=== PATIENT | female | born 1955 | race Caucasian/White ===

== ENCOUNTER 2016-08-23 02:58 | Inpatient (IN) | payer BC ==
[2016-08-23] MEDS ORDERED: ALBUTEROL NEBULIZED 2.5 MG/3 ML INHALATION STA (03:20)
[2016-08-23] MEDS ORDERED: predniSONE 20 MG TAB PO STA (03:20)
[2016-08-23] MEDS ORDERED: IPRATROPIUM-ALBUTEROL 3 ML NEB INHALATION STA (03:20)
--- NOTE | 2016-08-23 03:32 | ED ---
SOB HPI - General Chief Complaint: Shortness of Breath Stated Complaint: NANI Time Seen by Provider: 08/23/16 03:01 Source: patient Mode of arrival: EMS Limitations: physical limitation - History of Present Illness Initial Comments: This patient is a 61-year-old woman who comes to be evaluated for shortness of breath. The patient states that between 2 and 3 weeks ago she started having a bit of an upper respiratory infection. She then started having some cough and wheezing. She has seen her physician and had 2 courses of antibiotics as well as a Medrol Dosepak. She was feeling better briefly but over the past couple of days has noted that she is worsening. The patient does continue use her albuterol and home oxygen. She complains of wheezing, nonproductive cough, shortness of breath. Patient is not having fever or chills, chest pain, change in urination, bloody or dark tarry stools, leg pain or swelling. MD Complaint: shortness of breath, cough Onset/Timin -: week(s) Improves With: nothing Worsens With: nothing Known History Of: COPD Context: recent URI Associated Symptoms: cough Treatments Prior to Arrival: oxygen, bronchodilator - Related Data Home Oxygen Therapy: Yes Home Medications Medication Instructions Recorded Confirmed Montelukast Sodium 10 mg PO HS 02/07/15 11/28/15 buPROPion SR [Wellbutrin SR] 150 mg PO BID 02/21/15 11/28/15 Albuterol Inhaler [Ventolin Hfa 1 puff INHALATION DAILY PRN 11/28/15 11/28/15 Inhaler] Alendronate Sodium [Fosamax] 70 mg PO WE 11/28/15 11/28/15 Budesonide-Formot 160-4.5 Mcg 2 puff INHALATION BID 11/28/15 11/28/15 [Symbicort 160-4.5 Mcg Inhaler] Calcium Carbonate [Calcium] 900 mg PO DAILY 11/28/15 11/28/15 Cholecalciferol [Vitamin D3] 2,000 unit PO DAILY 11/28/15 11/28/15 Levocetirizine Dihydrochloride 5 mg PO QAM 11/28/15 11/28/15 Tiotropium [place] [Spiriva] 1 puff INHALATION DAILY 11/28/15 11/28/15 Tyvaso 9 puff INHALATION QID 11/28/15 11/28/15 Previous Rx's Medication Instructions Recorded Levofloxacin [Levaquin] 500 mg PO DAILY #5 tab 02/24/15 Allergies Allergy/AdvReac Type Severity Reaction Status Date / Time latex Allergy Unknown Rash/Hives Verified 08/23/16 03:04 nickel [Nickel] Allergy Unknown Rash/Hives Verified 08/23/16 03:04 nitrofurantoin Allergy Unknown Rash/Hives Verified 08/23/16 03:04 macrocrystalline [From Macrodantin] Penicillins Allergy Unknown Rash/Hives Verified 08/23/16 03:04 Review of Systems ROS Statement: Those systems with pertinent positive or pertinent negative responses have been documented in the HPI. ROS Other: All systems not noted in ROS Statement are negative. Constitutional: Denies: fever, chills Respiratory: Reports: cough, dyspnea, wheezes. Denies: hemoptysis Cardiovascular: Denies: chest pain, palpitations, edema Gastrointestinal: Denies: abdominal pain, nausea, vomiting Genitourinary: Denies: dysuria, hematuria Musculoskeletal: Denies: back pain Skin: Denies: rash Neurological: Denies: headache, weakness, numbness Past Medical History Past Medical History: COPD Additional Past Medical History / Comment(s): Suspected primary versus secondary pulmonay hypertension, precancerous colonic tumor, resected hydronephrosis, resolved, adrenal lesion/adenoma being monitored History of Any Multi-Drug Resistant Organisms: None Reported Past Surgical History: Bowel Resection, Tonsillectomy, Tubal Ligation Additional Past Surgical History / Comment(s): sigmoidoscopy, hemorrhoidectomy, breast bx, bowel resection with ileostomy, ILLEOSTOMY REVERSAL 01/18/14 Past Anesthesia/Blood Transfusion Reactions: No Reported Reaction, Family History of Problems w/ Anesthesia Additional Past Anesthesia/Blood Transfusion Reaction / Comment(s): SISTER WAS AWARE OF SURROUNDINGS WITH ANESTHESIA Past Psychological History: No Psychological Hx Reported Smoking Status: Former smoker Past Alcohol Use History: None Reported Additional Past Alcohol Use History / Comment(s): STARTED SMOKING two months ago 1-2 a day Past Drug Use History: None Reported - Past Family History Mother Family Medical History: Deep Vein Thrombosis (DVT), Pulmonary Embolus Additional Family Medical History / Comment(s): "BRAIN CLOT" Sister(s) Family Medical History: Cancer, Deep Vein Thrombosis (DVT), Pulmonary Embolus Additional Family Medical History / Comment(s): "BRAIN CLOT",thyroid ca General Exam Limitations: physical limitation General appearance: alert, in distress (Patient appears in mild respiratory distress, with tachypnea and accessory muscle use.) Head exam: Present: atraumatic, normocephalic Eye exam: Present: normal appearance. Absent: scleral icterus, conjunctival injection ENT exam: Present: normal oropharynx Respiratory exam: Present: respiratory distress (Mild tachypnea), wheezes, accessory muscle use, decreased breath sounds, prolonged expiratory. Absent: rales, rhonchi, stridor Cardiovascular Exam: Present: regular rate, normal rhythm, normal heart sounds. Absent: systolic murmur, diastolic murmur, rubs, gallop GI/Abdominal exam: Present: soft. Absent: distended, tenderness, guarding, rebound, mass Extremities exam: Present: normal inspection, normal capillary refill. Absent: pedal edema, calf tenderness Back exam: Present: normal inspection. Absent: CVA tenderness (R), CVA tenderness (L) Neurological exam: Present: alert Skin exam: Present: warm, dry, intact, normal color. Absent: rash Course Vital Signs 08/23/16 08/23/16 08/23/16 02:59 03:35 04:03 Temperature 97.9 F Pulse Rate 104 H 114 H 110 H Respiratory 24 Rate Blood Pressure 152/91 O2 Sat by Pulse 98 Oximetry Medical Decision Making - Lab Data Result diagrams: 08/23/16 03:05 08/23/16 03:05 Lab Results 08/23/16 08/23/16 08/23/16 Range/Units 03:05 03:05 03:05 WBC 12.1 H (3.8-10.6) k/uL RBC 4.52 (3.80-5.40) m/uL Hgb 13.0 (11.4-16.0) gm/dL Hct 41.3 (34.0-46.0) % MCV 91.4 (80.0-100.0) fL MCH 28.8 (25.0-35.0) pg MCHC 31.5 (31.0-37.0) g/dL RDW 13.0 (11.5-15.5) % Plt Count 279 (150-450) k/uL Neutrophils % 74 % Lymphocytes % 13 % Monocytes % 6 % Eosinophils % 4 % Basophils % 1 % Neutrophils # 8.9 H (1.3-7.7) k/uL Lymphocytes # 1.5 (1.0-4.8) k/uL Monocytes # 0.7 (0-1.0) k/uL Eosinophils # 0.5 (0-0.7) k/uL Basophils # 0.1 (0-0.2) k/uL Hypochromasia Slight D-Dimer (<0.60) mg/L FEU Sodium 136 L (137-145) mmol/L Potassium 4.1 (3.5-5.1) mmol/L Chloride 102 (98-107) mmol/L Carbon Dioxide 28 (22-30) mmol/L Anion Gap 6 mmol/L BUN 13 (7-17) mg/dL Creatinine 0.90 (0.52-1.04) mg/dL Est GFR (MDRD) Af Amer >60 (>60 ml/min/1.73 sqM) Est GFR (MDRD) Non-Af >60 (>60 ml/min/1.73 sqM) Glucose 106 H (74-99) mg/dL Calcium 8.6 (8.4-10.2) mg/dL Total Bilirubin 0.4 (0.2-1.3) mg/dL AST 24 (14-36) U/L ALT 25 (9-52) U/L Alkaline Phosphatase 38 (38-126) U/L Troponin I 0.418 H* (0.000-0.034) ng/mL NT-Pro-B Natriuret Pep pg/mL Total Protein 6.4 (6.3-8.2) g/dL Albumin 3.8 (3.5-5.0) g/dL 08/23/16 08/23/16 Range/Units 03:05 03:05 WBC (3.8-10.6) k/uL RBC (3.80-5.40) m/uL Hgb (11.4-16.0) gm/dL Hct (34.0-46.0) % MCV (80.0-100.0) fL MCH (25.0-35.0) pg MCHC (31.0-37.0) g/dL RDW (11.5-15.5) % Plt Count (150-450) k/uL Neutrophils % % Lymphocytes % % Monocytes % % Eosinophils % % Basophils % % Neutrophils # (1.3-7.7) k/uL Lymphocytes # (1.0-4.8) k/uL Monocytes # (0-1.0) k/uL Eosinophils # (0-0.7) k/uL Basophils # (0-0.2) k/uL Hypochromasia D-Dimer 0.30 (<0.60) mg/L FEU Sodium (137-145) mmol/L Potassium (3.5-5.1) mmol/L Chloride (98-107) mmol/L Carbon Dioxide (22-30) mmol/L Anion Gap mmol/L BUN (7-17) mg/dL Creatinine (0.52-1.04) mg/dL Est GFR (MDRD) Af Amer (>60 ml/min/1.73 sqM) Est GFR (MDRD) Non-Af (>60 ml/min/1.73 sqM) Glucose (74-99) mg/dL Calcium (8.4-10.2) mg/dL Total Bilirubin (0.2-1.3) mg/dL AST (14-36) U/L ALT (9-52) U/L Alkaline Phosphatase (38-126) U/L Troponin I (0.000-0.034) ng/mL NT-Pro-B Natriuret Pep 141 pg/mL Total Protein (6.3-8.2) g/dL Albumin (3.5-5.0) g/dL Disposition Clinical Impression: Acute exacerbation of chronic obstructive airways disease, Elevated troponin I level Disposition: ADMITTED IP TO THIS HOSP Condition: Poor
[2016-08-23 03:50] LABS: Basophils # (A) 0.1 k/uL (0-0.2); Basophils % (A) 1 %; CH 28.2; CHCM 30.9; Eosinophils # (A) 0.5 k/uL (0-0.7); Eosinophils % (A) 4 %; HCT 41.3 % (34.0-46.0); HDW 2.19; Hypochromasia Slight; Luc # (Auto) 0.23; Luc % (Auto) 2; Lymphocytes # (A) 1.5 k/uL (1.0-4.8); Lymphocytes % (A) 13 %; MCH 28.8 pg (25.0-35.0); MCHC 31.5 g/dL (31.0-37.0); MCV 91.4 fL (80.0-100.0); Mean Platelet Volume 7.2; Monocytes # (A) 0.7 k/uL (0-1.0); Monocytes % (A) 6 %; Neutrophils # (A) 8.9 k/uL (1.3-7.7); Neutrophils % (A) 74 %; RBC 4.52 m/uL (3.80-5.40); WBC 12.1 k/uL (3.8-10.6); WBC (Perox) 12.67
[2016-08-23 03:57] LABS: ALT 25 U/L (9-52); AST 24 U/L (14-36); Alkaline Phosphatase 38 U/L (38-126); Anion Gap 6 mmol/L; Blood Urea Nitrogen 13 mg/dL (7-17); Calcium 8.6 mg/dL (8.4-10.2); Carbon Dioxide 28 mmol/L (22-30); Chloride 102 mmol/L (98-107); Glucose 106 mg/dL (74-99); Non-African American GFR(MDRD) >60 (>60 ml/min/1.73 sqM); Potassium 4.1 mmol/L (3.5-5.1); Sodium 136 mmol/L (137-145); Total Bilirubin 0.4 mg/dL (0.2-1.3); Total Protein 6.4 g/dL (6.3-8.2)
[2016-08-23] MEDS ORDERED: HEPARIN SODIUM,PORCINE 5,000 UNIT/ML 1 ML VIAL IV ONE (04:49)
[2016-08-23] MEDS ORDERED: HEPARIN SODIUM,PORCINE 5,000 UNIT/ML 1 ML VIAL IV PRN (04:49)
--- NOTE | 2016-08-23 04:51 | XR ---
EXAM: XR Chest, 1 View CLINICAL HISTORY: Reason: dyspnea TECHNIQUE: Frontal view of the chest. COMPARISON: No relevant prior studies available. FINDINGS: Lungs: Pulmonary hyperexpansion. Bibasilar opacities may be secondary to overlying soft tissues. Atelectasis or consolidation not entirely excluded. A 1 cm nodular density projecting over the right medial fifth rib is present. Pleural space: No pneumothorax. Heart: Unremarkable. No cardiomegaly. Mediastinum: Unremarkable. Bones/joints: Unremarkable. Vasculature: Atherosclerotic plaquing in the aortic arch. IMPRESSION: 1. Pulmonary hyperexpansion likely reflects chronic obstructive pulmonary disease. 2. Bibasilar opacities may be secondary to overlying soft tissues. Atelectasis or consolidation not excluded. Consider correlation with lateral chest radiograph for further assessment. 3. No pleural effusion or pneumothorax. 4. 1 cm nodular density projecting over the right medial fifth rib was not clearly present on prior. While findings could be external to the chest, a pulmonary nodule is not excluded. Nonemergent/outpatient followup chest CT recommended for further assessment. [employer] 08/23/16 04:57 Verify Receipt Verified receipt with Radha in the ER, report handed to Dr. Portillo on 08/23 04:57 (-04:00)
[2016-08-23] MEDS ORDERED: IPRATROPIUM-ALBUTEROL 3 ML NEB INHALATION PRN (04:55)
[2016-08-23 05:14] LABS: INR 1.1 (<1.1); Partial Thromboplastin Time 23.8 sec (22.0-30.0)
[2016-08-23] MEDS: HEPARIN SODIUM,PORCINE/D5W PMX 25,000 UNIT in DEXTROSE/WATER 1 500ML.BAG IV SCH (05:19)
[2016-08-23] MEDS: ALBUTEROL NEBULIZED 2.5 MG/3 ML INHALATION SCH ×4 (08:18→20:25)
[2016-08-23] MEDS: SYMBICORT 160-4.5 MCG INHALER INHALATION SCH ×2 (08:18→20:25)
[2016-08-23] MEDS: TIOTROPIUM 18 MCG/PUFF INHALER INHALATION SCH (08:37)
[2016-08-23] MEDS: buPROPion SR 150 MG TABLET.ER PO SCH ×2 (08:38→20:46)
[2016-08-23] MEDS: CALCIUM CARBONATE 500 MG CHEWABLE PO SCH (08:38)
[2016-08-23] MEDS: LORATADINE 10 MG TAB PO SCH (08:39)
[2016-08-23] MEDS: CHOLECALCIFEROL 1,000 UNIT TAB PO SCH (08:39)
--- NOTE | 2016-08-23 12:06 | P.CRDCN ---
History of Present Illness Consult date: 08/23/16 Requesting physician: George Connelly Reason for Consult (text): Chest tightness and shortness of breath Chief complaint: Chest tightness and shortness of breath History of present illness: This is a pleasant 61-year-old female with history of COPD, pulmonary hypertension, being followed at [facility], prior nicotine dependence, prior colon cancer with ileostomy, strong family history of premature coronary artery disease. She presents to the hospital with symptoms of severe shortness of breath, she states that her chest becomes extremely tight and she is unable to get air in. She also describes that this is much different than her usual exacerbation of COPD. She has recently as an outpatient been treated for an upper respiratory infection with not much significant improvement. KG on admission shows a sinus tachycardia with PVCs, significant artifact. Troponin 0.41, subsequent troponin 2.18. BNP 141. Sodium 136, potassium 4.1, BUN 13, creatinine 0.9. D-dimer 0.3. White Blood cell count 12.1. Blood pressure on arrival 152/90, heart rate 104, 98% on 8 L oxygen. His morning blood pressure 101/60, heart rate 104, 95% on 4 L of oxygen. Chest x-ray reveals pulmonary hyperexpansion likely secondary to COPD. Bibasilar obesity secondary to overlying soft tissues. Atelectasis or consolidation excluded. No pleural effusion or pneumothorax. 1 cm nodule density projecting over the right medial fifth rib not clearly present on prior. Patient lost her approximately one month ago, 2 weeks ago she lost a sister to cardiac arrest, he's been under significant amount of stress. Patient is on the lung transplant list at [facility]. Past Medical History Past Medical History: COPD, Respiratory Disorder Additional Past Medical History / Comment(s): Recent tx for URI, primary versus secondary pulmonary hypertension-currently on tyvaso treatments-has had some work-up done to be on lung transplant list thru [facility], home O2 at 3L/NC ATC, dysphagia-feels like food gets caught in low end esophagus-pt states she will eventually be worked up at [facility] for this-she drinks a gulp of water to force food down, hiatal hernia, esophagitis, precancerous colonic tumor with sx, hydronephrosis with adhesions resolved with surgery/stent, adrenal lesion/ adenoma being monitored, osteoporosis. History of Any Multi-Drug Resistant Organisms: None Reported Past Surgical History: Bladder Surgery, Bowel Resection, Tonsillectomy, Tubal Ligation Additional Past Surgical History / Comment(s): colonoscopies, sigmoidoscopy, EGD , hemorrhoidectomy, breast bx x 2 pt does not recall laterality, bowel resection with ileostomy, ILLEOSTOMY REVERSAL 01/18/14, cystoscopy with R ureteral stent. Past Anesthesia/Blood Transfusion Reactions: No Reported Reaction, Family History of Problems w/ Anesthesia Additional Past Anesthesia/Blood Transfusion Reaction / Comment(s): SISTER WAS AWARE OF SURROUNDINGS WITH ANESTHESIA Past Psychological History: Depression Additional Psychological History / Comment(s): Pt was started on Wellbutrin to aid in stopping smoking, she decided to stay on it after quitting smoking because she felt better. Pt states she feels like she may need more help with her depression-it has increased some recently. She has had 2 significant deaths in the past few months-her spouse and her sister and she feels this is likely the source of her increased depression. She denies any suicidal thoughts. She is from a large family of 18 children. She lives at home and assists in the care of her brother who has down's syndrome. Her granddaughter has recently moved in with them to assist as well. She has home oxygen and a nebulizer. Pt mentioned that since her spouses her financial status has declined. She stated that she may no longer be able to afford pursuing her lung transplant and once she reaches 64yrs and goes on Medicare, she will not be able to afford her Tyvaso treatments. No home care. Smoking Status: Former smoker Past Alcohol Use History: None Reported Additional Past Alcohol Use History / Comment(s): Pt started smoking in 1974 and quit in January 2015. Past Drug Use History: None Reported - Past Family History Father Family Medical History: COPD, Myocardial Infarction (IN) Additional Family Medical History / Comment(s): Father had severe COPD. He of a IN at the age of 69yrs. Mother Family Medical History: Deep Vein Thrombosis (DVT), Pulmonary Embolus Additional Family Medical History / Comment(s): "BRAIN CLOT" Sister(s) Family Medical History: Deep Vein Thrombosis (DVT), Pulmonary Embolus Additional Family Medical History / Comment(s): Pt is from a large family (18 children) and there is alot of DVT's and cerebral thrombosis in the family. Several family members have cardiolipin antibody. Medications and Allergies Home Medications Medication Instructions Recorded Confirmed Type Montelukast Sodium 10 mg PO HS 02/07/15 08/23/16 History buPROPion SR [Wellbutrin SR] 150 mg PO BID 02/21/15 08/23/16 History Albuterol Inhaler [Ventolin Hfa 1 puff INHALATION RT-Q4H PRN 11/28/15 08/23/16 History Inhaler] Alendronate Sodium [Fosamax] 70 mg PO WE 11/28/15 08/23/16 History Budesonide-Formot 160-4.5 Mcg 2 puff INHALATION RT-BID 11/28/15 08/23/16 History [Symbicort 160-4.5 Mcg Inhaler] Calcium Carbonate [Calcium] 900 mg PO DAILY 11/28/15 08/23/16 History Cholecalciferol [Vitamin D3] 1,000 unit PO DAILY 11/28/15 08/23/16 History Levocetirizine Dihydrochloride 5 mg PO QAM 11/28/15 08/23/16 History Tiotropium [place] [Spiriva] 1 cap INHALATION RT-DAILY 11/28/15 08/23/16 History Tyvaso 9 puff INHALATION RT-QID 11/28/15 08/23/16 History Allergies Allergy/AdvReac Type Severity Reaction Status Date / Time latex Allergy Unknown Rash/Hives Verified 08/23/16 07:31 nickel [Nickel] Allergy Unknown Rash/Hives Verified 08/23/16 07:31 nitrofurantoin Allergy Unknown Rash/Hives Verified 08/23/16 07:31 macrocrystalline [From Macrodantin] Penicillins Allergy Unknown Rash/Hives Verified 08/23/16 07:31 Physical Exam Vitals: Vital Signs Temp Pulse Resp BP Pulse Ox 08/23/16 11:16 104 H 08/23/16 11:03 100 08/23/16 10:29 97.0 F L 63 18 101/68 08/23/16 10:00 97.0 F L 93 20 121/68 95 08/23/16 09:00 97.0 F L 104 H 20 113/64 96 08/23/16 08:40 97.4 F L 104 H 18 112/67 95 08/23/16 08:30 108 H 08/23/16 08:20 103 H 08/23/16 07:00 97.1 F L 111 H 20 107/56 95 08/23/16 06:49 105 H 22 107/76 98 Intake and Output 08/22/16 08/23/16 08/23/16 22:59 06:59 14:59 Other: # Voids 1 Weight 0 g Patient Weight 08/24/16 06:59 Weight 0 g PHYSICAL EXAMINATION: HEENT: Head is atraumatic, normocephalic. Pupils equal, round. Neck is supple. There is no elevated jugular venous pressure. HEART EXAMINATION: Heart S1, S2 normal. No murmur or gallop heard. CHEST EXAMINATION: We have decreased air exchange throughout. ABDOMEN: Soft, nontender. Bowel sounds are heard. No organomegaly noted. EXTREMITIES: 2+ peripheral pulses with no evidence of peripheral edema and no calf tenderness noted. NEUROLOGIC patient is awake, alert and oriented -3. . Results 08/23/16 03:05 08/23/16 03:05 Cardiac Enzymes 08/23/16 Range/Units 09:05 Troponin I 2.180 H* (0.000-0.034) ng/mL Current Medications Generic Name Dose Route Start Last Admin Trade Name Freq PRN Reason Stop Dose Admin Albuterol Sulfate 2.5 mg 08/23/16 08:00 08/23/16 11:02 Ventolin Nebulized INHALATION 2.5 mg RT-QID TOMASZ Administration Albuterol/Ipratropium 3 ml 08/23/16 04:55 Duoneb 0.5 Mg-3 Mg/3 Ml Soln INHALATION RT-Q4H PRN Shortness Of Breath Or Wheezing Budesonide/Formoterol Fumarate 2 puff 08/23/16 08:00 08/23/16 08:18 Symbicort 160-4.5 Mcg Inhaler INHALATION 2 puff RT-BID TOMASZ Administration Bupropion HCl 150 mg 08/23/16 09:00 08/23/16 08:38 Wellbutrin Sr PO 150 mg BID TOMASZ Administration Calcium Carbonate/Glycine 1,000 mg 08/23/16 09:00 08/23/16 08:38 Tums PO 1,000 mg DAILY TOMASZ Administration Cholecalciferol 2,000 unit 08/23/16 09:00 08/23/16 08:39 Vitamin D3 PO 2,000 unit DAILY TOMASZ Administration Heparin Sodium (Porcine) 0 unit 08/23/16 04:49 Heparin IV PER PROTOCOL PRN Low PTT Protocol Heparin Sodium/Dextrose 25,000 500 mls @ 15.24 mls/hr 08/23/16 05:00 05:19 unit/ IV Solution IV 12 units/kg/hr .Q24H TOMASZ 15.24 mls/hr Protocol Administration 12 UNITS/KG/HR Loratadine 10 mg 08/23/16 09:00 08/23/16 08:39 Claritin PO 10 mg QAM TOMASZ Administration Montelukast Sodium 10 mg 08/23/16 21:00 Singulair PO HS TOMASZ Non-Formulary Medication 9 puff 08/23/16 09:00 Tyvaso INHALATION QID TOMASZ Prednisone 40 mg 08/23/16 09:00 PO DAILY TOMASZ Sodium Chloride 10 ml 08/23/16 09:00 08/23/16 11:18 Saline Flush IV Not Given BID TOMASZ Tiotropium [place] 1 puff 08/23/16 08:00 08/23/16 08:37 Spiriva INHALATION 1 puff RT-DAILY TOMASZ Administration Intake and Output 08/22/16 08/23/16 08/23/16 22:59 06:59 14:59 Other: # Voids 1 Weight 0 g Patient Weight 08/24/16 06:59 Weight 0 g EKG Interpretations (text) EKG shows a this tachycardia with occasional PVC, significant artifact. Assessment and Plan Plan: Assessment and plan #1 symptoms of progressively worsening chest tightness with associated difficulty in breathing. Troponins 0.41, 2.1. Small non-Q-wave myocardial infarction. EKG shows sinus tachycardia with occasional PVC, significant artifact. According to the patient she did have a cardiac catheterization in 2013 at [facility] as part of her workup in the pulmonary hypertension clinic. She was not told to have any significant blockage at that time. #2 COPD #3 severe pulmonary hypertension #4 prior nicotine dependence #5 family history of premature coronary artery disease #6 history of colon cancer with prior ileostomy Plan We will obtain an echocardiogram with Doppler study. Obtain EKG. We will also request a third troponin value be obtained. Change records from the pulmonary hypertension clinic at [facility]. We will give the patient an aspirin as well as Lipitor. Further recommendations to follow. DNP note has been reviewed, I agree with a documented findings and plan of care. Patient was seen and examined.
[2016-08-23 12:10] LABS: Basophils % (A) 0 %; CH 28.4; CHCM 30.6; Eosinophils % (A) 0 %; HCT 41.9 % (34.0-46.0); HGB 12.9 gm/dL (11.4-16.0); Hypochromasia Slight; Luc # (Auto) 0.04; Luc % (Auto) 1; Lymphocytes # (A) 0.4 k/uL (1.0-4.8); Lymphocytes % (A) 5 %; MCH 28.8 pg (25.0-35.0); MCHC 30.9 g/dL (31.0-37.0); MCV 93.1 fL (80.0-100.0); Monocytes # (A) 0.1 k/uL (0-1.0); Monocytes % (A) 1 %; Neutrophils # (A) 7.3 k/uL (1.3-7.7); Neutrophils % (A) 93 %; WBC 7.8 k/uL (3.8-10.6); WBC (Perox) 8.61
[2016-08-23] MEDS ORDERED: ALPRAZolam 0.5 MG TAB PO PRN (12:30)
[2016-08-23] MEDS ORDERED: NITROGLYCERIN SL TABS 0.4 MG TAB SUBLINGUAL PRN (12:30)
[2016-08-23] MEDS ORDERED: SODIUM CHLORIDE 0.9% 1,000 ML in EMPTY BAG 1 BAG IV ONE (12:30)
[2016-08-23] MEDS: predniSONE 20 MG TAB PO SCH (12:43)
[2016-08-23] MEDS ORDERED: ASPIRIN 325 MG TAB PO SCH (13:00)
[2016-08-23] MEDS: ATORVASTATIN 80 MG TAB PO SCH (13:04)
[2016-08-23] MEDS ORDERED: SODIUM CHLORIDE 0.9% 1,000 ML IV ONE (14:05)
[2016-08-23] MEDS ORDERED: MIDAZOLAM 2 MG/2 ML VIAL IV ONE (14:18)
[2016-08-23] MEDS ORDERED: fentaNYL (PF) 50 MCG/ML 2 ML AMP IV ONE (14:18)
[2016-08-23] MEDS ORDERED: LIDOCAINE 2% INJ 20 MG/ML SQ ONE (14:22)
--- NOTE | 2016-08-23 14:29 | ECHOF ---
Referral Reason:[facility] MEASUREMENTS -------- HEIGHT: 170.2 cm WEIGHT: 63.5 kg BP: IVSd: 1.3 cm (0.6 - 1.1) LVIDd: 4.9 cm (3.9 - 5.3) LVPWd: 0.9 cm (0.6 - 1.1) LVIDs: 4.0 cm LA Diam: 3.7 cm (2.7 - 3.8) Ao Diam: 3.3 cm (2.0 - 3.7) LA Diam: 3.3 cm (2.7 - 3.8) AV Cusp: 1.6 cm (1.5 - 2.6) EPSS: 1.7 cm MV E Waqas: 0.66 m/s MV DecT: 193 ms MV A Waqas: 1.01 m/s MV E/A Ratio: 0.65 RAP: 5.00 mmHg RVSP: 16.07 mmHg MV EF SLOPE: 111.27 mm/s (70 - 150) MV EXCURSION: 20.17 mm (> 18.000) FINDINGS -------- Sinus rhythm. This was a technically adequate study. Left ventricular wall thickness is normal. There is severe global hypokinesis of LV . Overall left ventricular systolic function is severely impaired with, an EF < 20%. Possible Takotsubo. The right ventricle is normal in size. The right atrial size is normal. There is mild aortic valve sclerosis. There is no evidence of aortic regurgitation. Mild mitral annular calcification present. Mild mitral regurgitation is present. Mild tricuspid regurgitation present. There is no evidence of pulmonary hypertension. The right ventricular systolic pressure, as measured by Doppler, is 16.07mmHg. There is no pulmonic regurgitation present. The aortic root size is normal. There is no pericardial effusion. CONCLUSIONS -------- 1. Left ventricular wall thickness is normal. 2. The right ventricular systolic pressure, as measured by Doppler, is 16.07mmHg. 3. There is no pericardial effusion. 4. There is severe global hypokinesis of LV . 5. Overall left ventricular systolic function is severely impaired with, an EF < 20%. 6. Possible Takotsubo. 7. There is mild aortic valve sclerosis. 8. Mild mitral annular calcification present. 9. Mild mitral regurgitation is present. 10. Mild tricuspid regurgitation present. 11. There is no evidence of pulmonary hypertension. [place] OPERATOR: Suzanne Campoverde RDCS
[2016-08-23] MEDS ORDERED: IOHEXOL 350 MG/ML 125ML BOTTLE INJ ONE (14:39)
[2016-08-23] MEDS ORDERED: RX INFO: IV CONTRAST WAS GIVEN 1 EACH MISC MISCELLANE PRN (14:40)
--- NOTE | 2016-08-23 14:56 | P.PCN ---
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 Postoperative Diagnosis: Normal coronary arteries. Findings consistent with apical ballooning syndrome Procedure(s) Performed: Left heart catheterization without left ventriculography Operative Findings: HISTORY: This is a 61-year-old femalewith history of severe pulmonary hypertension, COPD, colon cancer and chronic smoking was under a lot of stress because of family issues came to the hospital with severe chest tightness and shortness of breath. Her cardiac enzyme studies showed elevation of the troponins consistent with non-ST elevation microinfarction. Echocardiogram showed severe LV dysfunction in the anteroapical and inferoapical segments consistent with apical ballooning syndrome. Patient is advised to have a cardiac catheterization for definitive diagnosis. CONSENT:I have discussed the risks, benefits and alternative therapies for the above-mentioned procedure and for both sedation/analgesia as well as necessary blood product administration, if indicated, as they pertain to this patient. The patient has indicated understanding and acceptance of the risks and procedures discussed. PROCEDURE: Patient was brought to the lab in a fasting state. Patient was given some IV sedation. The right groin is infiltrated with lidocaine and right femoral artery was entered using Seldinger technique. A 6-Greenlandic catheter was left in place and selective coronary arteriography was performed. Patient tolerated the procedure well. Femoral angiogram was performed and Angio-Seal was applied for hemostasis. No immediate complications were noted and patient was transferred to [facility] in a stable condition HEMODYNAMICS:The aortic pressure is 110/70. SELECTIVE CORONARY ARTERIOGRAPHY: LEFT MAIN:normal and patent THE LEFT ANTERIOR DESCENDING CORONARY ARTERY:is a good caliber vessel giving rise to several diagonal septal branches. This is free of any significant focal occlusive disease. THE LEFT CIRCUMFLEX AND IS CORONARY ARTERY:this is a fairly caliber vessel giving rise to 2 OM branches in the PLV branch. Free of any significant focal occlusive disease THE RIGHT CORONARY ARTERY:this is a good caliber vessel and codominant and free of any occlusive disease LEFT VENTRICULOGRAPHY:not performed FINAL IMPRESSION:#1. Apical ballooning syndrome #2. Mild plaque without any critical coronary artery disease PLAN:maximum medical therapy and this factor modification. Beta blockers and MOY inhibitor PROGNOSIS:guarded
--- NOTE | 2016-08-23 14:59 | HP ---
DATE OF ADMISSION: Patient is a very pleasant 61-year-old female with history of COPD and advanced pulmonary hypertension secondary to COPD follows with the [facility] and came in with complaints of shortness of breath along with chest pressure-like sensation, lasted for a few hours and found to be in [id number] myocardial infarction with the first initial troponin being 0.418 and the second one being 2.180. Patient was complaining of minimal cough with yellowish sputum production. Patient denied any fever, chills. Patient denied any nausea, vomiting and patient is diagnosed with wel-IO-vxcuuuofo myocardial infarction. Patient is on IV heparin, is going for cardiac catheterization today. Patient denied any lightheadedness patient uses 3 L of oxygen at home, now on 4 L saturating at 92% and chest x-ray did not show any pneumonic process except for 1 cm nodular density projecting in the right medial fifth rib which was not clearly present during previous admissions because of which I am consulting Pulmonary and COPD changes on the chest x-ray. REVIEW OF SYSTEMS: CONSTITUTIONAL: No fever, no malaise, no fatigue. HEENT: No recent visual problems or hearing problems. Denied any sore throat. CARDIOVASCULAR: As described in HPI. PULMONARY: As described HPI. GASTROINTESTINAL: No diarrhea, no nausea, no vomiting, no abdominal pain. Normoactive bowel sounds. NEUROLOGICAL: No headaches, no weakness, no numbness. HEMATOLOGICAL: Denies any bleeding or petechiae. GENITOURINARY: Denies any burning micturition, frequency, or urgency. MUSCULOSKELETAL/RHEUMATOLOGICAL: Denies any joint pain, swelling, or any muscle pain. ENDOCRINE: Denies any polyuria or polydipsia. The rest of the 14 point review of systems is negative. PAST MEDICAL HISTORY: COPD, advanced pulmonary fibrosis, bowel resection surgery, tubal ligation surgery. Patient has colonoscopy, sigmoidoscopy, EGD, hemorrhoidectomy, breast biopsies in the past. SOCIAL HISTORY: Former smoker. Quit smoking in January 2015, denied any alcohol abuse or any drug abuse. FAMILY HISTORY: Father had COPD, myocardial infarction. Mother had DVT, pulmonary embolus in the past. Sister had DVT and pulmonary embolus. Home medications include: 1. Montelukast. 2. Bupropion. 3. Albuterol. 4. Alendronate. 5. Budesonide. 6. Formoterol. 7. Calcium carbonate. 8. Cholecalciferol. 9. Levocetirizine. 10. Tiotropium. 11. Tyvaso. ALLERGIES: Allergic to LATEX, NICKEL, NITROFURANTOIN, PENICILLINS. PHYSICAL EXAMINATION: VITAL SIGNS: Temperature 98.0, pulse of 104, respiratory rate of 20, blood pressure is 101/68, saturating at 92% on 4 L of O2 by nasal cannula. LUNG EXAMINATION: Minimal expiratory wheezing was appreciated. No crackles were appreciated. GENERAL: The patient is alert and oriented x3, not in any acute distress. Well developed, well nourished. HEENT: Pupils are round and equally reacting to light. EOMI. No scleral icterus. No conjunctival pallor. Normocephalic, atraumatic. No pharyngeal erythema. No thyromegaly. CARDIOVASCULAR: S1 and S2 present. No murmurs, rubs, or gallops. ABDOMEN: Soft, nontender, nondistended, normoactive bowel sounds. No palpable organomegaly. MUSCULOSKELETAL: No joint swelling or deformity. EXTREMITIES: No cyanosis, clubbing, or pedal edema. NEUROLOGICAL: Gross neurological examination did not reveal any focal deficits. SKIN: No rashes. LABORATORY DATA: CBC, CMP are abnormal for elevated WBC count of 12,100, which is coming down which is reactive leukocytosis. Chest x-ray as mentioned above. ASSESSMENT AND PLAN: 1. Ndx-TD-mkucszmzs myocardial infarction. Patient is undergoing cardiac catheterization today. 2. Acute on chronic hypercapnic respiratory failure, secondary to chronic obstructive pulmonary disease exacerbation. Patient is on systemic steroids, inhalational treatments. Will add doxycycline for possible bronchitis. 3. Severe pulmonary hypertension. Follow up as an outpatient. 4. Leukocytosis, reactive response without any significant signs or symptoms of pneumonia. 5. Pulmonary nodule, will get Pulmonary to see the patient. Patient follows with Dr. Pabon and Dr. Garvey is covering for Dr. Pabon this week who will be consulted. Patient follows with Dr. Cristobal Ramsey as an outpatient.
[2016-08-23] MEDS: LISINOPRIL 2.5 MG TAB PO SCH (19:29)
[2016-08-23] MEDS: DOXYCYCLINE 50 MG CAP PO SCH ×2 (19:30→20:46)
[2016-08-23] MEDS: SODIUM CHLORIDE 0.9% 1,000 ML IV SCH (19:31)
[2016-08-23] MEDS: MONTELUKAST 10 MG TAB PO SCH (20:47)
[2016-08-23] MEDS: METOPROLOL TARTRATE 12.5 MG TAB PO SCH (20:47)
[2016-08-23] MEDS: ALPRAZolam 0.25 MG TAB PO PRN (23:33)
[2016-08-24] MEDS: SODIUM CHLORIDE 0.9% 1,000 ML IV SCH ×2 (06:24→14:52)
[2016-08-24] MEDS: HEPARIN SODIUM,PORCINE/D5W PMX 25,000 UNIT in DEXTROSE/WATER 1 500ML.BAG IV SCH (06:25)
[2016-08-24 06:49] LABS: Basophils % (A) 0 %; CH 28.7; CHCM 31.2; Eosinophils # (A) 0.2 k/uL (0-0.7); Eosinophils % (A) 2 %; HCT 37.6 % (34.0-46.0); HDW 2.25; Luc % (Auto) 2; Lymphocytes # (A) 1.4 k/uL (1.0-4.8); Lymphocytes % (A) 16 %; MCH 29.5 pg (25.0-35.0); MCV 92.4 fL (80.0-100.0); Mean Platelet Volume 7.1; Monocytes # (A) 0.6 k/uL (0-1.0); Monocytes % (A) 7 %; Neutrophils # (A) 6.5 k/uL (1.3-7.7); Neutrophils % (A) 73 %; RBC 4.07 m/uL (3.80-5.40); RDW 13.1 % (11.5-15.5); WBC 8.9 k/uL (3.8-10.6); WBC (Perox) 9.15
[2016-08-24] MEDS: ALBUTEROL NEBULIZED 2.5 MG/3 ML INHALATION SCH ×4 (08:13→20:48)
[2016-08-24] MEDS: SYMBICORT 160-4.5 MCG INHALER INHALATION SCH ×2 (08:13→20:48)
[2016-08-24] MEDS: TIOTROPIUM 18 MCG/PUFF INHALER INHALATION SCH (08:14)
[2016-08-24] MEDS: TYVASO 0.6 MG/ML INHALATION SCH ×4 (09:11→23:35)
[2016-08-24] MEDS: CHOLECALCIFEROL 1,000 UNIT TAB PO SCH (09:11)
[2016-08-24] MEDS: CALCIUM CARBONATE 500 MG CHEWABLE PO SCH (09:11)
[2016-08-24] MEDS: LISINOPRIL 2.5 MG TAB PO SCH ×2 (09:12→12:32)
[2016-08-24] MEDS: predniSONE 20 MG TAB PO SCH (09:12)
[2016-08-24] MEDS: buPROPion SR 150 MG TABLET.ER PO SCH ×2 (09:12→21:01)
[2016-08-24] MEDS: LORATADINE 10 MG TAB PO SCH (09:12)
[2016-08-24] MEDS: DOXYCYCLINE 50 MG CAP PO SCH (09:12)
[2016-08-24] MEDS: METOPROLOL TARTRATE 12.5 MG TAB PO SCH ×3 (09:12→21:01)
[2016-08-24] MEDS: ATORVASTATIN 80 MG TAB PO SCH (09:13)
[2016-08-24] MEDS: ALPRAZolam 0.25 MG TAB PO PRN ×2 (10:05→18:45)
[2016-08-24] MEDS: ASPIRIN 81 MG CHEW PO SCH (10:47)
--- NOTE | 2016-08-24 11:47 | P.PN ---
Subjective Principal diagnosis: Chest tightness This is a pleasant 61-year-old female with history of COPD, pulmonary hypertension, being followed at [facility], prior nicotine dependence, prior colon cancer with ileostomy, strong family history of premature coronary artery disease. She presents to the hospital with symptoms of severe shortness of breath, she states that her chest becomes extremely tight and she is unable to get air in. She also describes that this is much different than her usual exacerbation of COPD. She has recently as an outpatient been treated for an upper respiratory infection with not much significant improvement. KG on admission shows a sinus tachycardia with PVCs, significant artifact. Troponin 0.41, subsequent troponin 2.18. Patient lost her approximately one month ago, 2 weeks ago she lost a sister to cardiac arrest, he's been under significant amount of stress. Patient is on the lung transplant list at [facility]. Patient was taken to the cardiac catheterization lab yesterday where she was found to have normal coronary arteries, findings consistent with apical ballooning syndrome. Echocardiogram with Doppler study was performed which revealed severe global hypokinesia and an overall ejection fraction of less than 20%. Patient was initiated on low-dose MOY inhibitor, beta kamille, baby aspirin, and statin. She was seen and examined this morning, she does state overall that her breathing is somewhat improved, she denies any further chest tightness. Blood pressure this morning 82/48 with a heart rate in the 80s. She is 95% on 3 L of oxygen. Patient did have a run of what initially appeared to be possible torsades this morning, this was reviewed by Dr. Castillo and felt to be artifact. She is currently on 12-1/2 mg of Lopressor, if the blood pressure improves, we will consider increasing the dose. Patient will require a LifeVest prior to her discharge from the hospital. We will continue to monitor for the next 48- 72 hours. Objective - Vital Signs Vital signs: Vital Signs Temp 98.0 F 08/24/16 04:00 Pulse 88 08/24/16 08:24 Resp 19 08/24/16 08:00 BP 82/48 08/24/16 08:00 Pulse Ox 95 08/24/16 08:00 Intake & Output 08/23/16 08/24/16 08/24/16 18:59 06:59 18:59 Intake Total 310 1375 480 Balance 310 1375 480 Weight 63.4 kg 63.5 kg Intake: IV 50 975 Sodium Chloride 0.9% 1, 975 000 ml @ 75 mls/hr IV . [id number] [facility] Rx#:[id number] Oral 260 400 480 Other: Voiding Method Toilet # Voids 1 3 - Exam PHYSICAL EXAMINATION: HEENT: Head is atraumatic, normocephalic. Pupils equal, round. Neck is supple. There is no elevated jugular venous pressure. HEART EXAMINATION: Heart S1, S2 normal. No murmur or gallop heard. CHEST EXAMINATION: Lungs reveal decreased air exchange throughout. With scattered coarse wheezes ABDOMEN: Soft, nontender. Bowel sounds are heard. No organomegaly noted. Right groin soft, no hematoma. EXTREMITIES: 2+ peripheral pulses with no evidence of peripheral edema and no calf tenderness noted. NEUROLOGIC patient is awake, alert and oriented -3. - Labs CBC & Chem 7: 08/24/16 06:09 08/23/16 03:05 Labs: Abnormal Lab Results - Last 24 Hours (Table) 08/23/16 08/23/16 Range/Units 11:43 11:45 MCHC 30.9 L (31.0-37.0) g/dL Lymphocytes # 0.4 L (1.0-4.8) k/uL APTT 35.5 H (22.0-30.0) sec Assessment and Plan (1) Non-Q wave infarction Status: Acute (2) Takotsubo cardiomyopathy Status: Acute (3) S/P cardiac catheterization Status: Acute (4) Pulmonary hypertension Status: Acute (5) Family history of early CAD Status: Acute (6) COPD (chronic obstructive pulmonary disease) Status: Acute (7) Nicotine dependence Status: Acute (8) Hx of colon cancer, stage I Status: Acute Plan: Etiology's perspective, we will continue with the Lopressor 12-1/2 mg daily, along with 2.5 mg of MOY inhibitor. If the patient's pressure tolerates consider increasing the dose of beta kamille. Patient will require a LifeVest prior to discharge. Continue to monitor for 48-72 hours. DNP note has been reviewed, I agree with a documented findings and plan of care. Patient was seen and examined.
--- NOTE | 2016-08-24 12:24 | P.CNPUL ---
History of Present Illness Consult date: 08/24/16 Reason for consult: dyspnea History of present illness: A very pleasant 61-year-old female patient with known history of COPD, pulmonary hypertension, who has been followed up at [facility] and been treated with inhaled Tyvaso for many years in regards to pulmonary hypertension and she has been followed up by Dr. Hannah Fulton in this regard. This patient has been having difficulty breathing for the past 2-3 weeks. She has been treated with course of antibiotics and steroids for her primary care physician treating an acute COPD exacerbation and acute bronchitis. She came into the hospital because of the same knowing that she was not improving and she was using the albuterol neb last treatment was very frequently. She has been maintained on a combination of Spiriva and Symbicort as maintenance for COPD. In the hospital, the patient reported chest pressure and she ruled in for a non-ST segment elevation myocardial infarction. Troponin peaked at 2.1. Based on that, the patient was started on IV heparin and she had a cardiac catheterization that showed adequate coronaries with mild plaque without any critical stenosis. At the same time the patient apical ballooning syndrome. The echocardiogram showed a left ventricular systolic function of less than 20% , mild aortic sclerosis, no evidence of any pulmonary hypertension and there was severe global hypokinesis of the left ventricle. The chest x-ray findings are consistent with COPD. There is some bibasilar opacities probably related to soft tissue and infiltrates. No pleural effusion. A vague 1 cm nodular lesion projecting along the right medial facet abdomen which still a new finding knowing that the patient's CAT scan of the chest that was done last year showed no acute abnormalities. I'm recommending following up a chest x- ray within next few days. Review of Systems A 12 point review of system was done and the positive findings are almost above in history of present illness All systems: negative Constitutional: Denies chills, Denies fever Eyes: denies blurred vision, denies pain Ears, nose, mouth and throat: Denies headache, Denies sore throat Cardiovascular: Denies chest pain, Denies shortness of breath Respiratory: Reports cough with sputum, Reports dyspnea, Denies cough Gastrointestinal: Denies abdominal pain, Denies diarrhea, Denies nausea, Denies vomiting Genitourinary: Denies dysuria, Denies hematuria Musculoskeletal: Denies myalgias Integumentary: Denies pruritus, Denies rash Neurological: Denies numbness, Denies weakness Psychiatric: Denies anxiety, Denies depression Endocrine: Denies fatigue, Denies weight change Past Medical History Past Medical History: COPD, Respiratory Disorder Additional Past Medical History / Comment(s): Recent tx for URI, primary versus secondary pulmonary hypertension-currently on tyvaso treatments-has had some work-up done to be on lung transplant list thru [facility], home O2 at 3L/NC ATC, dysphagia-feels like food gets caught in low end esophagus-pt states she will eventually be worked up at [facility] for this-she drinks a gulp of water to force food down, hiatal hernia, esophagitis, precancerous colonic tumor with sx, hydronephrosis with adhesions resolved with surgery/stent, adrenal lesion/ adenoma being monitored, osteoporosis. History of Any Multi-Drug Resistant Organisms: None Reported Past Surgical History: Bladder Surgery, Bowel Resection, Tonsillectomy, Tubal Ligation Additional Past Surgical History / Comment(s): colonoscopies, sigmoidoscopy, EGD , hemorrhoidectomy, breast bx x 2 pt does not recall laterality, bowel resection with ileostomy, ILLEOSTOMY REVERSAL 01/18/14, cystoscopy with R ureteral stent. Past Anesthesia/Blood Transfusion Reactions: No Reported Reaction, Family History of Problems w/ Anesthesia Additional Past Anesthesia/Blood Transfusion Reaction / Comment(s): SISTER WAS AWARE OF SURROUNDINGS WITH ANESTHESIA Past Psychological History: Depression Additional Psychological History / Comment(s): Pt was started on Wellbutrin to aid in stopping smoking, she decided to stay on it after quitting smoking because she felt better. Pt states she feels like she may need more help with her depression-it has increased some recently. She has had 2 significant deaths in the past few months-her spouse and her sister and she feels this is likely the source of her increased depression. She denies any suicidal thoughts. She is from a large family of 18 children. She lives at home and assists in the care of her brother who has down's syndrome. Her granddaughter has recently moved in with them to assist as well. She has home oxygen and a nebulizer. Pt mentioned that since her spouses her financial status has declined. She stated that she may no longer be able to afford pursuing her lung transplant and once she reaches 64yrs and goes on Medicare, she will not be able to afford her Tyvaso treatments. No home care. Smoking Status: Former smoker Past Alcohol Use History: None Reported Additional Past Alcohol Use History / Comment(s): Pt started smoking in 1974 and quit in January 2015. Past Drug Use History: None Reported - Past Family History Father Family Medical History: COPD, Myocardial Infarction (ND) Additional Family Medical History / Comment(s): Father had severe COPD. He of a ND at the age of 69yrs. Mother Family Medical History: Deep Vein Thrombosis (DVT), Pulmonary Embolus Additional Family Medical History / Comment(s): "BRAIN CLOT" Sister(s) Family Medical History: Deep Vein Thrombosis (DVT), Pulmonary Embolus Additional Family Medical History / Comment(s): Pt is from a large family (18 children) and there is alot of DVT's and cerebral thrombosis in the family. Several family members have cardiolipin antibody. Medications and Allergies Home Medications Medication Instructions Recorded Confirmed Type Montelukast Sodium 10 mg PO HS 02/07/15 08/23/16 History buPROPion SR [Wellbutrin SR] 150 mg PO BID 02/21/15 08/23/16 History Albuterol Inhaler [Ventolin Hfa 1 puff INHALATION RT-Q4H PRN 11/28/15 08/23/16 History Inhaler] Alendronate Sodium [Fosamax] 70 mg PO WE 11/28/15 08/23/16 History Budesonide-Formot 160-4.5 Mcg 2 puff INHALATION RT-BID 11/28/15 08/23/16 History [Symbicort 160-4.5 Mcg Inhaler] Calcium Carbonate [Calcium] 900 mg PO DAILY 11/28/15 08/23/16 History Cholecalciferol [Vitamin D3] 1,000 unit PO DAILY 11/28/15 08/23/16 History Levocetirizine Dihydrochloride 5 mg PO QAM 11/28/15 08/23/16 History Tiotropium [place] [Spiriva] 1 cap INHALATION RT-DAILY 11/28/15 08/23/16 History Tyvaso 9 puff INHALATION RT-QID 11/28/15 08/23/16 History Allergies Allergy/AdvReac Type Severity Reaction Status Date / Time latex Allergy Unknown Rash/Hives Verified 08/23/16 07:31 nickel [Nickel] Allergy Unknown Rash/Hives Verified 08/23/16 07:31 nitrofurantoin Allergy Unknown Rash/Hives Verified 08/23/16 07:31 macrocrystalline [From Macrodantin] Penicillins Allergy Unknown Rash/Hives Verified 08/23/16 07:31 Physical Exam Vitals: Vital Signs Temp Pulse Pulse Resp BP Pulse Ox 08/24/16 11:57 78 08/24/16 11:46 68 08/24/16 08:24 88 08/24/16 08:14 80 08/24/16 08:00 80 19 82/48 95 08/24/16 04:00 98.0 F 82 17 88/50 95 08/24/16 00:00 98.1 F 96 19 92/51 94 L 08/23/16 20:36 97 08/23/16 20:25 94 08/23/16 20:00 98.2 F 94 17 124/68 96 08/23/16 18:25 105 H 18 111/72 95 08/23/16 17:25 101 H 16 95/59 93 L 08/23/16 16:45 105 H 08/23/16 16:32 104 H 08/23/16 16:25 102 H 18 100/61 93 L 08/23/16 16:00 105 H 16 08/23/16 15:55 105 H 16 105/70 94 L 08/23/16 15:25 107 H 18 110/73 98 08/23/16 15:10 102 H 18 101/66 97 Intake and Output 08/23/16 08/24/16 08/24/16 22:59 06:59 14:59 Intake Total 635 1000 480 Balance 635 1000 480 Intake: IV 375 600 Sodium Chloride 0.9% 1, 375 600 000 ml @ 75 mls/hr IV . [id number] [facility] Rx#:[id number] Oral 260 400 480 Other: Voiding Method Toilet # Voids 3 Weight 63.4 kg 63.5 kg Head exam was generally normal. There was no scleral icterus or corneal arcus. Mucous membranes were moist.Neck was supple and without jugular venous distension, thyromegaly, or carotid bruits. Carotids were easily palpable bilaterally. There was no adenopathy. Lung sounds are diminished and there is prolongation of expiratory phase of breathing and diffuse expiratory wheezes throughout the lung alicia bilaterally.Cardiac exam revealed the PMI to be normally situated and sized. The rhythm was regular and no extrasystoles were noted during several minutes of auscultation. The first and second heart sounds were normal and physiologic splitting of the second heart sound was noted. There were no murmurs, rubs, clicks, or gallops.Abdominal exam revealed normal bowel sounds. The abdomen was soft, non-tender, and without masses, organomegaly , or appreciable enlargement of the abdominal aorta.Examination of the extremities revealed easily palpable radial, femoral and pedal pulses. There was no cyanosis, clubbing or edema. Results - Laboratory Findings CBC and BMP: 08/24/16 06:09 08/23/16 03:05 PT/INR, D-dimer PT 11.0 sec (9.0-12.0) 08/23/16 03:05 INR 1.1 (<1.1) 08/23/16 03:05 D-Dimer 0.30 mg/L FEU (<0.60) 08/23/16 03:05 Abnormal lab findings: Abnormal Labs 08/23/16 08/23/16 08/23/16 09:05 11:43 11:45 MCHC 30.9 L Lymphocytes # 0.4 L APTT 35.5 H Troponin I 2.180 H* - Diagnostic Findings Chest x-ray: image reviewed Assessment and Plan Plan: Assessment 1 acute COPD exacerbation/acute bronchitis. No evidence of pneumonia. Shortness of breath is predominantly emanating from acute COPD exacerbation about and CHF. 2 acute non-ST segment elevation myocardial infarction 3 CHF with global hypokinesis and ejection fraction of less than 25% 4 vague nodular density 1 cm as visualized on the chest x-ray, likely a summation of shadows out of the total lesion knowing that the CAT scan from last year showed no acute abnormalities 5 pulmonary hypertension, questionable primary pulmonary hypertension maintain on inhaled Tyvaso and most recent echocardiogram shows no evidence of any elevation in the PA pressures 6 precancerous colonic lesion status post colectomy 7 previous history of smoking quit in 2014 Plan Continue Symbicort and Spiriva as maintenance treatment for COPD. Continue DuoNeb treatments around the clock 4 times a day. Often this patient IV Solu Medrol instead of oral prednisone. For this patient Levaquin orally 500 mg by mouth daily. No need for computed tomography scan imaging at this point and repeat the chest x-ray within next 24-48 hours. Continue Tyvaso regarding the pulmonary hypertension. The patient has low PA pressures based on the most recent echocardiogram. Cardiology to monitor and comment on the CHF and apical ballooning and non-ST elevation myocardial infarction. Meanwhile, suggest covering the IV fluids to 40 mL an hour.
[2016-08-24] MEDS: methylPREDNISolone SOD SUCCI 125 MG/2 ML VIAL IV SCH ×2 (14:48→17:30)
[2016-08-24] MEDS: LEVOFLOXACIN 500 MG TAB PO SCH (14:48)
--- NOTE | 2016-08-24 19:17 | PN ---
Patient is a 61-year-old female, came in with mostly hypercapnic respiratory failure, acute in nature, secondary to COPD exacerbation along with contribution from pulmonary hypertension. Patient was also found to have elevated troponins secondary to Parkinson syndrome, although patient is not on Lasix and the patient's blood pressure is borderline secondary to poor ejection fraction. Patient is on low dose of lisinopril for takotsubo, which was stopped because of her extremely low blood pressures of systolic going down to as low as 80. REVIEW OF SYSTEMS: CARDIOVASCULAR: No chest pain, no orthopnea, no PND, no palpitations. PULMONARY: Denied any shortness of breath. No cough or hemoptysis. GASTROINTESTINAL: No diarrhea, nausea or vomiting. No abdominal pain. Normoactive bowel sounds. NEUROLOGIC: No headaches, no weakness, no numbness. Medications were reviewed. PHYSICAL EXAMINATION: VITAL SIGNS: Temperature 98.2, pulse of 98, respiratory rate of 19, blood pressure is 80/45. Saturating at 95% on 3L nasal cannula. PHYSICAL EXAMINATION: GENERAL: The patient is alert and oriented x3, not in any acute distress. Well developed, well nourished. HEENT: Pupils are round and equally reacting to light. EOMI. No scleral icterus. No conjunctival pallor. Normocephalic, atraumatic. No pharyngeal erythema. No thyromegaly. CARDIOVASCULAR: S1 and S2 present. No murmurs, rubs, or gallops. PULMONARY: Fairly good air entry into today lung alicia. Still decreased air entry and expiratory wheezing was appreciated. ABDOMEN: Soft, nontender, nondistended, normoactive bowel sounds. No palpable organomegaly. MUSCULOSKELETAL: No joint swelling or deformity. EXTREMITIES: No cyanosis, clubbing, or pedal edema. NEUROLOGICAL: Gross neurological examination did not reveal any focal deficits. SKIN: No rashes. LABORATORY DATA: CBC essentially within normal limits. I do not have any basic metabolic profile available today. We order the [facility] for tomorrow. ASSESSMENT AND PLAN: 1. Acute hypercapnic respiratory failure secondary to chronic obstructive pulmonary disease exacerbation with contribution from pulmonary hypertension. Patient does have takotsubo syndrome, with ejection fraction of around 25% which is expected to come back. 2. Acute on chronic hypercapnic respiratory failure secondary to chronic obstructive pulmonary disease exacerbation. 3. Elevated troponin secondary to takotsubo syndrome. 4. Severe pulmonary hypertension. 5. Pulmonary nodules. Pulmonary evaluated the patient. 6. Continue with inhalational treatments, systemic steroids. Monitor kidney function. Continue with present antibiotics. Possibility of discharge tomorrow.
[2016-08-24] MEDS: MONTELUKAST 10 MG TAB PO SCH (21:01)
[2016-08-25] MEDS: methylPREDNISolone SOD SUCCI 125 MG/2 ML VIAL IV SCH ×5 (00:22→23:39)
[2016-08-25 06:02] LABS: Glucose,Whole Blood 128 mg/dL (75-99)
[2016-08-25] MEDS: INSULIN LISPRO (humaLOG) 300 UNIT/3 ML VIAL SQ SCH ×4 (06:14→21:46)
[2016-08-25 07:01] LABS: Basophils % (A) 0 %; CH 28.2; CHCM 30.5; Eosinophils % (A) 0 %; HCT 36.2 % (34.0-46.0); HDW 2.13; Hypochromasia Slight; Luc # (Auto) 0.03; Luc % (Auto) 0; Lymphocytes # (A) 0.4 k/uL (1.0-4.8); Lymphocytes % (A) 4 %; MCH 28.3 pg (25.0-35.0); MCHC 30.4 g/dL (31.0-37.0); Mean Platelet Volume 7.2; Monocytes # (A) 0.2 k/uL (0-1.0); Monocytes % (A) 1 %; Neutrophils # (A) 9.9 k/uL (1.3-7.7); Neutrophils % (A) 94 %; RBC 3.89 m/uL (3.80-5.40); RDW 13.1 % (11.5-15.5); WBC 10.6 k/uL (3.8-10.6); WBC (Perox) 11.31
[2016-08-25 07:08] LABS: Anion Gap 5 mmol/L; Blood Urea Nitrogen 22 mg/dL (7-17); Calcium 8.9 mg/dL (8.4-10.2); Carbon Dioxide 29 mmol/L (22-30); Chloride 105 mmol/L (98-107); Glucose 134 mg/dL (74-99); Non-African American GFR(MDRD) 59 (>60 ml/min/1.73 sqM); Sodium 139 mmol/L (137-145)
--- NOTE | 2016-08-25 07:16 | XR ---
EXAMINATION TYPE: XR chest 2V DATE OF EXAM: 08/25/2016 6:54 AM COMPARISON: Chest x-ray from 2 days ago. HISTORY: Abnormal chest x-ray, history of COPD TECHNIQUE: Frontal and lateral views of the chest are obtained. FINDINGS: Chronic emphysematous changes present. There is persistent patchy bibasilar atelectasis and /or infiltrate with tiny pleural effusions as there is blunting of posterior lateral costophrenic ang les. The cardiac silhouette size remains within normal limits with atherosclerotic thoracic aorta. The osseous structures are intact. Previously visualized medial upper lung nodule is not clearly see n on today's study IMPRESSION: Chronic emphysematous change with patchy bibasilar atelectasis and/or infiltrate and susp ected tiny bilateral pleural effusions, no significant change from prior.
[2016-08-25] MEDS: ASPIRIN 81 MG CHEW PO SCH (08:31)
[2016-08-25] MEDS: TYVASO 0.6 MG/ML INHALATION SCH ×4 (08:31→23:39)
[2016-08-25] MEDS: CALCIUM CARBONATE 500 MG CHEWABLE PO SCH (08:31)
[2016-08-25] MEDS: buPROPion SR 150 MG TABLET.ER PO SCH ×2 (08:32→21:46)
[2016-08-25] MEDS: CHOLECALCIFEROL 1,000 UNIT TAB PO SCH (08:32)
[2016-08-25] MEDS: METOPROLOL TARTRATE 12.5 MG TAB PO SCH ×2 (08:32→21:46)
[2016-08-25] MEDS: LORATADINE 10 MG TAB PO SCH (08:32)
[2016-08-25] MEDS: ATORVASTATIN 80 MG TAB PO SCH (08:32)
[2016-08-25] MEDS: ALPRAZolam 0.25 MG TAB PO PRN ×3 (08:37→23:39)
[2016-08-25] MEDS: TIOTROPIUM 18 MCG/PUFF INHALER INHALATION SCH (09:17)
[2016-08-25] MEDS: ALBUTEROL NEBULIZED 2.5 MG/3 ML INHALATION SCH ×4 (09:17→20:39)
[2016-08-25] MEDS: SYMBICORT 160-4.5 MCG INHALER INHALATION SCH ×2 (09:17→20:40)
--- NOTE | 2016-08-25 09:18 | P.PN ---
Subjective Principal diagnosis: apical ballooning syndrome this is a pleasant 61-year-old female patient with a past medical history significant for COPD, chronic respiratory failure on home oxygen, as well as pulmonary hypertension, presented to the hospital with dyspnea. The patient was ruled in for acute non-ST elevation myocardial infarction. Subsequently she was taken to the cardiac slab off mill tender where she underwent a cardiac catheterization which showed normal coronaries with finding consistent with apical ballooning syndrome. The echocardiogram showed severe cardiomyopathy with an ejection fraction of 20% and confirmed the diagnosis of apical ballooning syndrome. From the cardiovascular standpoint overview, she denies having any chest pain and she stated that the shortness of breath is not worse compared to before. She has been experiencing low cough seems to be productive of some sputum. Currently the patient is on aspirin and statin and beta kamille and we will continue that. I am going to add a small dose of lisinopril as well as aldosterone antagonist. The blood pressure continues to be marginal and we will continue watching diet very closely. Objective - Vital Signs Vital signs: Vital Signs Temp 97.1 F L 08/25/16 08:00 Pulse 82 08/25/16 08:00 Resp 18 08/25/16 08:00 BP 104/62 08/25/16 08:00 Pulse Ox 93 L 08/25/16 08:00 Intake & Output 08/24/16 08/25/16 08/25/16 18:59 06:59 18:59 Intake Total 1240 1560 Output Total 300 Balance 940 1560 Weight 65.1 kg Intake: IV 280 480 Sodium Chloride 0.9% 1, 280 480 000 ml @ 40 mls/hr IV . Q24H TOMASZ Rx#:[id number] Oral 960 1080 Output: Urine 300 Other: Voiding Method Toilet # Voids 2 - Constitutional General appearance: Present: no acute distress - Respiratory Respiratory: bilateral: wheezing - Cardiovascular Rhythm: regular Heart sounds: normal: S1, S2 - Labs CBC & Chem 7: 08/25/16 06:05 08/25/16 06:05 Labs: Abnormal Lab Results - Last 24 Hours (Table) 08/25/16 08/25/16 08/25/16 Range/Units 06:01 06:05 06:05 Hgb 11.0 L (11.4-16.0) gm/dL MCHC 30.4 L (31.0-37.0) g/dL Neutrophils # 9.9 H (1.3-7.7) k/uL Lymphocytes # 0.4 L (1.0-4.8) k/uL BUN 22 H (7-17) mg/dL Glucose 134 H (74-99) mg/dL POC Glucose (mg/dL) 128 H (75-99) mg/dL Assessment and Plan Plan: assessment #1 apical ballooning syndrome #2 severe nonischemic cardiomyopathy secondary to the above #3 chronic respiratory failure secondary to COPD #4 pulmonary hypertension likely secondary to the above Plan #1 continue the current medical treatment with aspirin, statin, on beta kamille #2 add keri inhibitor and aldosterone antagonist current medical regimen #3 follow-up with the patient #4 watch for arrhythmia.
[2016-08-25] MEDS: LEVOFLOXACIN 500 MG TAB PO SCH (12:31)
--- NOTE | 2016-08-25 12:36 | P.PN ---
Subjective A very pleasant 61-year-old female patient with known history of COPD, pulmonary hypertension, who has been followed up at [facility] and been treated with inhaled Tyvaso for many years in regards to pulmonary hypertension and she has been followed up by Dr. Hannah Fulton in this regard. This patient has been having difficulty breathing for the past 2-3 weeks. She has been treated with course of antibiotics and steroids for her primary care physician treating an acute COPD exacerbation and acute bronchitis. She came into the hospital because of the same knowing that she was not improving and she was using the albuterol neb last treatment was very frequently. She has been maintained on a combination of Spiriva and Symbicort as maintenance for COPD. In the hospital, the patient reported chest pressure and she ruled in for a non-ST segment elevation myocardial infarction. Troponin peaked at 2.1. Based on that, the patient was started on IV heparin and she had a cardiac catheterization that showed adequate coronaries with mild plaque without any critical stenosis. At the same time the patient apical ballooning syndrome. The echocardiogram showed a left ventricular systolic function of less than 20% , mild aortic sclerosis, no evidence of any pulmonary hypertension and there was severe global hypokinesis of the left ventricle. The chest x-ray findings are consistent with COPD. There is some bibasilar opacities probably related to soft tissue and infiltrates. No pleural effusion. A vague 1 cm nodular lesion projecting along the right medial facet abdomen which still a new finding knowing that the patient's CAT scan of the chest that was done last year showed no acute abnormalities. I'm recommending following up a chest x- ray within next few days. On 08/25/2016, the patient is still congested and coughing and bronchospastic and wheezy. There has been limited improvement in her condition compared to yesterday. Note that the patient is being treated for an acute COPD exacerbation. She was also found to have apical ballooning with nonischemic cardiomyopathy which is felt to be reversible. The patient will be started on keri inhibitors and Aldactone in addition. Objective - Vital Signs Vital signs: Vital Signs Temp 97.1 F L 08/25/16 08:00 Pulse 80 08/25/16 09:27 Resp 18 08/25/16 08:00 BP 104/62 08/25/16 08:00 Pulse Ox 93 L 08/25/16 08:00 Intake & Output 08/24/16 08/25/16 08/25/16 18:59 06:59 18:59 Intake Total 1240 1560 120 Output Total 300 Balance 940 1560 120 Weight 65.1 kg Intake: IV 280 480 Sodium Chloride 0.9% 1, 280 480 000 ml @ 40 mls/hr IV . Q24H TOMASZ Rx#:[id number] Oral 960 1080 120 Output: Urine 300 Other: Voiding Method Toilet # Voids 2 - Exam Head exam was generally normal. There was no scleral icterus or corneal arcus. Mucous membranes were moist.Neck was supple and without jugular venous distension, thyromegaly, or carotid bruits. Carotids were easily palpable bilaterally. There was no adenopathy. Lung sounds are diminished and there is prolongation of expiratory phase of breathing and diffuse expiratory wheezes throughout the lung alicia bilaterally.Cardiac exam revealed the PMI to be normally situated and sized. The rhythm was regular and no extrasystoles were noted during several minutes of auscultation. The first and second heart sounds were normal and physiologic splitting of the second heart sound was noted. There were no murmurs, rubs, clicks, or gallops.Abdominal exam revealed normal bowel sounds. The abdomen was soft, non-tender, and without masses, organomegaly , or appreciable enlargement of the abdominal aorta.Examination of the extremities revealed easily palpable radial, femoral and pedal pulses. There was no cyanosis, clubbing or edema. - Labs CBC & Chem 7: 08/25/16 06:05 08/25/16 06:05 Labs: Abnormal Lab Results - Last 24 Hours (Table) 08/25/16 08/25/16 08/25/16 Range/Units 06:01 06:05 06:05 Hgb 11.0 L (11.4-16.0) gm/dL MCHC 30.4 L (31.0-37.0) g/dL Neutrophils # 9.9 H (1.3-7.7) k/uL Lymphocytes # 0.4 L (1.0-4.8) k/uL BUN 22 H (7-17) mg/dL Glucose 134 H (74-99) mg/dL POC Glucose (mg/dL) 128 H (75-99) mg/dL Assessment and Plan Plan: Assessment 1 acute COPD exacerbation/acute bronchitis. No evidence of pneumonia. Shortness of breath is predominantly emanating from acute COPD exacerbation about and CHF. 2 acute non-ST segment elevation myocardial infarction 3 CHF with global hypokinesis and ejection fraction of less than 25% 4 vague nodular density 1 cm as visualized on the chest x-ray, likely a summation of shadows out of the total lesion knowing that the CAT scan from last year showed no acute abnormalities 5 pulmonary hypertension, questionable primary pulmonary hypertension maintain on inhaled Tyvaso and most recent echocardiogram shows no evidence of any elevation in the PA pressures 6 precancerous colonic lesion status post colectomy 7 previous history of smoking quit in 2014 Plan Continue Symbicort and Spiriva as maintenance treatment for COPD. Continue DuoNeb treatments around the clock 4 times a day. Often this patient IV Solu Medrol instead of oral prednisone. For this patient Levaquin orally 500 mg by mouth daily. The follow-up chest x-ray that was done today shows no nodules in the right lung and the findings are essentially stable for now. We'll continue treatment of COPD exacerbation and CHF. Continue the Tyvaso regarding chronic pulmonary hypertension. Anticipate some further recovered over the next 24 hours. The patient was reassured. We'll continue to follow.
[2016-08-25 12:38] LABS: Glucose,Whole Blood 178 mg/dL (75-99)
--- NOTE | 2016-08-25 15:30 | PN ---
Patient is 61-year-old admitted with acute hypercapnic respiratory failure secondary to chronic obstructive pulmonary disease exacerbation with contribution from pulmonary hypertension. Patient has severe pulmonary hypertension. Patient has elevated troponins secondary to takotsubo syndrome, which is stress-induced myocardial damage or broken heart syndrome. Patient is fairly stable at this point of time. Patient was started on Aldactone and lisinopril at lower doses because of her low blood pressure. Chest x-ray showing minimal bilateral pleural effusions and severe pulmonary edema. REVIEW OF SYSTEMS: CARDIOVASCULAR: No chest pain, no orthopnea, no PND, no palpitations. PULMONARY: Denied any shortness of breath. No cough or hemoptysis. GASTROINTESTINAL: No diarrhea, nausea or vomiting. No abdominal pain. Normoactive bowel sounds. NEUROLOGIC: No headaches, no weakness, no numbness. Medications were reviewed. Medication changes as mentioned in the interval history. PHYSICAL EXAMINATION: VITAL SIGNS: Temperature 97.1, pulse of 80, respiratory rate of 18, blood pressure is 101/55. Saturating 92% on 3-L O2 nasal cannula. GENERAL: The patient is alert and oriented x3, not in any acute distress. Well developed, well nourished. HEENT: Pupils are round and equally reacting to light. EOMI. No scleral icterus. No conjunctival pallor. Normocephalic, atraumatic. No pharyngeal erythema. No thyromegaly. CARDIOVASCULAR: S1 and S2 present. No murmurs, rubs, or gallops. PULMONARY: No significant change compared to yesterday. ABDOMEN: Soft, nontender, nondistended, normoactive bowel sounds. No palpable organomegaly. MUSCULOSKELETAL: No joint swelling or deformity. EXTREMITIES: No cyanosis, clubbing, or pedal edema. NEUROLOGICAL: Gross neurological examination did not reveal any focal deficits. SKIN: No rashes. LABORATORY DATA: Patient's potassium is on the high-normal side. We will have to closely monitor that because of Aldactone and lisinopril she was started on. ASSESSMENT AND PLAN: 1. Acute hypercapnic respiratory failure secondary to chronic obstructive pulmonary disease exacerbation. 2. Pulmonary hypertension. 3. Takotsubo syndrome, although there is no obvious pulmonary edema because of which we are continuing on lisinopril and spironolactone, not on Lasix at this point of time. Does not appear to have any significant pulmonary edema either. 4. Pulmonary nodules for which Pulmonology evaluated the patient. Does not appear to have any pulmonary nodules on repeat chest x-ray.
[2016-08-25 16:33] LABS: Glucose,Whole Blood 129 mg/dL (75-99)
[2016-08-25] MEDS: SODIUM CHLORIDE 0.9% 1,000 ML IV SCH (16:33)
[2016-08-25 21:45] LABS: Glucose,Whole Blood 190 mg/dL (75-99)
[2016-08-25] MEDS: MONTELUKAST 10 MG TAB PO SCH (21:46)
[2016-08-26 06:11] LABS: Glucose,Whole Blood 128 mg/dL (75-99)
[2016-08-26] MEDS: INSULIN LISPRO (humaLOG) 300 UNIT/3 ML VIAL SQ SCH ×4 (06:14→20:45)
[2016-08-26] MEDS: methylPREDNISolone SOD SUCCI 125 MG/2 ML VIAL IV SCH ×4 (06:41→23:07)
[2016-08-26 07:16] LABS: Basophils % (A) 0 %; CH 28.6; CHCM 31.1; Eosinophils % (A) 0 %; HCT 36.9 % (34.0-46.0); HDW 2.24; HGB 11.6 gm/dL (11.4-16.0); Luc # (Auto) 0.06; Luc % (Auto) 0; Lymphocytes # (A) 0.5 k/uL (1.0-4.8); Lymphocytes % (A) 4 %; MCH 29.1 pg (25.0-35.0); MCHC 31.5 g/dL (31.0-37.0); MCV 92.4 fL (80.0-100.0); Mean Platelet Volume 7.2; Monocytes # (A) 0.4 k/uL (0-1.0); Monocytes % (A) 3 %; Neutrophils # (A) 12.3 k/uL (1.3-7.7); Neutrophils % (A) 93 %; RDW 13.2 % (11.5-15.5); WBC 13.3 k/uL (3.8-10.6); WBC (Perox) 13.26
[2016-08-26 07:37] LABS: Anion Gap 6 mmol/L; Blood Urea Nitrogen 22 mg/dL (7-17); Calcium 8.6 mg/dL (8.4-10.2); Carbon Dioxide 30 mmol/L (22-30); Chloride 103 mmol/L (98-107); Glucose 124 mg/dL (74-99); Non-African American GFR(MDRD) >60 (>60 ml/min/1.73 sqM); Potassium 4.5 mmol/L (3.5-5.1); Sodium 139 mmol/L (137-145)
[2016-08-26] MEDS: ALBUTEROL NEBULIZED 2.5 MG/3 ML INHALATION SCH ×4 (07:57→21:33)
[2016-08-26] MEDS: SYMBICORT 160-4.5 MCG INHALER INHALATION SCH ×2 (07:57→21:33)
[2016-08-26] MEDS: TIOTROPIUM 18 MCG/PUFF INHALER INHALATION SCH (07:57)
[2016-08-26] MEDS: LISINOPRIL 2.5 MG TAB PO SCH (08:26)
[2016-08-26] MEDS: LORATADINE 10 MG TAB PO SCH (08:27)
[2016-08-26] MEDS: ASPIRIN 81 MG CHEW PO SCH (08:27)
[2016-08-26] MEDS: SPIRONOLACTONE 25 MG TAB PO SCH (08:27)
[2016-08-26] MEDS: CALCIUM CARBONATE 500 MG CHEWABLE PO SCH (08:27)
[2016-08-26] MEDS: METOPROLOL TARTRATE 12.5 MG TAB PO SCH ×2 (08:27→20:47)
[2016-08-26] MEDS: CHOLECALCIFEROL 1,000 UNIT TAB PO SCH (08:27)
[2016-08-26] MEDS: buPROPion SR 150 MG TABLET.ER PO SCH ×2 (08:28→20:47)
[2016-08-26] MEDS: ATORVASTATIN 80 MG TAB PO SCH (08:28)
[2016-08-26] MEDS: TYVASO 0.6 MG/ML INHALATION SCH ×4 (08:40→23:10)
[2016-08-26] MEDS: ALPRAZolam 0.25 MG TAB PO PRN ×3 (08:58→23:07)
[2016-08-26] MEDS ORDERED: PROMETHAZ-COD 6.25-10 MG/5 ML 5 ML CUP PO PRN (10:22)
--- NOTE | 2016-08-26 10:25 | P.PN ---
Subjective Principal diagnosis: Chest tightness This is a pleasant 61-year-old female with history of COPD, pulmonary hypertension, being followed at [facility], prior nicotine dependence, prior colon cancer with ileostomy, strong family history of premature coronary artery disease. She presents to the hospital with symptoms of severe shortness of breath, she states that her chest becomes extremely tight and she is unable to get air in. She also describes that this is much different than her usual exacerbation of COPD. She has recently as an outpatient been treated for an upper respiratory infection with not much significant improvement. KG on admission shows a sinus tachycardia with PVCs, significant artifact. Troponin 0.41, subsequent troponin 2.18. Patient lost her approximately one month ago, 2 weeks ago she lost a sister to cardiac arrest, he's been under significant amount of stress. Patient is on the lung transplant list at [facility]. Patient was taken to the cardiac catheterization lab yesterday where she was found to have normal coronary arteries, findings consistent with apical ballooning syndrome. Echocardiogram with Doppler study was performed which revealed severe global hypokinesia and an overall ejection fraction of less than 20%. Patient is currently on low-dose MOY inhibitor, beta kamille, baby aspirin, Aldactone and statin. Overall patient feels much better this morning, she still has a persistent hacking cough, nonproductive. Objective - Vital Signs Vital signs: Vital Signs Temp 97.7 F 08/26/16 00:00 Pulse 86 08/26/16 08:12 Resp 18 08/26/16 08:00 BP 103/56 08/26/16 08:00 Pulse Ox 94 L 08/26/16 08:00 Intake & Output 08/25/16 08/26/16 08/26/16 18:59 06:59 18:59 Intake Total 1240 400 0 Balance 1240 400 0 Weight 54.2 kg Intake: IV 280 400 Sodium Chloride 0.9% 1, 280 400 000 ml @ 40 mls/hr IV . Q24H TOMASZ Rx#:[id number] Oral 960 0 Other: Voiding Method Toilet # Voids 1 - Exam PHYSICAL EXAMINATION: HEENT: Head is atraumatic, normocephalic. Pupils equal, round. Neck is supple. There is no elevated jugular venous pressure. HEART EXAMINATION: Heart S1, S2 normal. No murmur or gallop heard. CHEST EXAMINATION: Lungs reveal decreased air exchange throughout. No Audible wheezes today. ABDOMEN: Soft, nontender. Bowel sounds are heard. No organomegaly noted. Right groin soft, no hematoma. EXTREMITIES: 2+ peripheral pulses with no evidence of peripheral edema and no calf tenderness noted. NEUROLOGIC patient is awake, alert and oriented -3. - Labs CBC & Chem 7: 08/26/16 06:15 08/26/16 06:12 Labs: Abnormal Lab Results - Last 24 Hours (Table) 08/25/16 08/25/16 08/25/16 Range/Units 12:36 16:32 21:35 WBC (3.8-10.6) k/uL Neutrophils # (1.3-7.7) k/uL Lymphocytes # (1.0-4.8) k/uL BUN (7-17) mg/dL Glucose (74-99) mg/dL POC Glucose (mg/dL) 178 H 129 H 190 H (75-99) mg/dL 08/26/16 08/26/16 08/26/16 Range/Units 05:40 06:12 06:15 WBC 13.3 H (3.8-10.6) k/uL Neutrophils # 12.3 H (1.3-7.7) k/uL Lymphocytes # 0.5 L (1.0-4.8) k/uL BUN 22 H (7-17) mg/dL Glucose 124 H (74-99) mg/dL POC Glucose (mg/dL) 128 H (75-99) mg/dL Assessment and Plan (1) Non-Q wave infarction Status: Acute (2) Takotsubo cardiomyopathy Status: Acute (3) S/P cardiac catheterization Status: Acute (4) Pulmonary hypertension Status: Acute (5) Family history of early CAD Status: Acute (6) COPD (chronic obstructive pulmonary disease) Status: Acute (7) Nicotine dependence Status: Acute (8) Hx of colon cancer, stage I Status: Acute Plan: Etiology's perspective, we will continue with her medications. We will continue to monitor the patient for another 24 hours, monitoring the blood pressure closely for any hypotension, we'll continue to monitor for any arrhythmias. If the patient remained stable plan for discharge home in 24 hours. DNP note has been reviewed, I agree with a documented findings and plan of care. Patient was seen and examined.
[2016-08-26 11:46] LABS: Glucose,Whole Blood 111 mg/dL (75-99)
--- NOTE | 2016-08-26 12:57 | P.PN ---
Subjective Principal diagnosis: Acute exacerbation of COPD and acute non-ST segment elevation myocardial infarction. A very pleasant 61-year-old female patient with known history of COPD, pulmonary hypertension, who has been followed up at [facility] and been treated with inhaled Tyvaso for many years in regards to pulmonary hypertension and she has been followed up by Dr. Hannah Fulton in this regard. This patient has been having difficulty breathing for the past 2-3 weeks. She has been treated with course of antibiotics and steroids for her primary care physician treating an acute COPD exacerbation and acute bronchitis. She came into the hospital because of the same knowing that she was not improving and she was using the albuterol neb last treatment was very frequently. She has been maintained on a combination of Spiriva and Symbicort as maintenance for COPD. In the hospital, the patient reported chest pressure and she ruled in for a non-ST segment elevation myocardial infarction. Troponin peaked at 2.1. Based on that, the patient was started on IV heparin and she had a cardiac catheterization that showed adequate coronaries with mild plaque without any critical stenosis. At the same time the patient apical ballooning syndrome. The echocardiogram showed a left ventricular systolic function of less than 20% , mild aortic sclerosis, no evidence of any pulmonary hypertension and there was severe global hypokinesis of the left ventricle. The chest x-ray findings are consistent with COPD. There is some bibasilar opacities probably related to soft tissue and infiltrates. No pleural effusion. A vague 1 cm nodular lesion projecting along the right medial facet abdomen which still a new finding knowing that the patient's CAT scan of the chest that was done last year showed no acute abnormalities. I'm recommending following up a chest x- ray within next few days. On 08/25/2016, the patient is still congested and coughing and bronchospastic and wheezy. There has been limited improvement in her condition compared to yesterday. Note that the patient is being treated for an acute COPD exacerbation. She was also found to have apical ballooning with nonischemic cardiomyopathy which is felt to be reversible. The patient will be started on keri inhibitors and Aldactone in addition. On 08/26/2016, patient is beginning to show definite improvement, less cough and less wheezing less shortness of breath. Patient clearly has multiple medical problems including acute exacerbation of COPD, acute non-ST elevation myocardial infarction, history of secondary pulmonary hypertension being followed at the [facility]. Patient has nonischemic cardiomyopathy and felt to be possibly reversible. Remains on multiple cardiac meds and on bronchodilators. Definite improvement today compared to the last few days. CBC is relatively unremarkable. Basic metabolic profile is normal, renal profile is normal. All her meds were reviewed, and seems to be quite appropriate, no changes were made. Objective - Vital Signs Vital signs: Vital Signs Temp 97.7 F 08/26/16 00:00 Pulse 80 08/26/16 11:46 Resp 18 08/26/16 08:00 BP 103/56 08/26/16 08:00 Pulse Ox 94 L 08/26/16 08:00 Intake & Output 08/25/16 08/26/16 08/26/16 18:59 06:59 18:59 Intake Total 1240 400 0 Balance 1240 400 0 Weight 54.2 kg Intake: IV 280 400 Sodium Chloride 0.9% 1, 280 400 000 ml @ 40 mls/hr IV . Q24H TOMASZ Rx#:[id number] Oral 960 0 Other: Voiding Method Toilet # Voids 1 0 # Bowel Movements 0 - Exam Head exam was generally normal. There was no scleral icterus or corneal arcus. Mucous membranes were moist.Neck was supple and without jugular venous distension, thyromegaly, or carotid bruits. Carotids were easily palpable bilaterally. There was no adenopathy. Lung sounds are diminished and there is prolongation of expiratory phase of breathing and diffuse expiratory wheezes throughout the lung alicia bilaterally.Cardiac exam revealed the PMI to be normally situated and sized. The rhythm was regular and no extrasystoles were noted during several minutes of auscultation. The first and second heart sounds were normal and physiologic splitting of the second heart sound was noted. There were no murmurs, rubs, clicks, or gallops.Abdominal exam revealed normal bowel sounds. The abdomen was soft, non-tender, and without masses, organomegaly , or appreciable enlargement of the abdominal aorta.Examination of the extremities revealed easily palpable radial, femoral and pedal pulses. There was no cyanosis, clubbing or edema. - Labs CBC & Chem 7: 08/26/16 06:15 08/26/16 06:12 Labs: Abnormal Lab Results - Last 24 Hours (Table) 08/25/16 08/25/16 08/26/16 Range/Units 16:32 21:35 05:40 WBC (3.8-10.6) k/uL Neutrophils # (1.3-7.7) k/uL Lymphocytes # (1.0-4.8) k/uL BUN (7-17) mg/dL Glucose (74-99) mg/dL POC Glucose (mg/dL) 129 H 190 H 128 H (75-99) mg/dL 08/26/16 08/26/16 08/26/16 Range/Units 06:12 06:15 11:44 WBC 13.3 H (3.8-10.6) k/uL Neutrophils # 12.3 H (1.3-7.7) k/uL Lymphocytes # 0.5 L (1.0-4.8) k/uL BUN 22 H (7-17) mg/dL Glucose 124 H (74-99) mg/dL POC Glucose (mg/dL) 111 H (75-99) mg/dL Assessment and Plan Plan: 1 acute COPD exacerbation/acute bronchitis. No evidence of pneumonia. Shortness of breath is predominantly emanating from acute COPD exacerbation about and CHF. 2 acute non-ST segment elevation myocardial infarction 3 CHF with global hypokinesis and ejection fraction of less than 25% 4 vague nodular density 1 cm as visualized on the chest x-ray, likely a summation of shadows out of the total lesion knowing that the CAT scan from last year showed no acute abnormalities 5 pulmonary hypertension, questionable primary pulmonary hypertension maintain on inhaled Tyvaso and most recent echocardiogram shows no evidence of any elevation in the PA pressures 6 precancerous colonic lesion status post colectomy 7 previous history of smoking quit in 2014 Recommendation: Continue present course of bronchodilators, patient is presently on DuoNeb, Spiriva, Symbicort, she is also on oral prednisone, Levaquin, patient is also being followed by cardiology, she remains on tyvaso regarding chronic pulmonary hypertension. We will continue to follow. Time with Patient: Less than 30
[2016-08-26] MEDS: LEVOFLOXACIN 500 MG TAB PO SCH (13:27)
[2016-08-26] MEDS: SODIUM CHLORIDE 0.9% 1,000 ML IV SCH (16:31)
--- NOTE | 2016-08-26 16:38 | PN ---
Patient is a 61-year-old admitted with hypercapnic respiratory failure secondary to COPD exacerbation and severe pulmonary hypertension. Patient was also found to have takotsubo syndrome. Patient is clinically doing. Cardiology is recommending one more day of monitoring and a Life Vest tomorrow. REVIEW OF SYSTEMS: CARDIOVASCULAR: No chest pain, no orthopnea, no PND, no palpitations. PULMONARY: Denied any shortness of breath. No cough or hemoptysis. GASTROINTESTINAL: No diarrhea, nausea or vomiting. No abdominal pain. Normoactive bowel sounds. NEUROLOGIC: No headaches, no weakness, no numbness. Medications were reviewed. PHYSICAL EXAMINATION: VITAL SIGNS: Temperature 97.7, pulse of 88, respiratory rate of 18. Blood pressure is 95/58. Saturating at 94% on 3 L of oxygen by nasal cannula. GENERAL: The patient is alert and oriented x3, not in any acute distress. Well developed, well nourished. HEENT: Pupils are round and equally reacting to light. EOMI. No scleral icterus. No conjunctival pallor. Normocephalic, atraumatic. No pharyngeal erythema. No thyromegaly. CARDIOVASCULAR: S1 and S2 present. No murmurs, rubs, or gallops. PULMONARY: Decreased air entry into bilateral lung alicia. No wheezing was appreciated. No crackles were appreciated. ABDOMEN: Soft, nontender, nondistended, normoactive bowel sounds. No palpable organomegaly. MUSCULOSKELETAL: No joint swelling or deformity. EXTREMITIES: No cyanosis, clubbing, or pedal edema. NEUROLOGICAL: Gross neurological examination did not reveal any focal deficits. SKIN: No rashes. LABORATORY DATA: CBC and CMP are remarkable for elevated WBC count of 13,300 secondary to systemic steroids. ASSESSMENT AND PLAN: 1. Acute hypercapnic respiratory failure secondary to chronic obstructive pulmonary disease exacerbation. 2. Severe pulmonary hypertension. 3. Takotsubo syndrome, for which patient was started on lisinopril. Did not tolerate Lisinopril a couple days ago, because of which Cardiology wanted to monitor her, and patient will need a Life Vest. 4. Pulmonary nodules, for which Pulmonary will follow her as an outpatient. These pulmonary nodules apparently were not evident on the repeat x-ray.
[2016-08-26 16:52] LABS: Glucose,Whole Blood 175 mg/dL (75-99)
[2016-08-26] MEDS: ACETAMINOPHEN TAB 325 MG TAB PO PRN (17:47)
[2016-08-26 20:44] LABS: Glucose,Whole Blood 115 mg/dL (75-99)
[2016-08-26] MEDS: MONTELUKAST 10 MG TAB PO SCH (20:47)
[2016-08-27 05:45] LABS: Glucose,Whole Blood 129 mg/dL (75-99)
[2016-08-27] MEDS: INSULIN LISPRO (humaLOG) 300 UNIT/3 ML VIAL SQ SCH ×4 (06:10→21:01)
[2016-08-27] MEDS: methylPREDNISolone SOD SUCCI 125 MG/2 ML VIAL IV SCH ×4 (06:36→22:52)
[2016-08-27 07:07] LABS: Anion Gap 6 mmol/L; Blood Urea Nitrogen 20 mg/dL (7-17); Calcium 8.7 mg/dL (8.4-10.2); Carbon Dioxide 30 mmol/L (22-30); Chloride 103 mmol/L (98-107); Glucose 121 mg/dL (74-99); Non-African American GFR(MDRD) >60 (>60 ml/min/1.73 sqM); Potassium 4.7 mmol/L (3.5-5.1); Sodium 139 mmol/L (137-145)
[2016-08-27 07:36] LABS: Basophils # (A) 0.1 k/uL (0-0.2); Basophils % (A) 0 %; CHCM 29.4; Eosinophils % (A) 0 %; HCT 38.9 % (34.0-46.0); HDW 2.12; Hypochromasia Marked; Luc # (Auto) 0.06; Luc % (Auto) 0; Lymphocytes # (A) 0.5 k/uL (1.0-4.8); Lymphocytes % (A) 3 %; MCH 29.5 pg (25.0-35.0); MCHC 30.9 g/dL (31.0-37.0); MCV 95.6 fL (80.0-100.0); Mean Platelet Volume 8.5; Monocytes # (A) 0.4 k/uL (0-1.0); Monocytes % (A) 3 %; Neutrophils # (A) 14.8 k/uL (1.3-7.7); Neutrophils % (A) 94 %; RBC 4.07 m/uL (3.80-5.40); RDW 13.4 % (11.5-15.5); WBC 15.8 k/uL (3.8-10.6); WBC (Perox) 15.98
[2016-08-27] MEDS: METOPROLOL TARTRATE 12.5 MG TAB PO SCH ×2 (08:34→21:01)
[2016-08-27] MEDS: LISINOPRIL 2.5 MG TAB PO SCH (08:34)
[2016-08-27] MEDS: ALPRAZolam 0.25 MG TAB PO PRN ×2 (08:34→19:03)
[2016-08-27] MEDS: buPROPion SR 150 MG TABLET.ER PO SCH ×2 (08:34→21:01)
[2016-08-27] MEDS: TYVASO 0.6 MG/ML INHALATION SCH ×4 (08:35→22:52)
[2016-08-27] MEDS: CALCIUM CARBONATE 500 MG CHEWABLE PO SCH (08:35)
[2016-08-27] MEDS: SPIRONOLACTONE 25 MG TAB PO SCH (08:35)
[2016-08-27] MEDS: LORATADINE 10 MG TAB PO SCH (08:36)
[2016-08-27] MEDS: ASPIRIN 81 MG CHEW PO SCH (08:36)
[2016-08-27] MEDS: CHOLECALCIFEROL 1,000 UNIT TAB PO SCH (08:36)
[2016-08-27] MEDS: ATORVASTATIN 80 MG TAB PO SCH (08:36)
[2016-08-27] MEDS ORDERED: FUROSEMIDE 10 MG/ML 4 ML VIAL IV STA (09:32)
--- NOTE | 2016-08-27 10:51 | P.PN ---
Subjective patient resting in bed appears short of breath. Objective - Vital Signs Vital signs: Vital Signs Temp 97.6 F 08/26/16 20:00 Pulse 81 08/27/16 08:00 Resp 18 08/27/16 08:00 BP 100/57 08/27/16 08:00 Pulse Ox 94 L 08/27/16 08:00 Intake & Output 08/26/16 08/27/16 08/27/16 18:59 06:59 18:59 Intake Total 800 40 Balance 800 40 Weight 67.5 kg Intake: IV 320 40 Sodium Chloride 0.9% 1, 320 40 000 ml @ 40 mls/hr IV . Q24H [facility] Rx#:[id number] Oral 480 Other: Voiding Method Toilet # Voids 1 1 # Bowel Movements 0 - Constitutional General appearance: Present: average body habitus, mild distress - EENT Eyes: Present: PERRLA Ears: bilateral: normal - Neck Neck: Present: normal ROM - Respiratory Respiratory: bilateral: diminished - Cardiovascular Rhythm: regular - Neurologic Neurologic: Present: CNII-XII intact - Musculoskeletal Musculoskeletal: Present: generalized weakness - Psychiatric Psychiatric: Present: A&O x's 3, appropriate affect, intact judgment & insight - Labs CBC & Chem 7: 08/27/16 05:38 08/27/16 05:38 Labs: Abnormal Lab Results - Last 24 Hours (Table) 08/26/16 08/26/16 08/26/16 Range/Units 11:44 16:50 20:42 WBC (3.8-10.6) k/uL MCHC (31.0-37.0) g/dL Neutrophils # (1.3-7.7) k/uL Lymphocytes # (1.0-4.8) k/uL BUN (7-17) mg/dL Glucose (74-99) mg/dL POC Glucose (mg/dL) 111 H 175 H 115 H (75-99) mg/dL 08/27/16 08/27/16 08/27/16 Range/Units 05:38 05:38 05:44 WBC 15.8 H (3.8-10.6) k/uL MCHC 30.9 L (31.0-37.0) g/dL Neutrophils # 14.8 H (1.3-7.7) k/uL Lymphocytes # 0.5 L (1.0-4.8) k/uL BUN 20 H (7-17) mg/dL Glucose 121 H (74-99) mg/dL POC Glucose (mg/dL) 129 H (75-99) mg/dL - Imaging and Cardiology Chest x-ray: report reviewed Assessment and Plan Plan: assessment acute respiratory failure secondary to chronic COPD on lung transplant list at [facility] pulmonary hypertension Takotsubo syndrome [id number] pulmonary nodule acute non st segment AR post cardiac cath CHF EF less than 20% systolic dysfuction plan continued consult with Cardiology and pulmonology hopeful discharge soon continues on bronchodialators levaquin and steroids
[2016-08-27] MEDS: ALBUTEROL NEBULIZED 2.5 MG/3 ML INHALATION SCH ×4 (10:53→19:25)
[2016-08-27] MEDS: SYMBICORT 160-4.5 MCG INHALER INHALATION SCH ×2 (10:53→19:25)
[2016-08-27 12:00] LABS: Glucose,Whole Blood 106 mg/dL (75-99)
[2016-08-27] MEDS: LEVOFLOXACIN 500 MG TAB PO SCH (12:27)
--- NOTE | 2016-08-27 13:46 | XR ---
EXAMINATION TYPE: XR chest 2V DATE OF EXAM: 08/27/2016 1:31 PM COMPARISON: Chest x-ray August 25, 2016. HISTORY: CHF progress study. TECHNIQUE: Frontal and lateral views of the chest are obtained. FINDINGS: Overlying vest material or external defibrillator is seen making evaluation lower lung subo ptimal. There is chronic parenchymal change with bibasilar atelectasis and/or limited infiltrate rede monstrated. Suspect tiny bilateral pleural effusions felt stable. No suspicious new focal airspace op acity or pneumothorax is seen bilaterally. Cardiac silhouette size is within normal limits. Osseous s tructures are intact. IMPRESSION: Chronic emphysematous change with bibasilar scarring and/or atelectasis and tiny left b ilateral pleural effusions all redemonstrated.
--- NOTE | 2016-08-27 14:24 | P.PN ---
Subjective Principal diagnosis: Acute exacerbation of COPD and acute non-ST segment elevation myocardial infarction. A very pleasant 61-year-old female patient with known history of COPD, pulmonary hypertension, who has been followed up at [facility] and been treated with inhaled Tyvaso for many years in regards to pulmonary hypertension and she has been followed up by Dr. Hannah Fulton in this regard. This patient has been having difficulty breathing for the past 2-3 weeks. She has been treated with course of antibiotics and steroids for her primary care physician treating an acute COPD exacerbation and acute bronchitis. She came into the hospital because of the same knowing that she was not improving and she was using the albuterol neb last treatment was very frequently. She has been maintained on a combination of Spiriva and Symbicort as maintenance for COPD. In the hospital, the patient reported chest pressure and she ruled in for a non-ST segment elevation myocardial infarction. Troponin peaked at 2.1. Based on that, the patient was started on IV heparin and she had a cardiac catheterization that showed adequate coronaries with mild plaque without any critical stenosis. At the same time the patient apical ballooning syndrome. The echocardiogram showed a left ventricular systolic function of less than 20% , mild aortic sclerosis, no evidence of any pulmonary hypertension and there was severe global hypokinesis of the left ventricle. The chest x-ray findings are consistent with COPD. There is some bibasilar opacities probably related to soft tissue and infiltrates. No pleural effusion. A vague 1 cm nodular lesion projecting along the right medial facet abdomen which still a new finding knowing that the patient's CAT scan of the chest that was done last year showed no acute abnormalities. I'm recommending following up a chest x- ray within next few days. On 08/25/2016, the patient is still congested and coughing and bronchospastic and wheezy. There has been limited improvement in her condition compared to yesterday. Note that the patient is being treated for an acute COPD exacerbation. She was also found to have apical ballooning with nonischemic cardiomyopathy which is felt to be reversible. The patient will be started on keri inhibitors and Aldactone in addition. On 08/26/2016, patient is beginning to show definite improvement, less cough and less wheezing less shortness of breath. Patient clearly has multiple medical problems including acute exacerbation of COPD, acute non-ST elevation myocardial infarction, history of secondary pulmonary hypertension being followed at the [facility]. Patient has nonischemic cardiomyopathy and felt to be possibly reversible. Remains on multiple cardiac meds and on bronchodilators. Definite improvement today compared to the last few days. CBC is relatively unremarkable. Basic metabolic profile is normal, renal profile is normal. All her meds were reviewed, and seems to be quite appropriate, no changes were made. On 08/27/2016, patient continues to do well, she has intermittent episodes of coughing spells, she has shortness of breath with any exertion, and again she has many factors to contribute to her shortness of breath including her COPD, pulmonary hypertension, and LV dysfunction/cardiomyopathy. Patient seems to be on proper medications, and she is still on her usual meds and bronchodilators. Patient may eventually need AICD, but that will be decided upon by cardiology on the case. From the pulmonary perspective, patient could be considered for discharge, however she has to be cleared by cardiology for discharge planning. CBC was reviewed from today, relatively unremarkable WBC count is 15.8. Basic metabolic profile is normal renal profile is normal. Objective - Vital Signs Vital signs: Vital Signs Temp 97.6 F 08/26/16 20:00 Pulse 64 08/27/16 11:53 Resp 18 08/27/16 11:53 BP 100/56 08/27/16 11:53 Pulse Ox 100 08/27/16 11:53 Intake & Output 08/26/16 08/27/16 08/27/16 18:59 06:59 18:59 Intake Total 800 40 200 Balance 800 40 200 Weight 67.5 kg Intake: IV 320 40 Sodium Chloride 0.9% 1, 320 40 000 ml @ 40 mls/hr IV . Q24H [facility] Rx#:[id number] Oral 480 200 Other: Voiding Method Toilet # Voids 1 1 # Bowel Movements 0 - Exam Head exam was generally normal. There was no scleral icterus or corneal arcus. Mucous membranes were moist.Neck was supple and without jugular venous distension, thyromegaly, or carotid bruits. Carotids were easily palpable bilaterally. There was no adenopathy. Diminished breath sound bilaterally, no crackles or rhonchi and wheezes today..Cardiac exam revealed the PMI to be normally situated and sized. The rhythm was regular and no extrasystoles were noted during several minutes of auscultation. The first and second heart sounds were normal and physiologic splitting of the second heart sound was noted. There were no murmurs, rubs, clicks, or gallops.Abdominal exam revealed normal bowel sounds. The abdomen was soft, non-tender, and without masses, organomegaly , or appreciable enlargement of the abdominal aorta.Examination of the extremities revealed easily palpable radial, femoral and pedal pulses. There was no cyanosis, clubbing or edema. - Labs CBC & Chem 7: 08/27/16 05:38 08/27/16 05:38 Labs: Abnormal Lab Results - Last 24 Hours (Table) 08/26/16 08/26/16 08/27/16 Range/Units 16:50 20:42 05:38 WBC 15.8 H (3.8-10.6) k/uL MCHC 30.9 L (31.0-37.0) g/dL Neutrophils # 14.8 H (1.3-7.7) k/uL Lymphocytes # 0.5 L (1.0-4.8) k/uL BUN (7-17) mg/dL Glucose (74-99) mg/dL POC Glucose (mg/dL) 175 H 115 H (75-99) mg/dL 08/27/16 08/27/16 08/27/16 Range/Units 05:38 05:44 11:49 WBC (3.8-10.6) k/uL MCHC (31.0-37.0) g/dL Neutrophils # (1.3-7.7) k/uL Lymphocytes # (1.0-4.8) k/uL BUN 20 H (7-17) mg/dL Glucose 121 H (74-99) mg/dL POC Glucose (mg/dL) 129 H 106 H (75-99) mg/dL Assessment and Plan Plan: 1 acute COPD exacerbation/acute bronchitis. No evidence of pneumonia. Shortness of breath is predominantly emanating from acute COPD exacerbation about and CHF. 2 acute non-ST segment elevation myocardial infarction 3 CHF with global hypokinesis and ejection fraction of less than 25% 4 vague nodular density 1 cm as visualized on the chest x-ray, likely a summation of shadows out of the total lesion knowing that the CAT scan from last year showed no acute abnormalities 5 pulmonary hypertension, questionable primary pulmonary hypertension maintain on inhaled Tyvaso and most recent echocardiogram shows no evidence of any elevation in the PA pressures 6 precancerous colonic lesion status post colectomy 7 previous history of smoking quit in 2014 Recommendation: Continue present course of bronchodilators, patient is presently on DuoNeb, Spiriva, Symbicort, she is also on oral prednisone, Levaquin, patient is also being followed by cardiology, she remains on tyvaso regarding chronic pulmonary hypertension. Consider discharge planning when cleared by cardiology. Follow-up with me on outpatient basis. Time with Patient: Less than 30
--- NOTE | 2016-08-27 14:34 | P.PN ---
Subjective Principal diagnosis: Chest tightness This is a pleasant 61-year-old female with history of COPD, pulmonary hypertension, being followed at [facility], prior nicotine dependence, prior colon cancer with ileostomy, strong family history of premature coronary artery disease. She presents to the hospital with symptoms of severe shortness of breath, she states that her chest becomes extremely tight and she is unable to get air in. She also describes that this is much different than her usual exacerbation of COPD. She has recently as an outpatient been treated for an upper respiratory infection with not much significant improvement. KG on admission shows a sinus tachycardia with PVCs, significant artifact. Troponin 0.41, subsequent troponin 2.18. Patient lost her approximately one month ago, 2 weeks ago she lost a sister to cardiac arrest, he's been under significant amount of stress. Patient is on the lung transplant list at [facility]. Patient was taken to the cardiac catheterization lab yesterday where she was found to have normal coronary arteries, findings consistent with apical ballooning syndrome. Echocardiogram with Doppler study was performed which revealed severe global hypokinesia and an overall ejection fraction of less than 20%. Patient is currently on low-dose MOY inhibitor, beta kamille, baby aspirin, Aldactone and statin. Patient complained of feeling more exertionally short of breath today which could be secondary to her COPD, LV dysfunction, and pulmonary hypertension. Overall patient is doing well. LifeVest was placed on the patient today. Chest x-ray revealed chronic emphysema changes with bibasilar scarring. Objective - Vital Signs Vital signs: Vital Signs Temp 97.6 F 08/26/16 20:00 Pulse 64 08/27/16 11:53 Resp 18 08/27/16 11:53 BP 100/56 08/27/16 11:53 Pulse Ox 100 08/27/16 11:53 Intake & Output 08/26/16 08/27/16 08/27/16 18:59 06:59 18:59 Intake Total 800 40 200 Balance 800 40 200 Weight 67.5 kg Intake: IV 320 40 Sodium Chloride 0.9% 1, 320 40 000 ml @ 40 mls/hr IV . Q24H [facility] Rx#:[id number] Oral 480 200 Other: Voiding Method Toilet # Voids 1 1 # Bowel Movements 0 - Exam PHYSICAL EXAMINATION: HEENT: Head is atraumatic, normocephalic. Pupils equal, round. Neck is supple. There is no elevated jugular venous pressure. HEART EXAMINATION: Heart S1, S2 normal. No murmur or gallop heard. CHEST EXAMINATION: Lungs reveal decreased air exchange throughout. No Audible wheezes today. ABDOMEN: Soft, nontender. Bowel sounds are heard. No organomegaly noted. Right groin soft, no hematoma. EXTREMITIES: 2+ peripheral pulses with no evidence of peripheral edema and no calf tenderness noted. NEUROLOGIC patient is awake, alert and oriented -3. - Labs CBC & Chem 7: 08/27/16 05:38 08/27/16 05:38 Labs: Abnormal Lab Results - Last 24 Hours (Table) 08/26/16 08/26/16 08/27/16 Range/Units 16:50 20:42 05:38 WBC 15.8 H (3.8-10.6) k/uL MCHC 30.9 L (31.0-37.0) g/dL Neutrophils # 14.8 H (1.3-7.7) k/uL Lymphocytes # 0.5 L (1.0-4.8) k/uL BUN (7-17) mg/dL Glucose (74-99) mg/dL POC Glucose (mg/dL) 175 H 115 H (75-99) mg/dL 08/27/16 08/27/16 08/27/16 Range/Units 05:38 05:44 11:49 WBC (3.8-10.6) k/uL MCHC (31.0-37.0) g/dL Neutrophils # (1.3-7.7) k/uL Lymphocytes # (1.0-4.8) k/uL BUN 20 H (7-17) mg/dL Glucose 121 H (74-99) mg/dL POC Glucose (mg/dL) 129 H 106 H (75-99) mg/dL Assessment and Plan (1) Non-Q wave infarction Status: Acute (2) Takotsubo cardiomyopathy Status: Acute (3) S/P cardiac catheterization Status: Acute (4) Pulmonary hypertension Status: Acute (5) Family history of early CAD Status: Acute (6) COPD (chronic obstructive pulmonary disease) Status: Acute (7) Nicotine dependence Status: Acute (8) Hx of colon cancer, stage I Status: Acute Plan: Etiology's perspective, we will continue with her medications. We will continue to monitor the patient for another 24 hours, monitoring the blood pressure closely for any hypotension, we'll continue to monitor for any arrhythmias. If the patient remained stable plan for discharge home in 24 hours. LifeVest was placed today. DNP note has been reviewed, I agree with a documented findings and plan of care. Patient was seen and examined.
[2016-08-27] MEDS: FUROSEMIDE 40 MG TAB PO SCH (15:09)
[2016-08-27] MEDS: SODIUM CHLORIDE 0.9% 1,000 ML IV SCH (15:10)
[2016-08-27 17:02] LABS: Glucose,Whole Blood 125 mg/dL (75-99)
[2016-08-27] MEDS: ACETAMINOPHEN TAB 325 MG TAB PO PRN (19:02)
[2016-08-27] MEDS: TIOTROPIUM 18 MCG/PUFF INHALER INHALATION SCH (19:09)
[2016-08-27 20:39] LABS: Glucose,Whole Blood 150 mg/dL (75-99)
[2016-08-27] MEDS: MONTELUKAST 10 MG TAB PO SCH (21:01)
[2016-08-28 05:40] LABS: Glucose,Whole Blood 139 mg/dL (75-99)
[2016-08-28 06:00] LABS: Basophils % (A) 0 %; CH 28.3; CHCM 30.3; Eosinophils % (A) 0 %; HGB 12.3 gm/dL (11.4-16.0); Hypochromasia Slight; Luc # (Auto) 0.08; Luc % (Auto) 1; Lymphocytes # (A) 0.5 k/uL (1.0-4.8); Lymphocytes % (A) 3 %; MCH 28.3 pg (25.0-35.0); MCHC 30.1 g/dL (31.0-37.0); Mean Platelet Volume 7.2; Monocytes # (A) 0.5 k/uL (0-1.0); Monocytes % (A) 3 %; Neutrophils # (A) 13.9 k/uL (1.3-7.7); Neutrophils % (A) 93 %; RBC 4.36 m/uL (3.80-5.40); RDW 13.5 % (11.5-15.5); WBC (Perox) 15.73
[2016-08-28 06:14] LABS: Anion Gap 7 mmol/L; Blood Urea Nitrogen 28 mg/dL (7-17); Calcium 8.4 mg/dL (8.4-10.2); Carbon Dioxide 34 mmol/L (22-30); Chloride 97 mmol/L (98-107); Glucose 135 mg/dL (74-99); Non-African American GFR(MDRD) 58 (>60 ml/min/1.73 sqM); Potassium 4.2 mmol/L (3.5-5.1); Sodium 138 mmol/L (137-145)
[2016-08-28] MEDS: INSULIN LISPRO (humaLOG) 300 UNIT/3 ML VIAL SQ SCH ×3 (06:25→17:48)
[2016-08-28] MEDS: methylPREDNISolone SOD SUCCI 125 MG/2 ML VIAL IV SCH ×3 (06:25→17:48)
[2016-08-28] MEDS: SPIRONOLACTONE 25 MG TAB PO SCH (08:07)
[2016-08-28] MEDS: METOPROLOL TARTRATE 12.5 MG TAB PO SCH (08:07)
[2016-08-28] MEDS: CHOLECALCIFEROL 1,000 UNIT TAB PO SCH (08:08)
[2016-08-28] MEDS: FUROSEMIDE 40 MG TAB PO SCH ×2 (08:08→15:06)
[2016-08-28] MEDS: LORATADINE 10 MG TAB PO SCH (08:08)
[2016-08-28] MEDS: ATORVASTATIN 80 MG TAB PO SCH (08:08)
[2016-08-28] MEDS: ASPIRIN 81 MG CHEW PO SCH (08:08)
[2016-08-28] MEDS: CALCIUM CARBONATE 500 MG CHEWABLE PO SCH (08:08)
[2016-08-28] MEDS: LISINOPRIL 2.5 MG TAB PO SCH (08:08)
[2016-08-28] MEDS: buPROPion SR 150 MG TABLET.ER PO SCH (08:08)
[2016-08-28] MEDS: SYMBICORT 160-4.5 MCG INHALER INHALATION SCH (08:50)
[2016-08-28] MEDS: ALBUTEROL NEBULIZED 2.5 MG/3 ML INHALATION SCH ×3 (08:50→17:06)
[2016-08-28] MEDS: TIOTROPIUM 18 MCG/PUFF INHALER INHALATION SCH (08:51)
[2016-08-28 08:52] VITALS: RESP 20
[2016-08-28] MEDS: ALPRAZolam 0.25 MG TAB PO PRN ×2 (10:11→15:05)
[2016-08-28] MEDS: TYVASO 0.6 MG/ML INHALATION SCH ×2 (10:12→12:25)
--- NOTE | 2016-08-28 11:14 | P.PN ---
Subjective Patient states she's still has exertional dyspnea and not back to baseline. Patient has been cleared by pulmonology and cardiology for discharge. We'll discuss case with Dr. Ramsey about discharged home Objective - Vital Signs Vital signs: Vital Signs Temp 96.9 F L 08/28/16 08:00 Pulse 88 08/28/16 09:13 Resp 20 08/28/16 08:00 BP 132/59 08/28/16 08:00 Pulse Ox 97 08/28/16 08:00 Intake & Output 08/27/16 08/28/16 08/28/16 18:59 06:59 18:59 Intake Total 460 0 236 Balance 460 0 236 Weight 67.5 kg Intake: IV 0 Sodium Chloride 0.9% 1, 0 000 ml @ 40 mls/hr IV . Q24H [facility] Rx#:[id number] Oral 460 236 Other: Voiding Method Toilet # Voids 2 - Constitutional General appearance: Present: mild distress - EENT Eyes: Present: PERRLA Ears: bilateral: normal - Neck Neck: Present: normal ROM - Respiratory Respiratory: bilateral: wheezing - Gastrointestinal General gastrointestinal: Present: soft - Integumentary Integumentary: Present: normal - Neurologic Neurologic: Present: CNII-XII intact - Musculoskeletal Musculoskeletal: Present: generalized weakness - Psychiatric Psychiatric: Present: A&O x's 3, appropriate affect, intact judgment & insight - Labs CBC & Chem 7: 08/28/16 05:28 08/28/16 05:28 Labs: Abnormal Lab Results - Last 24 Hours (Table) 08/27/16 08/27/16 08/27/16 Range/Units 11:49 16:58 20:38 WBC (3.8-10.6) k/uL MCHC (31.0-37.0) g/dL Neutrophils # (1.3-7.7) k/uL Lymphocytes # (1.0-4.8) k/uL Chloride (98-107) mmol/L Carbon Dioxide (22-30) mmol/L BUN (7-17) mg/dL Glucose (74-99) mg/dL POC Glucose (mg/dL) 106 H 125 H 150 H (75-99) mg/dL 08/28/16 08/28/16 08/28/16 Range/Units 05:28 05:28 05:38 WBC 15.0 H (3.8-10.6) k/uL MCHC 30.1 L (31.0-37.0) g/dL Neutrophils # 13.9 H (1.3-7.7) k/uL Lymphocytes # 0.5 L (1.0-4.8) k/uL Chloride 97 L (98-107) mmol/L Carbon Dioxide 34 H (22-30) mmol/L BUN 28 H (7-17) mg/dL Glucose 135 H (74-99) mg/dL POC Glucose (mg/dL) 139 H (75-99) mg/dL Assessment and Plan Plan: Assessment Acute hypercapnic respiratory failure secondary to chronic COPD with exacerbation Pulmonary hypertension Takotsubo drum with cardiomyopathy Pulmonary nodules Acute non-ST segment [place] post cardiac cath Congestive heart failure ejection fraction less than 20% systolic dysfunction acute on chronic Plan Possible discharge home soon has been cleared by pulmonology and cardiology Patient does see a director money at [facility] has considered lung transplant Patient continues on bronchodilators Levaquin and steroid
[2016-08-28 11:37] VITALS: BMI 23.3
[2016-08-28 11:55] LABS: Glucose,Whole Blood 133 mg/dL (75-99)
[2016-08-28] MEDS: LEVOFLOXACIN 500 MG TAB PO SCH (12:18)
--- NOTE | 2016-08-28 12:34 | P.PN ---
Subjective Principal diagnosis: Acute exacerbation of COPD and acute non-ST segment elevation myocardial infarction. A very pleasant 61-year-old female patient with known history of COPD, pulmonary hypertension, who has been followed up at [facility] and been treated with inhaled Tyvaso for many years in regards to pulmonary hypertension and she has been followed up by Dr. Hannah Fulton in this regard. This patient has been having difficulty breathing for the past 2-3 weeks. She has been treated with course of antibiotics and steroids for her primary care physician treating an acute COPD exacerbation and acute bronchitis. She came into the hospital because of the same knowing that she was not improving and she was using the albuterol neb last treatment was very frequently. She has been maintained on a combination of Spiriva and Symbicort as maintenance for COPD. In the hospital, the patient reported chest pressure and she ruled in for a non-ST segment elevation myocardial infarction. Troponin peaked at 2.1. Based on that, the patient was started on IV heparin and she had a cardiac catheterization that showed adequate coronaries with mild plaque without any critical stenosis. At the same time the patient apical ballooning syndrome. The echocardiogram showed a left ventricular systolic function of less than 20% , mild aortic sclerosis, no evidence of any pulmonary hypertension and there was severe global hypokinesis of the left ventricle. The chest x-ray findings are consistent with COPD. There is some bibasilar opacities probably related to soft tissue and infiltrates. No pleural effusion. A vague 1 cm nodular lesion projecting along the right medial facet abdomen which still a new finding knowing that the patient's CAT scan of the chest that was done last year showed no acute abnormalities. I'm recommending following up a chest x- ray within next few days. On 08/25/2016, the patient is still congested and coughing and bronchospastic and wheezy. There has been limited improvement in her condition compared to yesterday. Note that the patient is being treated for an acute COPD exacerbation. She was also found to have apical ballooning with nonischemic cardiomyopathy which is felt to be reversible. The patient will be started on keri inhibitors and Aldactone in addition. On 08/26/2016, patient is beginning to show definite improvement, less cough and less wheezing less shortness of breath. Patient clearly has multiple medical problems including acute exacerbation of COPD, acute non-ST elevation myocardial infarction, history of secondary pulmonary hypertension being followed at the [facility]. Patient has nonischemic cardiomyopathy and felt to be possibly reversible. Remains on multiple cardiac meds and on bronchodilators. Definite improvement today compared to the last few days. CBC is relatively unremarkable. Basic metabolic profile is normal, renal profile is normal. All her meds were reviewed, and seems to be quite appropriate, no changes were made. On 08/27/2016, patient continues to do well, she has intermittent episodes of coughing spells, she has shortness of breath with any exertion, and again she has many factors to contribute to her shortness of breath including her COPD, pulmonary hypertension, and LV dysfunction/cardiomyopathy. Patient seems to be on proper medications, and she is still on her usual meds and bronchodilators. Patient may eventually need AICD, but that will be decided upon by cardiology on the case. From the pulmonary perspective, patient could be considered for discharge, however she has to be cleared by cardiology for discharge planning. CBC was reviewed from today, relatively unremarkable WBC count is 15.8. Basic metabolic profile is normal renal profile is normal. On 08/28/2016, patient is doing well from the pulmonary perspective, continues to have shortness of breath on exertion mostly related to her underlying COPD, pulmonary hypertension and underlying cardiomyopathy. LV dysfunction. patient is on home O2, and I believe the patient is cleared by cardiology for discharge today, she could be cleared from our perspective and have follow-up on outpatient basis. discussed the report on her last echocardiogram, and discussed her pulmonary status which is quite severe in nature related to severe underlying COPD. in addition to all of this the patient has supposedly severe pulmonary hypertension on treatment at the [facility] pulmonary hypertension clinic. Objective - Vital Signs Vital signs: Vital Signs Temp 96.9 F L 08/28/16 11:45 Pulse 62 08/28/16 11:45 Resp 20 08/28/16 11:45 BP 112/57 08/28/16 11:45 Pulse Ox 93 L 08/28/16 11:45 Intake & Output 08/27/16 08/28/16 08/28/16 18:59 06:59 18:59 Intake Total 460 0 236 Balance 460 0 236 Weight 67.5 kg 67.5 kg Intake: IV 0 Sodium Chloride 0.9% 1, 0 000 ml @ 40 mls/hr IV . Q24H [facility] Rx#:[id number] Oral 460 [id number] Other: Voiding Method Toilet # Voids 2 - Exam Head exam was generally normal. There was no scleral icterus or corneal arcus. Mucous membranes were moist.Neck was supple and without jugular venous distension, thyromegaly, or carotid bruits. Carotids were easily palpable bilaterally. There was no adenopathy. Diminished breath sound bilaterally, no crackles or rhonchi and wheezes today..Cardiac exam revealed the PMI to be normally situated and sized. The rhythm was regular and no extrasystoles were noted during several minutes of auscultation. The first and second heart sounds were normal and physiologic splitting of the second heart sound was noted. There were no murmurs, rubs, clicks, or gallops.Abdominal exam revealed normal bowel sounds. The abdomen was soft, non-tender, and without masses, organomegaly , or appreciable enlargement of the abdominal aorta.Examination of the extremities revealed easily palpable radial, femoral and pedal pulses. There was no cyanosis, clubbing or edema. - Labs CBC & Chem 7: 08/28/16 05:28 08/28/16 05:28 Labs: Abnormal Lab Results - Last 24 Hours (Table) 08/27/16 08/27/16 08/28/16 Range/Units 16:58 20:38 05:28 WBC 15.0 H (3.8-10.6) k/uL MCHC 30.1 L (31.0-37.0) g/dL Neutrophils # 13.9 H (1.3-7.7) k/uL Lymphocytes # 0.5 L (1.0-4.8) k/uL Chloride (98-107) mmol/L Carbon Dioxide (22-30) mmol/L BUN (7-17) mg/dL Glucose (74-99) mg/dL POC Glucose (mg/dL) 125 H 150 H (75-99) mg/dL 08/28/16 08/28/16 08/28/16 Range/Units 05:28 05:38 11:50 WBC (3.8-10.6) k/uL MCHC (31.0-37.0) g/dL Neutrophils # (1.3-7.7) k/uL Lymphocytes # (1.0-4.8) k/uL Chloride 97 L (98-107) mmol/L Carbon Dioxide 34 H (22-30) mmol/L BUN 28 H (7-17) mg/dL Glucose 135 H (74-99) mg/dL POC Glucose (mg/dL) 139 H 133 H (75-99) mg/dL Assessment and Plan Plan: 1 acute COPD exacerbation/acute bronchitis. No evidence of pneumonia. Shortness of breath is predominantly emanating from acute COPD exacerbation about and CHF. 2 acute non-ST segment elevation myocardial infarction 3 CHF with global hypokinesis and ejection fraction of less than 20% 4 vague nodular density 1 cm as visualized on the chest x-ray, likely a summation of shadows out of the total lesion knowing that the CAT scan from last year showed no acute abnormalities 5 pulmonary hypertension, questionable primary pulmonary hypertension maintain on inhaled Tyvaso and most recent echocardiogram shows no evidence of any elevation in the PA pressures 6 precancerous colonic lesion status post colectomy 7 previous history of smoking quit in 2014 Recommendation: Continue present course of bronchodilators, patient is presently on DuoNeb, Spiriva, Symbicort, she is also on oral prednisone, Levaquin, patient is also being followed by cardiology, she remains on tyvaso regarding chronic pulmonary hypertension. Consider discharge planning when cleared by cardiology. Follow-up with me on outpatient basis. Time with Patient: Less than 30
--- NOTE | 2016-08-28 14:43 | P.PN ---
Subjective Principal diagnosis: Chest tightness This is a pleasant 61-year-old female with history of COPD, pulmonary hypertension, being followed at [facility], prior nicotine dependence, prior colon cancer with ileostomy, strong family history of premature coronary artery disease. She presents to the hospital with symptoms of severe shortness of breath, she states that her chest becomes extremely tight and she is unable to get air in. She also describes that this is much different than her usual exacerbation of COPD. She has recently as an outpatient been treated for an upper respiratory infection with not much significant improvement. KG on admission shows a sinus tachycardia with PVCs, significant artifact. Troponin 0.41, subsequent troponin 2.18. Patient lost her approximately one month ago, 2 weeks ago she lost a sister to cardiac arrest, he's been under significant amount of stress. Patient is on the lung transplant list at [facility]. Patient was taken to the cardiac catheterization lab yesterday where she was found to have normal coronary arteries, findings consistent with apical ballooning syndrome. Echocardiogram with Doppler study was performed which revealed severe global hypokinesia and an overall ejection fraction of less than 20%. Patient is currently on low-dose MOY inhibitor, beta kamille, baby aspirin, Aldactone and statin. Patient up ambulating in the hallway today overall feeling slightly better. Objective - Vital Signs Vital signs: Vital Signs Temp 96.9 F L 08/28/16 11:45 Pulse 86 08/28/16 13:14 Resp 20 08/28/16 12:56 BP 112/57 08/28/16 11:45 Pulse Ox 93 L 08/28/16 11:45 Intake & Output 08/27/16 08/28/16 08/28/16 18:59 06:59 18:59 Intake Total 460 0 496 Balance 460 0 496 Weight 67.5 kg 67.5 kg Intake: IV 0 Sodium Chloride 0.9% 1, 0 000 ml @ 40 mls/hr IV . Q24H [facility] Rx#:[id number] Oral 460 [id number] Other: Voiding Method Toilet # Voids 2 2 - Exam PHYSICAL EXAMINATION: HEENT: Head is atraumatic, normocephalic. Pupils equal, round. Neck is supple. There is no elevated jugular venous pressure. HEART EXAMINATION: Heart S1, S2 normal. No murmur or gallop heard. CHEST EXAMINATION: Lungs reveal decreased air exchange throughout. No Audible wheezes today. ABDOMEN: Soft, nontender. Bowel sounds are heard. No organomegaly noted. Right groin soft, no hematoma. EXTREMITIES: 2+ peripheral pulses with no evidence of peripheral edema and no calf tenderness noted. NEUROLOGIC patient is awake, alert and oriented -3. - Labs CBC & Chem 7: 08/28/16 05:28 08/28/16 05:28 Labs: Abnormal Lab Results - Last 24 Hours (Table) 08/27/16 08/27/16 08/28/16 Range/Units 16:58 20:38 05:28 WBC 15.0 H (3.8-10.6) k/uL MCHC 30.1 L (31.0-37.0) g/dL Neutrophils # 13.9 H (1.3-7.7) k/uL Lymphocytes # 0.5 L (1.0-4.8) k/uL Chloride (98-107) mmol/L Carbon Dioxide (22-30) mmol/L BUN (7-17) mg/dL Glucose (74-99) mg/dL POC Glucose (mg/dL) 125 H 150 H (75-99) mg/dL 08/28/16 08/28/16 08/28/16 Range/Units 05:28 05:38 11:50 WBC (3.8-10.6) k/uL MCHC (31.0-37.0) g/dL Neutrophils # (1.3-7.7) k/uL Lymphocytes # (1.0-4.8) k/uL Chloride 97 L (98-107) mmol/L Carbon Dioxide 34 H (22-30) mmol/L BUN 28 H (7-17) mg/dL Glucose 135 H (74-99) mg/dL POC Glucose (mg/dL) 139 H 133 H (75-99) mg/dL Assessment and Plan (1) Non-Q wave infarction Status: Acute (2) Takotsubo cardiomyopathy Status: Acute (3) S/P cardiac catheterization Status: Acute (4) Pulmonary hypertension Status: Acute (5) Family history of early CAD Status: Acute (6) COPD (chronic obstructive pulmonary disease) Status: Acute (7) Nicotine dependence Status: Acute (8) Hx of colon cancer, stage I Status: Acute Plan: From Cardiologys perspective, we will continue with her medications. Patient may be able to be discharged home once cleared by the primary and pulmonary. We will make her a follow-up appointment to see Dr. Castillo in the office post discharge. DNP note has been reviewed, I agree with a documented findings and plan of care. Patient was seen and examined.
--- NOTE | 2016-08-28 15:12 | P.DS ---
Providers Date of admission: 08/23/16 04:59 Expected date of discharge: 08/28/16 Attending physician: Cristobal Ramsey Consults: 08/23/16 12:57 Consult Physician Routine Consulting Provider: Roxy Garvey Consult Reason/Comments: COPD Do you want consulting provider notified?: Yes Primary care physician: Cristobal Ramsey [facility] Course: 61-year-old female was made to the emergency room with their acute respiratory distress history of the chronic COPD. In the past is considered lung transplant through the [facility]. Patient is elevated troponins stress- induced myocardial damage. Patient was evaluated by cardiology and pulmonology be of cleared for discharge. Recommended the patient to follow up with you [facility]. Patient is on Home O2 Assessment acute hypercapnia respiratory failure secondary to chronic pulmonary obstructive disease acute exacerbation pulmonary hypertension Takotsubo syndrome cardiomyopathy pulmonary nodules acute non-ST segment [place] post cardiac cath congestive heart failure ejection fraction was 20% systolic dysfunction Plan follow up with pulmonology and cardiology and family physician Patient Condition at Discharge: Poor Plan - Discharge Summary New Discharge Prescriptions: Atorvastatin [Lipitor] 80 mg PO DAILY #60 tab Furosemide [Lasix] 40 mg PO BID@0900,1600 #60 tab Lisinopril [Zestril] 2.5 mg PO DAILY #60 tab Metoprolol Tartrate [Lopressor] 12.5 mg PO BID #60 tab Discharge Medication List Montelukast Sodium 10 mg PO HS 02/07/15 [History] buPROPion SR [Wellbutrin SR] 150 mg PO BID 02/21/15 [History] Levofloxacin [Levaquin] 500 mg PO DAILY #5 tab 02/24/15 [Rx] Albuterol Inhaler [Ventolin Hfa Inhaler] 1 puff INHALATION RT-Q4H PRN 11/28/15 [ History] Alendronate Sodium [Fosamax] 70 mg PO WE 11/28/15 [History] Budesonide-Formot 160-4.5 Mcg [Symbicort 160-4.5 Mcg Inhaler] 2 puff INHALATION RT-BID 11/28/15 [History] Calcium Carbonate [Calcium] 900 mg PO DAILY 11/28/15 [History] Cholecalciferol [Vitamin D3] 1,000 unit PO DAILY 11/28/15 [History] Levocetirizine Dihydrochloride 5 mg PO QAM 11/28/15 [History] Tiotropium [place] [Spiriva] 1 cap INHALATION RT-DAILY 11/28/15 [History] Tyvaso 9 puff INHALATION RT-QID 11/28/15 [History] Atorvastatin [Lipitor] 80 mg PO DAILY #60 tab 08/28/16 [Rx] Furosemide [Lasix] 40 mg PO BID@0900,1600 #60 tab 08/28/16 [Rx] Ipratropium-Albuterol Nebulize [Duoneb 0.5 mg-3 mg/3 ml Soln] 3 ml INHALATION RT -Q4H PRN #0 ampul.neb 08/28/16 [Rx] Lisinopril [Zestril] 2.5 mg PO DAILY #60 tab 08/28/16 [Rx] Metoprolol Tartrate [Lopressor] 12.5 mg PO BID #60 tab 08/28/16 [Rx] Follow up Appointment(s)/Referral(s): Cristobal Ramsey MD [Primary Care Provider] - 1-2 days Liz Bellamy MD [STAFF PHYSICIAN] - 1 Week Activity/Diet/Wound Care/Special Instructions: Life Vest - to be delivered to the hospital prior to discharge on 08/27/16
[2016-08-28 15:34] VITALS: BP 106/66; PULSE 100; TEMP 97.5
[2016-08-28 16:42] LABS: Glucose,Whole Blood 114 mg/dL (75-99)
[2016-08-28] MEDS: SODIUM CHLORIDE 0.9% 1,000 ML IV SCH (17:47)
== END 2016-08-28 18:02 | disposition home or self-care (01) | DRG 280 ==
LOC: EC 02:58 → 6SEL 04:59
PROVIDERS: ADMIT Family Medicine; ATTEND Family Medicine
PROC: B2111ZZ Fluoroscopy of Multiple Coronary Arteries using Low Osmolar Contrast (ICD-10-PCS; 2016-08-23)
PROC: 4A023N7 Measurement of Cardiac Sampling and Pressure, Left Heart, Percutaneous Approach (ICD-10-PCS; principal; 2016-08-23 14:10)
DX: I21.4 Non-ST elevation (NSTEMI) myocardial infarction (principal); J96.22 Acute and chronic respiratory failure with hypercapnia; I50.23 Acute on chronic systolic (congestive) heart failure; I42.9 Cardiomyopathy, unspecified; J44.0 Chronic obstructive pulmonary disease with (acute) lower respiratory infection; I51.81 Takotsubo syndrome; J44.1 Chronic obstructive pulmonary disease with (acute) exacerbation; Z76.82 Awaiting organ transplant status; I27.2 Other secondary pulmonary hypertension; I95.9 Hypotension, unspecified; R13.10 Dysphagia, unspecified; J84.10 Pulmonary fibrosis, unspecified; I49.3 Ventricular premature depolarization; I70.0 Atherosclerosis of aorta; J20.9 Acute bronchitis, unspecified; M81.0 Age-related osteoporosis without current pathological fracture; F32.9 Major depressive disorder, single episode, unspecified; K44.9 Diaphragmatic hernia without obstruction or gangrene; R91.1 Solitary pulmonary nodule; Z79.83 Long term (current) use of bisphosphonates; Z79.899 Other long term (current) drug therapy; Z88.0 Allergy status to penicillin; Z88.1 Allergy status to other antibiotic agents; Z91.040 Latex allergy status; Z85.038 Personal history of other malignant neoplasm of large intestine; Z99.81 Dependence on supplemental oxygen; Z87.891 Personal history of nicotine dependence; Z93.2 Ileostomy status; Z82.49 Family history of ischemic heart disease and other diseases of the circulatory system
CPT/HCPCS: 36415; 71010; 71020; 80048; 80053; 83880; 84484; 85025; 85379; 85610; 85730; 93005; 93306; 93454; 94640; 94760

== ENCOUNTER 2016-09-20 14:02 | Inpatient (IN) | payer BC ==
[2016-09-20] MEDS ORDERED: methylPREDNISolone SOD SUCCI 125 MG/2 ML VIAL IV STA (14:49)
[2016-09-20] MEDS ORDERED: IPRATROPIUM-ALBUTEROL 3 ML NEB INHALATION STA (14:49)
[2016-09-20] MEDS ORDERED: SODIUM CHLORIDE 0.9% 1,000 ML IV STA ×2 (14:49→14:51)
[2016-09-20] MEDS ORDERED: ACETAMINOPHEN TAB 500 MG TAB PO STA (14:57)
--- NOTE | 2016-09-20 14:57 | ED ---
General Adult HPI - General Chief complaint: Shortness of Breath Stated complaint: Diff breathing Time Seen by Provider: 09/20/16 14:44 Source: patient, RN notes reviewed Mode of arrival: wheelchair Limitations: no limitations - History of Present Illness Initial comments: Patient is a 61-year-old female who presents emergency room today with a chief complaint of increased cough congestion over the last 3 days. Does admits to history of COPD. States she's tried some breathing treatment at home with some relief the symptoms. States she's had increased sputum production it's been green in color. Doesn't that she uses 3 L of oxygen at home. States that on this 24 hours a day. She does admit that she's been running fevers. States she 's had some chills. States she's used ibuprofen has not taken any Tylenol. Patient denies any recent chest pain, back pain, abdominal pain, nausea or vomiting, numbness or tingling, dysuria or hematuria, constipation or diarrhea, headaches or visual changes, or any other complaints. - Related Data Home Medications Medication Instructions Recorded Confirmed Montelukast Sodium 10 mg PO HS 02/07/15 09/20/16 buPROPion SR [Wellbutrin SR] 150 mg PO BID 02/21/15 09/20/16 Albuterol Inhaler [Ventolin Hfa 1 puff INHALATION RT-Q4H PRN 11/28/15 09/20/16 Inhaler] Alendronate Sodium [Fosamax] 70 mg PO WE 11/28/15 09/20/16 Budesonide-Formot 160-4.5 Mcg 2 puff INHALATION RT-BID 11/28/15 09/20/16 [Symbicort 160-4.5 Mcg Inhaler] Calcium Carbonate [Calcium] 900 mg PO DAILY 11/28/15 09/20/16 Cholecalciferol [Vitamin D3] 1,000 unit PO DAILY 11/28/15 09/20/16 Levocetirizine Dihydrochloride 5 mg PO QAM 11/28/15 09/20/16 Tiotropium Gays [Spiriva] 1 cap INHALATION RT-DAILY 11/28/15 09/20/16 Tyvaso 9 puff INHALATION RT-QID 11/28/15 09/20/16 Previous Rx's Medication Instructions Recorded Levofloxacin [Levaquin] 500 mg PO DAILY #5 tab 02/24/15 Atorvastatin [Lipitor] 80 mg PO DAILY #60 tab 08/28/16 Furosemide [Lasix] 40 mg PO BID@0900,1600 #60 tab 08/28/16 Ipratropium-Albuterol Nebulize 3 ml INHALATION RT-Q4H PRN #0 08/28/16 [Duoneb 0.5 mg-3 mg/3 ml Soln] ampul.neb Lisinopril [Zestril] 2.5 mg PO DAILY #60 tab 08/28/16 Metoprolol Tartrate [Lopressor] 12.5 mg PO BID #60 tab 08/28/16 Allergies Allergy/AdvReac Type Severity Reaction Status Date / Time latex Allergy Unknown Rash/Hives Verified 09/20/16 16:04 nickel [Nickel] Allergy Unknown Rash/Hives Verified 09/20/16 16:04 nitrofurantoin Allergy Unknown Rash/Hives Verified 09/20/16 16:04 macrocrystalline [From Macrodantin] Penicillins Allergy Unknown Rash/Hives Verified 09/20/16 16:04 Review of Systems ROS Statement: Those systems with pertinent positive or pertinent negative responses have been documented in the HPI. ROS Other: All systems not noted in ROS Statement are negative. Past Medical History Past Medical History: COPD, Respiratory Disorder Additional Past Medical History / Comment(s): Recent tx for URI, primary versus secondary pulmonary hypertension-currently on tyvaso treatments-has had some work-up done to be on lung transplant list thru [facility], home O2 at 3L/NC ATC, dysphagia-feels like food gets caught in low end esophagus-pt states she will eventually be worked up at [facility] for this-she drinks a gulp of water to force food down, hiatal hernia, esophagitis, precancerous colonic tumor with sx, hydronephrosis with adhesions resolved with surgery/stent, adrenal lesion/ adenoma being monitored, osteoporosis. History of Any Multi-Drug Resistant Organisms: None Reported Past Surgical History: Bladder Surgery, Bowel Resection, Tonsillectomy, Tubal Ligation Additional Past Surgical History / Comment(s): colonoscopies, sigmoidoscopy, EGD , hemorrhoidectomy, breast bx x 2 pt does not recall laterality, bowel resection with ileostomy, ILLEOSTOMY REVERSAL 9/23/14, cystoscopy with R ureteral stent. Past Anesthesia/Blood Transfusion Reactions: No Reported Reaction, Family History of Problems w/ Anesthesia Additional Past Anesthesia/Blood Transfusion Reaction / Comment(s): SISTER WAS AWARE OF SURROUNDINGS WITH ANESTHESIA Past Psychological History: Depression Additional Psychological History / Comment(s): Pt was started on Wellbutrin to aid in stopping smoking, she decided to stay on it after quitting smoking because she felt better. Pt states she feels like she may need more help with her depression-it has increased some recently. She has had 2 significant deaths in the past few months-her spouse and her sister and she feels this is likely the source of her increased depression. She denies any suicidal thoughts. She is from a large family of 18 children. She lives at home and assists in the care of her brother who has down's syndrome. Her granddaughter has recently moved in with them to assist as well. She has home oxygen and a nebulizer. Pt mentioned that since her spouses her financial status has declined. She stated that she may no longer be able to afford pursuing her lung transplant and once she reaches 64yrs and goes on Medicare, she will not be able to afford her Tyvaso treatments. No home care. Smoking Status: Former smoker Past Alcohol Use History: None Reported Additional Past Alcohol Use History / Comment(s): Pt started smoking in 1974 and quit in January 2015. Past Drug Use History: None Reported - Past Family History Father Family Medical History: COPD, Myocardial Infarction ([place]) Additional Family Medical History / Comment(s): Father had severe COPD. He of a [place] at the age of 69yrs. Mother Family Medical History: Deep Vein Thrombosis (DVT), Pulmonary Embolus Additional Family Medical History / Comment(s): "BRAIN CLOT" Sister(s) Family Medical History: Deep Vein Thrombosis (DVT), Pulmonary Embolus Additional Family Medical History / Comment(s): Pt is from a large family (18 children) and there is alot of DVT's and cerebral thrombosis in the family. Several family members have cardiolipin antibody. General Exam - General Exam Comments Initial Comments: General: The patient is awake and alert, in no distress, and does not appear acutely ill. Eye: Pupils are equal, round and reactive to light, extra-ocular movements are intact. No nystagmus. There is normal conjunctiva bilaterally. No signs of icterus. Ears, nose, mouth and throat: There are moist mucous membranes and no oral lesions. Neck: The neck is supple, there is no tenderness or JVD. Cardiovascular: There is a regular rate and rhythm. No murmur, rub or gallop is appreciated. Respiratory: Decreased lung sounds bilaterally. respirations are non-labored, breath sounds are equal. No stridor, rales, or rhonchi. Gastrointestinal: Soft, non-distended, non-tender abdomen without masses or organomegaly noted. There is no rebound or guarding present. No CVA tenderness. Bowel sounds are unremarkable. Musculoskeletal: Normal ROM, no tenderness. Strength 5/5. Sensation intact. Pulses equal bilaterally 2+. Neurological: A&O x 3. CN II-XII intact, There are no obvious motor or sensory deficits. Coordination appears grossly intact. Speech is normal. Skin: Skin is warm and dry and no rashes or lesions are noted. Psychiatric: Cooperative, appropriate mood & affect, normal judgment. Limitations: no limitations Course Vital Signs 09/20/16 09/20/16 09/20/16 14:31 15:10 15:21 Temperature 100.2 F H Pulse Rate 90 92 96 Respiratory 20 Rate Blood Pressure 116/65 O2 Sat by Pulse 94 L Oximetry 09/20/16 09/20/16 15:34 16:00 Temperature 98.8 F Pulse Rate 90 Respiratory 25 H Rate Blood Pressure 102/53 O2 Sat by Pulse 96 Oximetry Medical Decision Making - Medical Decision Making Patient's x-ray reviewed shows no sign of pneumonia. There is a pulmonary nodule. Patient does have 15,000 white count. Will be started on antibiotics, continued on steroids and breathing treatments. - Lab Data Result diagrams: 09/20/16 14:45 09/20/16 14:45 Lab Results 09/20/16 09/20/16 09/20/16 Range/Units 14:45 14:45 14:45 WBC 15.0 H (3.8-10.6) k/uL RBC 3.99 (3.80-5.40) m/uL Hgb 11.8 (11.4-16.0) gm/dL Hct 35.3 (34.0-46.0) % MCV 88.3 D (80.0-100.0) fL MCH 29.6 (25.0-35.0) pg MCHC 33.5 (31.0-37.0) g/dL RDW 13.0 (11.5-15.5) % Plt Count 322 (150-450) k/uL Neutrophils % 86 % Lymphocytes % 6 % Monocytes % 5 % Eosinophils % 2 % Basophils % 0 % Neutrophils # 12.9 H (1.3-7.7) k/uL Lymphocytes # 1.0 (1.0-4.8) k/uL Monocytes # 0.7 (0-1.0) k/uL Eosinophils # 0.2 (0-0.7) k/uL Basophils # 0.0 (0-0.2) k/uL PT (9.0-12.0) sec INR (<1.1) APTT (22.0-30.0) sec Sodium 132 L (137-145) mmol/L Potassium 4.3 (3.5-5.1) mmol/L Chloride 89 L (98-107) mmol/L Carbon Dioxide 32 H (22-30) mmol/L Anion Gap 11 mmol/L BUN 15 (7-17) mg/dL Creatinine 0.94 (0.52-1.04) mg/dL Est GFR (MDRD) Af Amer >60 (>60 ml/min/1.73 sqM) Est GFR (MDRD) Non-Af >60 (>60 ml/min/1.73 sqM) Glucose 101 H (74-99) mg/dL Plasma Lactic Acid Rd (0.7-2.0) mmol/L Calcium 9.5 (8.4-10.2) mg/dL Magnesium 1.7 (1.6-2.3) mg/dL Total Bilirubin 1.0 (0.2-1.3) mg/dL AST 23 (14-36) U/L ALT 22 (9-52) U/L Alkaline Phosphatase 61 (38-126) U/L Total Creatine Kinase 77 (30-135) U/L CK-MB (CK-2) 2.0 (0.0-2.4) ng/mL CK-MB (CK-2) Rel Index 2.6 Troponin I 0.019 (0.000-0.034) ng/mL Total Protein 7.1 (6.3-8.2) g/dL Albumin 4.2 (3.5-5.0) g/dL 09/20/16 09/20/16 Range/Units 14:45 14:52 WBC (3.8-10.6) k/uL RBC (3.80-5.40) m/uL Hgb (11.4-16.0) gm/dL Hct (34.0-46.0) % MCV (80.0-100.0) fL MCH (25.0-35.0) pg MCHC (31.0-37.0) g/dL RDW (11.5-15.5) % Plt Count (150-450) k/uL Neutrophils % % Lymphocytes % % Monocytes % % Eosinophils % % Basophils % % Neutrophils # (1.3-7.7) k/uL Lymphocytes # (1.0-4.8) k/uL Monocytes # (0-1.0) k/uL Eosinophils # (0-0.7) k/uL Basophils # (0-0.2) k/uL PT 11.8 (9.0-12.0) sec INR 1.2 (<1.1) APTT 24.6 (22.0-30.0) sec Sodium (137-145) mmol/L Potassium (3.5-5.1) mmol/L Chloride (98-107) mmol/L Carbon Dioxide (22-30) mmol/L Anion Gap mmol/L BUN (7-17) mg/dL Creatinine (0.52-1.04) mg/dL Est GFR (MDRD) Af Amer (>60 ml/min/1.73 sqM) Est GFR (MDRD) Non-Af (>60 ml/min/1.73 sqM) Glucose (74-99) mg/dL Plasma Lactic Acid Rd 1.0 (0.7-2.0) mmol/L Calcium (8.4-10.2) mg/dL Magnesium (1.6-2.3) mg/dL Total Bilirubin (0.2-1.3) mg/dL AST (14-36) U/L ALT (9-52) U/L Alkaline Phosphatase (38-126) U/L Total Creatine Kinase (30-135) U/L CK-MB (CK-2) (0.0-2.4) ng/mL CK-MB (CK-2) Rel Index Troponin I (0.000-0.034) ng/mL Total Protein (6.3-8.2) g/dL Albumin (3.5-5.0) g/dL Disposition Clinical Impression: COPD exacerbation, Chronic bronchitis Disposition: HOME SELF-CARE Condition: Stable Referrals: Cristobal Ramsey MD [Primary Care Provider] - 1-2 days Time of Disposition: 16:16
[2016-09-20 15:13] LABS: INR 1.2 (<1.1); Partial Thromboplastin Time 24.6 sec (22.0-30.0); Prothrombin Time 11.8 sec (9.0-12.0)
[2016-09-20 15:14] LABS: Basophils % (A) 0 %; CH 28.8; CHCM 32.7; Eosinophils # (A) 0.2 k/uL (0-0.7); Eosinophils % (A) 2 %; HCT 35.3 % (34.0-46.0); HDW 2.46; HGB 11.8 gm/dL (11.4-16.0); Luc # (Auto) 0.15; Luc % (Auto) 1; Lymphocytes % (A) 6 %; MCH 29.6 pg (25.0-35.0); MCHC 33.5 g/dL (31.0-37.0); MCV 88.3 fL (80.0-100.0); Mean Platelet Volume 6.8; Monocytes # (A) 0.7 k/uL (0-1.0); Monocytes % (A) 5 %; Neutrophils # (A) 12.9 k/uL (1.3-7.7); Neutrophils % (A) 86 %; RBC 3.99 m/uL (3.80-5.40); WBC (Perox) 14.78
[2016-09-20 15:18] LABS: ALT 22 U/L (9-52); AST 23 U/L (14-36); Alkaline Phosphatase 61 U/L (38-126); Anion Gap 11 mmol/L; Blood Urea Nitrogen 15 mg/dL (7-17); Calcium 9.5 mg/dL (8.4-10.2); Carbon Dioxide 32 mmol/L (22-30); Chloride 89 mmol/L (98-107); Glucose 101 mg/dL (74-99); Magnesium 1.7 mg/dL (1.6-2.3); Non-African American GFR(MDRD) >60 (>60 ml/min/1.73 sqM); Potassium 4.3 mmol/L (3.5-5.1); Sodium 132 mmol/L (137-145); Total Protein 7.1 g/dL (6.3-8.2)
[2016-09-20 15:39] LABS: Troponin I 0.019 ng/mL (0.000-0.034)
--- NOTE | 2016-09-20 15:52 | XR ---
EXAMINATION TYPE: XR chest 2V DATE OF EXAM: 09/20/2016 3:41 PM COMPARISON: 08/27/2016 HISTORY: 61-year-old female with cough and shortness of breath TECHNIQUE: PA and lateral views FINDINGS: Heart is normal size. Atherosclerotic arch calcifications. Hyperinflation with interstitial prominenc e, increased retrosternal clear space, and flattened hemidiaphragms. No consolidation or pleural effu bill. Subtle nodular density appears slightly more prominent in the right upper lobe. IMPRESSION: 1. COPD with moderately advanced emphysema. No acute process seen. 2. Nodular density in the right upper lobe appears slightly more pronounced. Recommend nonemergent fo llow-up contrast enhanced CT chest to exclude an underlying pulmonary nodule.
[2016-09-20] MEDS ORDERED: AZITHROMYCIN 500 MG in SODIUM CHLORIDE 0.9% 250 ML IVPB STA (16:28)
[2016-09-20] MEDS ORDERED: SODIUM CHLORIDE 0.9% 1,000 ML IV ONE (16:29)
[2016-09-20] MEDS ORDERED: ASPIRIN 81 MG CHEW PO STA (16:31)
[2016-09-20] MEDS ORDERED: NITROGLYCERIN SL TABS 0.4 MG TAB SUBLINGUAL PRN (16:31)
[2016-09-20 16:54] LABS: Appearance,Urine Clear (Clear); Bilirubin,Urine Negative (Negative); Glucose,Urine (UA) Negative (Negative); Ketones,Urine Negative (Negative); Leukocyte Esterase,Urine Negative (Negative); Nitrite,Urine Negative (Negative); Protein,Urine Negative (Negative); Specific Gravity,Urine 1.002 (1.001-1.035); UA Billing (MACRO vs. MICRO) CHEM; Urobilinogen,Urine <2.0 mg/dL (<2.0)
[2016-09-20] MEDS ORDERED: ALPRAZolam 0.5 MG TAB PO STA (17:35)
--- NOTE | 2016-09-20 18:39 | ED ---
Medical Decision Making - Lab Data Result diagrams: 09/20/16 14:45 09/20/16 14:45 Lab Results 09/20/16 09/20/16 09/20/16 Range/Units 14:45 14:45 14:45 WBC 15.0 H (3.8-10.6) k/uL RBC 3.99 (3.80-5.40) m/uL Hgb 11.8 (11.4-16.0) gm/dL Hct 35.3 (34.0-46.0) % MCV 88.3 D (80.0-100.0) fL MCH 29.6 (25.0-35.0) pg MCHC 33.5 (31.0-37.0) g/dL RDW 13.0 (11.5-15.5) % Plt Count 322 (150-450) k/uL Neutrophils % 86 % Lymphocytes % 6 % Monocytes % 5 % Eosinophils % 2 % Basophils % 0 % Neutrophils # 12.9 H (1.3-7.7) k/uL Lymphocytes # 1.0 (1.0-4.8) k/uL Monocytes # 0.7 (0-1.0) k/uL Eosinophils # 0.2 (0-0.7) k/uL Basophils # 0.0 (0-0.2) k/uL PT (9.0-12.0) sec INR (<1.1) APTT (22.0-30.0) sec Sodium 132 L (137-145) mmol/L Potassium 4.3 (3.5-5.1) mmol/L Chloride 89 L (98-107) mmol/L Carbon Dioxide 32 H (22-30) mmol/L Anion Gap 11 mmol/L BUN 15 (7-17) mg/dL Creatinine 0.94 (0.52-1.04) mg/dL Est GFR (MDRD) Af Amer >60 (>60 ml/min/1.73 sqM) Est GFR (MDRD) Non-Af >60 (>60 ml/min/1.73 sqM) Glucose 101 H (74-99) mg/dL Plasma Lactic Acid Rd (0.7-2.0) mmol/L Calcium 9.5 (8.4-10.2) mg/dL Magnesium 1.7 (1.6-2.3) mg/dL Total Bilirubin 1.0 (0.2-1.3) mg/dL AST 23 (14-36) U/L ALT 22 (9-52) U/L Alkaline Phosphatase 61 (38-126) U/L Total Creatine Kinase 77 (30-135) U/L CK-MB (CK-2) 2.0 (0.0-2.4) ng/mL CK-MB (CK-2) Rel Index 2.6 Troponin I 0.019 (0.000-0.034) ng/mL Total Protein 7.1 (6.3-8.2) g/dL Albumin 4.2 (3.5-5.0) g/dL Urine Color Urine Appearance (Clear) Urine pH (5.0-8.0) Ur Specific [place] (1.001-1.035) Urine Protein (Negative) Urine Glucose (UA) (Negative) Urine Ketones (Negative) Urine Blood (Negative) Urine Nitrite (Negative) Urine Bilirubin (Negative) Urine Urobilinogen (<2.0) mg/dL Ur Leukocyte Esterase (Negative) 09/20/16 09/20/16 09/20/16 Range/Units 14:45 14:52 16:36 WBC (3.8-10.6) k/uL RBC (3.80-5.40) m/uL Hgb (11.4-16.0) gm/dL Hct (34.0-46.0) % MCV (80.0-100.0) fL MCH (25.0-35.0) pg MCHC (31.0-37.0) g/dL RDW (11.5-15.5) % Plt Count (150-450) k/uL Neutrophils % % Lymphocytes % % Monocytes % % Eosinophils % % Basophils % % Neutrophils # (1.3-7.7) k/uL Lymphocytes # (1.0-4.8) k/uL Monocytes # (0-1.0) k/uL Eosinophils # (0-0.7) k/uL Basophils # (0-0.2) k/uL PT 11.8 (9.0-12.0) sec INR 1.2 (<1.1) APTT 24.6 (22.0-30.0) sec Sodium (137-145) mmol/L Potassium (3.5-5.1) mmol/L Chloride (98-107) mmol/L Carbon Dioxide (22-30) mmol/L Anion Gap mmol/L BUN (7-17) mg/dL Creatinine (0.52-1.04) mg/dL Est GFR (MDRD) Af Amer (>60 ml/min/1.73 sqM) Est GFR (MDRD) Non-Af (>60 ml/min/1.73 sqM) Glucose (74-99) mg/dL Plasma Lactic Acid Rd 1.0 (0.7-2.0) mmol/L Calcium (8.4-10.2) mg/dL Magnesium (1.6-2.3) mg/dL Total Bilirubin (0.2-1.3) mg/dL AST (14-36) U/L ALT (9-52) U/L Alkaline Phosphatase (38-126) U/L Total Creatine Kinase (30-135) U/L CK-MB (CK-2) (0.0-2.4) ng/mL CK-MB (CK-2) Rel Index Troponin I (0.000-0.034) ng/mL Total Protein (6.3-8.2) g/dL Albumin (3.5-5.0) g/dL Urine Color Light Yellow Urine Appearance Clear (Clear) Urine pH 7.0 (5.0-8.0) Ur Specific [place] 1.002 (1.001-1.035) Urine Protein Negative (Negative) Urine Glucose (UA) Negative (Negative) Urine Ketones Negative (Negative) Urine Blood Negative (Negative) Urine Nitrite Negative (Negative) Urine Bilirubin Negative (Negative) Urine Urobilinogen <2.0 (<2.0) mg/dL Ur Leukocyte Esterase Negative (Negative) Disposition Clinical Impression: COPD exacerbation, Chronic bronchitis Disposition: ADMITTED IP TO THIS [facility] Condition: Stable Referrals: Cristobal Ramsey MD [Primary Care Provider] - 1-2 days
[2016-09-20] MEDS: methylPREDNISolone SOD SUCCI 125 MG/2 ML VIAL IV SCH (20:51)
[2016-09-20 21:49] LABS: Creatine Kinase MB 2.2 ng/mL (0.0-2.4); Troponin I 0.019 ng/mL (0.000-0.034)
[2016-09-20] MEDS: MONTELUKAST 10 MG TAB PO SCH (22:00)
[2016-09-20] MEDS: METOPROLOL TARTRATE 12.5 MG TAB PO SCH (22:00)
[2016-09-20] MEDS: buPROPion SR 150 MG TABLET.ER PO SCH (22:00)
[2016-09-21] MEDS: methylPREDNISolone SOD SUCCI 125 MG/2 ML VIAL IV SCH ×5 (00:26→23:12)
[2016-09-21 04:00] LABS: Cholesterol 139 mg/dL (<200); HDL Cholesterol 89 mg/dL (40-60); Triglycerides 36 mg/dL (<150)
[2016-09-21 04:11] LABS: Creatine Kinase 74 U/L (30-135)
[2016-09-21 04:24] LABS: Troponin I <0.012 ng/mL (0.000-0.034)
[2016-09-21 07:37] LABS: Glucose,Whole Blood 136 mg/dL (75-99)
[2016-09-21] MEDS: SYMBICORT 160-4.5 MCG INHALER INHALATION SCH ×2 (07:48→19:58)
[2016-09-21] MEDS: IPRATROPIUM-ALBUTEROL 3 ML NEB INHALATION PRN ×4 (07:48→19:58)
[2016-09-21] MEDS: AZITHROMYCIN 500 MG TAB PO SCH (08:08)
[2016-09-21] MEDS: ATORVASTATIN 80 MG TAB PO SCH (08:08)
[2016-09-21] MEDS: ASPIRIN 325 MG TAB PO SCH (08:08)
[2016-09-21] MEDS: INSULIN LISPRO (humaLOG) 300 UNIT/3 ML VIAL SQ SCH ×4 (08:08→20:52)
[2016-09-21] MEDS: METOPROLOL TARTRATE 12.5 MG TAB PO SCH ×2 (08:09→20:48)
[2016-09-21] MEDS: LORATADINE 10 MG TAB PO SCH (08:09)
[2016-09-21] MEDS: buPROPion SR 150 MG TABLET.ER PO SCH ×2 (08:09→20:48)
[2016-09-21] MEDS ORDERED: LISINOPRIL 2.5 MG TAB PO SCH (09:00)
[2016-09-21] MEDS ORDERED: FUROSEMIDE 40 MG TAB PO SCH (09:00)
[2016-09-21] MEDS: ALPRAZolam 0.5 MG TAB PO PRN ×2 (11:10→23:12)
--- NOTE | 2016-09-21 11:12 | P.CNPUL ---
History of Present Illness Consult date: 09/21/16 Requesting physician: Cristobal Ramsey Reason for consult: dyspnea Chief complaint: Shortness of breath, cough, congestion History of present illness: This is a very pleasant 61-year-old female patient who has a history of hiatal hernia, esophagitis, precancerous colonic tumor with bowel resection, hydro- nephrosis with adhesions resolved with stent placement, adrenal lesion/adenoma being monitored, osteoporosis. She follows with Dr. Cristobal Ramsey is her primary care physician. She also has a history of chronic obstructive pulmonary disease and primary versus secondary pulmonary hypertension and follows with Dr. Pabon in our office. She is currently on Tyvaso treatments. She is followed at the [facility] with Dr. Kilpatrick. She also follows with Dr. Jarquin as part of the transplant team. She was admitted here one month ago for an acute non-ST segment elevation myocardial infarction. She was found to have congestive heart failure as well. Her cardiac catheterization revealed normal coronary arteries. There were findings consistent with apical ballooning syndrome. She had global hypokinesia with an ejection fraction of less than 25%. She is currently wearing a LifeVest. She had been doing fairly well since that discharge until recently when she developed increasing shortness of breath, cough and congestion. She felt as though some ALLERGIES may have triggered the event and she was seen at Dr. Ramsey's office yesterday and her saturations were in the 70s on her home O2 and was referred her here for admission. She did have a T-max of 100.2. Her chest x-ray did show moderately advanced emphysema but no acute pulmonary process. There is a continued nodular density in the right upper lobe slightly more pronounced than last months x-ray. She is seen today in consultation on the regular medical floor. She is awake and alert in no acute distress. She is quite dyspneic on minimal conversation however. She has a loose productive cough of thick yellow sputum. No fever, chills or night sweats. No significant chest pain, palpitations lightheadedness or dizziness. She is currently maintaining O2 saturations in the mid 90s on 3 L/m per nasal cannula. She's been afebrile. Hemodynamically stable. No tachycardia, no tachypnea Review of Systems 14 point review of system was conducted. All negative other than as mentioned in HPI. Past Medical History Past Medical History: COPD, Respiratory Disorder Additional Past Medical History / Comment(s): Recent tx for URI, primary versus secondary pulmonary hypertension-currently on tyvaso treatments-has had some work-up done to be on lung transplant list thru [facility], home O2 at 3L/NC ATC, dysphagia-feels like food gets caught in low end esophagus-she drinks a gulp of water to force food down_pt stated eentually she will have some work up on htis at [facility]), hiatal hernia, esophagitis, precancerous colonic tumor with sx, hydronephrosis with adhesions resolved with surgery/stent, adrenal lesion/ adenoma being monitored, osteoporosis. wear life vest History of Any Multi-Drug Resistant Organisms: None Reported Past Surgical History: Bladder Surgery, Bowel Resection, Heart Catheterization, Tonsillectomy, Tubal Ligation Additional Past Surgical History / Comment(s): colonoscopies, sigmoidoscopy, EGD , hemorrhoidectomy, breast bx x 2 pt does not recall laterality, bowel resection with ileostomy, ILLEOSTOMY REVERSAL 01/18/14, cystoscopy with R ureteral stent. Past Anesthesia/Blood Transfusion Reactions: No Reported Reaction, Family History of Problems w/ Anesthesia Additional Past Anesthesia/Blood Transfusion Reaction / Comment(s): SISTER WAS AWARE OF SURROUNDINGS WITH ANESTHESIA Past Psychological History: Depression Additional Psychological History / Comment(s): Pt was started on Wellbutrin to aid in stopping smoking, she decided to stay on it after quitting smoking because she felt better. Pt states she feels like she may need more help with her depression-it has increased some recently. She has had 2 significant deaths in the past few months-her spouse and her sister and she feels this is likely the source of her increased depression. She denies any suicidal thoughts. She is from a large family of 18 children. She lives at home and assists in the care of her brother who has down's syndrome. Her granddaughter has recently moved in with them to assist as well . She has home oxygen and a nebulizer, pulse ox abd elena devices.pt sleeps in a recliner chair. Pt mentioned that since her spouses her financial status has declined. She stated that she may no longer be able to afford pursuing her lung transplant and once she reaches 64yrs and goes on Medicare, she will not be able to afford her Tyvaso treatments. No home care. Smoking Status: Former smoker Past Alcohol Use History: None Reported Additional Past Alcohol Use History / Comment(s): Pt started smoking in 1974 and quit in January 2015. Past Drug Use History: None Reported - Past Family History Father Family Medical History: COPD, Myocardial Infarction (SC) Additional Family Medical History / Comment(s): Father had severe COPD. He of a SC at the age of 69yrs. Mother Family Medical History: Deep Vein Thrombosis (DVT), Pulmonary Embolus Additional Family Medical History / Comment(s): "BRAIN CLOT" Sister(s) Family Medical History: Deep Vein Thrombosis (DVT), Pulmonary Embolus Additional Family Medical History / Comment(s): Pt is from a large family (18 children) and there is alot of DVT's and cerebral thrombosis in the family. Several family members have cardiolipin antibody. Medications and Allergies Home Medications Medication Instructions Recorded Confirmed Type Montelukast Sodium 10 mg PO HS 02/07/15 09/20/16 History buPROPion SR [Wellbutrin SR] 150 mg PO BID 02/21/15 09/20/16 History Albuterol Inhaler [Ventolin Hfa 1 puff INHALATION RT-Q4H PRN 11/28/15 09/20/16 History Inhaler] Alendronate Sodium [Fosamax] 70 mg PO WE 11/28/15 09/20/16 History Budesonide-Formot 160-4.5 Mcg 2 puff INHALATION RT-BID 11/28/15 09/20/16 History [Symbicort 160-4.5 Mcg Inhaler] Calcium Carbonate [Calcium] 900 mg PO DAILY 11/28/15 09/20/16 History Cholecalciferol [Vitamin D3] 1,000 unit PO DAILY 11/28/15 09/20/16 History Levocetirizine Dihydrochloride 5 mg PO QAM 11/28/15 09/20/16 History Tiotropium Priddy [Spiriva] 1 cap INHALATION RT-DAILY 11/28/15 09/20/16 History Tyvaso 9 puff INHALATION RT-QID 11/28/15 09/20/16 History Allergies Allergy/AdvReac Type Severity Reaction Status Date / Time latex Allergy Unknown Rash/Hives Verified 09/20/16 16:04 nickel [Nickel] Allergy Unknown Rash/Hives Verified 09/20/16 16:04 nitrofurantoin Allergy Unknown Rash/Hives Verified 09/20/16 16:04 macrocrystalline [From Macrodantin] Penicillins Allergy Unknown Rash/Hives Verified 09/20/16 16:04 Physical Exam Vitals: Vital Signs Temp Pulse Pulse Resp BP BP Pulse Ox 09/21/16 07:58 88 09/21/16 07:48 84 09/21/16 07:00 97.7 F 73 16 107/61 96 09/20/16 22:04 78 103/63 96 09/20/16 20:35 97.8 F 88 17 98/53 93 L 09/20/16 19:53 97.8 F 84 20 96/51 95 09/20/16 18:45 87 18 99/50 91 L 09/20/16 16:00 98.8 F 09/20/16 15:34 90 25 H 102/53 96 09/20/16 15:21 96 09/20/16 15:10 92 09/20/16 14:31 100.2 F H 90 20 116/65 94 L Intake and Output 09/20/16 09/21/16 09/21/16 22:59 06:59 14:59 Intake Total 100 1300 Balance 100 1300 Intake: Intake, IV Titration 600 Amount Sodium Chloride 0.9% 1, 600 000 ml @ 75 mls/hr IV . [id number] ONE Rx#:[id number] Oral 100 700 Other: Voiding Method Toilet Toilet # Voids 1 2 GENERAL EXAM: Alert, fairly comfortable in no apparent distress. HEAD: Normocephalic. EYES: Normal reaction of pupils, equal size. NOSE: Clear with pink turbinates. THROAT: No erythema or exudates. NECK: No masses, no JVD. CHEST: No chest wall deformity. LUNGS: Equal air entry with few scattered rhonchi, end expiratory wheeze, diminished. CVS: S1 and S2 normal with no audible murmurs, regular rhythm. ABDOMEN: No hepatosplenomegaly, normal bowel sounds, no guarding or rigidity. SPINE: No scoliosis or deformity SKIN: No rashes CENTRAL NERVOUS SYSTEM: No focal deficits, tone is normal in all 4 extremities. Extremities: There is trace peripheral edema. No clubbing, no cyanosis. Peripheral pulses are intact. Results - Laboratory Findings CBC and BMP: 09/20/16 14:45 09/20/16 14:45 PT/INR, D-dimer PT 11.8 sec (9.0-12.0) 09/20/16 14:52 INR 1.2 (<1.1) 09/20/16 14:52 Abnormal lab findings: Abnormal Labs 09/20/16 09/20/16 09/21/16 14:45 14:45 03:11 WBC 15.0 H Neutrophils # 12.9 H Sodium 132 L Chloride 89 L Carbon Dioxide 32 H Glucose 101 H POC Glucose (mg/dL) CK-MB (CK-2) 3.0 H* HDL Cholesterol 09/21/16 09/21/16 03:11 07:34 WBC Neutrophils # Sodium Chloride Carbon Dioxide Glucose POC Glucose (mg/dL) 136 H CK-MB (CK-2) HDL Cholesterol 89 H - Diagnostic Findings Chest x-ray: image reviewed Assessment and Plan Plan: Impression: #1 Acute exacerbation of severe oxygen dependent chronic obstructive pulmonary disease complicated by purulent tracheobronchitis. #2 Acute on chronic hypoxic respiratory failure secondary to above. #3 Severe pulmonary hypertension, currently on Tyvaso. Being followed at the pulmonary hypertension clinic in the [facility]. #4 End-stage pulmonary disease, initially evaluated for possible lung transplant. No recent workup. #5 Recent non-ST segment elevation myocardial infarction approximately one month ago. Normal coronary arteries. 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 LifeVest is in place. 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 #7 Hydronephrosis with adhesions with subsequent right ureteral stent placement. #8 Osteoporosis. #9 Hiatal hernia. #10 Depression with recent loss of her in March 2016. #11 40 year smoking history, quit in January 2015. #12 Hyperlipidemia. Plan: The patient was seen and evaluated by Dr. Pabon. Her chest x-ray and labs were reviewed. We'll go ahead and continue with her COPD exacerbation treatment. She is continued on bronchodilators, Symbicort, Singulair and Claritin and IV Solu-Medrol. She is on empiric antibiotics in the form of azithromycin. We will obtain a sputum sample. Her LifeVest is in place. We'll continue to follow and make further recommendations based on her clinical status. Time with Patient: Greater than 30
[2016-09-21] MEDS ORDERED: AZITHROMYCIN 500 MG in SODIUM CHLORIDE 0.9% 250 ML IVPB SCH (12:00)
[2016-09-21 12:13] LABS: Glucose,Whole Blood 102 mg/dL (75-99)
[2016-09-21 14:09] LABS: Hemoglobin A1C 6.1 % (4.2-6.1)
[2016-09-21] MEDS: DRY MOUTH SPRAY 44.3 SPRAY/44.3 ML SPRAY MUCOUS MEM PRN (15:37)
[2016-09-21] MEDS ORDERED: TEMAZEPAM 15 MG CAP PO PRN (16:52)
[2016-09-21 17:42] LABS: Glucose,Whole Blood 135 mg/dL (75-99)
[2016-09-21 20:46] LABS: Glucose,Whole Blood 142 mg/dL (75-99)
[2016-09-21] MEDS: MONTELUKAST 10 MG TAB PO SCH (20:48)
[2016-09-21] MEDS: [UNRECOGNIZED DRUG - OTHER] INHALATION SCH (20:49)
[2016-09-21] MEDS: HEPARIN SODIUM,PORCINE 5,000 UNIT/ML 1 ML VIAL SQ SCH (20:52)
--- NOTE | 2016-09-21 21:03 | HP ---
CHIEF COMPLAINT: Shortness of breath. HISTORY OF PRESENT ILLNESS: This 61-year-old woman with a past medical history of multiple medical problems, including COPD, history of secondary pulmonary hypertension on the lung transplant list at [facility]. The patient has chronic hypoxic respiratory failure and history of hydronephrosis, history of esophagitis, history of ileostomy reversal being followed by Dr. Cristobal Ramsey in the outpatient setting was recently admitted with acute non-ST segment elevation myocardial infarction as well as acute hypercapnic hypoxic respiratory failure. Patient was treated medically. Patient improved significantly. Patient went home. Currently the patient is complaining of shortness of breath increased cough and some congestion for the last 3 days. Patient is unable to breathe properly and the patient uses 3L nasal cannula at home. The patient also has been running some fevers. Because of multiple concerns and difficulties, patient came to [facility], admitted for further evaluation and treatment. There is no history of any headache, loss of consciousness, seizures. No history of chest pain or palpation at this time. PAST MEDICAL HISTORY: COPD, history of respiratory failure, and myocardial infarction, history of chronic hypoxic respiratory failure, history of hydronephrosis, on transplant list. Medications prior to admission include home medications are: 1. Singulair 10 mg q.h.s. 2. Wellbutrin SR 150 mg p.o. b.i.d. 3. Tyvaso 9 puffs q.i.d. 4. Spiriva 1 puff daily. 5. Lopressor 12.5 mg daily. 6. Zestril 2.5 mg daily. 7. Levaquin 500 mg p.o. daily. 8. Levocetirizine 5 mg p.o. q.a.m. 9. DuoNeb q.i.d. and p.r.n. 10. Lasix 40 mg p.o. b.i.d. 11. Vitamin D3, 1000 daily. 12. Calcium 900 mg p.o. daily. 13. Symbicort 160/4.5, 2 puffs b.i.d. 14. Lipitor 80 mg daily. 15. Fosamax 70 mg p.o. daily. 16. Ventolin HFA 1 puff q.4 p.r.n. ALLERGIES: LATEX, NICKEL, NITROFURANTOIN AND PENICILLIN. FAMILY HISTORY: History of DVT, history of pulmonary embolism, history of brain clot. SOCIAL HISTORY: No history of alcohol intake or previous history of smoking. REVIEW OF SYSTEMS: ENT: No diminishing hearing. No diminished vision. CARDIOVASCULAR: As mentioned earlier. RESPIRATORY: No cough or hemoptysis. GI: No nausea, vomiting, diarrhea. : No dysuria. NERVOUS: As mentioned earlier. No numbness or weakness. ALLERGY/IMMUNOLOGY: No asthma or hay fever. MUSCULOSKELETAL: As mentioned earlier. HEMATOLOGY/ONCOLOGY: No history of anemia. ENDOCRINE: No history of diabetes, hypothyroidism. CONSTITUTIONAL: As mentioned earlier. DERMATOLOGY: Negative. RHEUMATOLOGY: Negative. PSYCHIATRY: As mentioned earlier. PHYSICAL EXAMINATION: GENERAL: Alert and oriented x3. Pulse is 84, blood pressure is 107/61, respirations 16, temperature 100.2, pulse ox 96% on 3L. HEENT: Conjunctivae normal. Oral mucosa moist. NECK: No jugular venous distension. No carotid bruits. No lymph node enlargement. no thyroid enlargement. CARDIOVASCULAR: S1 and S2 muffled. systolic murmur. No S3. No S4. RESPIRATORY: Breath sounds diminished at the bases. Bilateral scattered rhonchi and expiratory wheezing also present. ABDOMEN: Soft, nontender. No mass palpable. LEGS: No edema. No swelling. NERVOUS SYSTEM: Higher functions as mentioned earlier. Moves all 4 limbs. No focal motor or sensory deficits. LYMPHATIC: No lymphadenopathy in the neck, axillae or groins. SKIN: No ulcer, rash or bleeding. LABS: WBC 15. Sodium 132. CK-MB is 3. Influenza is negative. ASSESSMENT: 1. Chronic obstructive pulmonary disease acute exacerbation with acute purulent tracheobronchitis. 2. Nodular density in the right upper lobe, which is more prominent. 3. History of recent acute hypoxic hypercarbic respiratory failure. 4. Severe congestive heart failure with chronic systolic dysfunction, ejection fraction less than 20%, possible takotsubo syndrome and also social stressors. 5. History of recent acute non-ST segment elevation myocardial infarction. 6. Hyponatremia. 7. Increased CO2. 8. Increased WBC. 9. History of chronic hypoxic respiratory failure on 3L nasal cannula. 10. On lung transplant list at [facility]. 11. History of hiatal hernia. 12. History of esophagitis. 13. History of hydronephrosis. 14. History of cardiac catheterization. 15. History of ileostomy reversal, bowel resection with ileostomy. 16. Depression not otherwise specified. 17. History of nicotine dependence. 18. FULL CODE. RECOMMENDATIONS AND DISCUSSION: In this 61-year-old woman who presented with multiple complex medical issues, will monitor the patient closely, continue the current medications, continue with symptomatic treatment, initiate broad-spectrum IV antibiotics as well as bronchodilators. Will consult Dr. Pabon; otherwise, continue the rest of the medications. The 2-D echo with Doppler which was done during the recent admission showed ejection fraction less than 20%. Will continue to monitor. The patient has multiple social stressors at this time. We will follow the patient closely, resume the home medications. Guarded prognosis because of multiple complex medical issues. Further recommendations to follow. A copy of this dictation will be forwarded to Dr. Cristobal Ramsey, who is the primary physician. JEISON
[2016-09-22] MEDS: methylPREDNISolone SOD SUCCI 125 MG/2 ML VIAL IV SCH ×4 (05:38→23:35)
[2016-09-22] MEDS: IPRATROPIUM-ALBUTEROL 3 ML NEB INHALATION PRN ×4 (07:17→21:10)
[2016-09-22] MEDS: SYMBICORT 160-4.5 MCG INHALER INHALATION SCH ×2 (07:17→21:10)
[2016-09-22 07:22] LABS: Basophils % (A) 0 %; CH 28.8; CHCM 32.1; Eosinophils % (A) 0 %; HCT 31.9 % (34.0-46.0); HDW 2.35; HGB 10.1 gm/dL (11.4-16.0); Luc # (Auto) 0.07; Luc % (Auto) 0; Lymphocytes # (A) 0.6 k/uL (1.0-4.8); Lymphocytes % (A) 3 %; MCH 28.7 pg (25.0-35.0); MCHC 31.8 g/dL (31.0-37.0); MCV 90.3 fL (80.0-100.0); Mean Platelet Volume 6.7; Monocytes # (A) 0.4 k/uL (0-1.0); Monocytes % (A) 2 %; Neutrophils # (A) 19.7 k/uL (1.3-7.7); Neutrophils % (A) 95 %; RBC 3.53 m/uL (3.80-5.40); RDW 13.3 % (11.5-15.5); WBC 20.8 k/uL (3.8-10.6); WBC (Perox) 21.97
[2016-09-22 07:30] LABS: Glucose,Whole Blood 130 mg/dL (75-99)
[2016-09-22 07:45] LABS: Anion Gap 5 mmol/L; Blood Urea Nitrogen 16 mg/dL (7-17); Calcium 8.3 mg/dL (8.4-10.2); Carbon Dioxide 28 mmol/L (22-30); Chloride 99 mmol/L (98-107); Glucose 131 mg/dL (74-99); Non-African American GFR(MDRD) >60 (>60 ml/min/1.73 sqM); Potassium 4.7 mmol/L (3.5-5.1); Sodium 132 mmol/L (137-145)
[2016-09-22] MEDS: INSULIN LISPRO (humaLOG) 300 UNIT/3 ML VIAL SQ SCH ×4 (08:05→20:18)
[2016-09-22] MEDS: METOPROLOL TARTRATE 12.5 MG TAB PO SCH ×2 (08:07→22:22)
[2016-09-22] MEDS: [UNRECOGNIZED DRUG - OTHER] INHALATION SCH ×4 (08:07→21:40)
[2016-09-22] MEDS: ATORVASTATIN 80 MG TAB PO SCH (08:08)
[2016-09-22] MEDS: ASPIRIN 325 MG TAB PO SCH (08:08)
[2016-09-22] MEDS: buPROPion SR 150 MG TABLET.ER PO SCH ×2 (08:08→20:17)
[2016-09-22] MEDS: HEPARIN SODIUM,PORCINE 5,000 UNIT/ML 1 ML VIAL SQ SCH ×2 (08:08→20:17)
[2016-09-22] MEDS: LORATADINE 10 MG TAB PO SCH (08:08)
[2016-09-22] MEDS: AZITHROMYCIN 500 MG TAB PO SCH (08:08)
[2016-09-22] MEDS: ALPRAZolam 0.5 MG TAB PO PRN ×2 (08:13→16:38)
[2016-09-22] MEDS ORDERED: PROMETHAZ-COD 6.25-10 MG/5 ML 5 ML CUP PO PRN (10:59)
[2016-09-22] MEDS: guaiFENesin 600 MG TABLET.ER PO SCH ×2 (11:52→20:17)
[2016-09-22] MEDS: CHOLECALCIFEROL 1,000 UNIT TAB PO SCH (11:52)
[2016-09-22] MEDS: CALCIUM CARBONATE 500 MG CHEWABLE PO SCH (11:52)
[2016-09-22 12:06] LABS: Glucose,Whole Blood 109 mg/dL (75-99)
[2016-09-22] MEDS ORDERED: LEVALBUTEROL NEB 1.25 MG/3 ML AMP INHALATION SCH (13:00)
--- NOTE | 2016-09-22 13:10 | P.PN ---
Subjective Principal diagnosis: Acute exacerbation of COPD This is a very pleasant 61-year-old female patient who has a history of hiatal hernia, esophagitis, precancerous colonic tumor with bowel resection, hydro- nephrosis with adhesions resolved with stent placement, adrenal lesion/adenoma being monitored, osteoporosis. She follows with Dr. Cristobal Ramsey is her primary care physician. She also has a history of chronic obstructive pulmonary disease and primary versus secondary pulmonary hypertension and follows with Dr. Pabon in our office. She is currently on Tyvaso treatments. She is followed at the [facility] with Dr. Kilpatrick. She also follows with Dr. Jarquin as part of the transplant team. She was admitted here one month ago for an acute non-ST segment elevation myocardial infarction. She was found to have congestive heart failure as well. Her cardiac catheterization revealed normal coronary arteries. There were findings consistent with apical ballooning syndrome. She had global hypokinesia with an ejection fraction of less than 25%. She is currently wearing a LifeVest. She had been doing fairly well since that discharge until recently when she developed increasing shortness of breath, cough and congestion. She felt as though some ALLERGIES may have triggered the event and she was seen at Dr. Ramsey's office yesterday and her saturations were in the 70s on her home O2 and was referred her here for admission. She did have a T-max of 100.2. Her chest x-ray did show moderately advanced emphysema but no acute pulmonary process. There is a continued nodular density in the right upper lobe slightly more pronounced than last months x-ray. She is seen today in consultation on the regular medical floor. She is awake and alert in no acute distress. She is quite dyspneic on minimal conversation however. She has a loose productive cough of thick yellow sputum. No fever, chills or night sweats. No significant chest pain, palpitations lightheadedness or dizziness. She is currently maintaining O2 saturations in the mid 90s on 3 L/m per nasal cannula. She's been afebrile. Hemodynamically stable. No tachycardia, no tachypnea Patient was reevaluated today on 09/22/2016, continues to have productive cough, sometimes she had difficulty clearing her secretions, her sputum seems to be quite sick, hence I recommended Mucinex today. Patient continues to have shortness of breath which is multifactorial but mostly related to her COPD and pulmonary hypertension. Not to mention the patient has severe LV dysfunction and cardiomyopathy. This was based on her last echocardiogram. Labs showed leukocytosis with WBC count of 20.8 hemoglobin is 10.1 electrolytes and renal profile are normal. Objective - Vital Signs Vital signs: Vital Signs Temp 97.8 F 09/21/16 21:30 Pulse 74 09/22/16 11:15 Resp 18 09/22/16 07:00 BP 117/56 09/22/16 07:00 Pulse Ox 96 09/22/16 07:00 Intake & Output 09/21/16 09/22/16 09/22/16 18:59 06:59 18:59 Intake Total 840 768 Balance 840 768 Weight 68.039 kg Intake: Oral 840 168 Blood Product 600 Other: Voiding Method Toilet Toilet Toilet # Voids 1 2 - Exam GENERAL EXAM: Alert, fairly comfortable in no apparent distress. HEAD: Normocephalic. EYES: Normal reaction of pupils, equal size. NOSE: Clear with pink turbinates. THROAT: No erythema or exudates. NECK: No masses, no JVD. CHEST: No chest wall deformity. LUNGS: Equal air entry with few scattered rhonchi, end expiratory wheeze, diminished. CVS: S1 and S2 normal with no audible murmurs, regular rhythm. ABDOMEN: No hepatosplenomegaly, normal bowel sounds, no guarding or rigidity. SPINE: No scoliosis or deformity SKIN: No rashes CENTRAL NERVOUS SYSTEM: No focal deficits, tone is normal in all 4 extremities. Extremities: There is trace peripheral edema. No clubbing, no cyanosis. Peripheral pulses are intact. - Labs CBC & Chem 7: 09/22/16 06:55 09/22/16 06:55 Labs: Abnormal Lab Results - Last 24 Hours (Table) 09/21/16 09/21/16 09/22/16 Range/Units 17:40 20:44 06:55 WBC 20.8 H (3.8-10.6) k/uL RBC 3.53 L (3.80-5.40) m/uL Hgb 10.1 L (11.4-16.0) gm/dL Hct 31.9 L (34.0-46.0) % Neutrophils # 19.7 H (1.3-7.7) k/uL Lymphocytes # 0.6 L (1.0-4.8) k/uL Sodium (137-145) mmol/L Glucose (74-99) mg/dL POC Glucose (mg/dL) 135 H 142 H (75-99) mg/dL Calcium (8.4-10.2) mg/dL 09/22/16 09/22/16 09/22/16 Range/Units 06:55 07:27 12:00 WBC (3.8-10.6) k/uL RBC (3.80-5.40) m/uL Hgb (11.4-16.0) gm/dL Hct (34.0-46.0) % Neutrophils # (1.3-7.7) k/uL Lymphocytes # (1.0-4.8) k/uL Sodium 132 L (137-145) mmol/L Glucose 131 H (74-99) mg/dL POC Glucose (mg/dL) 130 H 109 H (75-99) mg/dL Calcium 8.3 L (8.4-10.2) mg/dL Microbiology - Last 24 Hours (Table) 09/20/16 16:36 Urine Culture - Final Urine,Voided 09/20/16 14:52 Blood Culture - Preliminary Blood No Growth after 24 hours Assessment and Plan Plan: #1 Acute exacerbation of severe oxygen dependent chronic obstructive pulmonary disease complicated by purulent tracheobronchitis. #2 Acute on chronic hypoxic respiratory failure secondary to above. #3 Severe pulmonary hypertension, currently on Tyvaso. Being followed at the pulmonary hypertension clinic in the [facility]. #4 End-stage pulmonary disease, initially evaluated for possible lung transplant. No recent workup. #5 Recent non-ST segment elevation myocardial infarction approximately one month ago. Normal coronary arteries. 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 LifeVest is in place. 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 #7 Hydronephrosis with adhesions with subsequent right ureteral stent placement. #8 Osteoporosis. #9 Hiatal hernia. #10 Depression with recent loss of her in March 2016. #11 40 year smoking history, quit in January 2015. #12 Hyperlipidemia. Recommendation: Continue present treatment plan, not ready for discharge planning at this point, admitted Mucinex and Phenergan With Codeine. Continue antibiotics, continue bronchodilators, will follow. Time with Patient: Less than 30
[2016-09-22] MEDS: HYDROcodone/APAP 5-325MG 1 EACH TAB PO PRN (16:38)
[2016-09-22] MEDS ORDERED: BENZOCAIN/BENZALKONM ORAL GEL 12 GM TUBE MM PRN (17:18)
[2016-09-22 17:19] LABS: Glucose,Whole Blood 129 mg/dL (75-99)
[2016-09-22 20:10] LABS: Glucose,Whole Blood 153 mg/dL (75-99)
[2016-09-22] MEDS: MONTELUKAST 10 MG TAB PO SCH (20:18)
[2016-09-23] MEDS: methylPREDNISolone SOD SUCCI 125 MG/2 ML VIAL IV SCH ×4 (05:07→23:24)
[2016-09-23] MEDS: HYDROcodone/APAP 5-325MG 1 EACH TAB PO PRN ×3 (06:13→20:31)
[2016-09-23 06:38] LABS: Glucose,Whole Blood 126 mg/dL (75-99)
[2016-09-23 06:57] LABS: Basophils % (A) 0 %; CH 28.5; CHCM 31.4; Eosinophils % (A) 0 %; HCT 33.6 % (34.0-46.0); HGB 10.8 gm/dL (11.4-16.0); Hypochromasia Slight; Luc # (Auto) 0.11; Luc % (Auto) 1; Lymphocytes # (A) 0.9 k/uL (1.0-4.8); Lymphocytes % (A) 4 %; MCH 29.4 pg (25.0-35.0); MCHC 32.2 g/dL (31.0-37.0); MCV 91.3 fL (80.0-100.0); Mean Platelet Volume 6.9; Monocytes # (A) 0.6 k/uL (0-1.0); Monocytes % (A) 2 %; Neutrophils # (A) 22.3 k/uL (1.3-7.7); Neutrophils % (A) 93 %; RBC 3.68 m/uL (3.80-5.40); RDW 13.4 % (11.5-15.5); WBC 23.9 k/uL (3.8-10.6); WBC (Perox) 24.76
[2016-09-23 07:06] LABS: Anion Gap 5 mmol/L; Blood Urea Nitrogen 20 mg/dL (7-17); Calcium 8.5 mg/dL (8.4-10.2); Carbon Dioxide 31 mmol/L (22-30); Chloride 100 mmol/L (98-107); Glucose 126 mg/dL (74-99); Non-African American GFR(MDRD) >60 (>60 ml/min/1.73 sqM); Potassium 4.7 mmol/L (3.5-5.1); Sodium 136 mmol/L (137-145)
[2016-09-23] MEDS: IPRATROPIUM-ALBUTEROL 3 ML NEB INHALATION PRN ×3 (07:14→15:45)
[2016-09-23] MEDS: SYMBICORT 160-4.5 MCG INHALER INHALATION SCH ×2 (07:14→20:26)
--- NOTE | 2016-09-23 08:12 | XR ---
EXAMINATION TYPE: XR chest 1V portable DATE OF EXAM: 09/23/2016 COMPARISON: Chest x-ray 09/20/2016 HISTORY: Congestive heart failure TECHNIQUE: Single frontal view of the chest is obtained. FINDINGS: Similar findings. Prominent lung volume may be indicative of COPD. Minimal patchy density at the left costophrenic angle may represent atelectasis or scar. Heart is stable, not enlarged. Nodu lar density may be associated with the anterior first rib on the right. IMPRESSION: COPD
[2016-09-23] MEDS: ALPRAZolam 0.5 MG TAB PO PRN ×2 (09:02→21:31)
[2016-09-23] MEDS: HEPARIN SODIUM,PORCINE 5,000 UNIT/ML 1 ML VIAL SQ SCH ×2 (09:03→21:30)
[2016-09-23] MEDS: buPROPion SR 150 MG TABLET.ER PO SCH ×2 (09:03→21:31)
[2016-09-23] MEDS: guaiFENesin 600 MG TABLET.ER PO SCH ×2 (09:03→21:30)
[2016-09-23] MEDS: METOPROLOL TARTRATE 12.5 MG TAB PO SCH ×2 (09:03→21:31)
[2016-09-23] MEDS: INSULIN LISPRO (humaLOG) 300 UNIT/3 ML VIAL SQ SCH ×4 (09:04→21:33)
[2016-09-23] MEDS: ASPIRIN 325 MG TAB PO SCH (09:04)
[2016-09-23] MEDS: AZITHROMYCIN 500 MG TAB PO SCH (09:04)
[2016-09-23] MEDS: ATORVASTATIN 80 MG TAB PO SCH (09:04)
[2016-09-23] MEDS: LORATADINE 10 MG TAB PO SCH (09:04)
[2016-09-23] MEDS: [UNRECOGNIZED DRUG - OTHER] INHALATION SCH ×3 (09:05→18:03)
--- NOTE | 2016-09-23 09:43 | PN ---
DATE OF SERVICE: 09/22/2016 This 61-year-old woman who was admitted with COPD acute exacerbation with acute purulent tracheobronchitis is being closely monitored. Patient still has significant shortness of breath. Dr. Pabon is following the patient closely. The patient is on bronchodilators, steroids. No chest pain, no palpitations, no fever. Incessant cough is being complained of. On exam, alert and oriented x3, pulse 85, blood pressure 199/59, respirations 18, temperature is normal, pulse ox 96% on room air. HEENT: Conjunctivae normal. NECK: No jugular venous distention. CARDIOVASCULAR: S1 and S2, muffled. RESPIRATORY: Breath sounds diminished at the bases. Bilateral scattered rhonchi, expiratory wheezing and no crackles. ABDOMEN: Soft, nontender. LEGS: No edema, no swelling. NERVOUS SYSTEM: No focal deficits. LABS: WBC is 20.8, hemoglobin 10.1. ASSESSMENT: 1. Chronic obstructive pulmonary disease, acute exacerbation, with acute purulent tracheobronchitis. 2. Nodular density in the right upper lobe, which is more prominent. 3. History of recent acute hypoxic hypercarbic respiratory failure. 4. History of congestive heart failure with chronic systolic dysfunction, ejection fraction less than 20%, possibly takotsubo syndrome and also social stressors. 5. History of recent acute non- ST segment elevation myocardial infarction. 6. Hyponatremia. 7. Increased CO2. 8. Increased WBC. 9. History of chronic hypoxic respiratory failure on 3-L nasal cannula. 10.for lung transplant at [facility]. 11. History of hiatal hernia. 12. History esophagitis. 13. History of hydronephrosis. 14. History of cardiac catheterization. 15. History of ileostomy reversal bowel resection and ileostomy. 16. Depression, not otherwise specified. 17. History of nicotine dependence. 18. FULL CODE. RECOMMENDATIONS AND DISCUSSION: I would recommend continue the current medications, continue with monitoring and symptomatic treatment. Otherwise at this time, I also recommend a BNP and repeat chest x-ray also. Otherwise, continue the rest of the medications including steroids. Add cough medications. Further recommendations to follow. See orders for further details. MTDD
[2016-09-23 11:35] LABS: Glucose,Whole Blood 119 mg/dL (75-99)
[2016-09-23] MEDS: CHLORPHEN-HYDROcod 8-10mg/5ml 5 ML ORAL.SYRG PO SCH ×2 (12:09→21:31)
[2016-09-23] MEDS: CALCIUM CARBONATE 500 MG CHEWABLE PO SCH (12:10)
[2016-09-23] MEDS: CHOLECALCIFEROL 1,000 UNIT TAB PO SCH (12:11)
--- NOTE | 2016-09-23 13:25 | P.PN ---
Subjective Principal diagnosis: Acute exacerbation of COPD This is a very pleasant 61-year-old female patient who has a history of hiatal hernia, esophagitis, precancerous colonic tumor with bowel resection, hydro- nephrosis with adhesions resolved with stent placement, adrenal lesion/adenoma being monitored, osteoporosis. She follows with Dr. Cristobal Ramsey is her primary care physician. She also has a history of chronic obstructive pulmonary disease and primary versus secondary pulmonary hypertension and follows with Dr. Pabon in our office. She is currently on Tyvaso treatments. She is followed at the [facility] with Dr. Kilpatrick. She also follows with Dr. Jarquin as part of the transplant team. She was admitted here one month ago for an acute non-ST segment elevation myocardial infarction. She was found to have congestive heart failure as well. Her cardiac catheterization revealed normal coronary arteries. There were findings consistent with apical ballooning syndrome. She had global hypokinesia with an ejection fraction of less than 25%. She is currently wearing a LifeVest. She had been doing fairly well since that discharge until recently when she developed increasing shortness of breath, cough and congestion. She felt as though some ALLERGIES may have triggered the event and she was seen at Dr. Ramsey's office yesterday and her saturations were in the 70s on her home O2 and was referred her here for admission. She did have a T-max of 100.2. Her chest x-ray did show moderately advanced emphysema but no acute pulmonary process. There is a continued nodular density in the right upper lobe slightly more pronounced than last months x-ray. She is seen today in consultation on the regular medical floor. She is awake and alert in no acute distress. She is quite dyspneic on minimal conversation however. She has a loose productive cough of thick yellow sputum. No fever, chills or night sweats. No significant chest pain, palpitations lightheadedness or dizziness. She is currently maintaining O2 saturations in the mid 90s on 3 L/m per nasal cannula. She's been afebrile. Hemodynamically stable. No tachycardia, no tachypnea Patient was reevaluated today on 09/22/2016, continues to have productive cough, sometimes she had difficulty clearing her secretions, her sputum seems to be quite sick, hence I recommended Mucinex today. Patient continues to have shortness of breath which is multifactorial but mostly related to her COPD and pulmonary hypertension. Not to mention the patient has severe LV dysfunction and cardiomyopathy. This was based on her last echocardiogram. Labs showed leukocytosis with WBC count of 20.8 hemoglobin is 10.1 electrolytes and renal profile are normal. Reevaluated today on 09/23/2016, patient continues to have shortness of breath with any activity, however her cough symptoms seem to be better with adding Phenergan With Codeine and PhenerganPatient is now on 4 L nasal cannula, she is on home O2 at all 18/11. All her meds were reviewed, patient remains marginal as far as her pulmonary status, hence we will not plan on discharge planning today possibly in the next 24-48 hours. CBC showed leukocytosis with WBC count of 23.9. Electrolytes and renal profile are normal. Follow-up chest x-ray continues to show COPD but no evidence of pneumonia. Objective - Vital Signs Vital signs: Vital Signs Temp 97.7 F 09/23/16 07:00 Pulse 90 09/23/16 11:30 Resp 16 09/23/16 07:00 BP 114/60 09/23/16 07:00 Pulse Ox 99 09/23/16 07:26 Intake & Output 09/22/16 09/23/16 09/23/16 18:59 06:59 18:59 Intake Total 590 Balance 590 Weight 68.039 kg Intake: Oral 590 Other: Voiding Method Toilet Toilet # Voids 3 2 - Exam GENERAL EXAM: Alert, fairly comfortable in no apparent distress. HEAD: Normocephalic. EYES: Normal reaction of pupils, equal size. NOSE: Clear with pink turbinates. THROAT: No erythema or exudates. NECK: No masses, no JVD. CHEST: No chest wall deformity. LUNGS: Equal air entry with few scattered rhonchi, end expiratory wheeze, diminished. CVS: S1 and S2 normal with no audible murmurs, regular rhythm. ABDOMEN: No hepatosplenomegaly, normal bowel sounds, no guarding or rigidity. SPINE: No scoliosis or deformity SKIN: No rashes CENTRAL NERVOUS SYSTEM: No focal deficits, tone is normal in all 4 extremities. Extremities: There is trace peripheral edema. No clubbing, no cyanosis. Peripheral pulses are intact. - Labs CBC & Chem 7: 09/23/16 06:25 09/23/16 06:25 Labs: Abnormal Lab Results - Last 24 Hours (Table) 09/22/16 09/22/16 09/23/16 Range/Units 17:17 20:08 06:25 WBC 23.9 H (3.8-10.6) k/uL RBC 3.68 L (3.80-5.40) m/uL Hgb 10.8 L (11.4-16.0) gm/dL Hct 33.6 L (34.0-46.0) % Neutrophils # 22.3 H (1.3-7.7) k/uL Lymphocytes # 0.9 L (1.0-4.8) k/uL Sodium (137-145) mmol/L Carbon Dioxide (22-30) mmol/L BUN (7-17) mg/dL Glucose (74-99) mg/dL POC Glucose (mg/dL) 129 H 153 H (75-99) mg/dL 09/23/16 09/23/16 09/23/16 Range/Units 06:25 06:37 11:33 WBC (3.8-10.6) k/uL RBC (3.80-5.40) m/uL Hgb (11.4-16.0) gm/dL Hct (34.0-46.0) % Neutrophils # (1.3-7.7) k/uL Lymphocytes # (1.0-4.8) k/uL Sodium 136 L (137-145) mmol/L Carbon Dioxide 31 H (22-30) mmol/L BUN 20 H (7-17) mg/dL Glucose 126 H (74-99) mg/dL POC Glucose (mg/dL) 126 H 119 H (75-99) mg/dL Microbiology - Last 24 Hours (Table) 09/20/16 14:52 Blood Culture - Preliminary Blood No Growth after 48 hours Assessment and Plan Plan: #1 Acute exacerbation of severe oxygen dependent chronic obstructive pulmonary disease complicated by purulent tracheobronchitis. #2 Acute on chronic hypoxic respiratory failure secondary to above. #3 Severe pulmonary hypertension, currently on Tyvaso. Being followed at the pulmonary hypertension clinic in the [facility]. #4 End-stage pulmonary disease, initially evaluated for possible lung transplant. No recent workup. #5 Recent non-ST segment elevation myocardial infarction approximately one month ago. Normal coronary arteries. 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 LifeVest is in place. 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 #7 Hydronephrosis with adhesions with subsequent right ureteral stent placement. #8 Osteoporosis. #9 Hiatal hernia. #10 Depression with recent loss of her in March 2016. #11 40 year smoking history, quit in January 2015. #12 Hyperlipidemia. Recommendation: Continue present treatment plan, not ready for discharge planning at this point, felt better with mucinex and Phenergan With Codeine Continue antibiotics, continue bronchodilators, will follow. Time with Patient: Less than 30
[2016-09-23 17:10] LABS: Glucose,Whole Blood 141 mg/dL (75-99)
[2016-09-23] MEDS: FUROSEMIDE 10 MG/ML 4 ML VIAL IV SCH (17:53)
[2016-09-23] MEDS: DRY MOUTH SPRAY 44.3 SPRAY/44.3 ML SPRAY MUCOUS MEM PRN (18:04)
[2016-09-23 20:25] LABS: Glucose,Whole Blood 103 mg/dL (75-99)
[2016-09-23] MEDS: MONTELUKAST 10 MG TAB PO SCH (21:31)
[2016-09-24] MEDS: [UNRECOGNIZED DRUG - OTHER] INHALATION SCH ×5 (02:34→22:16)
[2016-09-24] MEDS: HYDROcodone/APAP 5-325MG 1 EACH TAB PO PRN ×4 (02:34→22:18)
[2016-09-24] MEDS: methylPREDNISolone SOD SUCCI 125 MG/2 ML VIAL IV SCH ×3 (05:53→19:40)
--- NOTE | 2016-09-24 07:13 | PN ---
DATE OF SERVICE: 09/23/2016 This 61-year-old woman who was admitted with COPD, acute exacerbation, acute purulent tracheobronchitis is still having significant shortness of breath and cough. Dr. Pabon is following the patient. The patient is on IV steroids and as well as bronchodilators also and antibiotics. No chest pain or palpitations. No fever. Sputum used to be mucopurulent, current it is mucoid according to her. On exam, alert and oriented x3. The pulse is 86, blood pressure 114/60, respirations 16, temperature 97.7, pulse ox 95% on 4 L. HEENT: Conjunctivae normal. NECK: No jugular venous distention. CARDIOVASCULAR: S1 and S2, muffled. RESPIRATORY: Breath sounds diminished at the bases. Scattered rhonchi and crackles. Expiratory wheezing also present. ABDOMEN: Soft, nontender. LEGS: No edema, no swelling. NERVOUS SYSTEM: No focal deficit. LABS: WBC 23.9, hemoglobin 10.8.Sodium 136. ASSESSMENT: 1. Chronic obstructive pulmonary disease, acute exacerbation, with acute purulent tracheobronchitis. 2. Nodular density in the right upper lobe, which is more prominent. 3. History of recent acute hypoxic hypercarbic respiratory failure. 4. History of congestive heart failure with chronic systolic dysfunction, ejection fraction less than 20% with possible takotsubo syndrome and social stressors. 5. History of recent acute non-ST segment elevation myocardial infarction. 6. Hyponatremia. 7. Increased CO2. 8. Increased WBC. 9. History of chronic hypoxic respiratory failure on 3 L nasal cannula. 10. Being evaluated for lung transplant at [facility]. 11. History of hiatal hernia. 12. History of esophagitis. 13. History of hydronephrosis. 14. History of cardiac catheterization. 15. History of bowel resection ileostomy and reversal. 16. Depression, not otherwise specified. 17. History of nicotine dependence. 18. FULL CODE. RECOMMENDATIONS AND DISCUSSION: Recommend to continue with the current medications. Continue with monitoring and symptomatic treatment. Otherwise at this time continue the bronchodilators, IV steroids. Closely follow with Dr. Pabon. Prognosis guarded because of multiple complex medical issues and further recommendations to follow. The most recent chest x-ray reviewed. I would recommend Lasix empirically. The BNP is 3980. The prognosis is guarded because of multiple complex medical issues. Further recommendations to follow.
[2016-09-24] MEDS: IPRATROPIUM-ALBUTEROL 3 ML NEB INHALATION PRN ×3 (07:21→19:17)
[2016-09-24] MEDS: SYMBICORT 160-4.5 MCG INHALER INHALATION SCH ×2 (07:21→19:17)
[2016-09-24 07:23] LABS: Glucose,Whole Blood 118 mg/dL (75-99)
[2016-09-24 07:27] LABS: Basophils # (A) 0.1 k/uL (0-0.2); Basophils % (A) 0 %; CH 28.3; CHCM 30.6; Eosinophils % (A) 0 %; HGB 10.3 gm/dL (11.4-16.0); Hypochromasia Slight; Luc # (Auto) 0.13; Luc % (Auto) 1; Lymphocytes # (A) 0.9 k/uL (1.0-4.8); Lymphocytes % (A) 5 %; MCH 28.3 pg (25.0-35.0); MCHC 30.4 g/dL (31.0-37.0); Mean Platelet Volume 7.2; Monocytes # (A) 0.6 k/uL (0-1.0); Monocytes % (A) 3 %; Neutrophils # (A) 18.4 k/uL (1.3-7.7); Neutrophils % (A) 91 %; RBC 3.65 m/uL (3.80-5.40); RDW 13.6 % (11.5-15.5); WBC 20.2 k/uL (3.8-10.6); WBC (Perox) 20.62
[2016-09-24] MEDS: INSULIN LISPRO (humaLOG) 300 UNIT/3 ML VIAL SQ SCH ×4 (07:29→22:09)
[2016-09-24] MEDS: ATORVASTATIN 80 MG TAB PO SCH (07:32)
[2016-09-24] MEDS: ASPIRIN 325 MG TAB PO SCH (07:32)
[2016-09-24] MEDS: AZITHROMYCIN 500 MG TAB PO SCH (07:32)
[2016-09-24] MEDS: HEPARIN SODIUM,PORCINE 5,000 UNIT/ML 1 ML VIAL SQ SCH ×2 (07:33→22:12)
[2016-09-24] MEDS: FUROSEMIDE 10 MG/ML 4 ML VIAL IV SCH (07:33)
[2016-09-24] MEDS: guaiFENesin 600 MG TABLET.ER PO SCH ×2 (07:33→22:13)
[2016-09-24] MEDS: buPROPion SR 150 MG TABLET.ER PO SCH ×2 (07:33→22:14)
[2016-09-24] MEDS: LORATADINE 10 MG TAB PO SCH (07:33)
[2016-09-24] MEDS: METOPROLOL TARTRATE 12.5 MG TAB PO SCH ×2 (07:33→22:14)
[2016-09-24 07:38] LABS: Anion Gap 7 mmol/L; Blood Urea Nitrogen 23 mg/dL (7-17); Calcium 8.4 mg/dL (8.4-10.2); Carbon Dioxide 32 mmol/L (22-30); Chloride 98 mmol/L (98-107); Glucose 103 mg/dL (74-99); Non-African American GFR(MDRD) 58 (>60 ml/min/1.73 sqM); Sodium 137 mmol/L (137-145)
[2016-09-24] MEDS: CHLORPHEN-HYDROcod 8-10mg/5ml 5 ML ORAL.SYRG PO SCH ×2 (07:40→22:12)
[2016-09-24] MEDS: ALPRAZolam 0.5 MG TAB PO PRN ×3 (07:43→22:19)
[2016-09-24 11:43] LABS: Glucose,Whole Blood 119 mg/dL (75-99)
--- NOTE | 2016-09-24 12:00 | P.PN ---
Subjective Principal diagnosis: Acute exacerbation of chronic obstructive pulmonary disease. This is a very pleasant 61-year-old female patient who has a history of hiatal hernia, esophagitis, precancerous colonic tumor with bowel resection, hydro- nephrosis with adhesions resolved with stent placement, adrenal lesion/adenoma being monitored, osteoporosis. She follows with Dr. Cristobal Ramsey is her primary care physician. She also has a history of chronic obstructive pulmonary disease and primary versus secondary pulmonary hypertension and follows with Dr. Pabon in our office. She is currently on Tyvaso treatments. She is followed at the [facility] with Dr. Kilpatrick. She also follows with Dr. Jarquin as part of the transplant team. She was admitted here one month ago for an acute non-ST segment elevation myocardial infarction. She was found to have congestive heart failure as well. Her cardiac catheterization revealed normal coronary arteries. There were findings consistent with apical ballooning syndrome. She had global hypokinesia with an ejection fraction of less than 25%. She is currently wearing a LifeVest. She had been doing fairly well since that discharge until recently when she developed increasing shortness of breath, cough and congestion. She felt as though some ALLERGIES may have triggered the event and she was seen at Dr. Ramsey's office yesterday and her saturations were in the 70s on her home O2 and was referred her here for admission. She did have a T-max of 100.2. Her chest x-ray did show moderately advanced emphysema but no acute pulmonary process. There is a continued nodular density in the right upper lobe slightly more pronounced than last months x-ray. She is seen today in consultation on the regular medical floor. She is awake and alert in no acute distress. She is quite dyspneic on minimal conversation however. She has a loose productive cough of thick yellow sputum. No fever, chills or night sweats. No significant chest pain, palpitations lightheadedness or dizziness. She is currently maintaining O2 saturations in the mid 90s on 3 L/m per nasal cannula. She's been afebrile. Hemodynamically stable. No tachycardia, no tachypnea. Patient was reevaluated today on 09/22/2016, continues to have productive cough, sometimes she had difficulty clearing her secretions, her sputum seems to be quite sick, hence I recommended Mucinex today. Patient continues to have shortness of breath which is multifactorial but mostly related to her COPD and pulmonary hypertension. Not to mention the patient has severe LV dysfunction and cardiomyopathy. This was based on her last echocardiogram. Labs showed leukocytosis with WBC count of 20.8 hemoglobin is 10.1 electrolytes and renal profile are normal. Reevaluated today on 09/23/2016, patient continues to have shortness of breath with any activity, however her cough symptoms seem to be better with adding Phenergan With Codeine and PhenerganPatient is now on 4 L nasal cannula, she is on home O2 at all 18/11. All her meds were reviewed, patient remains marginal as far as her pulmonary status, hence we will not plan on discharge planning today possibly in the next 24-48 hours. CBC showed leukocytosis with WBC count of 23.9. Electrolytes and renal profile are normal. Follow-up chest x-ray continues to show COPD but no evidence of pneumonia. The patient was seen again today 09/24/2016 in follow-up on the regular medical floor. She is awake and alert in no acute distress. She continues with a loose nonproductive cough. She is maintaining O2 saturations in the 90s on 3 L/ m per nasal cannula. She's been afebrile. Hemodynamically stable. Blood culture reveals no growth to date. White count stable at 20.2. Objective - Vital Signs Vital signs: Vital Signs Temp 97.2 F L 09/24/16 07:00 Pulse 92 09/24/16 11:31 Resp 18 09/24/16 07:00 BP 119/59 09/24/16 07:00 Pulse Ox 93 L 09/24/16 07:00 Intake & Output 09/23/16 09/24/16 09/24/16 18:59 06:59 18:59 Other: Voiding Method Toilet Toilet # Voids 3 1 - Exam GENERAL EXAM: Alert, fairly comfortable in no apparent distress. HEAD: Normocephalic. EYES: Normal reaction of pupils, equal size. NOSE: Clear with pink turbinates. THROAT: No erythema or exudates. NECK: No masses, no JVD. CHEST: No chest wall deformity. LUNGS: Equal air entry with few scattered rhonchi, end expiratory wheeze, diminished. CVS: S1 and S2 normal with no audible murmurs, regular rhythm. ABDOMEN: No hepatosplenomegaly, normal bowel sounds, no guarding or rigidity. SPINE: No scoliosis or deformity SKIN: No rashes CENTRAL NERVOUS SYSTEM: No focal deficits, tone is normal in all 4 extremities. Extremities: There is trace peripheral edema. No clubbing, no cyanosis. Peripheral pulses are intact. - Labs CBC & Chem 7: 09/24/16 06:45 09/24/16 06:45 Labs: Abnormal Lab Results - Last 24 Hours (Table) 09/23/16 09/23/16 09/24/16 Range/Units 17:08 20:23 06:45 WBC 20.2 H (3.8-10.6) k/uL RBC 3.65 L (3.80-5.40) m/uL Hgb 10.3 L (11.4-16.0) gm/dL MCHC 30.4 L (31.0-37.0) g/dL Neutrophils # 18.4 H (1.3-7.7) k/uL Lymphocytes # 0.9 L (1.0-4.8) k/uL Carbon Dioxide (22-30) mmol/L BUN (7-17) mg/dL Glucose (74-99) mg/dL POC Glucose (mg/dL) 141 H 103 H (75-99) mg/dL 09/24/16 09/24/16 09/24/16 Range/Units 06:45 07:22 11:40 WBC (3.8-10.6) k/uL RBC (3.80-5.40) m/uL Hgb (11.4-16.0) gm/dL MCHC (31.0-37.0) g/dL Neutrophils # (1.3-7.7) k/uL Lymphocytes # (1.0-4.8) k/uL Carbon Dioxide 32 H (22-30) mmol/L BUN 23 H (7-17) mg/dL Glucose 103 H (74-99) mg/dL POC Glucose (mg/dL) 118 H 119 H (75-99) mg/dL Microbiology - Last 24 Hours (Table) 09/20/16 14:52 Blood Culture - Preliminary Blood No Growth after 72 hours Assessment and Plan Plan: Impression: #1 Acute exacerbation of severe oxygen dependent chronic obstructive pulmonary disease complicated by purulent tracheobronchitis. #2 Acute on chronic hypoxic respiratory failure secondary to above. #3 Severe pulmonary hypertension, currently on Tyvaso. Being followed at the pulmonary hypertension clinic in the [facility]. #4 End-stage pulmonary disease, initially evaluated for possible lung transplant. No recent workup. #5 Recent non-ST segment elevation myocardial infarction approximately one month ago. Normal coronary arteries. 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 LifeVest is in place. 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 #7 Hydronephrosis with adhesions with subsequent right ureteral stent placement. #8 Osteoporosis. #9 Hiatal hernia. #10 Depression with recent loss of her in March 2016. #11 40 year smoking history, quit in January 2015. #12 Hyperlipidemia. Plan: The patient was seen and evaluated by Dr. Albarran. She continues to have be quite dyspneic on minimal exertion. Not quite ready for discharge. We'll continue with her current medications including empiric antibiotics in the form of ceftriaxone and azithromycin. She remains on IV Solu-Medrol, Mucinex, bronchodilators. On heparin for DVT prophylaxis.. His activity as tolerated. We'll continue to follow.
[2016-09-24] MEDS: CALCIUM CARBONATE 500 MG CHEWABLE PO SCH (12:49)
[2016-09-24] MEDS: CHOLECALCIFEROL 1,000 UNIT TAB PO SCH (12:49)
[2016-09-24] MEDS: DOCUSATE 100 MG CAP PO SCH ×2 (12:50→22:13)
--- NOTE | 2016-09-24 17:06 | PN ---
DATE OF SERVICE: 09/24/2016 This 61-year-old woman who was admitted with COPD, acute exacerbation, also had a nodular density in the right upper lobe. The patient also had acute hypoxic hypercarbic respiratory failure. The patient is being closely monitored. She still has shortness of breath. Significant cough has also been reported. Dr. Albarran and Dr. Pabon are following the patient closely. Patient is still on IV steroids. On exam, alert and oriented x3. Still short of breath at rest. Pulse is 88, blood pressure 119/59, respiration 18, temperature 97.2, pulse ox 93% on 3 L. HEENT: Conjunctivae normal. Oral mucosa moist. NECK: No jugular venous distention. No carotid bruit. No lymph node enlargement. CARDIOVASCULAR SYSTEM: S1, S2 muffled. RESPIRATORY SYSTEM: Breath sounds diminished at the bases. Bilateral scattered rhonchi and expiratory wheezing and crackles. ABDOMEN: Soft, non-tender. LEGS: No edema. No swelling. NERVOUS SYSTEM: No focal deficit. LABS: WBC 20.2, hemoglobin 10.3. Glucose is 103. ASSESSMENT: 1. Chronic obstructive pulmonary disease, acute exacerbation, with acute purulent tracheobronchitis. 2. Nodular density in the right upper lobe, which is more prominent. 3. History of recent acute hypoxic hypercarbic respiratory failure. 4. History of congestive heart failure with chronic systolic dysfunction; ejection fraction 20%; with possible takotsubo syndrome and social stressors. 5. History of recent acute xsc-DC-faxukof-elevation myocardial infarction. 6. Hyponatremia. 7. Increased carbon dioxide. 8. Increased white count. 9. History of chronic hypoxic respiratory failure, on 3 liters nasal cannula. 10. Being evaluated for lung transplant at the [facility]. 11. History of hiatal hernia. 12. History of esophagitis. 13. History of hydronephrosis. 14. History of cardiac catheterization. 15. History of bowel resection, ileostomy and reversal. 16. Depression not otherwise specified. 17. History of nicotine dependence. 18. FULL CODE. RECOMMENDATIONS AND DISCUSSION: I recommend to continue with the current medications, continue with the monitoring, symptomatic treatment. Continue with the bronchodilators, steroids, antibiotics. Guarded prognosis. Further recommendations to follow.
[2016-09-24 17:33] LABS: Glucose,Whole Blood 116 mg/dL (75-99)
[2016-09-24] MEDS: MONTELUKAST 10 MG TAB PO SCH (22:12)
[2016-09-24 22:20] LABS: Glucose,Whole Blood 214 mg/dL (75-99)
[2016-09-25] MEDS: methylPREDNISolone SOD SUCCI 125 MG/2 ML VIAL IV SCH ×2 (01:09→06:22)
[2016-09-25] MEDS: HYDROcodone/APAP 5-325MG 1 EACH TAB PO PRN ×3 (04:48→20:46)
[2016-09-25] MEDS: ALPRAZolam 0.5 MG TAB PO PRN ×3 (04:48→20:47)
[2016-09-25 07:14] LABS: Glucose,Whole Blood 126 mg/dL (75-99)
[2016-09-25] MEDS: INSULIN LISPRO (humaLOG) 300 UNIT/3 ML VIAL SQ SCH ×4 (07:19→22:13)
[2016-09-25 08:44] LABS: Anion Gap 4 mmol/L; Blood Urea Nitrogen 24 mg/dL (7-17); Calcium 8.2 mg/dL (8.4-10.2); Carbon Dioxide 34 mmol/L (22-30); Chloride 98 mmol/L (98-107); Glucose 118 mg/dL (74-99); Non-African American GFR(MDRD) >60 (>60 ml/min/1.73 sqM); Potassium 4.9 mmol/L (3.5-5.1); Sodium 136 mmol/L (137-145)
[2016-09-25] MEDS: SYMBICORT 160-4.5 MCG INHALER INHALATION SCH ×3 (08:54→20:16)
[2016-09-25] MEDS: [UNRECOGNIZED DRUG - OTHER] INHALATION SCH ×4 (09:47→22:11)
[2016-09-25] MEDS: ATORVASTATIN 80 MG TAB PO SCH (09:47)
[2016-09-25] MEDS: ASPIRIN 325 MG TAB PO SCH (09:47)
[2016-09-25] MEDS: AZITHROMYCIN 500 MG TAB PO SCH (09:48)
[2016-09-25] MEDS: DOCUSATE 100 MG CAP PO SCH ×2 (09:48→22:12)
[2016-09-25] MEDS: buPROPion SR 150 MG TABLET.ER PO SCH ×2 (09:48→22:12)
[2016-09-25] MEDS: guaiFENesin 600 MG TABLET.ER PO SCH ×2 (09:49→22:13)
[2016-09-25] MEDS: FUROSEMIDE 10 MG/ML 4 ML VIAL IV SCH (09:49)
[2016-09-25] MEDS: HEPARIN SODIUM,PORCINE 5,000 UNIT/ML 1 ML VIAL SQ SCH ×2 (09:49→22:12)
[2016-09-25] MEDS: LORATADINE 10 MG TAB PO SCH (09:50)
[2016-09-25] MEDS: METOPROLOL TARTRATE 12.5 MG TAB PO SCH ×2 (09:50→22:14)
[2016-09-25 09:51] LABS: CH 28.4; CHCM 30.4; HCT 33.6 % (34.0-46.0); HDW 2.23; HGB 10.3 gm/dL (11.4-16.0); Hypochromasia Slight; Immature Gran Flag Slight; MCHC 30.8 g/dL (31.0-37.0); Mean Platelet Volume 7.7; RBC 3.57 m/uL (3.80-5.40); RDW 13.6 % (11.5-15.5); WBC 15.5 k/uL (3.8-10.6); WBC (Perox) 16.73
[2016-09-25] MEDS: CHLORPHEN-HYDROcod 8-10mg/5ml 5 ML ORAL.SYRG PO SCH ×2 (09:59→22:18)
[2016-09-25 10:27] LABS: Add Differential Manual Differential
[2016-09-25 10:41] LABS: Metamyelocytes % 5.5 %; Myelocytes % 2.5 %; Nucleated Red Blood Cells 0 /100 WBC (0-0); Total Cells Counted 200
[2016-09-25 10:48] LABS: Manual Review Performed; RBC Morphology Normal
[2016-09-25 11:27] LABS: Glucose,Whole Blood 113 mg/dL (75-99)
--- NOTE | 2016-09-25 11:28 | PN ---
A 61-year-old female with history of multiple medical problems including severe COPD, which is oxygen -dependent, chronic hypoxemic respiratory failure, severe pulmonary hypertension, recent non-ST segment elevation myocardial infarction, cardiomyopathy with ejection fraction at 25%, recent history of transient apical ballooning syndrome or takotsubo cardiomyopathy, precancerous colonic tumor, hydronephrosis, osteoporosis, hiatal hernia, depression, chronic tobacco use, and hyperlipidemia. The patient apparently has had some recent significant changes in her life and she is not sure that she would proceed with a lung transplantation. She has apparently been evaluated for that at [facility]. She has both end-stage COPD as well as significant pulmonary hypertension currently being followed by Dr. Hannah Kilpatrick for her pulmonary hypertension. Anyway, the patient seemed to be doing a bit better today. She was moved from one room to the next because of a plumbing issue. The patient's breathing is stable. Current vital signs include temperature 97.1, heart rate 75, respiratory rate 18, blood pressure 129/71, mean 90, three-liter saturation 93%. Appears in no acute distress. HEENT examination is grossly unremarkable. Mucous membranes are moist. No oral lesions. NECK: Supple. Full range of motion. No adenopathy. Neck veins are flat. Cardiovascular examination reveals regular rhythm and rate. S1, S2 normal. A soft systolic murmur is noted. No S3, S4. Lungs reveal relatively clear, but diminished breath sounds. No wheezes or rhonchi. No crackles. Slight prolongation. ABDOMEN: Soft. Bowel sounds are heard. Extremities are intact. No cyanosis, clubbing, or edema. Skin is without rash or lesion. Neurological examination is nonfocal. Labs are reviewed. White count 15.5, hemoglobin 10.3, hematocrit 33.6, platelet count normal. Sodium 136, potassium 4.9, chloride 98, CO2 of 34, BUN and creatinine were 24 and 0.9. Anion gap is normal. Using the Winter's formula and working backwards, based on bicarbonate concentration of 34, her baseline PaCO2 would be roughly 59 +/- 2 mmHg. Microbiology is all negative. No recent chest x-ray to report. Medications are reviewed. ASSESSMENT: 1. Severe chronic obstructive pulmonary disease exacerbation in a patient with end-stage chronic obstructive pulmonary disease. This chronic obstructive pulmonary disease exacerbation is probably complicated or triggered by purulent tracheobronchitis. 2. Chronic hypoxemic respiratory failure. 3. Severe pulmonary hypertension, being followed by the pulmonary hypertension clinic at [facility]. 4. Patient currently being evaluated for lung transplantation. 5. Recent non-ST segment elevation myocardial infarction. 6. Transient apical ballooning syndrome or Takotsubo cardiomyopathy. 7. Cardiomyopathy with an ejection fraction of 25%. 8. Precancerous colonic lesion. 9. Hydronephrosis. 10. Osteoporosis. 11. Hiatal hernia. 12. Depression. 13. Previous history of heavy tobacco use. 14. Hyperlipidemia. PLAN: Will continue to follow. Hopeful discharge soon. No additional recommendations are made. We will continue to follow. Medications are reviewed. Everything is in order. Prognosis is very guarded given her multiple medical problems.
[2016-09-25] MEDS: IPRATROPIUM-ALBUTEROL 3 ML NEB INHALATION PRN ×2 (11:51→20:15)
[2016-09-25] MEDS: CHOLECALCIFEROL 1,000 UNIT TAB PO SCH (12:51)
[2016-09-25] MEDS: CALCIUM CARBONATE 500 MG CHEWABLE PO SCH (12:51)
--- NOTE | 2016-09-25 14:13 | PN ---
A 61-year-old admitted with COPD exacerbation. I do not believe patient has pneumonia, Rocephin will be discontinued. Patient will be continued on erythromycin, IV steroids, will be to oral steroids. Patient is not even close to her baseline because of which will keep her here today. REVIEW OF SYSTEMS: CARDIOVASCULAR: No chest pain, no orthopnea, no PND, no palpitations. GASTROINTESTINAL: No diarrhea, nausea or vomiting. No abdominal pain. Normoactive bowel sounds. NEUROLOGIC: No headaches, no weakness, no numbness. RESPIRATORY: Continues significant shortness of breath and wheezing and medications are reviewed. PHYSICAL EXAMINATION: Temperature 97.1, pulse of 90, respiratory rate of 18, blood pressure is 129/71, saturating at 91% on 3 L of O2 by nasal cannula. Patient does use 3 L at home. GENERAL: The patient is alert and oriented x3, not in any acute distress. Well developed, well nourished. HEENT: Pupils are round and equally reacting to light. EOMI. No scleral icterus. No conjunctival pallor. Normocephalic, atraumatic. No pharyngeal erythema. No thyromegaly. CARDIOVASCULAR: S1 and S2 present. No murmurs, rubs, or gallops. PULMONARY: Limited by the Life vest which she is using for decreased ejection fraction. Patient had Takotsubo syndrome during her previous hospitalization and patient does have expiratory wheezing, decreased air entry into bilateral lung alicia. ABDOMEN: Soft, nontender, nondistended, normoactive bowel sounds. No palpable organomegaly. MUSCULOSKELETAL: No joint swelling or deformity. EXTREMITIES: No cyanosis, clubbing, or pedal edema. NEUROLOGICAL: Gross neurological examination did not reveal any focal deficits. SKIN: No rashes. LABORATORY DATA: CBC and BMP are abnormal for elevated WBC count of 10,500, hemoglobin 10.3. ASSESSMENT AND PLAN: 1. Chronic obstructive pulmonary disease. Acute on chronic hypercapnic respiratory failure secondary to chronic obstructive pulmonary disease exacerbation and tracheobronchitis for which continue with systemic steroids, inhalational treatments as mentioned above, azithromycin. 2. Nodular density in the right upper lobe for which patient will follow up with Pulmonary as an outpatient. Pulmonary is following the patient here as well. 3. Congestive heart failure, chronic systolic dysfunction secondary to takotsubo syndrome, not in exacerbation at this point of time. Patient's ejection fraction during her last hospitalization is 20%. Patient has a Life vest in place. 4. Hyponatremia, not sure what kind of hyponatremia she had when she was admitted, although that resolved at this point of time. 5. Leukocytosis secondary to severe bronchitis. 6. Hiatal hernia, esophagitis, gastroesophageal reflux disease. 7. Depression. Patient quit smoking. For the rest of the abdomen chronic medical problems, I will go ahead and continue her home medications.
[2016-09-25] MEDS ORDERED: NON-FORMULARY DRUG (Alendronate Sodium [Fosamax] 70 MG) PO SCH (16:49)
[2016-09-25 17:37] LABS: Glucose,Whole Blood 109 mg/dL (75-99)
[2016-09-25] MEDS ORDERED: MAGNESIUM HYDROXIDE 2,400 MG/10 ML CUP PO PRN (19:55)
[2016-09-25 21:05] LABS: Glucose,Whole Blood 115 mg/dL (75-99)
[2016-09-25] MEDS: MONTELUKAST 10 MG TAB PO SCH (22:14)
[2016-09-26] MEDS: HYDROcodone/APAP 5-325MG 1 EACH TAB PO PRN ×2 (05:11→10:48)
[2016-09-26] MEDS: ALPRAZolam 0.5 MG TAB PO PRN ×3 (05:11→19:08)
[2016-09-26] MEDS: IPRATROPIUM-ALBUTEROL 3 ML NEB INHALATION PRN ×4 (07:07→19:42)
[2016-09-26] MEDS: SYMBICORT 160-4.5 MCG INHALER INHALATION SCH ×2 (07:07→19:42)
[2016-09-26 07:41] LABS: Glucose,Whole Blood 89 mg/dL (75-99)
[2016-09-26 08:18] LABS: CH 28.3; CHCM 31.3; HCT 34.4 % (34.0-46.0); HDW 2.37; HGB 10.8 gm/dL (11.4-16.0); Hypochromasia Slight; Immature Gran Flag Marked; MCH 28.4 pg (25.0-35.0); MCHC 31.3 g/dL (31.0-37.0); MCV 90.9 fL (80.0-100.0); Mean Platelet Volume 6.5; RBC 3.78 m/uL (3.80-5.40); RDW 13.3 % (11.5-15.5); WBC (Perox) 16.82
[2016-09-26] MEDS: INSULIN LISPRO (humaLOG) 300 UNIT/3 ML VIAL SQ SCH ×4 (08:19→22:11)
[2016-09-26] MEDS: DOCUSATE 100 MG CAP PO SCH ×2 (08:21→21:50)
[2016-09-26] MEDS: [UNRECOGNIZED DRUG - OTHER] INHALATION SCH ×4 (08:22→21:52)
[2016-09-26] MEDS: HEPARIN SODIUM,PORCINE 5,000 UNIT/ML 1 ML VIAL SQ SCH ×2 (08:23→21:51)
[2016-09-26] MEDS: LORATADINE 10 MG TAB PO SCH (08:23)
[2016-09-26] MEDS: METOPROLOL TARTRATE 12.5 MG TAB PO SCH ×2 (08:23→21:51)
[2016-09-26] MEDS: ASPIRIN 325 MG TAB PO SCH (08:23)
[2016-09-26] MEDS: FUROSEMIDE 10 MG/ML 4 ML VIAL IV SCH (08:23)
[2016-09-26] MEDS: ATORVASTATIN 80 MG TAB PO SCH (08:23)
[2016-09-26] MEDS: predniSONE 20 MG TAB PO SCH (08:24)
[2016-09-26] MEDS: AZITHROMYCIN 500 MG TAB PO SCH (08:24)
[2016-09-26] MEDS: guaiFENesin 600 MG TABLET.ER PO SCH ×2 (08:24→21:51)
[2016-09-26] MEDS: buPROPion SR 150 MG TABLET.ER PO SCH ×2 (08:24→21:50)
[2016-09-26] MEDS: CHOLECALCIFEROL 1,000 UNIT TAB PO SCH (08:25)
[2016-09-26] MEDS: CHLORPHEN-HYDROcod 8-10mg/5ml 5 ML ORAL.SYRG PO SCH ×2 (08:35→21:46)
[2016-09-26 08:41] LABS: Anion Gap 2 mmol/L; Blood Urea Nitrogen 25 mg/dL (7-17); Calcium 8.1 mg/dL (8.4-10.2); Carbon Dioxide 37 mmol/L (22-30); Chloride 98 mmol/L (98-107); Glucose 85 mg/dL (74-99); Non-African American GFR(MDRD) >60 (>60 ml/min/1.73 sqM); Potassium 4.6 mmol/L (3.5-5.1); Sodium 137 mmol/L (137-145)
--- NOTE | 2016-09-26 08:52 | ECHOF ---
Referral Reason:CHF; re-evaluate EF MEASUREMENTS -------- HEIGHT: 170.2 cm WEIGHT: 68.0 kg BP: 129/71 RVIDd: 2.5 cm (< 3.3) IVSd: 1.2 cm (0.6 - 1.1) LVIDd: 4.7 cm (3.9 - 5.3) LVPWd: 1.0 cm (0.6 - 1.1) IVSs: 1.5 cm LVIDs: 3.1 cm LVPWs: 1.4 cm LA Diam: 3.1 cm (2.7 - 3.8) LAESV Index (A-L): 33.36 ml/m Ao Diam: 3.1 cm (2.0 - 3.7) AV Cusp: 1.6 cm (1.5 - 2.6) LA Diam: 3.8 cm (2.7 - 3.8) MV EXCURSION: 11.106 mm (> 18.000) MV EF SLOPE: 75 mm/s (70 - 150) EPSS: 0.7 cm MV E Waqas: 1.01 m/s MV DecT: 201 ms MV A Awqas: 1.03 m/s MV E/A Ratio: 0.98 RAP: 5.00 mmHg RVSP: 31.86 mmHg FINDINGS -------- Sinus rhythm. This was a technically adequate study. There is borderline concentric left ventricular hypertrophy. Overall left ventricular systolic function is low-normal with, an EF between 50 - 55 %. The right ventricle is normal in size and function. LA is midly dilated 29-33ml/m2. The right atrium is normal in size. Aortic valve is trileaflet and is mildly thickened. There is no evidence of aortic regurgitation. There is no evidence of aortic stenosis. The mitral valve leaflets are mildly thickened. There is trace to mild mitral regurgitation. Trace tricuspid regurgitation present. There is no evidence of pulmonary hypertension. The right ventricular systolic pressure, as measured by Doppler, is 31.86mmHg. The pulmonic valve was not well visualized. The aortic root size is normal. Normal inferior vena cava with normal inspiratory collapse consistent with estimated right atrial pressure of 5 mmHg. The pericardium is normal. There is a trivial pericardial effusion present. CONCLUSIONS -------- 1. Sinus rhythm. 2. The right ventricular systolic pressure, as measured by Doppler, is 31.86mmHg. 3. The pulmonic valve was not well visualized. 4. The aortic root size is normal. 5. There is a trivial pericardial effusion present. 6. There is borderline concentric left ventricular hypertrophy. 7. Overall left ventricular systolic function is low-normal with, an EF between 50 - 55 %. 8. LA is midly dilated 29-33ml/m2. 9. Aortic valve is trileaflet and is mildly thickened. 10. The mitral valve leaflets are mildly thickened. 11. There is trace to mild mitral regurgitation. 12. Trace tricuspid regurgitation present. 13. There is no evidence of pulmonary hypertension. APPLICATIONS SYSTEMS ANALYST: Josue Hoyt RDCS
[2016-09-26 10:21] LABS: Add Differential Manual Differential
[2016-09-26 10:24] LABS: Metamyelocytes % 1.5 %; Myelocytes % 4.5 %; Nucleated Red Blood Cells 1 /100 WBC (0-0); Total Cells Counted 200
[2016-09-26 10:25] LABS: Manual Review Performed; Toxic Granulation Present
[2016-09-26 12:10] LABS: Glucose,Whole Blood 120 mg/dL (75-99)
--- NOTE | 2016-09-26 12:37 | P.PN ---
Subjective Principal diagnosis: Acute exacerbation of chronic obstructive pulmonary disease. This is a very pleasant 61-year-old female patient who has a history of hiatal hernia, esophagitis, precancerous colonic tumor with bowel resection, hydro- nephrosis with adhesions resolved with stent placement, adrenal lesion/adenoma being monitored, osteoporosis. She follows with Dr. Cristobal Ramsey is her primary care physician. She also has a history of chronic obstructive pulmonary disease and primary versus secondary pulmonary hypertension and follows with Dr. Pabon in our office. She is currently on Tyvaso treatments. She is followed at the [facility] with Dr. Kilpatrick. She also follows with Dr. Jarquin as part of the transplant team. She was admitted here one month ago for an acute non-ST segment elevation myocardial infarction. She was found to have congestive heart failure as well. Her cardiac catheterization revealed normal coronary arteries. There were findings consistent with apical ballooning syndrome. She had global hypokinesia with an ejection fraction of less than 25%. She is currently wearing a LifeVest. She had been doing fairly well since that discharge until recently when she developed increasing shortness of breath, cough and congestion. She felt as though some ALLERGIES may have triggered the event and she was seen at Dr. Ramsey's office yesterday and her saturations were in the 70s on her home O2 and was referred her here for admission. She did have a T-max of 100.2. Her chest x-ray did show moderately advanced emphysema but no acute pulmonary process. There is a continued nodular density in the right upper lobe slightly more pronounced than last months x-ray. She is seen today in consultation on the regular medical floor. She is awake and alert in no acute distress. She is quite dyspneic on minimal conversation however. She has a loose productive cough of thick yellow sputum. No fever, chills or night sweats. No significant chest pain, palpitations lightheadedness or dizziness. She is currently maintaining O2 saturations in the mid 90s on 3 L/m per nasal cannula. She's been afebrile. Hemodynamically stable. No tachycardia, no tachypnea. Patient was reevaluated today on 09/22/2016, continues to have productive cough, sometimes she had difficulty clearing her secretions, her sputum seems to be quite sick, hence I recommended Mucinex today. Patient continues to have shortness of breath which is multifactorial but mostly related to her COPD and pulmonary hypertension. Not to mention the patient has severe LV dysfunction and cardiomyopathy. This was based on her last echocardiogram. Labs showed leukocytosis with WBC count of 20.8 hemoglobin is 10.1 electrolytes and renal profile are normal. Reevaluated today on 09/23/2016, patient continues to have shortness of breath with any activity, however her cough symptoms seem to be better with adding Phenergan With Codeine and PhenerganPatient is now on 4 L nasal cannula, she is on home O2 at all 18/11. All her meds were reviewed, patient remains marginal as far as her pulmonary status, hence we will not plan on discharge planning today possibly in the next 24-48 hours. CBC showed leukocytosis with WBC count of 23.9. Electrolytes and renal profile are normal. Follow-up chest x-ray continues to show COPD but no evidence of pneumonia. The patient was seen again today 09/24/2016 in follow-up on the regular medical floor. She is awake and alert in no acute distress. She continues with a loose nonproductive cough. She is maintaining O2 saturations in the 90s on 3 L/ m per nasal cannula. She's been afebrile. Hemodynamically stable. Blood culture reveals no growth to date. White count stable at 20.2. The patient is seen again today 09/26/2016 in follow-up on the regular medical floor. She is awake and alert in no acute distress at rest. She did desaturate into the low 80s while ablating in the lowry with her oxygen on. She continues with a loose productive cough. She states she is breathing easier today as compared to yesterday but not still quite back to her baseline. Her sputum is positive for Patti otherwise no significant bacteria. White count has improved to 15.0. She remains on empiric azithromycin. Objective - Vital Signs Vital signs: Vital Signs Temp 97.1 F L 09/26/16 07:00 Pulse 96 09/26/16 11:02 Resp 20 09/26/16 08:00 BP 115/68 09/26/16 07:00 Pulse Ox 94 L 09/26/16 07:00 Intake & Output 09/25/16 09/26/16 09/26/16 18:59 06:59 18:59 Intake Total 100 240 Balance 100 240 Intake: Intake, IV Titration 100 Amount cefTRIAXone 1,000 mg In 100 Sodium Chloride 0.9% 50 ml @ 100 mls/hr IVPB Q24H [facility] Rx#:[id number] Oral 240 Other: Voiding Method Toilet Toilet Toilet # Voids 3 # Bowel Movements 2 - Exam GENERAL EXAM: Alert, fairly comfortable in no apparent distress. HEAD: Normocephalic. EYES: Normal reaction of pupils, equal size. NOSE: Clear with pink turbinates. THROAT: No erythema or exudates. NECK: No masses, no JVD. CHEST: No chest wall deformity. LUNGS: Equal air entry with few scattered rhonchi, end expiratory wheeze, diminished. CVS: S1 and S2 normal with no audible murmurs, regular rhythm. ABDOMEN: No hepatosplenomegaly, normal bowel sounds, no guarding or rigidity. SPINE: No scoliosis or deformity SKIN: No rashes CENTRAL NERVOUS SYSTEM: No focal deficits, tone is normal in all 4 extremities. Extremities: There is trace peripheral edema. No clubbing, no cyanosis. Peripheral pulses are intact. - Labs CBC & Chem 7: 09/26/16 07:47 09/26/16 07:47 Labs: Abnormal Lab Results - Last 24 Hours (Table) 09/25/16 09/25/16 09/26/16 Range/Units 17:35 21:03 07:47 WBC 15.0 H (3.8-10.6) k/uL RBC 3.78 L (3.80-5.40) m/uL Hgb 10.8 L (11.4-16.0) gm/dL Neutrophils # (Manual) 8.8 H (1.3-7.7) k/uL Monocytes # (Manual) 1.5 H (0-1.0) k/uL Nucleated RBCs 1 H (0-0) /100 WBC Carbon Dioxide (22-30) mmol/L BUN (7-17) mg/dL POC Glucose (mg/dL) 109 H 115 H (75-99) mg/dL Calcium (8.4-10.2) mg/dL 09/26/16 09/26/16 Range/Units 07:47 11:59 WBC (3.8-10.6) k/uL RBC (3.80-5.40) m/uL Hgb (11.4-16.0) gm/dL Neutrophils # (Manual) (1.3-7.7) k/uL Monocytes # (Manual) (0-1.0) k/uL Nucleated RBCs (0-0) /100 WBC Carbon Dioxide 37 H (22-30) mmol/L BUN 25 H (7-17) mg/dL POC Glucose (mg/dL) 120 H (75-99) mg/dL Calcium 8.1 L (8.4-10.2) mg/dL Microbiology - Last 24 Hours (Table) 09/24/16 07:35 Gram Stain - Final Sputum Sputum Culture - Final Patti albicans 09/20/16 14:52 Blood Culture - Preliminary Blood No Growth after 120 hours Assessment and Plan Plan: Impression: #1 Acute exacerbation of severe oxygen dependent chronic obstructive pulmonary disease complicated by purulent tracheobronchitis. #2 Acute on chronic hypoxic respiratory failure secondary to above. #3 Severe pulmonary hypertension, currently on Tyvaso. Being followed at the pulmonary hypertension clinic in the [facility]. #4 End-stage pulmonary disease, initially evaluated for possible lung transplant. No recent workup. #5 Recent non-ST segment elevation myocardial infarction approximately one month ago. Normal coronary arteries. 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 LifeVest is in place. 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 #7 Hydronephrosis with adhesions with subsequent right ureteral stent placement. #8 Osteoporosis. #9 Hiatal hernia. #10 Depression with recent loss of her in March 2016. #11 40 year smoking history, quit in January 2015. #12 Hyperlipidemia. Plan: The patient was seen and evaluated by Dr. Albarran. She continues to be quite dyspneic on minimal exertion. Continues with a loose productive cough. We'll continue with her current medications including empiric antibiotics in the form of azithromycin. She remains on prednisone taper, Mucinex, bronchodilators. On heparin for DVT prophylaxis.. Increase activity as tolerated. Continue to monitor her O2 saturations. We'll continue to follow.
[2016-09-26] MEDS: CALCIUM CARBONATE 500 MG CHEWABLE PO SCH (14:14)
--- NOTE | 2016-09-26 16:31 | P.PN ---
Subjective Date of service 09/26/2016. Progress note being dictated for Dr. Ramirez. Interval history: This a 61-year-old female admitted with acute COPD exacerbation and multiple other medical issues in a patient with history of Takosubo syndrome , severe cardiomyopathy ,wearing a light LifeVest. Patient's recently passed in March and her sister in May, has been under significant financial strain as well as emotional stress. Patient recently hospitalized for non-Q-wave HI, takotsubo cardiomyopathy with EF less than 20% in July 2016. Repeat echo significantly improved, EF between 50-55% with no evidence of pulmonary hypertension. Maintained on nebulized bronchodilators, steroids and azithromycin-empiric .Continues to require 3 L O2 nasal cannula, maintaining O2 sats of 94%. While ambulating with oxygen, desats to 85% with complaints of lightheadedness. ( Patient does not wear oxygen at home). Objective - Vital Signs Vital signs: Vital Signs Temp 97.1 F L 09/26/16 07:00 Pulse 94 09/26/16 15:57 Resp 20 09/26/16 15:33 BP 115/68 09/26/16 07:00 Pulse Ox 94 L 09/26/16 07:00 Intake & Output 09/25/16 09/26/16 09/26/16 18:59 06:59 18:59 Intake Total 100 240 750 Balance 100 240 750 Weight 68.039 kg Intake: Intake, IV Titration 100 Amount cefTRIAXone 1,000 mg In 100 Sodium Chloride 0.9% 50 ml @ 100 mls/hr IVPB Q24H [facility] Rx#:[id number] Oral 240 750 Other: Voiding Method Toilet Toilet Toilet # Voids 3 3 # Bowel Movements 2 - Exam PHYSICAL EXAM: VITAL SIGNS: As above GENERAL: [Sitting up in bed, no acute distress] HEENT: [Pupils equal conjunctiva normal. No conjunctival pallor] NECK: [Supple, no JVD] RESPIRATORY EFFORT:[ Increased] LUNGS: [Diminished bilateral bases with fine expiratory wheeze, occasional scattered rhonchi] CARDIOVASCULAR[ regular S1 and S2, no murmurs rubs or gallops, trace edema] GI: [Abdomen soft, nontender, nondistended, positive bowel sounds.] PSYCH: [Alert and oriented -3, mood and affect normal.] NEURO: No focal deficits - Labs CBC & Chem 7: 09/26/16 07:47 09/26/16 07:47 Labs: Abnormal Lab Results - Last 24 Hours (Table) 09/25/16 09/25/16 09/26/16 Range/Units 17:35 21:03 07:47 WBC 15.0 H (3.8-10.6) k/uL RBC 3.78 L (3.80-5.40) m/uL Hgb 10.8 L (11.4-16.0) gm/dL Neutrophils # (Manual) 8.8 H (1.3-7.7) k/uL Monocytes # (Manual) 1.5 H (0-1.0) k/uL Nucleated RBCs 1 H (0-0) /100 WBC Carbon Dioxide (22-30) mmol/L BUN (7-17) mg/dL POC Glucose (mg/dL) 109 H 115 H (75-99) mg/dL Calcium (8.4-10.2) mg/dL 09/26/16 09/26/16 Range/Units 07:47 11:59 WBC (3.8-10.6) k/uL RBC (3.80-5.40) m/uL Hgb (11.4-16.0) gm/dL Neutrophils # (Manual) (1.3-7.7) k/uL Monocytes # (Manual) (0-1.0) k/uL Nucleated RBCs (0-0) /100 WBC Carbon Dioxide 37 H (22-30) mmol/L BUN 25 H (7-17) mg/dL POC Glucose (mg/dL) 120 H (75-99) mg/dL Calcium 8.1 L (8.4-10.2) mg/dL Microbiology - Last 24 Hours (Table) 09/24/16 07:35 Gram Stain - Final Sputum Sputum Culture - Final Patti albicans 09/20/16 14:52 Blood Culture - Preliminary Blood No Growth after 120 hours Assessment and Plan Plan: 1. [ Acute exacerbation severe COPD exacerbation with purulent tracheobronchitis ]. 2. [Acute on chronic hypoxic respiratory failure]. 3. Right upper lobe Nodular density, outpatient follow-up with pulmonary]. 4. [Chronic congestive heart failure, initially systolic dysfunction( not acute) , secondary tokotsubo syndrome, EF less than 20% in july 2016; Repeat Echo now 50-55%. 5. Leukocytosis secondary to severe bronchitis 6. [ Hiatal hernia, esophagitis, gastroesophageal reflux disease]. 7. [ Depression]. 8. History of nicotine abuse. Plan: Continue on current medication regime , empiric azithromycin ,nebulized bronchodilators, steroids, monitoring and symptomatic treatment. Increase ambulation as tolerated. Follow closely with pulmonary. Social work consulted regarding financial strain/stressors. Further recommendations to follow. The impression and plan of care has been dictated as directed. : I performed a H&P examination of this patient and discussed the same with the dictator. I agree with the dictator's note. Any additional findings/opinions/ etc. will be noted.
[2016-09-26 17:32] LABS: Glucose,Whole Blood 163 mg/dL (75-99)
[2016-09-26 20:15] LABS: Glucose,Whole Blood 133 mg/dL (75-99)
[2016-09-26] MEDS: MONTELUKAST 10 MG TAB PO SCH (21:51)
[2016-09-27] MEDS: HYDROcodone/APAP 5-325MG 1 EACH TAB PO PRN ×2 (06:15→12:04)
[2016-09-27] MEDS: SYMBICORT 160-4.5 MCG INHALER INHALATION SCH ×2 (07:05→20:37)
[2016-09-27] MEDS: IPRATROPIUM-ALBUTEROL 3 ML NEB INHALATION PRN ×4 (07:06→20:37)
[2016-09-27] MEDS: CHOLECALCIFEROL 1,000 UNIT TAB PO SCH (07:19)
[2016-09-27] MEDS: CALCIUM CARBONATE 500 MG CHEWABLE PO SCH (07:19)
[2016-09-27] MEDS: predniSONE 20 MG TAB PO SCH (07:19)
[2016-09-27] MEDS: DOCUSATE 100 MG CAP PO SCH ×2 (07:20→21:32)
[2016-09-27] MEDS: guaiFENesin 600 MG TABLET.ER PO SCH ×2 (07:20→21:32)
[2016-09-27] MEDS: FUROSEMIDE 10 MG/ML 4 ML VIAL IV SCH ×2 (07:20→07:21)
[2016-09-27] MEDS: ATORVASTATIN 80 MG TAB PO SCH (07:20)
[2016-09-27] MEDS: LORATADINE 10 MG TAB PO SCH (07:20)
[2016-09-27] MEDS: buPROPion SR 150 MG TABLET.ER PO SCH ×2 (07:20→21:32)
[2016-09-27] MEDS: AZITHROMYCIN 500 MG TAB PO SCH (07:20)
[2016-09-27] MEDS: ASPIRIN 325 MG TAB PO SCH (07:20)
[2016-09-27] MEDS: METOPROLOL TARTRATE 12.5 MG TAB PO SCH ×2 (07:20→21:32)
[2016-09-27] MEDS: [UNRECOGNIZED DRUG - OTHER] INHALATION SCH ×4 (07:21→21:36)
[2016-09-27] MEDS: ALPRAZolam 0.5 MG TAB PO PRN ×3 (07:30→22:09)
[2016-09-27] MEDS: CHLORPHEN-HYDROcod 8-10mg/5ml 5 ML ORAL.SYRG PO SCH ×2 (07:30→21:32)
[2016-09-27 07:36] LABS: Glucose,Whole Blood 78 mg/dL (75-99)
[2016-09-27] MEDS: INSULIN LISPRO (humaLOG) 300 UNIT/3 ML VIAL SQ SCH ×4 (07:43→21:34)
[2016-09-27 07:45] VITALS: RESP 20
[2016-09-27] MEDS: HEPARIN SODIUM,PORCINE 5,000 UNIT/ML 1 ML VIAL SQ SCH ×2 (09:45→21:32)
[2016-09-27 12:25] LABS: Glucose,Whole Blood 121 mg/dL (75-99)
--- NOTE | 2016-09-27 12:50 | P.PN ---
Subjective Principal diagnosis: Acute exacerbation of chronic obstructive pulmonary disease. This is a very pleasant 61-year-old female patient who has a history of hiatal hernia, esophagitis, precancerous colonic tumor with bowel resection, hydro- nephrosis with adhesions resolved with stent placement, adrenal lesion/adenoma being monitored, osteoporosis. She follows with Dr. Cristobal Ramsey is her primary care physician. She also has a history of chronic obstructive pulmonary disease and primary versus secondary pulmonary hypertension and follows with Dr. Pabon in our office. She is currently on Tyvaso treatments. She is followed at the [facility] with Dr. Kilpatrick. She also follows with Dr. Jarquin as part of the transplant team. She was admitted here one month ago for an acute non-ST segment elevation myocardial infarction. She was found to have congestive heart failure as well. Her cardiac catheterization revealed normal coronary arteries. There were findings consistent with apical ballooning syndrome. She had global hypokinesia with an ejection fraction of less than 25%. She is currently wearing a LifeVest. She had been doing fairly well since that discharge until recently when she developed increasing shortness of breath, cough and congestion. She felt as though some ALLERGIES may have triggered the event and she was seen at Dr. Ramsey's office yesterday and her saturations were in the 70s on her home O2 and was referred her here for admission. She did have a T-max of 100.2. Her chest x-ray did show moderately advanced emphysema but no acute pulmonary process. There is a continued nodular density in the right upper lobe slightly more pronounced than last months x-ray. She is seen today in consultation on the regular medical floor. She is awake and alert in no acute distress. She is quite dyspneic on minimal conversation however. She has a loose productive cough of thick yellow sputum. No fever, chills or night sweats. No significant chest pain, palpitations lightheadedness or dizziness. She is currently maintaining O2 saturations in the mid 90s on 3 L/m per nasal cannula. She's been afebrile. Hemodynamically stable. No tachycardia, no tachypnea. Patient was reevaluated today on 09/22/2016, continues to have productive cough, sometimes she had difficulty clearing her secretions, her sputum seems to be quite sick, hence I recommended Mucinex today. Patient continues to have shortness of breath which is multifactorial but mostly related to her COPD and pulmonary hypertension. Not to mention the patient has severe LV dysfunction and cardiomyopathy. This was based on her last echocardiogram. Labs showed leukocytosis with WBC count of 20.8 hemoglobin is 10.1 electrolytes and renal profile are normal. Reevaluated today on 09/23/2016, patient continues to have shortness of breath with any activity, however her cough symptoms seem to be better with adding Phenergan With Codeine and PhenerganPatient is now on 4 L nasal cannula, she is on home O2 at all 18/11. All her meds were reviewed, patient remains marginal as far as her pulmonary status, hence we will not plan on discharge planning today possibly in the next 24-48 hours. CBC showed leukocytosis with WBC count of 23.9. Electrolytes and renal profile are normal. Follow-up chest x-ray continues to show COPD but no evidence of pneumonia. The patient was seen again today 09/24/2016 in follow-up on the regular medical floor. She is awake and alert in no acute distress. She continues with a loose nonproductive cough. She is maintaining O2 saturations in the 90s on 3 L/ m per nasal cannula. She's been afebrile. Hemodynamically stable. Blood culture reveals no growth to date. White count stable at 20.2. The patient is seen again today 09/26/2016 in follow-up on the regular medical floor. She is awake and alert in no acute distress at rest. She did desaturate into the low 80s while ablating in the lowry with her oxygen on. She continues with a loose productive cough. She states she is breathing easier today as compared to yesterday but not still quite back to her baseline. Her sputum is positive for Patti otherwise no significant bacteria. White count has improved to 15.0. She remains on empiric azithromycin. The patient is seen again today 09/27/2016 in follow-up on the regular medical floor. She remains awake and alert in no acute distress. She is doing slightly better today as compared to yesterday. She has been slow to progress. Her overall lung function is quite poor on top of her exacerbation. She continues to desaturate into the 80s with minimal activity. She continues with a loose productive cough. No chills or night sweats. White count 15.0. Afebrile. Maintaining good O2 saturations in the mid to upper 90s on 3 L/m per nasal cannula at rest. Objective - Vital Signs Vital signs: Vital Signs Temp 98.1 F 09/27/16 07:00 Pulse 88 09/27/16 11:37 Resp 20 09/27/16 08:00 BP 122/60 09/27/16 07:00 Pulse Ox 95 09/27/16 07:00 Intake & Output 09/26/16 09/27/16 09/27/16 18:59 06:59 18:59 Intake Total 750 350 Balance 750 350 Weight 68.039 kg 72.5 kg 72.5 kg Intake: Oral 750 350 Other: Voiding Method Toilet Toilet Toilet # Voids 3 1 2 - Exam GENERAL EXAM: Alert, fairly comfortable in no apparent distress. HEAD: Normocephalic. EYES: Normal reaction of pupils, equal size. NOSE: Clear with pink turbinates. THROAT: No erythema or exudates. NECK: No masses, no JVD. CHEST: No chest wall deformity. LUNGS: Equal air entry with few scattered rhonchi, end expiratory wheeze, diminished. CVS: S1 and S2 normal with no audible murmurs, regular rhythm. ABDOMEN: No hepatosplenomegaly, normal bowel sounds, no guarding or rigidity. SPINE: No scoliosis or deformity SKIN: No rashes CENTRAL NERVOUS SYSTEM: No focal deficits, tone is normal in all 4 extremities. Extremities: There is trace peripheral edema. No clubbing, no cyanosis. Peripheral pulses are intact. - Labs CBC & Chem 7: 09/26/16 07:47 09/26/16 07:47 Labs: Abnormal Lab Results - Last 24 Hours (Table) 09/26/16 09/26/16 09/27/16 Range/Units 17:30 20:00 12:22 POC Glucose (mg/dL) 163 H 133 H 121 H (75-99) mg/dL Microbiology - Last 24 Hours (Table) 09/20/16 14:52 Blood Culture - Final Blood No Growth after 144 hours 09/24/16 07:35 Gram Stain - Final Sputum Sputum Culture - Final Patti albicans Assessment and Plan Plan: Impression: #1 Acute exacerbation of severe oxygen dependent chronic obstructive pulmonary disease complicated by purulent tracheobronchitis. #2 Acute on chronic hypoxic respiratory failure secondary to above. #3 Severe pulmonary hypertension, currently on Tyvaso. Being followed at the pulmonary hypertension clinic in the [facility]. #4 End-stage pulmonary disease, initially evaluated for possible lung transplant. No recent workup. #5 Recent non-ST segment elevation myocardial infarction approximately one month ago. Normal coronary arteries. 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 LifeVest is in place. 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 #7 Hydronephrosis with adhesions with subsequent right ureteral stent placement. #8 Osteoporosis. #9 Hiatal hernia. #10 Depression with recent loss of her in March 2016. #11 40 year smoking history, quit in January 2015. #12 Hyperlipidemia. Plan: The patient was seen and evaluated by Dr. Albarran. She has been quite slow to progress. We'll continue with her current medications. We will continue to increase her activity as tolerated. We'll continue to follow. Hopefully home in the morning.
--- NOTE | 2016-09-27 13:35 | P.CN ---
Psychiatric Consult - . Consult date: 09/27/16 Consult:: 09/27/16 13:13 DATE OF SERVICE: 09/27/2016 IDENTIFYING DATA: This patient is a 61-year-old female admitted to the medical floor exacerbation of COPD. Has been on the floor for approximately a week and psychiatric consult entered today. . HISTORY OF PRESENT ILLNESS: The patient patient in bed answer to name, pleasant cooperative. Asks me to pull up a chair. Reports that over the past 3 years she has had many stressors. States that she didn't take any medication had no problems about 3 years ago and then began to have physical problems. States that her was taking care of her and then he in March. Then one month ago her sister . She states that her bilingual legal assistant was in yesterday wanting to get her set up with a counselor/peer support from the [employer]. She agreed but states she doesn't like to share a lot about her life, doesn't like to show that she might not know everything, do everything correctly. Says that she has ADHD, never treated for it but has managed her life by controlling and being organized. Says she is a control freak. With her 's in March she has also begun to experience financial stressors. She is worried that she may not be able to afford her medical treatment for her lung disease. Reports that she has not wanted to go on medicines but last month accepted Xanax and that that has been helpful to her. She denies feeling depressed, started taking Wellbutrin a few years back for smoking cessation, and just stayed on it because she felt better. She denies any thoughts of wanting to hurt herself, states that she wants to go to [facility] when she dies, and suicide would not allow that. She is a denominational person and this is a protective factor.. PAST PSYCHIATRIC HISTORY: Patient denies past psychiatric hospitalizations, denies suicide attempts in the past, denies suicidal ideation in the past as well. Currently taking Wellbutrin SR 150 twice a day, Xanax 1 mg by mouth 3 times a day when necessary for anxiety. PAST MEDICAL HISTORY: Patient with multople medical problems, chronic obstructive pulmonary disease, esophagitis, precancerous colonic tumor with bowel resection, hydro-nephrosis with adhesions resolved with stent placement, adrenal lesion/adenoma being monitored, osteoporosis. Primary versus secondary pulmonary hypertension, Currently on Tyvaso treatments. She is followed at the [facility] with Dr. Kilpatrick. She also follows with Dr. Jarquin as part of the transplant team. Hx non-ST segment elevation myocardial infarction. congestive heart failure, ejection fraction of less than 25%.. ALLERGIES: Per record latex nickel penicillins. 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 No drugs of abuse. FAMILY PSYCHIATRIC HISTORY: Reports she comes from a family of 18 children and when you do the math the family has more than 250 to send in his from her mother and father. She says there is depression and anxiety in the family, does not know about any other problems like bipolar or schizophrenia.. FAMILY CHEMICAL DEPENDENCY HISTORY: Reports that her father had problems with alcohol but he stopped 2 years before he , has some sisters and brothers who may have had some problems one brother from alcohol. Thinks there may be some nieces and nephews that might have some drug problems but she cannot elaborate.. LEGAL HISTORY: Denies. SOCIAL HISTORY: Patient reports that she is from this area, grew up just outside of [place]. She is one of 18, her eldest sibling is 78, and her youngest is 50. She describes her childhood as very good, no abuse reported. She is very close to her sisters that are in her age group says that the eldest children were gone by the time she was around. She was for 26 years in March. She has 2 children one daughter here in [place] and a son in [place], several grandchildren and great-grandchildren. MENTAL STATUS EXAM: Patient alert and oriented 3, good eye contact, fair groomed in hospital attire/street clothing. Speech normal volume, rate and production. Coherent, logical and goal directed thought process. No ADRIÁN, no FOI. No TB/TW/ TI Denied auditory and visual hallucinations. Denied paranoid ideation, delusions or IOR. Memory grossly intact Cognition average Recalled 3/0, 3/5; Mood neutral to euthymic, affect full range normal intensity, congruent with mood. Denies suicidal ideation, denies homicidal ideation. Insight partial; Judgment intact for treatment purposes . IMPRESSIONS: Pleasant soft spoken 61-year-old female, with many stressors beginning proximally 3 years ago with significant major medical illnesses. She then lost her in March and a month ago lost her sister. She was started on Wellbutrin SR her smoking cessation and continued on it because she felt better. Believes that she has ADHD and has managed her life well by being a "control freak". He has not wanted to be on medications but last month was prescribed Xanax and she reports she does feel better with that. Appears to have chronic anxiety that may be partially exacerbated by her breathing problems along with low level anxiety that may be an independent disorder. She does not report nor does she display depressive symptoms. No history to suggest bipolar disorder (vinayak or hypomania). No history of psychosis. No suicidal ideation or past history of attempts, psychiatric hospitalizations. Anxiety related to her breathing problems (COPD) will likely continue. Anxiety, unspecified. History of depression, unspecified resolved PLAN: . discussed with her the complication of using medications like Xanax with COPD, that frequently when someone feels breathless or having difficulty in getting air they will naturally become anxious but by taking the Xanax it only suppresses the respiration worsening the breathlessness sensation. It is also a risk to use a benzodiazepine with someone who has had a past history of problems with alcohol she is 26 years without any problems so it's very unlikely but still possible. Discussed with her a non-benzodiazepine medication, BuSpar that with time can help with anxiety it can be coupled with Wellbutrin/bupropion to be a better combination for depression. Would recommend starting BuSpar 5 mg 3 times a day for 2 weeks then increase to 10 mg 3 times a day. Once tolerating that dose, Xanax should be slowly titrated and discontinued. By the record it is also noted that she is taking Restoril/temazepam which is another benzodiazepine. Again that should be when necessary and not to use on a nightly basis. Patient does not require psychiatric outpatient care. She can continue be followed by her primary care provider . 09/27/16 13:25
[2016-09-27 14:02] VITALS: BMI 25.0
[2016-09-27 17:10] LABS: Glucose,Whole Blood 122 mg/dL (75-99)
[2016-09-27 20:41] LABS: Glucose,Whole Blood 148 mg/dL (75-99)
[2016-09-27] MEDS: MONTELUKAST 10 MG TAB PO SCH (21:32)
[2016-09-28] MEDS: HYDROcodone/APAP 5-325MG 1 EACH TAB PO PRN (04:45)
[2016-09-28 07:23] LABS: Glucose,Whole Blood 67 mg/dL (75-99)
[2016-09-28 07:41] LABS: Glucose,Whole Blood 69 mg/dL (75-99)
[2016-09-28] MEDS: INSULIN LISPRO (humaLOG) 300 UNIT/3 ML VIAL SQ SCH ×2 (07:43→12:15)
[2016-09-28] MEDS: IPRATROPIUM-ALBUTEROL 3 ML NEB INHALATION PRN (07:44)
[2016-09-28] MEDS: SYMBICORT 160-4.5 MCG INHALER INHALATION SCH (07:44)
[2016-09-28 07:51] VITALS: PULSE 84
[2016-09-28 08:00] LABS: Glucose,Whole Blood 69 mg/dL (75-99)
[2016-09-28 08:02] VITALS: BP 121/59; TEMP 97.8
[2016-09-28] MEDS: AZITHROMYCIN 500 MG TAB PO SCH (08:12)
[2016-09-28] MEDS: ASPIRIN 325 MG TAB PO SCH (08:12)
[2016-09-28] MEDS: [UNRECOGNIZED DRUG - OTHER] INHALATION SCH ×2 (08:12→12:12)
[2016-09-28] MEDS: ATORVASTATIN 80 MG TAB PO SCH (08:12)
[2016-09-28] MEDS: METOPROLOL TARTRATE 12.5 MG TAB PO SCH (08:13)
[2016-09-28] MEDS: LORATADINE 10 MG TAB PO SCH (08:13)
[2016-09-28] MEDS: DOCUSATE 100 MG CAP PO SCH (08:13)
[2016-09-28] MEDS: buPROPion SR 150 MG TABLET.ER PO SCH (08:13)
[2016-09-28] MEDS: guaiFENesin 600 MG TABLET.ER PO SCH (08:14)
[2016-09-28] MEDS: predniSONE 20 MG TAB PO SCH (08:14)
[2016-09-28] MEDS: HEPARIN SODIUM,PORCINE 5,000 UNIT/ML 1 ML VIAL SQ SCH (08:14)
[2016-09-28] MEDS: ALPRAZolam 0.5 MG TAB PO PRN (08:19)
[2016-09-28] MEDS: CHLORPHEN-HYDROcod 8-10mg/5ml 5 ML ORAL.SYRG PO SCH (08:19)
[2016-09-28 08:50] LABS: Glucose,Whole Blood 68 mg/dL (75-99)
[2016-09-28 11:32] LABS: Glucose,Whole Blood 84 mg/dL (75-99)
[2016-09-28] MEDS: CALCIUM CARBONATE 500 MG CHEWABLE PO SCH (12:11)
[2016-09-28] MEDS: CHOLECALCIFEROL 1,000 UNIT TAB PO SCH (12:11)
--- NOTE | 2016-09-28 14:05 | PN ---
A 61-year-old female with a history of multiple medical problems. She has got a number of issues including COPD exacerbation complicated by purulent tracheobronchitis. She also has a history of acute on chronic hypoxemic respiratory failure, severe pulmonary hypertension. Being followed by the Pulmonary Hypertension Clinic at the [facility], end-stage pulmonary disease being evaluated for potential lung transplantation, recent non-ST segment elevation myocardial infarction with evidence of transient apical ballooning syndrome and an ejection fraction of 25%, precancerous colonic tumor, status post bowel resection with ileostomy and subsequent reversal, hydronephrosis with adhesions and subsequent placement of right ureteral stent, osteoporosis, hiatal hernia, depression, 40-year smoking history and hyperlipidemia. The patient has been in the hospital a number of days. She is actually going on 8-1/2 to 9 days. She is improved. Possible discharge in the next day or so. We are hoping that she can get out pretty soon. She is feeling better. Still having significant shortness of breath on exertion. She still desaturates when she exerts herself. Some chest congestion, and cough. Producing some phlegm. Not a lot. Again, she has a number of issues as mentioned above. Currently, her vital signs include a temperature 97.8, heart rate 83, respiratory rate 20, blood pressure 121/59, mean 79, 3 L saturation is 98%. Appears in no acute distress. No obvious wheezing. No respiratory difficulty. HEENT examination is grossly unremarkable. Nasal O2 in place. Mucous membranes are moist. No oral lesions. Neck is supple. Full range of motion. No adenopathy or thyromegaly. Neck veins are flat. Cardiovascular examination reveals regular rhythm and rate. S1, S2 normal. No S3, S4. There is a soft systolic murmur. Lungs reveal a few scattered coarse rhonchi. Breath sounds diminished. Slight prolongation. She wheezes on forced maneuver. Abdomen is soft. Bowel sounds are heard. No masses or ( ). Extremities are intact. No cyanosis, clubbing, or edema. Skin without rash. Neurologic examination is brief but nonfocal. Lab data is reviewed. Nothing new to report. Microbiology is showing basically just some Patti albicans in the sputum. No chest x-ray to report. Medications are reviewed. She is on appropriate medications including oral prednisone, Zithromax, Symbicort, updrafts, Singulair. ASSESSMENT: 1. Chronic obstructive pulmonary disease exacerbation complicated by purulent tracheobronchitis in a patient with severe chronic obstructive pulmonary disease. 2. Acute on chronic hypoxemic respiratory failure. 3. Severe pulmonary hypertension, being followed by Pulmonary Hypertension doctors at [facility], currently on Tyvaso. 4. Current evaluation for lung transplantation underway. 5. Recent non-ST segment elevation myocardial infarction. 6. Transient apical ballooning syndrome with an ejection fraction of less than 25%. 7. Precancerous colonic tumor, status post bowel resection with ileostomy and subsequent reversal. 8. Hydronephrosis with adhesions with subsequent right ureteral stent placement. 9. Osteoporosis. 10. Hiatal hernia. 11. Depression over recent loss of her . 12. A 40-year tobacco history. 13. Hyperlipidemia. PLAN: The patient's overall prognosis is very guarded. She has a number of medical issues and problems. We are hopeful for a discharge soon. No additional recommendations are made. She is still quite tachypneic and dyspneic on exertion. At rest, she seems to be doing okay. I walked into the room initially and she was sleeping, she looked very comfortable. She really has profound dyspnea on exertion, though.
--- NOTE | 2016-09-29 09:22 | DS ---
DATE OF ADMISSION: 09/20/2016 DATE OF DISCHARGE: 09/28/2016 The patient is a 61-year-old admitted with COPD exacerbation. The patient has advanced over COPD. Saturating well on 3 L oxygen. Saturating well on 3 liters upon ambulation. The patient had Takotsubo and has a life Vest. Patient ejection fraction is now 50 to 55%. Never had any ventricular tachycardia or V fib episodes. I discussed with cardiology, although they were not officially consulted, Dr. Simon Melendez and finally made a plan that she will not nee life vest. Life vest will be discontinued and patient will be discharged today. Patient will be discharged on weaning dose of systemic steroids and azithromycin and I will cut down the Lasix to 40 mg daily. I do not believe patient will need Lisinopril anymore. REVIEW OF SYSTEMS: CARDIOVASCULAR: No chest pain, no orthopnea, no PND, no palpitations. PULMONARY: Denied any shortness of breath. No cough or hemoptysis. GASTROINTESTINAL: No diarrhea, nausea or vomiting. No abdominal pain. Normoactive bowel sounds. NEUROLOGIC: No headaches, no weakness, no numbness. Medications are reviewed. PHYSICAL EXAMINATION: GENERAL: The patient is alert and oriented x3, not in any acute distress. Well developed, well nourished. HEENT: Pupils are round and equally reacting to light. EOMI. No scleral icterus. No conjunctival pallor. Normocephalic, atraumatic. No pharyngeal erythema. No thyromegaly. CARDIOVASCULAR: S1 and S2 present. No murmurs, rubs, or gallops. PULMONARY: Significantly improved shortness of breath. ABDOMEN: Soft, nontender, nondistended, normoactive bowel sounds. No palpable organomegaly. MUSCULOSKELETAL: No joint swelling or deformity. EXTREMITIES: No cyanosis, clubbing, or pedal edema. NEUROLOGICAL: Gross neurological examination did not reveal any focal deficits. SKIN: No rashes. Please refer to my depart summary for the list of discharge medications. FINAL DIAGNOSES: 1. Acute on chronic hypercapnic respiratory failure secondary to chronic obstructive pulmonary disease exacerbation. 2. Right upper lobe nodular density follow with pulmonology as an outpatient. 3. Takotsubo syndrome with presently normal ejection fraction, life Vest will be discontinued. 4. Hiatal hernia. 5. Depression. 6. Nicotine abuse history. Counseling was provided. 7. Anxiety disorder. 8. Hypertension. The patient will be discharged today. Follow up with primary care physician, Dr. Cristobal Ramsey in 3 to 7 days. Activity as tolerated. Cardiac diet. I spent greater than 35 minutes in total discharge process.
--- NOTE | 2016-10-13 20:02 | P.PN ---
Subjective Date of service 09/27/2016. Progress note being dictated for Dr. Ramirez. Interval history: This a 61-year-old female admitted with acute COPD exacerbation and multiple other medical issues in a patient with history of Takosubo syndrome with severe cardiomyopathy ,wearing a light LifeVest. EF less than 20% in July 2016, Repeat echo significantly improved, EF between 50-55%. Psychiatry consult in place regarding depression-multifactorial. Continues on nebulized bronchodilators, steroids and azithromycin-empiric,slow progress. While ambulating with 4l NC O2,oxygen, desated to 84%.Denies Chest pain, palpitations.Afebrile. Objective - Vital Signs Vital signs: Vital Signs Temp 97.8 F 09/28/16 07:00 Pulse 84 09/28/16 07:59 Resp 20 09/28/16 07:44 BP 121/59 09/28/16 07:00 Pulse Ox 98 09/28/16 07:00 - Exam PHYSICAL EXAM: VITAL SIGNS: T 98.1,Pulse 64,RR 20, BP 122/60, O2 sat 95% on 3L NC O2. GENERAL: [Sitting up in bed, no acute distress] HEENT: [Pupils equal conjunctiva normal. No conjunctival pallor,oral mucosa moist.] NECK: [Supple, no JVD] RESPIRATORY EFFORT:[ Increased] LUNGS: [Diminished bilateral bases with occasional scattered rhonchi and fine exp. wheeze.] CARDIOVASCULAR[ regular S1 and S2, no murmurs rubs or gallops, trace edema] GI: [Abdomen soft, nontender, nondistended, positive bowel sounds.] PSYCH: [Alert and oriented -3, mood and affect normal.] NEURO: No focal deficits - Labs CBC & Chem 7: 09/26/16 07:47 09/26/16 07:47 Assessment and Plan Plan: 1. [ Acute exacerbation severe COPD exacerbation with purulent tracheobronchitis ]. 2. [Acute on chronic hypoxic,hypercapnic respiratory failure]. 3. Right upper lobe Nodular density, outpatient follow-up with pulmonary]. 4. [Chronic congestive heart failure, initially systolic dysfunction( not acute) , secondary tokotsubo syndrome, EF less than 20% in july 2016; Repeat Echo now 50-55%.Possibly DC life vest. 5. Leukocytosis secondary to severe bronchitis 6. [ Hiatal hernia, esophagitis, gastroesophageal reflux disease]. 7. [ Depression]. 8. History of nicotine abuse. 9. Anxiety Disorder. 10.Hypertension. Plan: Continue on current medication regime , empiric azithromycin ,nebulized bronchodilators, steroids, monitoring and symptomatic treatment. Increase ambulation as tolerated. Follow closely with pulmonary. Psychiatry consult in place,reccomendations pending. Smoking cessation rediscussed. DC Plannning in progress for tomorrow. Further recommendations to follow. The impression and plan of care has been dictated as directed. : I performed a H&P examination of this patient and discussed the same with the dictator. I agree with the dictator's note. Any additional findings/opinions/ etc. will be noted.
== END 2016-09-28 13:40 | disposition home or self-care (01) | DRG 190 ==
LOC: EC 14:02 → 5MS5E 19:21
PROVIDERS: ADMIT Family Medicine; ATTEND Family Medicine
DX: J44.0 Chronic obstructive pulmonary disease with (acute) lower respiratory infection (principal); J96.21 Acute and chronic respiratory failure with hypoxia; I42.9 Cardiomyopathy, unspecified; Z76.82 Awaiting organ transplant status; I50.22 Chronic systolic (congestive) heart failure; I11.0 Hypertensive heart disease with heart failure; R13.10 Dysphagia, unspecified; J96.22 Acute and chronic respiratory failure with hypercapnia; E87.1 Hypo-osmolality and hyponatremia; I51.81 Takotsubo syndrome; N13.30 Unspecified hydronephrosis; I27.2 Other secondary pulmonary hypertension; J20.9 Acute bronchitis, unspecified; J44.1 Chronic obstructive pulmonary disease with (acute) exacerbation; R91.1 Solitary pulmonary nodule; I25.2 Old myocardial infarction; M81.0 Age-related osteoporosis without current pathological fracture; E78.5 Hyperlipidemia, unspecified; F41.9 Anxiety disorder, unspecified; D35.00 Benign neoplasm of unspecified adrenal gland; K44.9 Diaphragmatic hernia without obstruction or gangrene; F32.9 Major depressive disorder, single episode, unspecified; K21.0 Gastro-esophageal reflux disease with esophagitis; Z87.891 Personal history of nicotine dependence; Z93.2 Ileostomy status; Z90.49 Acquired absence of other specified parts of digestive tract; Z99.81 Dependence on supplemental oxygen; Z79.51 Long term (current) use of inhaled steroids; Z79.83 Long term (current) use of bisphosphonates; Z79.899 Other long term (current) drug therapy; Z82.49 Family history of ischemic heart disease and other diseases of the circulatory system; Z82.5 Family history of asthma and other chronic lower respiratory diseases
CPT/HCPCS: 36415; 71010; 71020; 80048; 80053; 80061; 81003; 82550; 82553; 83036; 83605; 83735; 83880; 84484; 85025; 85610; 85730; 87040; 87070; 87086; 87205; 87502; 93005; 93306; 94640; 94760; 96361; 96365; 96366; 96367; 99285

== ENCOUNTER 2016-10-31 11:32 | Inpatient (IN) | payer BC, OTHER ==
[2016-10-31] MEDS ORDERED: IPRATROPIUM-ALBUTEROL 3 ML NEB INHALATION STA (11:44)
[2016-10-31] MEDS ORDERED: SODIUM CHLORIDE 0.9% 1,000 ML IV STA (11:44)
[2016-10-31] MEDS ORDERED: methylPREDNISolone SOD SUCCI 125 MG/2 ML VIAL IV STA (11:44)
--- NOTE | 2016-10-31 11:47 | ED ---
General Adult HPI - General Chief complaint: Shortness of Breath Stated complaint: Dyspnea Time Seen by Provider: 10/31/16 11:40 Source: patient, family, RN notes reviewed Mode of arrival: wheelchair Limitations: no limitations - History of Present Illness Initial comments: Patient is a pleasant 61-year-old female presenting to the emergency department with difficulty breathing. Onset of symptoms was worsened the last couple of days. Patient has had some increased difficulty breathing. The past several weeks that was attributed to bronchitis. Patient did have fever and took Motrin earlier. Patient does have cough with occasional yellow sputum. Dyspnea feels similar to previous COPD. No leg pain or leg swelling. No other upper respiratory symptoms. No abdominal pain or dysuria. - Related Data Home Medications Medication Instructions Recorded Confirmed Montelukast Sodium 10 mg PO HS 02/07/15 10/31/16 buPROPion SR [Wellbutrin SR] 150 mg PO BID 02/21/15 10/31/16 Albuterol Inhaler [Ventolin Hfa 1 puff INHALATION RT-Q4H PRN 11/28/15 10/31/16 Inhaler] Alendronate Sodium [Fosamax] 70 mg PO WE 11/28/15 10/31/16 Budesonide-Formot 160-4.5 Mcg 2 puff INHALATION RT-BID 11/28/15 10/31/16 [Symbicort 160-4.5 Mcg Inhaler] Calcium Carbonate [Calcium] 900 mg PO DAILY 11/28/15 10/31/16 Cholecalciferol [Vitamin D3] 1,000 unit PO DAILY 11/28/15 10/31/16 Levocetirizine Dihydrochloride 5 mg PO QAM 11/28/15 10/31/16 Tiotropium [place] [Spiriva] 1 cap INHALATION RT-DAILY 11/28/15 10/31/16 Tyvaso 9 puff INHALATION RT-QID 11/28/15 10/31/16 ALPRAZolam [Xanax] 1 mg PO TID 10/31/16 10/31/16 Previous Rx's Medication Instructions Recorded Atorvastatin [Lipitor] 80 mg PO DAILY #60 tab 08/28/16 Ipratropium-Albuterol Nebulize 3 ml INHALATION RT-Q4H PRN #0 08/28/16 [Duoneb 0.5 mg-3 mg/3 ml Soln] ampul.neb Metoprolol Tartrate [Lopressor] 12.5 mg PO BID #60 tab 08/28/16 Furosemide [Lasix] 40 mg PO DAILY #60 tab 09/28/16 Allergies Allergy/AdvReac Type Severity Reaction Status Date / Time latex Allergy Unknown Rash/Hives Verified 10/31/16 12:15 nickel [Nickel] Allergy Unknown Rash/Hives Verified 10/31/16 12:15 nitrofurantoin Allergy Unknown Rash/Hives Verified 10/31/16 12:15 macrocrystalline [From Macrodantin] Penicillins Allergy Unknown Rash/Hives Verified 10/31/16 12:15 Review of Systems ROS Statement: Those systems with pertinent positive or pertinent negative responses have been documented in the HPI. ROS Other: All systems not noted in ROS Statement are negative. Constitutional: Reports: fever Eyes: Denies: eye pain ENT: Denies: ear pain Respiratory: Reports: cough, dyspnea Cardiovascular: Denies: chest pain Endocrine: Reports: fatigue Gastrointestinal: Denies: abdominal pain Genitourinary: Denies: urgency Musculoskeletal: Denies: back pain Skin: Denies: rash Neurological: Denies: weakness Past Medical History Past Medical History: COPD, Respiratory Disorder Additional Past Medical History / Comment(s): Recent tx for URI, primary versus secondary pulmonary hypertension-currently on tyvaso treatments-has had some work-up done to be on lung transplant list thru [facility], home O2 at 3L/NC ATC, dysphagia-feels like food gets caught in low end esophagus-she drinks a gulp of water to force food down_pt stated eentually she will have some work up on htis at [facility]), hiatal hernia, esophagitis, precancerous colonic tumor with sx, hydronephrosis with adhesions resolved with surgery/stent, adrenal lesion/ adenoma being monitored, osteoporosis. wear life vest History of Any Multi-Drug Resistant Organisms: None Reported Past Surgical History: Bladder Surgery, Bowel Resection, Heart Catheterization, Tonsillectomy, Tubal Ligation Additional Past Surgical History / Comment(s): colonoscopies, sigmoidoscopy, EGD , hemorrhoidectomy, breast bx x 2 pt does not recall laterality, bowel resection with ileostomy, ILLEOSTOMY REVERSAL 01/18/14, cystoscopy with R ureteral stent. Past Anesthesia/Blood Transfusion Reactions: No Reported Reaction, Family History of Problems w/ Anesthesia Additional Past Anesthesia/Blood Transfusion Reaction / Comment(s): SISTER WAS AWARE OF SURROUNDINGS WITH ANESTHESIA Past Psychological History: Depression Smoking Status: Former smoker Past Alcohol Use History: None Reported Past Drug Use History: None Reported - Past Family History Father Family Medical History: COPD, Myocardial Infarction ([place]) Additional Family Medical History / Comment(s): Father had severe COPD. He of a [place] at the age of 69yrs. Mother Family Medical History: Deep Vein Thrombosis (DVT), Pulmonary Embolus Additional Family Medical History / Comment(s): "BRAIN CLOT" Sister(s) Family Medical History: Deep Vein Thrombosis (DVT), Pulmonary Embolus Additional Family Medical History / Comment(s): Pt is from a large family (18 children) and there is alot of DVT's and cerebral thrombosis in the family. Several family members have cardiolipin antibody. General Exam Limitations: no limitations General appearance: alert, in distress (Respiratory distress) Head exam: Present: normocephalic Eye exam: Present: normal appearance, PERRL ENT exam: Present: normal oropharynx Neck exam: Present: normal inspection Respiratory exam: Present: respiratory distress, wheezes, decreased breath sounds Cardiovascular Exam: Present: regular rate, normal rhythm GI/Abdominal exam: Present: soft. Absent: tenderness Extremities exam: Present: normal inspection. Absent: pedal edema, calf tenderness Neurological exam: Present: alert Psychiatric exam: Present: normal affect, normal mood Skin exam: Present: normal color Course Vital Signs 10/31/16 10/31/16 10/31/16 11:34 11:53 11:54 Temperature 98.3 F Pulse Rate 99 85 84 Respiratory 26 H 26 H Rate Blood Pressure 114/66 127/56 O2 Sat by Pulse 70 L 95 Oximetry 10/31/16 10/31/16 10/31/16 12:08 12:32 13:40 Temperature Pulse Rate 86 89 91 Respiratory 24 22 Rate Blood Pressure 109/60 114/64 O2 Sat by Pulse 95 90 L Oximetry EKG Findings - EKG Comments: EKG Findings:: Sinus rhythm at 89. OH 106. QRS 108. QT 340. QTc 423. Right axis. Normal QRS. Nonspecific T waves. Medical Decision Making - Medical Decision Making Patient reexamined. Patient is somewhat improved however still struggling with respirations. Respiratory called for BiPAP. Case discussed with Dr. Gomez, who will admit for Dr. Ramsey. Case was earlier discussed with Dr. Ramsey. - Lab Data Result diagrams: 10/31/16 11:50 10/31/16 11:50 Lab Results 10/31/16 10/31/16 10/31/16 Range/Units 11:50 11:50 11:50 WBC 7.6 (3.8-10.6) k/uL RBC 4.07 (3.80-5.40) m/uL Hgb 12.1 (11.4-16.0) gm/dL Hct 36.9 (34.0-46.0) % MCV 90.6 (80.0-100.0) fL MCH 29.8 (25.0-35.0) pg MCHC 32.9 (31.0-37.0) g/dL RDW 14.1 (11.5-15.5) % Plt Count 259 (150-450) k/uL Neutrophils % 80 % Lymphocytes % 7 % Monocytes % 8 % Eosinophils % 1 % Basophils % 1 % Neutrophils # 6.1 (1.3-7.7) k/uL Lymphocytes # 0.6 L (1.0-4.8) k/uL Monocytes # 0.6 (0-1.0) k/uL Eosinophils # 0.1 (0-0.7) k/uL Basophils # 0.0 (0-0.2) k/uL Hypochromasia Slight PT (9.0-12.0) sec INR (<1.1) APTT (22.0-30.0) sec Sodium 135 L (137-145) mmol/L Potassium 3.9 (3.5-5.1) mmol/L Chloride 89 L (98-107) mmol/L Carbon Dioxide 37 H (22-30) mmol/L Anion Gap 9 mmol/L BUN 10 (7-17) mg/dL Creatinine 0.82 (0.52-1.04) mg/dL Est GFR (MDRD) Af Amer >60 (>60 ml/min/1.73 sqM) Est GFR (MDRD) Non-Af >60 (>60 ml/min/1.73 sqM) Glucose 108 H (74-99) mg/dL Plasma Lactic Acid Rd (0.7-2.0) mmol/L Calcium 9.7 (8.4-10.2) mg/dL Total Bilirubin 0.6 (0.2-1.3) mg/dL AST 30 (14-36) U/L ALT 28 (9-52) U/L Alkaline Phosphatase 58 (38-126) U/L Total Creatine Kinase 82 (30-135) U/L CK-MB (CK-2) 1.9 (0.0-2.4) ng/mL CK-MB (CK-2) Rel Index 2.3 Troponin I <0.012 (0.000-0.034) ng/mL Total Protein 7.2 (6.3-8.2) g/dL Albumin 4.4 (3.5-5.0) g/dL Urine Color Urine Appearance (Clear) Urine pH (5.0-8.0) Ur Specific [place] (1.001-1.035) Urine Protein (Negative) Urine Glucose (UA) (Negative) Urine Ketones (Negative) Urine Blood (Negative) Urine Nitrite (Negative) Urine Bilirubin (Negative) Urine Urobilinogen (<2.0) mg/dL Ur Leukocyte Esterase (Negative) 10/31/16 10/31/16 10/31/16 Range/Units 11:50 11:50 12:19 WBC (3.8-10.6) k/uL RBC (3.80-5.40) m/uL Hgb (11.4-16.0) gm/dL Hct (34.0-46.0) % MCV (80.0-100.0) fL MCH (25.0-35.0) pg MCHC (31.0-37.0) g/dL RDW (11.5-15.5) % Plt Count (150-450) k/uL Neutrophils % % Lymphocytes % % Monocytes % % Eosinophils % % Basophils % % Neutrophils # (1.3-7.7) k/uL Lymphocytes # (1.0-4.8) k/uL Monocytes # (0-1.0) k/uL Eosinophils # (0-0.7) k/uL Basophils # (0-0.2) k/uL Hypochromasia PT 10.6 (9.0-12.0) sec INR 1.1 (<1.1) APTT 23.4 (22.0-30.0) sec Sodium (137-145) mmol/L Potassium (3.5-5.1) mmol/L Chloride (98-107) mmol/L Carbon Dioxide (22-30) mmol/L Anion Gap mmol/L BUN (7-17) mg/dL Creatinine (0.52-1.04) mg/dL Est GFR (MDRD) Af Amer (>60 ml/min/1.73 sqM) Est GFR (MDRD) Non-Af (>60 ml/min/1.73 sqM) Glucose (74-99) mg/dL Plasma Lactic Acid Rd 1.2 (0.7-2.0) mmol/L Calcium (8.4-10.2) mg/dL Total Bilirubin (0.2-1.3) mg/dL AST (14-36) U/L ALT (9-52) U/L Alkaline Phosphatase (38-126) U/L Total Creatine Kinase (30-135) U/L CK-MB (CK-2) (0.0-2.4) ng/mL CK-MB (CK-2) Rel Index Troponin I (0.000-0.034) ng/mL Total Protein (6.3-8.2) g/dL Albumin (3.5-5.0) g/dL Urine Color Yellow Urine Appearance Clear (Clear) Urine pH 6.0 (5.0-8.0) Ur Specific [place] 1.004 (1.001-1.035) Urine Protein Negative (Negative) Urine Glucose (UA) Negative (Negative) Urine Ketones Negative (Negative) Urine Blood Negative (Negative) Urine Nitrite Negative (Negative) Urine Bilirubin Negative (Negative) Urine Urobilinogen <2.0 (<2.0) mg/dL Ur Leukocyte Esterase Negative (Negative) - Radiology Data Radiology results: image reviewed (Chest x-ray shows no acute process) Critical Care Time Critical Care Time: Yes Total Critical Care Time: 33 Disposition Clinical Impression: Acute respiratory failure, Acute exacerbation of chronic obstructive airways disease Disposition: ADMITTED IP TO THIS [facility] Condition: Serious Referrals: Cristobal Ramsey MD [Primary Care Provider] - 1-2 days Decision Time: 14:18
[2016-10-31 12:16] LABS: Basophils % (A) 1 %; CH 28.5; CHCM 31.6; Eosinophils # (A) 0.1 k/uL (0-0.7); Eosinophils % (A) 1 %; HCT 36.9 % (34.0-46.0); HDW 2.75; HGB 12.1 gm/dL (11.4-16.0); Hypochromasia Slight; Luc # (Auto) 0.22; Luc % (Auto) 3; Lymphocytes # (A) 0.6 k/uL (1.0-4.8); Lymphocytes % (A) 7 %; MCH 29.8 pg (25.0-35.0); MCHC 32.9 g/dL (31.0-37.0); MCV 90.6 fL (80.0-100.0); Mean Platelet Volume 6.7; Monocytes # (A) 0.6 k/uL (0-1.0); Monocytes % (A) 8 %; Neutrophils # (A) 6.1 k/uL (1.3-7.7); Neutrophils % (A) 80 %; RBC 4.07 m/uL (3.80-5.40); RDW 14.1 % (11.5-15.5); WBC 7.6 k/uL (3.8-10.6); WBC (Perox) 7.68
[2016-10-31 12:20] LABS: ALT 28 U/L (9-52); AST 30 U/L (14-36); Alkaline Phosphatase 58 U/L (38-126); Anion Gap 9 mmol/L; Blood Urea Nitrogen 10 mg/dL (7-17); Calcium 9.7 mg/dL (8.4-10.2); Carbon Dioxide 37 mmol/L (22-30); Chloride 89 mmol/L (98-107); Glucose 108 mg/dL (74-99); Non-African American GFR(MDRD) >60 (>60 ml/min/1.73 sqM); Potassium 3.9 mmol/L (3.5-5.1); Sodium 135 mmol/L (137-145); Total Bilirubin 0.6 mg/dL (0.2-1.3); Total Protein 7.2 g/dL (6.3-8.2)
[2016-10-31 12:25] LABS: INR 1.1 (<1.1); Partial Thromboplastin Time 23.4 sec (22.0-30.0); Prothrombin Time 10.6 sec (9.0-12.0)
[2016-10-31 12:27] LABS: Appearance,Urine Clear (Clear); Bilirubin,Urine Negative (Negative); Glucose,Urine (UA) Negative (Negative); Ketones,Urine Negative (Negative); Leukocyte Esterase,Urine Negative (Negative); Nitrite,Urine Negative (Negative); Protein,Urine Negative (Negative); Specific Gravity,Urine 1.004 (1.001-1.035); UA Billing (MACRO vs. MICRO) CHEM; Urobilinogen,Urine <2.0 mg/dL (<2.0)
[2016-10-31 12:35] LABS: Creatine Kinase 82 U/L (30-135)
[2016-10-31 12:46] LABS: Creatine Kinase MB 1.9 ng/mL (0.0-2.4); Troponin I <0.012 ng/mL (0.000-0.034)
--- NOTE | 2016-10-31 12:57 | XR ---
EXAMINATION TYPE: XR chest 1V portable DATE OF EXAM: 10/31/2016 COMPARISON: 09/23/2016 INDICATION: Dyspnea COPD TECHNIQUE: Single frontal view of the chest is obtained. FINDINGS: The heart size is normal. The pulmonary vasculature is normal. There appears to be some chronic blunting of the left costophrenic angle. No suspicious infiltrates a re evident. IMPRESSION: 1. No acute pulmonary process.
[2016-10-31] MEDS ORDERED: IPRATROPIUM-ALBUTEROL 3 ML NEB INHALATION PRN (14:19)
[2016-10-31] MEDS: SODIUM CHLORIDE 0.9% 1,000 ML IV SCH (15:19)
[2016-10-31] MEDS: IPRATROPIUM-ALBUTEROL 3 ML NEB INHALATION SCH ×2 (15:46→20:33)
[2016-10-31] MEDS ORDERED: methylPREDNISolone SOD SUCCI 125 MG/2 ML VIAL IV SCH (18:00)
[2016-10-31 20:48] LABS: Glucose,Whole Blood 266 mg/dL (75-99)
[2016-10-31] MEDS: buPROPion SR 150 MG TABLET.ER PO SCH (21:00)
[2016-10-31] MEDS: ALPRAZolam 0.5 MG TAB PO SCH (21:00)
[2016-10-31] MEDS: methylPREDNISolone SOD SUCCI 40 MG/ML 1 ML VIAL IV SCH (21:01)
[2016-10-31] MEDS: METOPROLOL TARTRATE 12.5 MG TAB PO SCH (21:01)
[2016-10-31] MEDS: MONTELUKAST 10 MG TAB PO SCH (21:01)
[2016-10-31] MEDS: DOXYCYCLINE 50 MG CAP PO SCH (21:06)
[2016-10-31] MEDS: INSULIN LISPRO (humaLOG) 300 UNIT/3 ML VIAL SQ SCH (21:07)
--- NOTE | 2016-10-31 23:42 | P.CNPUL ---
History of Present Illness Consult date: 10/31/16 Requesting physician: Cristobal Ramsey Reason for consult: dyspnea Chief complaint: Shortness of breath, cough, congestion. History of present illness: This is a 61-year-old female with history of multiple medical problems including pulmonary hypertension, severe end-stage COPD: Stage IV, history of hiatal hernia, esophagitis, precancerous colonic tumor with bowel resection, history of cardiomyopathy and LV dysfunction, history of chronic hypoxic respiratory failure maintained on oxygen, history of pulmonary hypertension maintained on tyvaso, ration continues to follow-up with a pulmonary hypertension clinic at the [facility], she is also being followed by the transplant team at the [facility]. Recently the patient had an acute non-ST segment elevation myocardial infarction, she developed congestive heart failure, and an echocardiogram showed apical ballooning syndrome, global hypokinesia, and ejection fraction was less than 25%. Patient was admitted from 09/20 until 09/28/2016, and she has been doing relatively well until recently were and the patient seemed to develop more shortness of breath, intermittent episodes of cough wheezing, cough is productive with yellow phlegm. Low-grade fever was also noted, patient came back to the ER, chest x- ray showed no evidence of active disease. Admitted with the impression of acute exacerbation of COPD, purulent tracheobronchitis, acute on chronic hypoxic respiratory failure, and this consult was initiated. Review of Systems Constitutional: Weakness fatigue malaise. Low-grade fever. Pulmonary: As noted in history of present illness. Cardiac history of congestive heart failure and cardiomyopathy with LV dysfunction. GI: No melena no hematemesis no dysphagia, no abdominal pain no nausea no vomiting. Genitourinary: No dysuria and no frequency no urgency Hematologic: No clotting bleeding or bruising Psychiatric: No symptoms of active depression. Neurologic: No headache no blurred vision no dizziness. Endocrine no cold or heat intolerance, no polyuria, polyphagia, or polydipsia. Past Medical History Past Medical History: COPD, Respiratory Disorder Additional Past Medical History / Comment(s): primary versus secondary pulmonary hypertension-currently on tyvaso treatments-has had some work-up done to be on lung transplant list thru [facility], home O2 at 3L/[place] ATC, dysphagia- feels like food gets caught in low end esophagus-she drinks a gulp of water to force food down_pt stated eentually she will have some work up on htis at [facility] ), hiatal hernia, esophagitis, precancerous colonic tumor with sx, hydronephrosis with adhesions resolved with surgery/stent, adrenal lesion/ adenoma being monitored, osteoporosis. History of Any Multi-Drug Resistant Organisms: None Reported Past Surgical History: Bladder Surgery, Bowel Resection, Heart Catheterization, Tonsillectomy, Tubal Ligation Additional Past Surgical History / Comment(s): colonoscopies, sigmoidoscopy, EGD , hemorrhoidectomy, breast bx x 2 pt does not recall laterality, bowel resection with ileostomy, ILLEOSTOMY REVERSAL 01/18/14, cystoscopy with R ureteral stent. Past Anesthesia/Blood Transfusion Reactions: Family History of Problems w/ Anesthesia Additional Past Anesthesia/Blood Transfusion Reaction / Comment(s): SISTER WAS AWARE OF SURROUNDINGS WITH ANESTHESIA Smoking Status: Former smoker - Past Family History Father Family Medical History: COPD, Myocardial Infarction ([place]) Additional Family Medical History / Comment(s): Father had severe COPD. He of a [place] at the age of 69yrs. Mother Family Medical History: Deep Vein Thrombosis (DVT), Pulmonary Embolus Additional Family Medical History / Comment(s): "BRAIN CLOT" Sister(s) Family Medical History: Deep Vein Thrombosis (DVT), Pulmonary Embolus Additional Family Medical History / Comment(s): Pt is from a large family (18 children) and there is alot of DVT's and cerebral thrombosis in the family. Several family members have cardiolipin antibody. Medications and Allergies Home Medications Medication Instructions Recorded Confirmed Type Montelukast Sodium 10 mg PO HS 02/07/15 10/31/16 History buPROPion SR [Wellbutrin SR] 150 mg PO BID 02/21/15 10/31/16 History Albuterol Inhaler [Ventolin Hfa 1 puff INHALATION RT-Q4H PRN 11/28/15 10/31/16 History Inhaler] Alendronate Sodium [Fosamax] 70 mg PO WE 11/28/15 10/31/16 History Budesonide-Formot 160-4.5 Mcg 2 puff INHALATION RT-BID 11/28/15 10/31/16 History [Symbicort 160-4.5 Mcg Inhaler] Calcium Carbonate [Calcium] 900 mg PO DAILY 11/28/15 10/31/16 History Cholecalciferol [Vitamin D3] 1,000 unit PO DAILY 11/28/15 10/31/16 History Levocetirizine Dihydrochloride 5 mg PO QAM 11/28/15 10/31/16 History Tiotropium [place] [Spiriva] 1 cap INHALATION RT-DAILY 11/28/15 10/31/16 History Tyvaso 9 puff INHALATION RT-QID 11/28/15 10/31/16 History ALPRAZolam [Xanax] 1 mg PO TID 10/31/16 10/31/16 History Allergies Allergy/AdvReac Type Severity Reaction Status Date / Time latex Allergy Unknown Rash/Hives Verified 10/31/16 12:15 nickel [Nickel] Allergy Unknown Rash/Hives Verified 10/31/16 12:15 nitrofurantoin Allergy Unknown Rash/Hives Verified 10/31/16 12:15 macrocrystalline [From Macrodantin] Penicillins Allergy Unknown Rash/Hives Verified 10/31/16 12:15 Physical Exam Vitals: Vital Signs Temp Pulse Pulse Resp BP BP Pulse Ox 10/31/16 20:46 102 H 10/31/16 20:33 94 10/31/16 16:59 94 L 10/31/16 16:00 96 10/31/16 15:46 92 10/31/16 15:30 97.4 F L 85 20 128/80 95 10/31/16 14:46 99 F 82 20 101/63 95 10/31/16 13:40 91 22 114/64 90 L 10/31/16 12:32 89 24 109/60 95 10/31/16 12:08 86 10/31/16 11:54 84 26 H 127/56 95 10/31/16 11:53 85 10/31/16 11:34 98.3 F 99 26 H 114/66 70 L Intake and Output 10/31/16 10/31/16 11/01/16 14:59 22:59 06:59 Output Total 300 Balance -300 Output: Urine 300 Other: Weight 63.503 kg Patient Weight 11/01/16 06:59 Weight 63.503 kg Physical Exam: Revealed a 61-year-old female, frail looking, looks chronically ill, in mild respiratory distress, noted to be dyspneic even with one sentence. HEENT:[Neck is supple.] [No neck masses.] [No thyromegaly.] [No JVD.] Chest: [Diminished breath sound bilaterally, some wheezing on forced expiratory maneuver only Cardiac Exam: [Normal S1 and S2, no S3 gallop, no murmur.] Abdomen: [Soft, nontender, no megaly, no rebound, no guarding, normal bowel sounds.] Extremities: [No clubbing, no edema, no cyanosis.] Neurological Exam: [No focal neurologic deficit.] Results - Laboratory Findings CBC and BMP: 10/31/16 11:50 10/31/16 11:50 PT/INR, D-dimer PT 10.6 sec (9.0-12.0) 10/31/16 11:50 INR 1.1 (<1.1) 10/31/16 11:50 Abnormal lab findings: Abnormal Labs 10/31/16 10/31/16 10/31/16 11:50 11:50 20:47 Lymphocytes # 0.6 L Sodium 135 L Chloride 89 L Carbon Dioxide 37 H Glucose 108 H POC Glucose (mg/dL) 266 H - Diagnostic Findings Chest x-ray: image reviewed (Chronic blunting noted in the left costophrenic angle, no clear-cut evidence of infiltrates.) Assessment and Plan Plan: #1 Acute exacerbation of severe oxygen dependent chronic obstructive pulmonary disease complicated by purulent tracheobronchitis. #2 Acute on chronic hypoxic respiratory failure secondary to above. #3 Severe pulmonary hypertension, currently on Tyvaso. Being followed at the pulmonary hypertension clinic in the [facility]. #4 End-stage pulmonary disease, initially evaluated for possible lung transplant. No recent workup. #5 Recent non-ST segment elevation myocardial infarction approximately one month ago. Normal coronary arteries. 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 #7 Hydronephrosis with adhesions with subsequent right ureteral stent placement. #8 Osteoporosis. #9 Hiatal hernia. #10 Depression with recent loss of her in March 2016. #11 40 year smoking history, quit in January 2015. #12 Hyperlipidemia. Recommendation: Continue present treatment plan including bronchodilators, steroids, antibiotics, GI and DVT prophylaxis, continue her medication for pulmonary hypertension, will follow. Time with Patient: Greater than 30
[2016-11-01] MEDS: guaiFENesin-DM 100-10MG/5ML 10 ML CUP PO PRN ×3 (00:07→15:40)
[2016-11-01 05:48] LABS: Glucose,Whole Blood 141 mg/dL (75-99)
[2016-11-01] MEDS: SODIUM CHLORIDE 0.9% 1,000 ML IV SCH ×3 (06:28→21:00)
[2016-11-01] MEDS: methylPREDNISolone SOD SUCCI 40 MG/ML 1 ML VIAL IV SCH ×3 (07:08→17:22)
[2016-11-01] MEDS: INSULIN LISPRO (humaLOG) 300 UNIT/3 ML VIAL SQ SCH ×4 (07:09→21:00)
[2016-11-01] MEDS: PANTOPRAZOLE 40 MG TABLET PO SCH (07:09)
[2016-11-01] MEDS: buPROPion SR 150 MG TABLET.ER PO SCH ×2 (08:50→20:59)
[2016-11-01] MEDS: CHOLECALCIFEROL 1,000 UNIT TAB PO SCH (08:50)
[2016-11-01] MEDS: METOPROLOL TARTRATE 12.5 MG TAB PO SCH ×2 (08:50→20:59)
[2016-11-01] MEDS: ALPRAZolam 0.5 MG TAB PO SCH ×3 (08:50→20:59)
[2016-11-01] MEDS: ENOXAPARIN 40 MG/0.4 ML SYRINGE SQ SCH (08:50)
[2016-11-01] MEDS: LORATADINE 10 MG TAB PO SCH (08:50)
[2016-11-01] MEDS: DOXYCYCLINE 50 MG CAP PO SCH ×2 (08:50→20:59)
[2016-11-01] MEDS: ATORVASTATIN 80 MG TAB PO SCH (08:50)
[2016-11-01] MEDS: FUROSEMIDE 40 MG TAB PO SCH (08:50)
[2016-11-01] MEDS: IPRATROPIUM-ALBUTEROL 3 ML NEB INHALATION SCH ×4 (08:57→19:53)
[2016-11-01] MEDS: ACETAMINOPHEN TAB 325 MG TAB PO PRN (09:39)
[2016-11-01] MEDS: [UNRECOGNIZED DRUG - OTHER] INHALATION SCH ×4 (11:05→20:58)
[2016-11-01 11:37] LABS: Glucose,Whole Blood 152 mg/dL (75-99)
--- NOTE | 2016-11-01 12:00 | P.PN ---
Subjective Principal diagnosis: Acute exacerbation of chronic obstructive pulmonary disease. This is a 61-year-old female with history of multiple medical problems including pulmonary hypertension, severe end-stage COPD: Stage IV, history of hiatal hernia, esophagitis, precancerous colonic tumor with bowel resection, history of cardiomyopathy and LV dysfunction, history of chronic hypoxic respiratory failure maintained on oxygen, history of pulmonary hypertension maintained on tyvaso, ration continues to follow-up with a pulmonary hypertension clinic at the [facility], she is also being followed by the transplant team at the [facility]. Recently the patient had an acute non-ST segment elevation myocardial infarction, she developed congestive heart failure, and an echocardiogram showed apical ballooning syndrome, global hypokinesia, and ejection fraction was less than 25%. Patient was admitted from 09/20 until 09/28/2016, and she has been doing relatively well until recently were and the patient seemed to develop more shortness of breath, intermittent episodes of cough wheezing, cough is productive with yellow phlegm. Low-grade fever was also noted, patient came back to the ER, chest x- ray showed no evidence of active disease. Admitted with the impression of acute exacerbation of COPD, purulent tracheobronchitis, acute on chronic hypoxic respiratory failure, and this consult was initiated. The patient is seen again today 11/01/2016 in follow-up on the selective care unit. She is awake and alert in no acute distress. She is quite dyspneic on minimal exertion but is able to complete more sentences then she could yesterday. Her shortness of breath is about the same no real improvement thus far. She is maintaining O2 saturations in the upper 90s on 4 L/m per nasal cannula. Currently afebrile. Hemodynamically stable. She remains on bronchodilators 4 times a day and when necessary, IV Solu-Medrol and empiric antibiotics in the form of doxycycline. Objective - Vital Signs Vital signs: Vital Signs Temp 98.1 F 11/01/16 08:00 Pulse 100 11/01/16 09:12 Resp 16 11/01/16 09:12 BP 115/43 11/01/16 08:00 Pulse Ox 98 11/01/16 08:00 Intake & Output 10/31/16 11/01/16 11/01/16 18:59 06:59 18:59 Intake Total 0 Output Total 700 Balance -700 0 Weight 63.503 kg 65 kg Intake: Oral 0 Output: Urine 700 - Exam GENERAL EXAM: Frail, cachectic. Alert, fairly comfortable in no apparent distress. HEAD: Normocephalic. EYES: Normal reaction of pupils, equal size. NOSE: Clear with pink turbinates. THROAT: No erythema or exudates. NECK: No masses, no JVD. CHEST: No chest wall deformity. LUNGS: Equal air entry with bilateral wheeze. Diminished. CVS: S1 and S2 normal with no audible murmurs, regular rhythm. ABDOMEN: No hepatosplenomegaly, normal bowel sounds, no guarding or rigidity. SPINE: No scoliosis or deformity SKIN: No rashes CENTRAL NERVOUS SYSTEM: No focal deficits, tone is normal in all 4 extremities. Extremities: There is no peripheral edema. No clubbing, no cyanosis. Peripheral pulses are intact. - Labs CBC & Chem 7: 10/31/16 11:50 10/31/16 11:50 Labs: Abnormal Lab Results - Last 24 Hours (Table) 10/31/16 10/31/16 10/31/16 Range/Units 11:50 11:50 20:47 Lymphocytes # 0.6 L (1.0-4.8) k/uL Sodium 135 L (137-145) mmol/L Chloride 89 L (98-107) mmol/L Carbon Dioxide 37 H (22-30) mmol/L Glucose 108 H (74-99) mg/dL POC Glucose (mg/dL) 266 H (75-99) mg/dL 11/01/16 11/01/16 Range/Units 05:47 11:35 Lymphocytes # (1.0-4.8) k/uL Sodium (137-145) mmol/L Chloride (98-107) mmol/L Carbon Dioxide (22-30) mmol/L Glucose (74-99) mg/dL POC Glucose (mg/dL) 141 H 152 H (75-99) mg/dL Microbiology - Last 24 Hours (Table) 10/31/16 12:19 Urine Culture - Preliminary Urine,Voided Assessment and Plan Plan: Impression: #1 Acute exacerbation of severe oxygen dependent chronic obstructive pulmonary disease complicated by purulent tracheobronchitis. #2 Acute on chronic hypoxic respiratory failure secondary to above. #3 Severe pulmonary hypertension, currently on Tyvaso. Being followed at the pulmonary hypertension clinic in the [facility]. #4 End-stage pulmonary disease, initially evaluated for possible lung transplant. #5 Recent non-ST segment elevation myocardial infarction approximately one month ago. Normal coronary arteries. 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 #7 Hydronephrosis with adhesions with subsequent right ureteral stent placement. #8 Osteoporosis. #9 Hiatal hernia. #10 Depression with recent loss of her in March 2016. #11 40 year smoking history, quit in January 2015. #12 Hyperlipidemia. #13 Poor overall functional performance based on the above-mentioned multiple comorbidities. Plan: The patient was seen and evaluated by Dr. Pabon. She is still not quite back to her baseline. We'll continue with her current pulmonary medications. We'll add Pulmicort and Perforomist inhalations twice a day. She remains on Lovenox for DVT prophylaxis. Protonix for GI prophylaxis. We will increase her activity as tolerated. We'll continue to follow and make further recommendations based on her clinical status.
[2016-11-01] MEDS: CALCIUM CARBONATE 500 MG CHEWABLE PO SCH (12:31)
[2016-11-01 16:55] LABS: Glucose,Whole Blood 142 mg/dL (75-99)
[2016-11-01] MEDS: BUDESONIDE 1 MG/2 ML NEBU INHALATION SCH (19:51)
[2016-11-01] MEDS: FORMOTEROL FUMARATE 20 MCG/2 ML NEBU INHALATION SCH (19:53)
[2016-11-01 20:55] LABS: Glucose,Whole Blood 115 mg/dL (75-99)
[2016-11-01] MEDS: MONTELUKAST 10 MG TAB PO SCH (20:59)
[2016-11-02] MEDS: methylPREDNISolone SOD SUCCI 40 MG/ML 1 ML VIAL IV SCH ×5 (00:09→23:44)
[2016-11-02] MEDS: ACETAMINOPHEN TAB 325 MG TAB PO PRN ×3 (01:50→15:12)
[2016-11-02 06:21] LABS: Glucose,Whole Blood 160 mg/dL (75-99)
[2016-11-02] MEDS: SODIUM CHLORIDE 0.9% 1,000 ML IV SCH ×2 (06:47→15:11)
[2016-11-02] MEDS: PANTOPRAZOLE 40 MG TABLET PO SCH (06:47)
[2016-11-02] MEDS: INSULIN LISPRO (humaLOG) 300 UNIT/3 ML VIAL SQ SCH ×4 (06:47→21:49)
[2016-11-02] MEDS: BUDESONIDE 1 MG/2 ML NEBU INHALATION SCH ×2 (08:20→19:46)
[2016-11-02] MEDS: IPRATROPIUM-ALBUTEROL 3 ML NEB INHALATION SCH ×4 (08:20→19:46)
[2016-11-02] MEDS: FORMOTEROL FUMARATE 20 MCG/2 ML NEBU INHALATION SCH ×2 (08:20→19:46)
[2016-11-02] MEDS: ATORVASTATIN 80 MG TAB PO SCH (08:52)
[2016-11-02] MEDS: FUROSEMIDE 40 MG TAB PO SCH (08:53)
[2016-11-02] MEDS: buPROPion SR 150 MG TABLET.ER PO SCH ×2 (08:53→19:53)
[2016-11-02] MEDS: ENOXAPARIN 40 MG/0.4 ML SYRINGE SQ SCH (08:53)
[2016-11-02] MEDS: LORATADINE 10 MG TAB PO SCH (08:54)
[2016-11-02] MEDS: DOXYCYCLINE 50 MG CAP PO SCH ×2 (08:54→19:52)
[2016-11-02] MEDS: METOPROLOL TARTRATE 12.5 MG TAB PO SCH ×2 (08:54→19:52)
[2016-11-02] MEDS: CHOLECALCIFEROL 1,000 UNIT TAB PO SCH (08:55)
[2016-11-02] MEDS: [UNRECOGNIZED DRUG - OTHER] INHALATION SCH ×4 (08:57→19:54)
[2016-11-02] MEDS: ALPRAZolam 0.5 MG TAB PO SCH ×3 (08:57→19:51)
[2016-11-02 11:16] LABS: Basophils % (A) 0 %; CH 28.4; CHCM 29.9; Eosinophils % (A) 0 %; HDW 2.71; HGB 10.6 gm/dL (11.4-16.0); Hypochromasia Marked; Luc # (Auto) 0.13; Luc % (Auto) 1; Lymphocytes # (A) 0.5 k/uL (1.0-4.8); Lymphocytes % (A) 3 %; MCH 29.7 pg (25.0-35.0); MCHC 31.1 g/dL (31.0-37.0); MCV 95.3 fL (80.0-100.0); Mean Platelet Volume 7.4; Monocytes # (A) 0.5 k/uL (0-1.0); Monocytes % (A) 3 %; Neutrophils # (A) 16.7 k/uL (1.3-7.7); Neutrophils % (A) 94 %; RBC 3.56 m/uL (3.80-5.40); RDW 14.1 % (11.5-15.5); WBC 17.8 k/uL (3.8-10.6); WBC (Perox) 18.44
--- NOTE | 2016-11-02 11:21 | P.PN ---
Subjective Principal diagnosis: Acute exacerbation of severe end-stage COPD This is a 61-year-old female with history of multiple medical problems including pulmonary hypertension, severe end-stage COPD: Stage IV, history of hiatal hernia, esophagitis, precancerous colonic tumor with bowel resection, history of cardiomyopathy and LV dysfunction, history of chronic hypoxic respiratory failure maintained on oxygen, history of pulmonary hypertension maintained on tyvaso, ration continues to follow-up with a pulmonary hypertension clinic at the [facility], she is also being followed by the transplant team at the [facility]. Recently the patient had an acute non-ST segment elevation myocardial infarction, she developed congestive heart failure, and an echocardiogram showed apical ballooning syndrome, global hypokinesia, and ejection fraction was less than 25%. Patient was admitted from 09/20 until 09/28/2016, and she has been doing relatively well until recently were and the patient seemed to develop more shortness of breath, intermittent episodes of cough wheezing, cough is productive with yellow phlegm. Low-grade fever was also noted, patient came back to the ER, chest x- ray showed no evidence of active disease. Admitted with the impression of acute exacerbation of COPD, purulent tracheobronchitis, acute on chronic hypoxic respiratory failure, and this consult was initiated. The patient is seen again today 11/01/2016 in follow-up on the selective care unit. She is awake and alert in no acute distress. She is quite dyspneic on minimal exertion but is able to complete more sentences then she could yesterday. Her shortness of breath is about the same no real improvement thus far. She is maintaining O2 saturations in the upper 90s on 4 L/m per nasal cannula. Currently afebrile. Hemodynamically stable. She remains on bronchodilators 4 times a day and when necessary, IV Solu-Medrol and empiric antibiotics in the form of doxycycline. Reevaluated today on 11/02/2016, patient is about the same. Continues to have profound shortness of breath with any activity, intermittent episodes of cough, less wheezing. Patient remains maximized on bronchodilators and steroids. She is also on antibiotics in the form of doxycycline. Objective - Vital Signs Vital signs: Vital Signs Temp 98.0 F 11/02/16 08:00 Pulse 90 11/02/16 11:08 Resp 18 11/02/16 08:00 BP 135/67 11/02/16 08:00 Pulse Ox 99 11/02/16 08:00 Intake & Output 11/01/16 11/02/16 11/02/16 18:59 06:59 18:59 Intake Total 200 100 Output Total 890 200 Balance -690 -200 100 Weight 67 kg Intake: Oral 200 100 Output: Urine 890 200 Other: # Voids 1 - Exam GENERAL EXAM: Frail, cachectic. Alert, fairly comfortable in no apparent distress. HEAD: Normocephalic. EYES: Normal reaction of pupils, equal size. NOSE: Clear with pink turbinates. THROAT: No erythema or exudates. NECK: No masses, no JVD. CHEST: No chest wall deformity. LUNGS: Equal air entry with bilateral wheeze. Diminished. CVS: S1 and S2 normal with no audible murmurs, regular rhythm. ABDOMEN: No hepatosplenomegaly, normal bowel sounds, no guarding or rigidity. SPINE: No scoliosis or deformity SKIN: No rashes CENTRAL NERVOUS SYSTEM: No focal deficits, tone is normal in all 4 extremities. Extremities: There is no peripheral edema. No clubbing, no cyanosis. Peripheral pulses are intact. - Labs CBC & Chem 7: 10/31/16 11:50 10/31/16 11:50 Labs: Abnormal Lab Results - Last 24 Hours (Table) 11/01/16 11/01/16 11/01/16 Range/Units 11:35 16:48 20:54 POC Glucose (mg/dL) 152 H 142 H 115 H (75-99) mg/dL 11/02/16 Range/Units 06:19 POC Glucose (mg/dL) 160 H (75-99) mg/dL Microbiology - Last 24 Hours (Table) 10/31/16 11:50 Blood Culture - Preliminary Blood No Growth after 24 hours 10/31/16 12:19 Urine Culture - Final Urine,Voided Assessment and Plan Plan: #1 Acute exacerbation of severe oxygen dependent chronic obstructive pulmonary disease complicated by purulent tracheobronchitis. #2 Acute on chronic hypoxic respiratory failure secondary to above. #3 Severe pulmonary hypertension, currently on Tyvaso. Being followed at the pulmonary hypertension clinic in the [facility]. #4 End-stage pulmonary disease, initially evaluated for possible lung transplant. No recent workup. #5 Recent non-ST segment elevation myocardial infarction approximately one month ago. Normal coronary arteries. 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 #7 Hydronephrosis with adhesions with subsequent right ureteral stent placement. #8 Osteoporosis. #9 Hiatal hernia. #10 Depression with recent loss of her in March 2016. #11 40 year smoking history, quit in January 2015. #12 Hyperlipidemia. Recommendation: Continue present treatment plan including bronchodilators, steroids, antibiotics, GI and DVT prophylaxis, continue her medication for pulmonary hypertension, will follow. Long-term prognosis is definitely poor, the only solution for this patient's issue would be hopefully a lung transplant in the near future. Patient is not yet listed on the lung transplant list, but apparently she was already evaluated by the team at the [facility]. Time with Patient: Less than 30
[2016-11-02 11:47] LABS: Anion Gap 5 mmol/L; Blood Urea Nitrogen 13 mg/dL (7-17); Calcium 8.1 mg/dL (8.4-10.2); Carbon Dioxide 37 mmol/L (22-30); Chloride 99 mmol/L (98-107); Glucose 101 mg/dL (74-99); Non-African American GFR(MDRD) >60 (>60 ml/min/1.73 sqM); Potassium 4.5 mmol/L (3.5-5.1); Sodium 141 mmol/L (137-145)
[2016-11-02 11:56] LABS: Glucose,Whole Blood 149 mg/dL (75-99)
[2016-11-02] MEDS: CALCIUM CARBONATE 500 MG CHEWABLE PO SCH (12:10)
--- NOTE | 2016-11-02 13:59 | HP ---
DATE OF SERVICE: 10/31/2016 Chief complaints are shortness of breath. HISTORY OF PRESENT ILLNESS: This 61-year-old woman with a past medical history of multiple medical problems including history of COPD, history of pulmonary hypertension, history of chronic hypoxic respiratory failure being followed by Dr. Cristobal Ramsey in the outpatient setting was complaining of shortness of breath over the past several days. The patient has difficulty in breathing. The patient uses oxygen at home. The chest x-ray did not show any active pneumonia and the patient was admitted for further evaluation and treatment. There is no history of any fever, rigors. No history of headache, loss of consciousness or seizures at this time. PAST MEDICAL HISTORY: History of recent myocardial infarction, history of COPD , history of bladder surgery and multiple medical issues. Medications prior to admission include: 1. Wellbutrin 150 mg p.o. b.i.d. 2. Tyvaso 9 puffs q.i.d. 3. Spiriva 1 puff daily. 4. Singulair 10 mg q.h.s. 5. Lopressor 12.5 mg b.i.d. 6. DuoNeb q.i.d. and p.r.n. 7. Lasix 40 mg daily. 8. Vitamin D3, 1000 daily. 9. Calcium 900 mg daily. 10. Symbicort 160/4.5 two puffs b.i.d. 11. Lipitor 80 mg daily. 12. Fosamax 70 mg Wednesdays. 13. Ventolin 1 puff q.4 p.r.n. 14. Xanax 1 mg p.o. t.i.d. Allergies are LATEX, NICKEL, NITROFURANTOIN, PENICILLIN. FAMILY HISTORY: History of DVT. History of brain blood clot. SOCIAL HISTORY: The patient gives a previous history of smoking. No history of current smoking or alcohol intake. REVIEW OF SYSTEMS: ENT: No diminished hearing or diminished vision. CARDIOVASCULAR. As mentioned earlier. RESPIRATORY: As mentioned earlier. GI: No nausea. : No dysuria. NERVOUS SYSTEM: No numbness or weakness. ALLERGY/IMMUNOLOGY: No asthma or hayfever. MUSCULOSKELETAL: As mentioned earlier. HEMATOLOGY/ONCOLOGY: No history of anemia. ENDOCRINE: No history of diabetes mellitus or hypothyroidism. CONSTITUTIONAL: As mentioned earlier . DERMATOLOGY: Negative. RHEUMATOLOGY: Negative. PSYCHIATRY: As mentioned earlier. PHYSICAL EXAM: The patient is alert and oriented x3. Pulse is 99, blood pressure is 114/66, respirations 26, temperature 98.3, pulse ox 70% on 4 L on admission. HEENT: Conjunctivae normal. NECK: No jugular venous distention. CARDIOVASCULAR: S1 and S2, muffled. RESPIRATORY: Breath sounds diminished at the bases. Bilateral scattered rhonchi and crackles. Expiratory wheezing also present. ABDOMEN: Soft, nontender. No mass palpable. LEGS: No edema, no swelling. NERVOUS SYSTEM: Higher function as mentioned earlier. Moves all 4 limbs. No focal deficits. LYMPHATICS: No lymphadenopathy of the neck, axillae or groin. SKIN; No ulcers, rashes or bleeding. Labs are CBC within normal limits. Sodium 135, CO2 37. ASSESSMENT: 1. Chronic obstructive pulmonary disease, acute exacerbation with acute hypoxic hypercarbic respiratory failure with acute purulent tracheobronchitis. 2. Chronic hypoxic respiratory failure. 3. Chronic obstructive pulmonary disease stage IV. 4. Hyponatremia. 5. History of recent myocardial infarction. 6. History of pulmonary hypertension. 7. Chronic hypoxic respiratory failure. 8. History of right upper lobe nodular density. 9. History of Takotsubo syndrome with a normal ejection fraction currently. 10. History of depression. RECOMMENDATIONS AND DISCUSSION: Recommend to continue the current medications. Continue the symptomatic treatment. Continue with bronchodilators. Closely follow with Dr. Pabon. Empiric antibiotics. Steroids. Monitor blood sugars. Guarded prognosis because of multiple complex medical issues. Further recommendations to follow. ANNABELD
[2016-11-02] MEDS: NYSTATIN 100,000 UNIT/ML SUSP 500,000 UNIT/5 ML CUP PO SCH ×3 (15:15→19:52)
[2016-11-02 17:12] LABS: Glucose,Whole Blood 104 mg/dL (75-99)
[2016-11-02] MEDS: MONTELUKAST 10 MG TAB PO SCH (19:52)
[2016-11-02] MEDS: guaiFENesin-DM 100-10MG/5ML 10 ML CUP PO PRN (19:53)
[2016-11-02 20:29] LABS: Glucose,Whole Blood 106 mg/dL (75-99)
[2016-11-03] MEDS: ACETAMINOPHEN TAB 325 MG TAB PO PRN ×3 (00:24→20:45)
[2016-11-03] MEDS: SODIUM CHLORIDE 0.9% 1,000 ML IV SCH ×2 (03:15→11:25)
[2016-11-03] MEDS: ALPRAZolam 0.5 MG TAB PO SCH (04:06)
[2016-11-03 05:39] LABS: Glucose,Whole Blood 129 mg/dL (75-99)
[2016-11-03] MEDS: INSULIN LISPRO (humaLOG) 300 UNIT/3 ML VIAL SQ SCH ×4 (06:06→21:32)
[2016-11-03] MEDS: PANTOPRAZOLE 40 MG TABLET PO SCH (06:10)
[2016-11-03] MEDS: methylPREDNISolone SOD SUCCI 40 MG/ML 1 ML VIAL IV SCH ×4 (06:10→21:49)
[2016-11-03 06:48] LABS: Basophils % (A) 0 %; CH 27.8; CHCM 29.4; Eosinophils % (A) 0 %; HCT 33.3 % (34.0-46.0); HDW 2.79; HGB 10.4 gm/dL (11.4-16.0); Hypochromasia Marked; Luc # (Auto) 0.12; Luc % (Auto) 1; Lymphocytes # (A) 0.6 k/uL (1.0-4.8); Lymphocytes % (A) 3 %; MCH 29.6 pg (25.0-35.0); MCHC 31.2 g/dL (31.0-37.0); MCV 94.9 fL (80.0-100.0); Monocytes # (A) 0.5 k/uL (0-1.0); Monocytes % (A) 3 %; Neutrophils # (A) 15.2 k/uL (1.3-7.7); Neutrophils % (A) 93 %; RBC 3.51 m/uL (3.80-5.40); WBC 16.4 k/uL (3.8-10.6); WBC (Perox) 17.16
[2016-11-03 06:53] LABS: Anion Gap 3 mmol/L; Blood Urea Nitrogen 15 mg/dL (7-17); Calcium 7.5 mg/dL (8.4-10.2); Carbon Dioxide 38 mmol/L (22-30); Chloride 98 mmol/L (98-107); Glucose 127 mg/dL (74-99); Non-African American GFR(MDRD) >60 (>60 ml/min/1.73 sqM); Potassium 4.1 mmol/L (3.5-5.1); Sodium 139 mmol/L (137-145)
[2016-11-03] MEDS: IPRATROPIUM-ALBUTEROL 3 ML NEB INHALATION SCH ×4 (08:06→20:33)
[2016-11-03] MEDS: FORMOTEROL FUMARATE 20 MCG/2 ML NEBU INHALATION SCH ×2 (08:07→20:33)
[2016-11-03] MEDS: BUDESONIDE 1 MG/2 ML NEBU INHALATION SCH ×2 (08:07→20:33)
[2016-11-03] MEDS: [UNRECOGNIZED DRUG - OTHER] INHALATION SCH ×4 (08:10→20:43)
--- NOTE | 2016-11-03 08:10 | PN ---
DATE OF SERVICE: 11/01/16 This 61 year old woman was admitted with COPD acute exacerbation as well as acute purulent tracheobronchitis is being closely monitored. The patient also had elevated blood sugars. No chest pain. No palpitations. No fever. Dr. Pabon is following the patient closely. On exam, alert and oriented times three. Pulse 90. Blood pressure 123/82. Respiratory rate 24, temperature 97.3. Pulse ox 96% on room air. HEENT: Conjunctivae normal. NECK: No JVD. CARDIOVASCULAR: S1, S2 muffled. RESPIRATORY: Breath sounds diminished at the bases. Bilateral scattered rhonchi and crackles. ABDOMEN: Soft, nontender. LEGS: No edema. No swelling. NERVOUS SYSTEM: No focal deficits. Labs are CBC within normal limits. Sodium 135. ASSESSMENT: 1. Chronic obstructive pulmonary disease acute exacerbation with acute purulent tracheobronchitis. 2. Hyponatremia. 3. History of pulmonary hypertension. 4. Acute on chronic hypoxic hypercarbic respiratory failure. 5. Multiple medical issues. RECOMMENDATIONS AND DISCUSSION: Recommend to continue current medications, continue with monitoring. Symptomatic treatment. Closely follow. Further recommendations to follow. MTDD
[2016-11-03] MEDS: NYSTATIN 100,000 UNIT/ML SUSP 500,000 UNIT/5 ML CUP PO SCH ×4 (08:16→20:44)
[2016-11-03] MEDS: ATORVASTATIN 80 MG TAB PO SCH (08:16)
[2016-11-03] MEDS: DOXYCYCLINE 50 MG CAP PO SCH ×2 (08:16→20:43)
[2016-11-03] MEDS: ENOXAPARIN 40 MG/0.4 ML SYRINGE SQ SCH (08:16)
[2016-11-03] MEDS: FUROSEMIDE 40 MG TAB PO SCH (08:17)
[2016-11-03] MEDS: LORATADINE 10 MG TAB PO SCH (08:17)
[2016-11-03] MEDS: CHOLECALCIFEROL 1,000 UNIT TAB PO SCH (08:17)
[2016-11-03] MEDS: buPROPion SR 150 MG TABLET.ER PO SCH ×2 (08:17→20:43)
[2016-11-03] MEDS: METOPROLOL TARTRATE 12.5 MG TAB PO SCH ×2 (08:17→20:43)
[2016-11-03] MEDS: guaiFENesin-DM 100-10MG/5ML 10 ML CUP PO PRN (09:07)
--- NOTE | 2016-11-03 09:48 | P.PN ---
Subjective Principal diagnosis: Acute exacerbation of severe end-stage COPD This is a 61-year-old female with history of multiple medical problems including pulmonary hypertension, severe end-stage COPD: Stage IV, history of hiatal hernia, esophagitis, precancerous colonic tumor with bowel resection, history of cardiomyopathy and LV dysfunction, history of chronic hypoxic respiratory failure maintained on oxygen, history of pulmonary hypertension maintained on tyvaso, ration continues to follow-up with a pulmonary hypertension clinic at the [facility], she is also being followed by the transplant team at the [facility]. Recently the patient had an acute non-ST segment elevation myocardial infarction, she developed congestive heart failure, and an echocardiogram showed apical ballooning syndrome, global hypokinesia, and ejection fraction was less than 25%. Patient was admitted from 09/20 until 09/28/2016, and she has been doing relatively well until recently were and the patient seemed to develop more shortness of breath, intermittent episodes of cough wheezing, cough is productive with yellow phlegm. Low-grade fever was also noted, patient came back to the ER, chest x- ray showed no evidence of active disease. Admitted with the impression of acute exacerbation of COPD, purulent tracheobronchitis, acute on chronic hypoxic respiratory failure, and this consult was initiated. The patient is seen again today 11/01/2016 in follow-up on the selective care unit. She is awake and alert in no acute distress. She is quite dyspneic on minimal exertion but is able to complete more sentences then she could yesterday. Her shortness of breath is about the same no real improvement thus far. She is maintaining O2 saturations in the upper 90s on 4 L/m per nasal cannula. Currently afebrile. Hemodynamically stable. She remains on bronchodilators 4 times a day and when necessary, IV Solu-Medrol and empiric antibiotics in the form of doxycycline. Reevaluated today on 11/02/2016, patient is about the same. Continues to have profound shortness of breath with any activity, intermittent episodes of cough, less wheezing. Patient remains maximized on bronchodilators and steroids. She is also on antibiotics in the form of doxycycline. Reevaluated today on 11/03/2016, again no change whatsoever, patient continues to have shortness of breath at rest and with any activity. Occasional dry cough, hardly any wheezing, no chest pain, patient is getting more agitated because of her worsening shortness of breath. WBC count is 16.4 hemoglobin is 10.4. Electrodes are normal renal profile is normal. Objective - Vital Signs Vital signs: Vital Signs Temp 97.7 F 11/03/16 04:00 Pulse 104 H 11/03/16 08:26 Resp 19 11/03/16 04:00 BP 156/78 11/03/16 04:00 Pulse Ox 96 11/03/16 08:05 Intake & Output 11/02/16 11/03/16 11/03/16 18:59 06:59 18:59 Intake Total 150 640 Output Total 890 750 250 Balance -740 -110 -250 Intake: Intake, IV Titration 400 Amount Sodium Chloride 0.9% 1, 400 000 ml @ 100 mls/hr IV . Q10H TOMASZ Rx#:[id number] Oral 150 240 Output: Urine 890 750 250 Other: # Voids 3 2 1 - Exam GENERAL EXAM: Frail, cachectic. Alert, noted to be dyspneic with any activity even while verbalizing. HEAD: Normocephalic. EYES: Normal reaction of pupils, equal size. NOSE: Clear with pink turbinates. THROAT: No erythema or exudates. NECK: No masses, no JVD. CHEST: No chest wall deformity. LUNGS: Equal air entry with bilateral wheeze. Diminished. CVS: S1 and S2 normal with no audible murmurs, regular rhythm. ABDOMEN: No hepatosplenomegaly, normal bowel sounds, no guarding or rigidity. SPINE: No scoliosis or deformity SKIN: No rashes CENTRAL NERVOUS SYSTEM: No focal deficits, tone is normal in all 4 extremities. Extremities: There is no peripheral edema. No clubbing, no cyanosis. Peripheral pulses are intact. - Labs CBC & Chem 7: 11/03/16 06:04 11/03/16 06:04 Labs: Abnormal Lab Results - Last 24 Hours (Table) 11/02/16 11/02/16 11/02/16 Range/Units 11:00 11:00 11:55 WBC 17.8 H (3.8-10.6) k/uL RBC 3.56 L (3.80-5.40) m/uL Hgb 10.6 L (11.4-16.0) gm/dL Hct (34.0-46.0) % Neutrophils # 16.7 H (1.3-7.7) k/uL Lymphocytes # 0.5 L (1.0-4.8) k/uL Carbon Dioxide 37 H (22-30) mmol/L Glucose 101 H (74-99) mg/dL POC Glucose (mg/dL) 149 H (75-99) mg/dL Calcium 8.1 L (8.4-10.2) mg/dL 11/02/16 11/02/16 11/03/16 Range/Units 17:08 20:27 05:38 WBC (3.8-10.6) k/uL RBC (3.80-5.40) m/uL Hgb (11.4-16.0) gm/dL Hct (34.0-46.0) % Neutrophils # (1.3-7.7) k/uL Lymphocytes # (1.0-4.8) k/uL Carbon Dioxide (22-30) mmol/L Glucose (74-99) mg/dL POC Glucose (mg/dL) 104 H 106 H 129 H (75-99) mg/dL Calcium (8.4-10.2) mg/dL 11/03/16 11/03/16 Range/Units 06:04 06:04 WBC 16.4 H (3.8-10.6) k/uL RBC 3.51 L (3.80-5.40) m/uL Hgb 10.4 L (11.4-16.0) gm/dL Hct 33.3 L (34.0-46.0) % Neutrophils # 15.2 H (1.3-7.7) k/uL Lymphocytes # 0.6 L (1.0-4.8) k/uL Carbon Dioxide 38 H (22-30) mmol/L Glucose 127 H (74-99) mg/dL POC Glucose (mg/dL) (75-99) mg/dL Calcium 7.5 L (8.4-10.2) mg/dL Microbiology - Last 24 Hours (Table) 10/31/16 11:50 Blood Culture - Preliminary Blood No Growth after 48 hours Assessment and Plan Plan: #1 Acute exacerbation of severe oxygen dependent chronic obstructive pulmonary disease complicated by purulent tracheobronchitis. #2 Acute on chronic hypoxic respiratory failure secondary to above. #3 Severe pulmonary hypertension, currently on Tyvaso. Being followed at the pulmonary hypertension clinic in the [facility]. #4 End-stage pulmonary disease, initially evaluated for possible lung transplant. No recent workup. #5 Recent non-ST segment elevation myocardial infarction approximately one month ago. Normal coronary arteries. 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 #7 Hydronephrosis with adhesions with subsequent right ureteral stent placement. #8 Osteoporosis. #9 Hiatal hernia. #10 Depression with recent loss of her in March 2016. #11 40 year smoking history, quit in January 2015. #12 Hyperlipidemia. Recommendation: Continue present treatment plan including bronchodilators, steroids, antibiotics, GI and DVT prophylaxis, continue her medication for pulmonary hypertension, will follow. Long-term prognosis is definitely poor, the only solution for this patient's issue would be hopefully a lung transplant in the near future. Patient is not yet listed on the lung transplant list, but apparently she was already evaluated by the team at the [facility]. Discussed briefly the CODE STATUS with the daughter, apparently this was discussed among family members with her, and no final decision has been made yet. Time with Patient: Less than 30
[2016-11-03] MEDS: CALCIUM CARBONATE 500 MG CHEWABLE PO SCH (11:23)
[2016-11-03 11:40] LABS: Glucose,Whole Blood 328 mg/dL (75-99)
[2016-11-03] MEDS ORDERED: ALPRAZolam 0.5 MG TAB PO STA (13:38)
[2016-11-03] MEDS ORDERED: INSULIN REGULAR 100 UNIT/ML VIAL IV ONE (13:40)
[2016-11-03 16:42] LABS: Glucose,Whole Blood 75 mg/dL (75-99)
--- NOTE | 2016-11-03 17:22 | XR ---
EXAMINATION TYPE: XR chest 1V portable DATE OF EXAM: 11/03/2016 COMPARISON: 10/31/2016 HISTORY: Short of breath TECHNIQUE: Single frontal view of the chest is obtained. FINDINGS: There is no heart failure nor confluent pneumonic infiltrate. There is pulmonary hyperinfl ation. Thoracic aorta is atheromatous. There are chest leads. IMPRESSION: There is probably COPD. No acute lung disease. There is clearing of a small infiltrate a t the left lung base compared to old exam. No heart failure.
[2016-11-03 17:35] LABS: ABG PCO2 84 mmHg (35-45); ABG PH 7.29 (7.35-7.45)
[2016-11-03 17:36] LABS: ABG Base Excess 12.5 mmol/L; ABG HCO3 39 mmol/L (21-25); ABG PO2 82 mmHg (83-108); ABG TCO2 42 mmol/L (19-24)
[2016-11-03] MEDS ORDERED: ALPRAZolam 0.5 MG TAB PO SCH (18:00)
[2016-11-03] MEDS: MONTELUKAST 10 MG TAB PO SCH (20:44)
[2016-11-03 21:04] LABS: Glucose,Whole Blood 123 mg/dL (75-99)
[2016-11-04] MEDS ORDERED: methylPREDNISolone SOD SUCCI 40 MG/ML 1 ML VIAL ONE
[2016-11-04 02:59] LABS: Glucose,Whole Blood 145 mg/dL (75-99)
[2016-11-04] MEDS: SODIUM CHLORIDE 0.9% 1,000 ML IV SCH ×5 (05:11→21:37)
[2016-11-04 05:23] LABS: Basophils % (A) 0 %; CH 27.9; CHCM 28.8; Eosinophils # (A) 0.1 k/uL (0-0.7); Eosinophils % (A) 0 %; HCT 36.2 % (34.0-46.0); HDW 2.83; HGB 10.9 gm/dL (11.4-16.0); Hypochromasia Marked; Luc # (Auto) 0.19; Luc % (Auto) 1; Lymphocytes # (A) 0.4 k/uL (1.0-4.8); Lymphocytes % (A) 2 %; MCH 29.2 pg (25.0-35.0); MCHC 30.1 g/dL (31.0-37.0); MCV 97.2 fL (80.0-100.0); Mean Platelet Volume 7.4; Monocytes # (A) 0.9 k/uL (0-1.0); Monocytes % (A) 4 %; Neutrophils # (A) 18.4 k/uL (1.3-7.7); Neutrophils % (A) 92 %; RBC 3.72 m/uL (3.80-5.40); RDW 13.8 % (11.5-15.5); WBC (Perox) 21.45
[2016-11-04 05:33] LABS: Anion Gap 8 mmol/L; Blood Urea Nitrogen 21 mg/dL (7-17); Calcium 7.9 mg/dL (8.4-10.2); Carbon Dioxide 39 mmol/L (22-30); Chloride 95 mmol/L (98-107); Glucose 190 mg/dL (74-99); Non-African American GFR(MDRD) >60 (>60 ml/min/1.73 sqM); Potassium 4.2 mmol/L (3.5-5.1); Sodium 142 mmol/L (137-145)
[2016-11-04 06:10] LABS: Appearance,Urine Clear (Clear); Bilirubin,Urine Negative (Negative); Glucose,Urine (UA) Negative (Negative); Ketones,Urine Trace (Negative); Leukocyte Esterase,Urine Negative (Negative); Mucus,Urine Rare /hpf; Nitrite,Urine Negative (Negative); Particle Count 1552; Protein,Urine Trace (Negative); Specific Gravity,Urine 1.009 (1.001-1.035); UA Billing (MACRO vs. MICRO) CHEM; Urobilinogen,Urine <2.0 mg/dL (<2.0); WBC,Urine 2 /hpf (0-5)
[2016-11-04 06:26] LABS: ABG Base Excess 8.2 mmol/L; ABG HCO3 38 mmol/L (21-25); ABG PCO2 >125 mmHg (35-45); ABG PH 7.05 (7.35-7.45); ABG PO2 72 mmHg (83-108); ABG TCO2 43 mmol/L (19-24)
[2016-11-04] MEDS ORDERED: PROPOFOL 50 ML IV ONE (06:38)
[2016-11-04] MEDS: methylPREDNISolone SOD SUCCI 40 MG/ML 1 ML VIAL IV SCH ×4 (07:29→23:15)
[2016-11-04] MEDS: FORMOTEROL FUMARATE 20 MCG/2 ML NEBU INHALATION SCH ×2 (07:42→19:16)
[2016-11-04] MEDS: BUDESONIDE 1 MG/2 ML NEBU INHALATION SCH ×2 (07:42→19:16)
[2016-11-04] MEDS: IPRATROPIUM-ALBUTEROL 3 ML NEB INHALATION SCH ×4 (07:42→19:16)
--- NOTE | 2016-11-04 08:21 | XR ---
EXAMINATION TYPE: XR chest 1V portable DATE OF EXAM: 11/04/2016 Comparison: 11/03/2016 Clinical History: 61-year-old female post intubation and OG tube insertion Findings: ET tube tip is at the level of the medial recurrence. It could be advanced by approximately 3 to 5 cm . NG tube courses below the diaphragm. Heart is normal size. Atherosclerotic arch calcifications. Mild interstitial prominence and hyperinfl ation. Densities at the lung bases appear chronic, likely pleural parenchymal scarring. No consolidat ion or pleural effusion otherwise seen. Impression: 1. ET tube tip at the level of the medial clavicular heads. This could be advanced by 3 to 5 cm. Reas sess at follow-up. 2. COPD and chronic changes. No definite acute process.
[2016-11-04] MEDS: PROPOFOL 500 MG in EMPTY BAG 1 BAG IV SCH ×7 (08:42→23:14)
--- NOTE | 2016-11-04 08:47 | PN ---
DATE OF SERVICE: 11/02/2016 This 61-year-old woman who was admitted with COPD acute exacerbation has been closely monitored. No chest pain or palpitation. No fever. On exam, alert and oriented x3 . The pulse is 88, blood pressure is 135/67, respirations 18, temperature is 98 degrees, pulse ox 99% on 4 L. HEENT: Conjunctivae normal. NECK: No jugular venous distention. CARDIOVASCULAR SYSTEM: S1 and S2 muffled. RESPIRATORY: Breath sounds diminished at the bases. A few scattered rhonchi and crackles. Expiratory wheezing also present. Abdomen is soft, nontender. LEGS: No edema, no swelling. NERVOUS SYSTEM: No focal deficits. LABS: WBC 17.8, hemoglobin is 10.8. ASSESSMENT: 1. Chronic obstructive pulmonary disease acute exacerbation with acute purulent tracheobronchitis. 2. History of pulmonary hypertension. 3. History of acute on chronic hypoxic respiratory failure. 4. End-stage pulmonary disease. RECOMMENDATIONS AND DISCUSSION: Recommend to continue current medications. Continue bronchodilators. Continue with steroids. Continue with empiric antibiotics. Closely follow with Dr. Pabon. Prognosis guarded. Further recommendations to follow. [facility]
[2016-11-04] MEDS: INSULIN LISPRO (humaLOG) 300 UNIT/3 ML VIAL SQ SCH ×4 (08:48→20:30)
[2016-11-04 08:50] LABS: Glucose,Whole Blood 182 mg/dL (75-99)
[2016-11-04 08:50] LABS: Glucose,Whole Blood >600 mg/dL (75-99)
[2016-11-04] MEDS: PANTOPRAZOLE 40 MG TABLET PO SCH (08:51)
[2016-11-04] MEDS: ATORVASTATIN 80 MG TAB PO SCH (08:52)
[2016-11-04] MEDS: BISACODYL 5 MG TABLET.DR PO SCH (08:53)
[2016-11-04] MEDS: CHOLECALCIFEROL 1,000 UNIT TAB PO SCH (08:53)
[2016-11-04] MEDS: buPROPion SR 150 MG TABLET.ER PO SCH (08:53)
[2016-11-04] MEDS: CHLORHEXIDINE GLUCONATE 15 ML CUP MUCOUS MEM SCH ×2 (08:53→20:26)
[2016-11-04] MEDS: METOPROLOL TARTRATE 12.5 MG TAB PO SCH (08:54)
[2016-11-04] MEDS: NYSTATIN 100,000 UNIT/ML SUSP 500,000 UNIT/5 ML CUP PO SCH ×4 (08:54→21:34)
[2016-11-04] MEDS: ENOXAPARIN 40 MG/0.4 ML SYRINGE SQ SCH (08:54)
[2016-11-04] MEDS: PANTOPRAZOLE 40 MG/10 ML VIAL IVP SCH (09:17)
[2016-11-04 11:02] LABS: ABG PH 7.23 (7.35-7.45)
[2016-11-04 11:03] LABS: ABG Base Excess 8.4 mmol/L; ABG HCO3 36 mmol/L (21-25); ABG Oxygen Saturation 97.9 % (94-97); ABG PCO2 90 mmHg (35-45); ABG PO2 128 mmHg (83-108); ABG TCO2 39 mmol/L (19-24)
--- NOTE | 2016-11-04 11:15 | P.PN ---
Subjective Principal diagnosis: Acute exacerbation of chronic obstructive pulmonary disease. This is a 61-year-old female with history of multiple medical problems including pulmonary hypertension, severe end-stage COPD: Stage IV, history of hiatal hernia, esophagitis, precancerous colonic tumor with bowel resection, history of cardiomyopathy and LV dysfunction, history of chronic hypoxic respiratory failure maintained on oxygen, history of pulmonary hypertension maintained on tyvaso, ration continues to follow-up with a pulmonary hypertension clinic at the [facility], she is also being followed by the transplant team at the [facility]. Recently the patient had an acute non-ST segment elevation myocardial infarction, she developed congestive heart failure, and an echocardiogram showed apical ballooning syndrome, global hypokinesia, and ejection fraction was less than 25%. Patient was admitted from 09/20 until 09/28/2016, and she has been doing relatively well until recently were and the patient seemed to develop more shortness of breath, intermittent episodes of cough wheezing, cough is productive with yellow phlegm. Low-grade fever was also noted, patient came back to the ER, chest x- ray showed no evidence of active disease. Admitted with the impression of acute exacerbation of COPD, purulent tracheobronchitis, acute on chronic hypoxic respiratory failure, and this consult was initiated. The patient is seen again today 11/01/2016 in follow-up on the selective care unit. She is awake and alert in no acute distress. She is quite dyspneic on minimal exertion but is able to complete more sentences then she could yesterday. Her shortness of breath is about the same no real improvement thus far. She is maintaining O2 saturations in the upper 90s on 4 L/m per nasal cannula. Currently afebrile. Hemodynamically stable. She remains on bronchodilators 4 times a day and when necessary, IV Solu-Medrol and empiric antibiotics in the form of doxycycline. Reevaluated today on 11/02/2016, patient is about the same. Continues to have profound shortness of breath with any activity, intermittent episodes of cough, less wheezing. Patient remains maximized on bronchodilators and steroids. She is also on antibiotics in the form of doxycycline. Reevaluated today on 11/03/2016, again no change whatsoever, patient continues to have shortness of breath at rest and with any activity. Occasional dry cough, hardly any wheezing, no chest pain, patient is getting more agitated because of her worsening shortness of breath. WBC count is 16.4 hemoglobin is 10.4. Electrodes are normal renal profile is normal. The patient is seen again today 11/04/2016 in the intensive care unit. She did go on to develop acute respiratory failure requiring intubation and mechanical ventilatory support early this morning approximately 6:30 AM. Her current vent settings are assist control of 16, tidal volume 400, FiO2 35% and a PEEP of 5. Blood gases reveal a pO2 of 128, pCO2 of 90 pH 7.23. She did become hypotensive following intubation from the positive pressure decreasing venous return. We have ordered one to 3 L of IV fluid resuscitation to maintain mean arterial pressures greater than 60. Objective - Vital Signs Vital signs: Vital Signs Temp 98.2 F 11/04/16 08:00 Pulse 85 11/04/16 11:00 Resp 16 11/04/16 11:00 BP 84/57 11/04/16 11:00 Pulse Ox 96 11/04/16 11:00 Intake & Output 11/03/16 11/04/16 11/04/16 18:59 06:59 18:59 Intake Total 814 981 6202.28 Output Total 1250 1571 82 Balance -1010 -971 2118.28 Weight 69.1 kg Intake: IV 600 2200 Sodium Chloride 0.9% 1, 600 700 000 ml @ 100 mls/hr IV . Q10H [facility] Rx#:[id number] Sodium Chloride 0.9% 1, 1500 000 ml @ 999 mls/hr IV . Q1H1M [facility] Rx#:[id number] Intake, IV Titration 0.28 Amount Propofol 500 mg In Empty 0.28 Bag 1 bag @ Titrate IV . Q0M [facility] Rx#:[id number] Oral 240 Output: Urine 1250 1571 82 Other: Voiding Method Indwelling Catheter # Voids 1 1 - Exam GENERAL EXAM: Frail, cachectic. Intubated, on mechanical ventilator. HEAD: Normocephalic. EYES: Sluggish reaction of pupils, equal size. NOSE: Clear with pink turbinates. THROAT: Tube and gastric tube secured in place. NECK: No masses, no JVD. CHEST: No chest wall deformity. LUNGS: Equal air entry with bilateral wheeze. Scattered rhonchi. Diminished. CVS: S1 and S2 normal with no audible murmurs, regular rhythm. ABDOMEN: No hepatosplenomegaly, normal bowel sounds, no guarding or rigidity. SPINE: No scoliosis or deformity SKIN: No rashes Extremities: There is no peripheral edema. No clubbing, no cyanosis. Peripheral pulses are intact. - Labs CBC & Chem 7: 11/04/16 04:20 11/04/16 04:28 Labs: Abnormal Lab Results - Last 24 Hours (Table) 11/03/16 11/03/16 11/03/16 Range/Units 11:19 17:22 21:02 WBC (3.8-10.6) k/uL RBC (3.80-5.40) m/uL Hgb (11.4-16.0) gm/dL MCHC (31.0-37.0) g/dL Neutrophils # (1.3-7.7) k/uL Lymphocytes # (1.0-4.8) k/uL ABG pH 7.29 L (7.35-7.45) ABG pCO2 84 H* (35-45) mmHg ABG pO2 82 L (83-108) mmHg ABG HCO3 39 H (21-25) mmol/L ABG Total CO2 42 H (19-24) mmol/L ABG O2 Saturation (94-97) % Chloride (98-107) mmol/L Carbon Dioxide (22-30) mmol/L BUN (7-17) mg/dL Glucose (74-99) mg/dL POC Glucose (mg/dL) 328 H 123 H (75-99) mg/dL Calcium (8.4-10.2) mg/dL Urine Protein (Negative) Urine Ketones (Negative) Hyaline Casts (0-2) /lpf Urine Mucus (None) /hpf 11/03/16 11/04/16 11/04/16 Range/Units 22:59 01:30 04:20 WBC 20.0 H (3.8-10.6) k/uL RBC 3.72 L (3.80-5.40) m/uL Hgb 10.9 L (11.4-16.0) gm/dL MCHC 30.1 L (31.0-37.0) g/dL Neutrophils # 18.4 H (1.3-7.7) k/uL Lymphocytes # 0.4 L (1.0-4.8) k/uL ABG pH (7.35-7.45) ABG pCO2 (35-45) mmHg ABG pO2 (83-108) mmHg ABG HCO3 (21-25) mmol/L ABG Total CO2 (19-24) mmol/L ABG O2 Saturation (94-97) % Chloride (98-107) mmol/L Carbon Dioxide (22-30) mmol/L BUN (7-17) mg/dL Glucose (74-99) mg/dL POC Glucose (mg/dL) 145 H (75-99) mg/dL Calcium (8.4-10.2) mg/dL Urine Protein Trace H (Negative) Urine Ketones Trace H (Negative) Hyaline Casts 7 H (0-2) /lpf Urine Mucus Rare H (None) /hpf 11/04/16 11/04/16 11/04/16 Range/Units 04:28 06:25 07:30 WBC (3.8-10.6) k/uL RBC (3.80-5.40) m/uL Hgb (11.4-16.0) gm/dL MCHC (31.0-37.0) g/dL Neutrophils # (1.3-7.7) k/uL Lymphocytes # (1.0-4.8) k/uL ABG pH 7.05 L* 7.23 L (7.35-7.45) ABG pCO2 >125 H* 90 H* (35-45) mmHg ABG pO2 72 L 128 H (83-108) mmHg ABG HCO3 38 H 36 H (21-25) mmol/L ABG Total CO2 43 H 39 H (19-24) mmol/L ABG O2 Saturation 82.0 L 97.9 H (94-97) % Chloride 95 L (98-107) mmol/L Carbon Dioxide 39 H (22-30) mmol/L BUN 21 H (7-17) mg/dL Glucose 190 H (74-99) mg/dL POC Glucose (mg/dL) (75-99) mg/dL Calcium 7.9 L (8.4-10.2) mg/dL Urine Protein (Negative) Urine Ketones (Negative) Hyaline Casts (0-2) /lpf Urine Mucus (None) /hpf 11/04/16 11/04/16 Range/Units 08:46 08:47 WBC (3.8-10.6) k/uL RBC (3.80-5.40) m/uL Hgb (11.4-16.0) gm/dL MCHC (31.0-37.0) g/dL Neutrophils # (1.3-7.7) k/uL Lymphocytes # (1.0-4.8) k/uL ABG pH (7.35-7.45) ABG pCO2 (35-45) mmHg ABG pO2 (83-108) mmHg ABG HCO3 (21-25) mmol/L ABG Total CO2 (19-24) mmol/L ABG O2 Saturation (94-97) % Chloride (98-107) mmol/L Carbon Dioxide (22-30) mmol/L BUN (7-17) mg/dL Glucose (74-99) mg/dL POC Glucose (mg/dL) >600 H 182 H (75-99) mg/dL Calcium (8.4-10.2) mg/dL Urine Protein (Negative) Urine Ketones (Negative) Hyaline Casts (0-2) /lpf Urine Mucus (None) /hpf Microbiology - Last 24 Hours (Table) 10/31/16 11:50 Blood Culture - Preliminary Blood No Growth after 72 hours Assessment and Plan Plan: Impression: #1 Acute exacerbation of severe oxygen dependent chronic obstructive pulmonary disease complicated by purulent tracheobronchitis. #2 Acute on chronic hypoxic respiratory failure secondary to above requiring intubation and mechanical ventilatory support on 11/04/2016.. #3 Severe pulmonary hypertension, currently on Tyvaso. Being followed at the pulmonary hypertension clinic in the [facility]. #4 End-stage pulmonary disease, initially evaluated for possible lung transplant. #5 Recent non-ST segment elevation myocardial infarction approximately one month ago. Normal coronary arteries. 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 #7 Hydronephrosis with adhesions with subsequent right ureteral stent placement. #8 Osteoporosis. #9 Hiatal hernia. #10 Depression with recent loss of her in March 2016. #11 40 year smoking history, quit in January 2015. #12 Hyperlipidemia. #13 Poor overall functional performance based on the above-mentioned multiple comorbidities. Plan: The patient was seen and evaluated by Dr. Albarran. Her chest x-ray and ABGs and labs were reviewed. We will have respiratory insert the endotracheal tube another 1.5 cm based on the x-ray findings. We will give the patient fluid boluses to increase her blood pressure. We will have discussion with the family members regarding the patient's overall poor prognosis secondary to her severe lung disease. She would most likely require long-term ventilatory support and subsequent recasting and PEG tube placement. In the interim, we'll continue with full supportive care. We'll repeat her chest x-ray and ABGs in the a.m. We'll continue with her current pulmonary medications. We'll continue to follow. Critical care time 38 minutes. Time with Patient: Greater than 30
[2016-11-04 11:51] LABS: Glucose,Whole Blood 97 mg/dL (75-99)
[2016-11-04] MEDS ORDERED: SODIUM CHLORIDE 0.9% 1,000 ML IV ONE (11:51)
[2016-11-04] MEDS: CALCIUM CARBONATE 500 MG CHEWABLE PO SCH (13:47)
[2016-11-04] MEDS ORDERED: NOREPINEPHRIN 4 MG-0.9% NS PMX 4 MG/250 ML ML IV SCH (14:30)
[2016-11-04] MEDS: [UNRECOGNIZED DRUG - OTHER] INHALATION SCH ×2 (15:24→19:17)
[2016-11-04 17:37] LABS: Glucose,Whole Blood 117 mg/dL (75-99)
--- NOTE | 2016-11-04 19:22 | PN ---
DATE OF SERVICE: 11/03/2016 This 61-year-old female who was admitted with COPD, acute exacerbation, is still having shortness of breath. A repeat chest x-ray was done today which showed some clearing of the left lung infiltrate. No chest pain or palpitation. No fever. On exam, alert and oriented x3. Pulse is 94, blood pressure 150/86, respiration 22, temperature 97 degrees, pulse ox 94% on 4 l. HEENT: Conjunctivae normal. Oral mucosa moist. NECK: No jugular venous distention. No carotid bruit. No lymph node enlargement. CARDIOVASCULAR: S1, S2 muffled. RESPIRATORY: Breath sounds diminished at the bases. Bilateral scattered rhonchi and crackles. ABDOMEN: Soft, non-tender. LEGS: No edema. No swelling. NERVOUS SYSTEM: No focal deficit. LABS: WBC 16.4, hemoglobin 10.4. ABGs show pH 7.29. ASSESSMENT: 1. Chronic obstructive pulmonary disease, acute exacerbation, with acute purulent tracheobronchitis. 2. Hyponatremia. 3. History of pulmonary hypertension. 4. Acute on chronic hypoxic hypercarbic respiratory failure. 5. Multiple medical issues. RECOMMENDATIONS AND DISCUSSION: I recommend to continue current medications, continue symptomatic treatment, continue with the bronchodilators, continue with the steroids. Follow closely with Dr. Pabon. Guarded prognosis. Further recommendations to follow. [facility]
[2016-11-04 20:32] LABS: Glucose,Whole Blood 126 mg/dL (75-99)
[2016-11-05] MEDS: PROPOFOL 500 MG in EMPTY BAG 1 BAG IV SCH ×11 (00:51→22:22)
[2016-11-05] MEDS: SODIUM CHLORIDE 0.9% 1,000 ML IV SCH ×2 (04:56→18:30)
[2016-11-05] MEDS: methylPREDNISolone SOD SUCCI 40 MG/ML 1 ML VIAL IV SCH ×3 (05:03→18:11)
[2016-11-05 05:14] LABS: ABG Base Excess 5.6 mmol/L; ABG HCO3 32 mmol/L (21-25); ABG PCO2 67 mmHg (35-45); ABG PO2 69 mmHg (83-108); ABG TCO2 34 mmol/L (19-24)
[2016-11-05 05:49] LABS: Basophils % (A) 0 %; CH 28.2; CHCM 29.8; Eosinophils # (A) 0.1 k/uL (0-0.7); Eosinophils % (A) 0 %; HCT 30.9 % (34.0-46.0); HDW 2.72; HGB 9.7 gm/dL (11.4-16.0); Hypochromasia Marked; Luc # (Auto) 0.11; Luc % (Auto) 1; Lymphocytes # (A) 0.4 k/uL (1.0-4.8); Lymphocytes % (A) 3 %; MCH 29.9 pg (25.0-35.0); MCHC 31.5 g/dL (31.0-37.0); MCV 94.9 fL (80.0-100.0); Mean Platelet Volume 7.2; Monocytes # (A) 0.6 k/uL (0-1.0); Monocytes % (A) 5 %; Neutrophils # (A) 12.1 k/uL (1.3-7.7); Neutrophils % (A) 92 %; RBC 3.25 m/uL (3.80-5.40); RDW 14.1 % (11.5-15.5); WBC 13.2 k/uL (3.8-10.6); WBC (Perox) 13.73
[2016-11-05 05:58] LABS: Anion Gap 6 mmol/L; Blood Urea Nitrogen 21 mg/dL (7-17); Calcium 7.7 mg/dL (8.4-10.2); Carbon Dioxide 31 mmol/L (22-30); Chloride 106 mmol/L (98-107); Glucose 122 mg/dL (74-99); Non-African American GFR(MDRD) >60 (>60 ml/min/1.73 sqM); Potassium 3.5 mmol/L (3.5-5.1); Sodium 143 mmol/L (137-145)
--- NOTE | 2016-11-05 06:59 | XR ---
EXAMINATION TYPE: XR chest 1V portable DATE OF EXAM: 11/05/2016 CLINICAL HISTORY: Difficulty breathing progress study. TECHNIQUE: Single AP portable upright view of the chest is obtained. COMPARISON: Chest x-ray from one day earlier FINDINGS: An endotracheal tube and orogastric tube are stable in appearance. There is background chronic emphysematous change without suspicious new focal airspace opacity, pleur al effusion, or pneumothorax seen bilaterally. Cardiac silhouette size is within normal limits. Visua lized osseous structures are intact. IMPRESSION: Overall stable findings, chronic emphysematous change without acute pulmonary process.
[2016-11-05] MEDS: FORMOTEROL FUMARATE 20 MCG/2 ML NEBU INHALATION SCH ×2 (07:08→19:32)
[2016-11-05] MEDS: IPRATROPIUM-ALBUTEROL 3 ML NEB INHALATION SCH ×4 (07:08→19:32)
[2016-11-05] MEDS: BUDESONIDE 1 MG/2 ML NEBU INHALATION SCH ×2 (07:08→19:32)
[2016-11-05] MEDS: [UNRECOGNIZED DRUG - OTHER] INHALATION SCH ×4 (07:09→20:08)
[2016-11-05 07:18] LABS: Glucose,Whole Blood 128 mg/dL (75-99)
[2016-11-05 07:56] LABS: Glucose,Whole Blood 131 mg/dL (75-99)
[2016-11-05] MEDS: INSULIN LISPRO (humaLOG) 300 UNIT/3 ML VIAL SQ SCH ×3 (07:57→18:11)
[2016-11-05] MEDS: POTASSIUM CHLORIDE ORAL LIQUID 40 MEQ/30 ML CUP NG-TUBE SCH ×2 (07:58→09:56)
[2016-11-05] MEDS: ATORVASTATIN 80 MG TAB PO SCH (08:00)
[2016-11-05] MEDS: CHOLECALCIFEROL 1,000 UNIT TAB PO SCH (08:00)
[2016-11-05] MEDS: BISACODYL 5 MG TABLET.DR PO SCH (08:00)
[2016-11-05] MEDS: CHLORHEXIDINE GLUCONATE 15 ML CUP MUCOUS MEM SCH ×2 (08:00→20:28)
[2016-11-05] MEDS: PANTOPRAZOLE 40 MG/10 ML VIAL IVP SCH (08:01)
[2016-11-05] MEDS: NYSTATIN 100,000 UNIT/ML SUSP 500,000 UNIT/5 ML CUP PO SCH ×4 (08:01→22:22)
[2016-11-05] MEDS: ENOXAPARIN 40 MG/0.4 ML SYRINGE SQ SCH (08:01)
--- NOTE | 2016-11-05 10:49 | PN ---
DATE OF SERVICE: 11/04/2016 This 61-year-old woman was admitted with COPD acute exacerbation, also acute hypoxic respiratory failure. This morning the patient had significant difficulty in breathing and patient acute respiratory acidosis and patient was transferred to ICU, mechanically intubated. Patient was sedated. Dr. Albarran is following the patient closely. The patient is on IV steroids, antibiotics, and bronchodilators. PAST MEDICAL HISTORY: Reviewed. Review of systems could not be taken. The patient is on mechanical ventilation. Current medications reviewed and include: Tylenol, DuoNeb, Lipitor, Dulcolax, Pulmicort, TUMS, Peridex, vitamin D3, Lovenox, Perforomist, Solu-Medrol, Levophed, Protonix, Propofol, saline. PHYSICAL EXAM: Patient is mechanically ventilated and sedated. Pulse 94, blood pressure 105/64, respirations 20, temperature is normal. Pulse ox 94% on mechanical ventilation. Vent settings are noted. The patient is on 350 tidal volume, 34% FIO2, 5 of PEEP. HEENT: Conjunctivae normal. Oral mucosa moist. NECK: No jugular venous distention. No carotid bruit, no lymph node enlargement. CARDIOVASCULAR: S1, S2 RESPIRATORY: Breath sounds diminished at the bases. Bilateral rhonchi and expiratory wheezing and crackles. ABDOMEN: Soft, nontender. LEGS: No edema. NERVOUS SYSTEM: Diffusely weak. LABS: WBC 20, hemoglobin 10.9. ASSESSMENT: 1. Chronic obstructive pulmonary disease acute exacerbation with acute purulent tracheobronchitis with acute hypoxic hypercarbic respiratory failure. 2. History of pulmonary hypertension. 3. History of chronic hypoxic respiratory failure. 5. Acute respiratory acidosis. RECOMMENDATIONS AND DISCUSSION: I recommend to continue with with bronchodilators, continue with mechanical ventilation, continue with IV steroids. Closely follow pulmonary, Dr. Albarran. Guarded prognosis because of multiple complex medical issues. Further recommendations to follow. [facility]
[2016-11-05 11:56] LABS: Glucose,Whole Blood 139 mg/dL (75-99)
[2016-11-05] MEDS: CALCIUM CARBONATE 500 MG CHEWABLE PO SCH (11:58)
--- NOTE | 2016-11-05 12:05 | P.PN ---
Subjective Principal diagnosis: Acute exacerbation of chronic obstructive pulmonary disease. This is a 61-year-old female with history of multiple medical problems including pulmonary hypertension, severe end-stage COPD: Stage IV, history of hiatal hernia, esophagitis, precancerous colonic tumor with bowel resection, history of cardiomyopathy and LV dysfunction, history of chronic hypoxic respiratory failure maintained on oxygen, history of pulmonary hypertension maintained on tyvaso, ration continues to follow-up with a pulmonary hypertension clinic at the [facility], she is also being followed by the transplant team at the [facility]. Recently the patient had an acute non-ST segment elevation myocardial infarction, she developed congestive heart failure, and an echocardiogram showed apical ballooning syndrome, global hypokinesia, and ejection fraction was less than 25%. Patient was admitted from 09/20 until 09/28/2016, and she has been doing relatively well until recently were and the patient seemed to develop more shortness of breath, intermittent episodes of cough wheezing, cough is productive with yellow phlegm. Low-grade fever was also noted, patient came back to the ER, chest x- ray showed no evidence of active disease. Admitted with the impression of acute exacerbation of COPD, purulent tracheobronchitis, acute on chronic hypoxic respiratory failure, and this consult was initiated. The patient is seen again today 11/01/2016 in follow-up on the selective care unit. She is awake and alert in no acute distress. She is quite dyspneic on minimal exertion but is able to complete more sentences then she could yesterday. Her shortness of breath is about the same no real improvement thus far. She is maintaining O2 saturations in the upper 90s on 4 L/m per nasal cannula. Currently afebrile. Hemodynamically stable. She remains on bronchodilators 4 times a day and when necessary, IV Solu-Medrol and empiric antibiotics in the form of doxycycline. Reevaluated today on 11/02/2016, patient is about the same. Continues to have profound shortness of breath with any activity, intermittent episodes of cough, less wheezing. Patient remains maximized on bronchodilators and steroids. She is also on antibiotics in the form of doxycycline. Reevaluated today on 11/03/2016, again no change whatsoever, patient continues to have shortness of breath at rest and with any activity. Occasional dry cough, hardly any wheezing, no chest pain, patient is getting more agitated because of her worsening shortness of breath. WBC count is 16.4 hemoglobin is 10.4. Electrodes are normal renal profile is normal. The patient is seen again today 11/04/2016 in the intensive care unit. She did go on to develop acute respiratory failure requiring intubation and mechanical ventilatory support early this morning approximately 6:30 AM. Her current vent settings are assist control of 16, tidal volume 400, FiO2 35% and a PEEP of 5. Blood gases reveal a pO2 of 128, pCO2 of 90 pH 7.23. She did become hypotensive following intubation from the positive pressure decreasing venous return. We have ordered one to 3 L of IV fluid resuscitation to maintain mean arterial pressures greater than 60. The patient is seen again today 11/05/2016 in the intensive care unit. Discussions with the family did result in the plan for possible tracheostomy tube and PEG tube placements as the patient is not able to be extubated. We will give her another daily interruption of sedation today and some weaning trials. She is currently under Brovana and 75 mcg/kg/m. She is a 0.9 normal saline at 100 MLS per hour. Her current vent settings are assist-control 20, tidal volume 350, FiO2 35% and a PEEP of 5. Morning blood gases revealed a pO2 of 69, pCO2 67, pH 7.30. She does have copious amounts of pale yellow sputum during suctioning. Sputum sample is pending. Today's chest x-ray continues to revealed chronic somatic changes but no acute pulmonary process. White count 13.2. Hemoglobin 9.7. Objective - Vital Signs Vital signs: Vital Signs Temp 99.4 F 11/05/16 08:00 Pulse 115 H 11/05/16 11:44 Resp 40 H 11/05/16 11:00 BP 127/62 11/05/16 11:00 Pulse Ox 93 L 11/05/16 11:00 Intake & Output 11/04/16 11/05/16 11/05/16 18:59 06:59 18:59 Intake Total 3941.425 1732.900 500 Output Total 360 612 325 Balance 3581.425 1120.900 175 Weight 70.2 kg Intake: IV 3850 1200 500 Sodium Chloride 0.9% 1, 1300 1200 500 000 ml @ 100 mls/hr IV . Q10H [facility] Rx#:[id number] Sodium Chloride 0.9% 1, 2550 000 ml @ 999 mls/hr IV . Q1H1M [facility] Rx#:[id number] Intake, IV Titration 91.425 532.900 Amount Norepinephrin 4 mg-0.9% 3.375 150.250 Ns Pmx 4 mg In 250 ml @ Titrate IV .Q0M [facility] Rx#: [id number] Propofol 500 mg In Empty 88.050 382.650 Bag 1 bag @ Titrate IV . Q0M [facility] Rx#:[id number] Output: Urine 360 612 325 Other: Voiding Method Indwelling Catheter Indwelling Catheter Indwelling Catheter - Exam GENERAL EXAM: Frail, cachectic. Intubated, on mechanical ventilator. HEAD: Normocephalic. EYES: Sluggish reaction of pupils, equal size. NOSE: Clear with pink turbinates. THROAT: Tube and gastric tube secured in place. NECK: No masses, no JVD. CHEST: No chest wall deformity. LUNGS: Equal air entry with bilateral wheeze. Scattered rhonchi. Diminished. CVS: S1 and S2 normal with no audible murmurs, regular rhythm. ABDOMEN: No hepatosplenomegaly, normal bowel sounds, no guarding or rigidity. SPINE: No scoliosis or deformity SKIN: No rashes Extremities: There is no peripheral edema. No clubbing, no cyanosis. Peripheral pulses are intact. - Labs CBC & Chem 7: 11/05/16 05:26 11/05/16 05:26 Labs: Abnormal Lab Results - Last 24 Hours (Table) 11/04/16 11/04/16 11/05/16 Range/Units 17:35 20:30 05:10 WBC (3.8-10.6) k/uL RBC (3.80-5.40) m/uL Hgb (11.4-16.0) gm/dL Hct (34.0-46.0) % Neutrophils # (1.3-7.7) k/uL Lymphocytes # (1.0-4.8) k/uL ABG pH 7.30 L (7.35-7.45) ABG pCO2 67 H (35-45) mmHg ABG pO2 69 L (83-108) mmHg ABG HCO3 32 H (21-25) mmol/L ABG Total CO2 34 H (19-24) mmol/L ABG O2 Saturation 91.0 L (94-97) % Carbon Dioxide (22-30) mmol/L BUN (7-17) mg/dL Glucose (74-99) mg/dL POC Glucose (mg/dL) 117 H 126 H (75-99) mg/dL Calcium (8.4-10.2) mg/dL 11/05/16 11/05/16 11/05/16 Range/Units 05:26 05:26 07:16 WBC 13.2 H (3.8-10.6) k/uL RBC 3.25 L (3.80-5.40) m/uL Hgb 9.7 L (11.4-16.0) gm/dL Hct 30.9 L (34.0-46.0) % Neutrophils # 12.1 H (1.3-7.7) k/uL Lymphocytes # 0.4 L (1.0-4.8) k/uL ABG pH (7.35-7.45) ABG pCO2 (35-45) mmHg ABG pO2 (83-108) mmHg ABG HCO3 (21-25) mmol/L ABG Total CO2 (19-24) mmol/L ABG O2 Saturation (94-97) % Carbon Dioxide 31 H (22-30) mmol/L BUN 21 H (7-17) mg/dL Glucose 122 H (74-99) mg/dL POC Glucose (mg/dL) 128 H (75-99) mg/dL Calcium 7.7 L (8.4-10.2) mg/dL 11/05/16 11/05/16 Range/Units 07:54 11:55 WBC (3.8-10.6) k/uL RBC (3.80-5.40) m/uL Hgb (11.4-16.0) gm/dL Hct (34.0-46.0) % Neutrophils # (1.3-7.7) k/uL Lymphocytes # (1.0-4.8) k/uL ABG pH (7.35-7.45) ABG pCO2 (35-45) mmHg ABG pO2 (83-108) mmHg ABG HCO3 (21-25) mmol/L ABG Total CO2 (19-24) mmol/L ABG O2 Saturation (94-97) % Carbon Dioxide (22-30) mmol/L BUN (7-17) mg/dL Glucose (74-99) mg/dL POC Glucose (mg/dL) 131 H 139 H (75-99) mg/dL Calcium (8.4-10.2) mg/dL Microbiology - Last 24 Hours (Table) 11/04/16 08:21 Gram Stain - Preliminary Sputum Sputum Culture - Preliminary 10/31/16 11:50 Blood Culture - Preliminary Blood No Growth after 96 hours Assessment and Plan Plan: Impression: #1 Acute exacerbation of severe oxygen dependent chronic obstructive pulmonary disease complicated by purulent tracheobronchitis. #2 Acute on chronic hypoxic respiratory failure secondary to above requiring intubation and mechanical ventilatory support on 11/04/2016. #3 Severe pulmonary hypertension, currently on Tyvaso. Being followed at the pulmonary hypertension clinic in the [facility]. #4 End-stage pulmonary disease, initially evaluated for possible lung transplant. #5 Recent non-ST segment elevation myocardial infarction approximately one month ago. Normal coronary arteries. 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 #7 Hydronephrosis with adhesions with subsequent right ureteral stent placement. #8 Osteoporosis. #9 Hiatal hernia. #10 Depression with recent loss of her in March 2016. #11 40 year smoking history, quit in January 2015. #12 Hyperlipidemia. #13 Poor overall functional performance based on the above-mentioned multiple comorbidities. Plan: The patient was seen and evaluated by Dr. Albarran. Her chest x-ray and ABGs and labs were reviewed. She would most likely require long-term ventilatory support and subsequent recasting and PEG tube placement. In the interim, we'll continue with full supportive care. We'll repeat her chest x-ray and ABGs in the a.m. We'll continue with her current pulmonary medications. We'll continue to follow. Critical care time 35 minutes. Time with Patient: Greater than 30
[2016-11-05 14:10] VITALS: BMI 24.2
--- NOTE | 2016-11-05 17:23 | P.PN ---
Subjective Patient remains on ventilator. Family at bedside. Discuss that patient wanted to follow up with heart-lung transplant. Patient remains sedated Objective - Vital Signs Vital signs: Vital Signs Temp 99.1 F 11/05/16 12:00 Pulse 94 11/05/16 17:00 Resp 20 11/05/16 17:00 BP 102/59 11/05/16 17:00 Pulse Ox 94 L 11/05/16 17:00 Intake & Output 11/04/16 11/05/16 11/05/16 18:59 06:59 18:59 Intake Total 3941.425 7457.513 6756.765 Output Total 360 612 540 Balance 3581.425 1120.900 815.765 Weight 70.2 kg 70.2 kg Intake: IV 3850 1200 1000 Sodium Chloride 0.9% 1, 1300 1200 1000 000 ml @ 100 mls/hr IV . Q10H [facility] Rx#:[id number] Sodium Chloride 0.9% 1, 2550 000 ml @ 999 mls/hr IV . Q1H1M [facility] Rx#:[id number] Intake, IV Titration 91.425 532.900 115.765 Amount Norepinephrin 4 mg-0.9% 3.375 150.250 Ns Pmx 4 mg In 250 ml @ Titrate IV .Q0M [facility] Rx#: [id number] Propofol 500 mg In Empty 88.050 382.650 115.765 Bag 1 bag @ Titrate IV . Q0M [facility] Rx#:[id number] Oral 240 Output: Urine 360 612 540 Other: Voiding Method Indwelling Catheter Indwelling Catheter Indwelling Catheter # Voids 45 - Constitutional General appearance: Present: thin - EENT EENT Comment(s): Patient intubated with the feeding tube in place Eyes: Present: PERRLA Ears: bilateral: normal - Neck Neck: Present: normal ROM - Respiratory Respiratory: bilateral: diminished - Cardiovascular Rhythm: regular - Gastrointestinal General gastrointestinal: Present: soft - Genitourinary Genitourinary Comment(s): Redmond catheter in place - Musculoskeletal Musculoskeletal: Present: generalized weakness - Psychiatric Psychiatric Comment(s): Patient sedated on ventilator - Labs CBC & Chem 7: 11/05/16 05:26 11/05/16 05:26 Labs: Abnormal Lab Results - Last 24 Hours (Table) 11/04/16 11/04/16 11/05/16 Range/Units 17:35 20:30 05:10 WBC (3.8-10.6) k/uL RBC (3.80-5.40) m/uL Hgb (11.4-16.0) gm/dL Hct (34.0-46.0) % Neutrophils # (1.3-7.7) k/uL Lymphocytes # (1.0-4.8) k/uL ABG pH 7.30 L (7.35-7.45) ABG pCO2 67 H (35-45) mmHg ABG pO2 69 L (83-108) mmHg ABG HCO3 32 H (21-25) mmol/L ABG Total CO2 34 H (19-24) mmol/L ABG O2 Saturation 91.0 L (94-97) % Carbon Dioxide (22-30) mmol/L BUN (7-17) mg/dL Glucose (74-99) mg/dL POC Glucose (mg/dL) 117 H 126 H (75-99) mg/dL Calcium (8.4-10.2) mg/dL 11/05/16 11/05/16 11/05/16 Range/Units 05:26 05:26 07:16 WBC 13.2 H (3.8-10.6) k/uL RBC 3.25 L (3.80-5.40) m/uL Hgb 9.7 L (11.4-16.0) gm/dL Hct 30.9 L (34.0-46.0) % Neutrophils # 12.1 H (1.3-7.7) k/uL Lymphocytes # 0.4 L (1.0-4.8) k/uL ABG pH (7.35-7.45) ABG pCO2 (35-45) mmHg ABG pO2 (83-108) mmHg ABG HCO3 (21-25) mmol/L ABG Total CO2 (19-24) mmol/L ABG O2 Saturation (94-97) % Carbon Dioxide 31 H (22-30) mmol/L BUN 21 H (7-17) mg/dL Glucose 122 H (74-99) mg/dL POC Glucose (mg/dL) 128 H (75-99) mg/dL Calcium 7.7 L (8.4-10.2) mg/dL 11/05/16 11/05/16 Range/Units 07:54 11:55 WBC (3.8-10.6) k/uL RBC (3.80-5.40) m/uL Hgb (11.4-16.0) gm/dL Hct (34.0-46.0) % Neutrophils # (1.3-7.7) k/uL Lymphocytes # (1.0-4.8) k/uL ABG pH (7.35-7.45) ABG pCO2 (35-45) mmHg ABG pO2 (83-108) mmHg ABG HCO3 (21-25) mmol/L ABG Total CO2 (19-24) mmol/L ABG O2 Saturation (94-97) % Carbon Dioxide (22-30) mmol/L BUN (7-17) mg/dL Glucose (74-99) mg/dL POC Glucose (mg/dL) 131 H 139 H (75-99) mg/dL Calcium (8.4-10.2) mg/dL Microbiology - Last 24 Hours (Table) 10/31/16 11:50 Blood Culture - Preliminary Blood No Growth after 120 hours 11/04/16 08:21 Gram Stain - Preliminary Sputum Sputum Culture - Preliminary Gram Neg Bacilli - Imaging and Cardiology Chest x-ray: report reviewed Assessment and Plan Plan: Assessment end-stage respiratory failure has been evaluated for a long transplant chronic obstructive pulmonary disease acute exacerbation with purulent tracheal bronchitis acute and chronic hypoxic hypercarbic respiratory failure requiring intubation and mechanical ventilatory support severe pulmonary hypertension congestive heart failure ejection fraction 25% systolic failure chronic depression grief reaction Plan discussing possible trach with pick to placement need to discuss transferred to [facility] if family wants to have heart -lung transplant
[2016-11-05 18:10] LABS: Glucose,Whole Blood 153 mg/dL (75-99)
[2016-11-06] MEDS: PROPOFOL 500 MG in EMPTY BAG 1 BAG IV SCH ×9 (00:08→18:21)
[2016-11-06] MEDS: SODIUM CHLORIDE 0.9% 1,000 ML IV SCH (00:08)
[2016-11-06] MEDS: methylPREDNISolone SOD SUCCI 40 MG/ML 1 ML VIAL IV SCH ×4 (00:08→18:24)
[2016-11-06 00:15] LABS: Glucose,Whole Blood 162 mg/dL (75-99)
[2016-11-06] MEDS: INSULIN LISPRO (humaLOG) 300 UNIT/3 ML VIAL SQ SCH ×4 (00:16→18:24)
[2016-11-06 05:06] LABS: Glucose,Whole Blood 154 mg/dL (75-99)
[2016-11-06 05:15] LABS: ABG PH 7.27 (7.35-7.45)
[2016-11-06 05:16] LABS: ABG Base Excess 4.5 mmol/L; ABG HCO3 31 mmol/L (21-25); ABG PCO2 69 mmHg (35-45); ABG PO2 78 mmHg (83-108); ABG TCO2 33 mmol/L (19-24)
[2016-11-06 05:34] LABS: Basophils % (A) 0 %; CH 28.1; CHCM 29.9; Eosinophils # (A) 0.1 k/uL (0-0.7); Eosinophils % (A) 1 %; HCT 30.5 % (34.0-46.0); HDW 2.71; HGB 9.5 gm/dL (11.4-16.0); Hypochromasia Marked; Luc # (Auto) 0.13; Luc % (Auto) 1; Lymphocytes # (A) 0.4 k/uL (1.0-4.8); Lymphocytes % (A) 3 %; MCH 29.4 pg (25.0-35.0); MCHC 31.2 g/dL (31.0-37.0); MCV 94.3 fL (80.0-100.0); Monocytes # (A) 0.4 k/uL (0-1.0); Monocytes % (A) 3 %; Neutrophils % (A) 92 %; RBC 3.24 m/uL (3.80-5.40); RDW 14.2 % (11.5-15.5); WBC (Perox) 13.01
[2016-11-06 05:56] LABS: Anion Gap 5 mmol/L; Blood Urea Nitrogen 24 mg/dL (7-17); Calcium 7.8 mg/dL (8.4-10.2); Carbon Dioxide 31 mmol/L (22-30); Chloride 111 mmol/L (98-107); Glucose 154 mg/dL (74-99); Magnesium 2.5 mg/dL (1.6-2.3); Non-African American GFR(MDRD) >60 (>60 ml/min/1.73 sqM); Phosphorous 1.9 mg/dL (2.5-4.5); Potassium 4.3 mmol/L (3.5-5.1); Sodium 147 mmol/L (137-145)
--- NOTE | 2016-11-06 07:11 | XR ---
EXAMINATION TYPE: XR chest 1V portable DATE OF EXAM: 11/06/2016 Comparison: 11/05/2016 Clinical History: 61-year-old female Tube placement Findings: ET tube is satisfactory with tip just below the level of the medial clavicular heads. NG tube courses below the diaphragm. Heart is normal size. Atherosclerotic arch calcifications. On vasculature withi n normal limits. There is slight blunting of the right costophrenic angle. The left costophrenic angl e is obscured by overlying leads. No consolidation seen. Hyperinflation. Impression: COPD with possible trace right effusion.
[2016-11-06] MEDS: IPRATROPIUM-ALBUTEROL 3 ML NEB INHALATION SCH ×4 (07:37→19:19)
[2016-11-06] MEDS: BUDESONIDE 1 MG/2 ML NEBU INHALATION SCH ×2 (07:37→19:19)
[2016-11-06] MEDS: FORMOTEROL FUMARATE 20 MCG/2 ML NEBU INHALATION SCH ×3 (07:37→19:27)
[2016-11-06 07:39] LABS: Glucose,Whole Blood 162 mg/dL (75-99)
[2016-11-06] MEDS: ATORVASTATIN 80 MG TAB PO SCH (07:51)
[2016-11-06] MEDS: CHLORHEXIDINE GLUCONATE 15 ML CUP MUCOUS MEM SCH (07:51)
[2016-11-06] MEDS: NYSTATIN 100,000 UNIT/ML SUSP 500,000 UNIT/5 ML CUP PO SCH ×3 (07:52→18:24)
[2016-11-06] MEDS: CHOLECALCIFEROL 1,000 UNIT TAB PO SCH (07:52)
[2016-11-06] MEDS: ENOXAPARIN 40 MG/0.4 ML SYRINGE SQ SCH (07:52)
[2016-11-06] MEDS: PANTOPRAZOLE 40 MG/10 ML VIAL IVP SCH (07:53)
[2016-11-06] MEDS ORDERED: BISACODYL 10 MG SUPP RECTAL SCH (09:00)
[2016-11-06] MEDS: [UNRECOGNIZED DRUG - OTHER] INHALATION SCH ×3 (09:05→19:20)
[2016-11-06] MEDS ORDERED: SODIUM CHLORIDE 0.45% 1,000 ML IV SCH (11:15)
--- NOTE | 2016-11-06 11:43 | P.PN ---
Subjective Principal diagnosis: Acute exacerbation of chronic obstructive pulmonary disease. This is a 61-year-old female with history of multiple medical problems including pulmonary hypertension, severe end-stage COPD: Stage IV, history of hiatal hernia, esophagitis, precancerous colonic tumor with bowel resection, history of cardiomyopathy and LV dysfunction, history of chronic hypoxic respiratory failure maintained on oxygen, history of pulmonary hypertension maintained on tyvaso, ration continues to follow-up with a pulmonary hypertension clinic at the [facility], she is also being followed by the transplant team at the [facility]. Recently the patient had an acute non-ST segment elevation myocardial infarction, she developed congestive heart failure, and an echocardiogram showed apical ballooning syndrome, global hypokinesia, and ejection fraction was less than 25%. Patient was admitted from 09/20 until 09/28/2016, and she has been doing relatively well until recently were and the patient seemed to develop more shortness of breath, intermittent episodes of cough wheezing, cough is productive with yellow phlegm. Low-grade fever was also noted, patient came back to the ER, chest x- ray showed no evidence of active disease. Admitted with the impression of acute exacerbation of COPD, purulent tracheobronchitis, acute on chronic hypoxic respiratory failure, and this consult was initiated. The patient is seen again today 11/01/2016 in follow-up on the selective care unit. She is awake and alert in no acute distress. She is quite dyspneic on minimal exertion but is able to complete more sentences then she could yesterday. Her shortness of breath is about the same no real improvement thus far. She is maintaining O2 saturations in the upper 90s on 4 L/m per nasal cannula. Currently afebrile. Hemodynamically stable. She remains on bronchodilators 4 times a day and when necessary, IV Solu-Medrol and empiric antibiotics in the form of doxycycline. Reevaluated today on 11/02/2016, patient is about the same. Continues to have profound shortness of breath with any activity, intermittent episodes of cough, less wheezing. Patient remains maximized on bronchodilators and steroids. She is also on antibiotics in the form of doxycycline. Reevaluated today on 11/03/2016, again no change whatsoever, patient continues to have shortness of breath at rest and with any activity. Occasional dry cough, hardly any wheezing, no chest pain, patient is getting more agitated because of her worsening shortness of breath. WBC count is 16.4 hemoglobin is 10.4. Electrodes are normal renal profile is normal. The patient is seen again today 11/04/2016 in the intensive care unit. She did go on to develop acute respiratory failure requiring intubation and mechanical ventilatory support early this morning approximately 6:30 AM. Her current vent settings are assist control of 16, tidal volume 400, FiO2 35% and a PEEP of 5. Blood gases reveal a pO2 of 128, pCO2 of 90 pH 7.23. She did become hypotensive following intubation from the positive pressure decreasing venous return. We have ordered one to 3 L of IV fluid resuscitation to maintain mean arterial pressures greater than 60. The patient is seen again today 11/05/2016 in the intensive care unit. Discussions with the family did result in the plan for possible tracheostomy tube and PEG tube placements as the patient is not able to be extubated. We will give her another daily interruption of sedation today and some weaning trials. She is currently under Brovana and 75 mcg/kg/m. She is a 0.9 normal saline at 100 MLS per hour. Her current vent settings are assist-control 20, tidal volume 350, FiO2 35% and a PEEP of 5. Morning blood gases revealed a pO2 of 69, pCO2 67, pH 7.30. She does have copious amounts of pale yellow sputum during suctioning. Sputum sample is pending. Today's chest x-ray continues to revealed chronic somatic changes but no acute pulmonary process. White count 13.2. Hemoglobin 9.7. The patient was seen again today 11/06/2016 in follow-up in the intensive care unit. She remains intubated and on the mechanical ventilator. Current vent settings are assist-control 20, tidal volume 350, FiO2 35% and a PEEP of 5. Morning blood gases reveal a pO2 of 78, pCO2 69, pH 7.27. Yesterday we did a CPAP trial and the patient quickly desaturated to 83% within 5 minutes. We will again today try to give her daily interruption of sedation and weaning trial. Based on her severe end-stage chronic obstructive pulmonary disease will be difficult to wean her from the mechanical ventilator within a timely fashion. We'll plan for tracheostomy tube insertion along with a PEG tube for nutritional support tomorrow or the next day. Her current IV medications include 0.9 normal saline at 100 mL per hour, propofol at 60 mcg/kg/m, Vital HP at 20 mls per hour which is her goal. There is no significant leukocytosis current WBC 13.0, hemoglobin 9.5, sodium 147 and chloride 111. She is maintaining O2 saturations in the low 90s on 35% FiO2, she is slightly tachycardic, blood pressure stable not requiring pressors. Afebrile. Sputum cultures positive for pseudomonas aeruginosa Objective - Vital Signs Vital signs: Vital Signs Temp 98.8 F 11/06/16 08:00 Pulse 116 H 11/06/16 11:23 Resp 22 11/06/16 10:00 BP 127/70 11/06/16 10:00 Pulse Ox 93 L 11/06/16 10:00 Intake & Output 11/05/16 11/06/16 11/06/16 18:59 06:59 18:59 Intake Total 6951.168 5779.122 542.07 Output Total 615 565 215 Balance 956.040 7318.122 327.07 Weight 70.2 kg 70.1 kg Intake: IV 1200 1200 400 Sodium Chloride 0.9% 1, 1200 1200 400 000 ml @ 100 mls/hr IV . Q10H [facility] Rx#:[id number] Intake, IV Titration 165.765 291.122 102.07 Amount Propofol 500 mg In Empty 165.765 291.122 102.07 Bag 1 bag @ Titrate IV . Q0M [facility] Rx#:[id number] Oral 240 Tube Feeding 180 40 Other 90 Output: Urine 615 565 215 Other: Voiding Method Indwelling Catheter Indwelling Catheter Indwelling Catheter # Voids 45 - Exam GENERAL EXAM: Frail, cachectic. Intubated, on mechanical ventilator. HEAD: Normocephalic. EYES: Sluggish reaction of pupils, equal size. NOSE: Clear with pink turbinates. THROAT: Tube and gastric tube secured in place. NECK: No masses, no JVD. CHEST: No chest wall deformity. LUNGS: Equal air entry with bilateral wheeze. Scattered rhonchi. Diminished. CVS: S1 and S2 normal with no audible murmurs, regular rhythm. ABDOMEN: No hepatosplenomegaly, normal bowel sounds, no guarding or rigidity. SPINE: No scoliosis or deformity SKIN: No rashes Extremities: There is no peripheral edema. No clubbing, no cyanosis. Peripheral pulses are intact. - Labs CBC & Chem 7: 11/06/16 05:22 11/06/16 05:22 Labs: Abnormal Lab Results - Last 24 Hours (Table) 11/05/16 11/05/16 11/06/16 Range/Units 11:55 18:08 00:14 WBC (3.8-10.6) k/uL RBC (3.80-5.40) m/uL Hgb (11.4-16.0) gm/dL Hct (34.0-46.0) % Neutrophils # (1.3-7.7) k/uL Lymphocytes # (1.0-4.8) k/uL ABG pH (7.35-7.45) ABG pCO2 (35-45) mmHg ABG pO2 (83-108) mmHg ABG HCO3 (21-25) mmol/L ABG Total CO2 (19-24) mmol/L ABG O2 Saturation (94-97) % Sodium (137-145) mmol/L Chloride (98-107) mmol/L Carbon Dioxide (22-30) mmol/L BUN (7-17) mg/dL Glucose (74-99) mg/dL POC Glucose (mg/dL) 139 H 153 H 162 H (75-99) mg/dL Calcium (8.4-10.2) mg/dL Phosphorus (2.5-4.5) mg/dL Magnesium (1.6-2.3) mg/dL 11/06/16 11/06/16 11/06/16 Range/Units 04:27 05:05 05:22 WBC 13.0 H (3.8-10.6) k/uL RBC 3.24 L (3.80-5.40) m/uL Hgb 9.5 L (11.4-16.0) gm/dL Hct 30.5 L (34.0-46.0) % Neutrophils # 12.0 H (1.3-7.7) k/uL Lymphocytes # 0.4 L (1.0-4.8) k/uL ABG pH 7.27 L (7.35-7.45) ABG pCO2 69 H (35-45) mmHg ABG pO2 78 L (83-108) mmHg ABG HCO3 31 H (21-25) mmol/L ABG Total CO2 33 H (19-24) mmol/L ABG O2 Saturation 93.0 L (94-97) % Sodium (137-145) mmol/L Chloride (98-107) mmol/L Carbon Dioxide (22-30) mmol/L BUN (7-17) mg/dL Glucose (74-99) mg/dL POC Glucose (mg/dL) 154 H (75-99) mg/dL Calcium (8.4-10.2) mg/dL Phosphorus (2.5-4.5) mg/dL Magnesium (1.6-2.3) mg/dL 11/06/16 11/06/16 Range/Units 05:22 07:38 WBC (3.8-10.6) k/uL RBC (3.80-5.40) m/uL Hgb (11.4-16.0) gm/dL Hct (34.0-46.0) % Neutrophils # (1.3-7.7) k/uL Lymphocytes # (1.0-4.8) k/uL ABG pH (7.35-7.45) ABG pCO2 (35-45) mmHg ABG pO2 (83-108) mmHg ABG HCO3 (21-25) mmol/L ABG Total CO2 (19-24) mmol/L ABG O2 Saturation (94-97) % Sodium 147 H (137-145) mmol/L Chloride 111 H (98-107) mmol/L Carbon Dioxide 31 H (22-30) mmol/L BUN 24 H (7-17) mg/dL Glucose 154 H (74-99) mg/dL POC Glucose (mg/dL) 162 H (75-99) mg/dL Calcium 7.8 L (8.4-10.2) mg/dL Phosphorus 1.9 L (2.5-4.5) mg/dL Magnesium 2.5 H (1.6-2.3) mg/dL Microbiology - Last 24 Hours (Table) 11/04/16 08:21 Gram Stain - Final Sputum Sputum Culture - Final Pseudomonas aeruginosa 10/31/16 11:50 Blood Culture - Preliminary Blood No Growth after 120 hours Assessment and Plan Plan: Impression: #1 Acute exacerbation of severe oxygen dependent chronic obstructive pulmonary disease complicated by pseudomonas aeruginosa pneumonia. #2 Acute on chronic hypoxic respiratory failure secondary to above requiring intubation and mechanical ventilatory support on 11/04/2016. #3 Severe pulmonary hypertension, currently on Tyvaso. Being followed at the pulmonary hypertension clinic in the [facility]. #4 End-stage pulmonary disease, initially evaluated for possible lung transplant. #5 Recent non-ST segment elevation myocardial infarction approximately one month ago. Normal coronary arteries. 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 #7 Hydronephrosis with adhesions with subsequent right ureteral stent placement. #8 Osteoporosis. #9 Hiatal hernia. #10 Depression with recent loss of her in March 2016. #11 40 year smoking history, quit in January 2015. #12 Hyperlipidemia. #13 Poor overall functional performance based on the above-mentioned multiple comorbidities. Plan: The patient was seen and evaluated by Dr. Albarran. Her chest x-ray and ABGs, micro- and labs were reviewed. We will go ahead and initiate Levaquin. She would most likely require long-term ventilatory support and subsequent tracheostomy and PEG tube placement. We will consult Dr. Hunt. In the interim, we'll continue with full supportive care. We'll continue her pulmonary medications. We'll repeat her chest x-ray and ABGs in the a.m. We'll continue to follow. We did have another lengthy conversation with the son who is at the bedside and at this point he does want to proceed with trach and PEG. Critical care time 33 minutes. Time with Patient: Greater than 30
[2016-11-06] MEDS: CALCIUM CARBONATE 500 MG CHEWABLE PO SCH (12:00)
[2016-11-06] MEDS ORDERED: LEVOFLOXACIN 750MG-D5W PMX 750 MG in DEXTROSE/WATER 1 150ML.BAG IVPB SCH (12:00)
[2016-11-06 12:14] LABS: Glucose,Whole Blood 179 mg/dL (75-99)
--- NOTE | 2016-11-06 12:28 | US ---
EXAMINATION TYPE: US venous doppler duplex UE RT DATE OF EXAM: 11/06/2016 COMPARISON: NONE CLINICAL HISTORY: 61-year-old female r/o DVT. Right arm swelling, patient on a vent, exam done portab le in ICU SIDE PERFORMED: Right FINDINGS: Grayscale, color Doppler, and spectral Doppler imaging of the right upper extremity veins without and with compression including the internal jugular vein, subclavian, axillary, brachial, cephalic, basi lic, and paired radial/ulnar veins. Right Arm: Appears negative for DVT IMPRESSION: No evidence for DVT within the right lower extremity.
--- NOTE | 2016-11-06 12:30 | P.PN ---
Subjective Principal diagnosis: Patient remains on the ventilator. Tube feedings per NG tube. Patient not responsive to communications sedated at this point. Had discussion with son regarding continuation of care. Decision has been made to do tracheostomy and PEG tube Objective - Vital Signs Vital signs: Vital Signs Temp 98.8 F 11/06/16 08:00 Pulse 116 H 11/06/16 11:37 Resp 20 11/06/16 11:00 BP 144/78 11/06/16 11:00 Pulse Ox 93 L 11/06/16 11:00 Intake & Output 11/05/16 11/06/16 11/06/16 18:59 06:59 18:59 Intake Total 2050.041 9683.122 542.07 Output Total 615 565 215 Balance 834.321 1052.122 327.07 Weight 70.2 kg 70.1 kg Intake: IV 1200 1200 400 Sodium Chloride 0.9% 1, 1200 1200 400 000 ml @ 100 mls/hr IV . Q10H [facility] Rx#:[id number] Intake, IV Titration 165.765 291.122 102.07 Amount Propofol 500 mg In Empty 165.765 291.122 102.07 Bag 1 bag @ Titrate IV . Q0M [facility] Rx#:[id number] Oral 240 Tube Feeding 180 40 Other 90 Output: Urine 615 565 215 Other: Voiding Method Indwelling Catheter Indwelling Catheter Indwelling Catheter # Voids 45 - Constitutional General appearance: Present: mild distress - EENT EENT Comment(s): Remains intubated with nasogastric tube in place Eyes: Present: PERRLA - Neck Neck: Present: normal ROM - Respiratory Respiratory: bilateral: diminished, wheezing - Cardiovascular Rhythm: regular - Gastrointestinal General gastrointestinal: Present: soft - Integumentary Integumentary: Present: normal - Musculoskeletal Musculoskeletal: Present: generalized weakness - Psychiatric Psychiatric Comment(s): sedated unable to evaluate level of consciousness - Labs CBC & Chem 7: 11/06/16 05:22 11/06/16 05:22 Labs: Abnormal Lab Results - Last 24 Hours (Table) 11/05/16 11/06/16 11/06/16 Range/Units 18:08 00:14 04:27 WBC (3.8-10.6) k/uL RBC (3.80-5.40) m/uL Hgb (11.4-16.0) gm/dL Hct (34.0-46.0) % Neutrophils # (1.3-7.7) k/uL Lymphocytes # (1.0-4.8) k/uL ABG pH 7.27 L (7.35-7.45) ABG pCO2 69 H (35-45) mmHg ABG pO2 78 L (83-108) mmHg ABG HCO3 31 H (21-25) mmol/L ABG Total CO2 33 H (19-24) mmol/L ABG O2 Saturation 93.0 L (94-97) % Sodium (137-145) mmol/L Chloride (98-107) mmol/L Carbon Dioxide (22-30) mmol/L BUN (7-17) mg/dL Glucose (74-99) mg/dL POC Glucose (mg/dL) 153 H 162 H (75-99) mg/dL Calcium (8.4-10.2) mg/dL Phosphorus (2.5-4.5) mg/dL Magnesium (1.6-2.3) mg/dL 11/06/16 11/06/16 11/06/16 Range/Units 05:05 05:22 05:22 WBC 13.0 H (3.8-10.6) k/uL RBC 3.24 L (3.80-5.40) m/uL Hgb 9.5 L (11.4-16.0) gm/dL Hct 30.5 L (34.0-46.0) % Neutrophils # 12.0 H (1.3-7.7) k/uL Lymphocytes # 0.4 L (1.0-4.8) k/uL ABG pH (7.35-7.45) ABG pCO2 (35-45) mmHg ABG pO2 (83-108) mmHg ABG HCO3 (21-25) mmol/L ABG Total CO2 (19-24) mmol/L ABG O2 Saturation (94-97) % Sodium 147 H (137-145) mmol/L Chloride 111 H (98-107) mmol/L Carbon Dioxide 31 H (22-30) mmol/L BUN 24 H (7-17) mg/dL Glucose 154 H (74-99) mg/dL POC Glucose (mg/dL) 154 H (75-99) mg/dL Calcium 7.8 L (8.4-10.2) mg/dL Phosphorus 1.9 L (2.5-4.5) mg/dL Magnesium 2.5 H (1.6-2.3) mg/dL 11/06/16 Range/Units 07:38 WBC (3.8-10.6) k/uL RBC (3.80-5.40) m/uL Hgb (11.4-16.0) gm/dL Hct (34.0-46.0) % Neutrophils # (1.3-7.7) k/uL Lymphocytes # (1.0-4.8) k/uL ABG pH (7.35-7.45) ABG pCO2 (35-45) mmHg ABG pO2 (83-108) mmHg ABG HCO3 (21-25) mmol/L ABG Total CO2 (19-24) mmol/L ABG O2 Saturation (94-97) % Sodium (137-145) mmol/L Chloride (98-107) mmol/L Carbon Dioxide (22-30) mmol/L BUN (7-17) mg/dL Glucose (74-99) mg/dL POC Glucose (mg/dL) 162 H (75-99) mg/dL Calcium (8.4-10.2) mg/dL Phosphorus (2.5-4.5) mg/dL Magnesium (1.6-2.3) mg/dL Microbiology - Last 24 Hours (Table) 11/04/16 08:21 Gram Stain - Final Sputum Sputum Culture - Final Pseudomonas aeruginosa 10/31/16 11:50 Blood Culture - Preliminary Blood No Growth after 120 hours - Imaging and Cardiology Chest x-ray: report reviewed Assessment and Plan Plan: assessment COPD acute exacerbation end stage respiratory failure.acute purulent tracheobronchitis evaluated for lung transplant.Chronic hypoxic respiratory failure requring intubation and vent support Severe pulmonary hypertension CHF chronic systolic dysfunction EF 25% depression grief reaction Plan Peg tube and tracheostomy continue supportive care
--- NOTE | 2016-11-06 12:36 | P.GSCN ---
History of Present Illness Consult date: 11/06/16 Reason for Consult: Need for tracheostomy and PEG tube placement Requesting physician: Abner Albarran History of present illness: This 61 year old female with previous medical history of pulmonary hypertension , end stage COPD, hiatal hernia, esophagitis, precancerous colonic tumor with bowel resection, cardiomyopathy with LV dysfunctionand ejection fraction 25%, chronic hypoxic respiratory failure, recent myocardial infarction, depression over recent of her , and consideration for transplantation was recently admitted for COPD exacerbation, returned home, and began developing increasing shortness of breath, intermittent coughing, wheezing, productive yellow phlegm, and low grade fever. She was admitted for acute COPD exacerbation and treated with IV steroids and antibiotics. Despite treatment, she decompensated requiring mechanical ventilation. Weaning trials have been unsuccessful. Discussion was had with the family by Dr. Albarran regarding the need for tracheostomy and peg tube placement. The family is unsure at this time if the patient would want this form of treatment.Dr. Hunt was consulted for possible placement. Review of Systems ROS unobtainable: due to endotracheal tube, due to mental status Past Medical History Past Medical History: COPD, Respiratory Disorder Additional Past Medical History / Comment(s): primary versus secondary pulmonary hypertension-currently on tyvaso treatments-has had some work-up done to be on lung transplant list thru [facility], home O2 at 3L/NC ATC, dysphagia- feels like food gets caught in low end esophagus-she drinks a gulp of water to force food down_pt stated eentually she will have some work up on h[facility] ), hiatal hernia, esophagitis, precancerous colonic tumor with sx, hydronephrosis with adhesions resolved with surgery/stent, adrenal lesion/ adenoma being monitored, osteoporosis. History of Any Multi-Drug Resistant Organisms: None Reported Past Surgical History: Bladder Surgery, Bowel Resection, Heart Catheterization, Tonsillectomy, Tubal Ligation Additional Past Surgical History / Comment(s): colonoscopies, sigmoidoscopy, EGD , hemorrhoidectomy, breast bx x 2 pt does not recall laterality, bowel resection with ileostomy, ILLEOSTOMY REVERSAL 01/18/14, cystoscopy with R ureteral stent. Past Anesthesia/Blood Transfusion Reactions: Family History of Problems w/ Anesthesia Additional Past Anesthesia/Blood Transfusion Reaction / Comm: SISTER WAS AWARE OF SURROUNDINGS WITH ANESTHESIA Smoking Status: Former smoker - Past Family History Father Family Medical History: COPD, Myocardial Infarction ([place]) Additional Family Medical History / Comment(s): Father had severe COPD. He of a [place] at the age of 69yrs. Mother Family Medical History: Deep Vein Thrombosis (DVT), Pulmonary Embolus Additional Family Medical History / Comment(s): "BRAIN CLOT" Sister(s) Family Medical History: Deep Vein Thrombosis (DVT), Pulmonary Embolus Additional Family Medical History / Comment(s): Pt is from a large family (18 children) and there is alot of DVT's and cerebral thrombosis in the family. Several family members have cardiolipin antibody. Medications and Allergies Home Medications Medication Instructions Recorded Confirmed Type Montelukast Sodium 10 mg PO HS 02/07/15 10/31/16 History buPROPion SR [Wellbutrin SR] 150 mg PO BID 02/21/15 10/31/16 History Albuterol Inhaler [Ventolin Hfa 1 puff INHALATION RT-Q4H PRN 11/28/15 10/31/16 History Inhaler] Alendronate Sodium [Fosamax] 70 mg PO WE 11/28/15 10/31/16 History Budesonide-Formot 160-4.5 Mcg 2 puff INHALATION RT-BID 11/28/15 10/31/16 History [Symbicort 160-4.5 Mcg Inhaler] Calcium Carbonate [Calcium] 900 mg PO DAILY 11/28/15 10/31/16 History Cholecalciferol [Vitamin D3] 1,000 unit PO DAILY 11/28/15 10/31/16 History Levocetirizine Dihydrochloride 5 mg PO QAM 11/28/15 10/31/16 History Tiotropium [place] [Spiriva] 1 cap INHALATION RT-DAILY 11/28/15 10/31/16 History Tyvaso 9 puff INHALATION RT-QID 11/28/15 10/31/16 History ALPRAZolam [Xanax] 1 mg PO TID 10/31/16 10/31/16 History Allergies Allergy/AdvReac Type Severity Reaction Status Date / Time latex Allergy Unknown Rash/Hives Verified 10/31/16 12:15 nickel [Nickel] Allergy Unknown Rash/Hives Verified 10/31/16 12:15 nitrofurantoin Allergy Unknown Rash/Hives Verified 10/31/16 12:15 macrocrystalline [From Macrodantin] Penicillins Allergy Unknown Rash/Hives Verified 10/31/16 12:15 Surgical - Exam Vital Signs Temp Pulse Resp BP Pulse Ox 98.3 F 99 26 H 114/66 70 L 10/31/16 11:34 10/31/16 11:34 10/31/16 11:34 10/31/16 11:34 10/31/16 11:34 - General Intubated on mechanical ventilation. cachectic - Neck trachea midline - Respiratory Currently on mechanical ventilation, CPAP mode, FIO2 35%, Ipap 8, Epap 5 bilateral: dullness - Cardiovascular Tachycardic rate, regular rhythm, sinus tach on telemetry. Rhythm: regular Heart Sounds: normal: S1, S2 - Abdomen OGT present Abdomen: soft, non tender, bowel sounds - Genitourinary [place] present draining clear, yellow urine. - Rectum deferred Results - Labs 11/06/16 05:22 11/06/16 05:22 Abnormal Lab Results - Last 24 Hours (Table) 11/05/16 11/05/16 11/06/16 Range/Units 11:55 18:08 00:14 WBC (3.8-10.6) k/uL RBC (3.80-5.40) m/uL Hgb (11.4-16.0) gm/dL Hct (34.0-46.0) % Neutrophils # (1.3-7.7) k/uL Lymphocytes # (1.0-4.8) k/uL ABG pH (7.35-7.45) ABG pCO2 (35-45) mmHg ABG pO2 (83-108) mmHg ABG HCO3 (21-25) mmol/L ABG Total CO2 (19-24) mmol/L ABG O2 Saturation (94-97) % Sodium (137-145) mmol/L Chloride (98-107) mmol/L Carbon Dioxide (22-30) mmol/L BUN (7-17) mg/dL Glucose (74-99) mg/dL POC Glucose (mg/dL) 139 H 153 H 162 H (75-99) mg/dL Calcium (8.4-10.2) mg/dL Phosphorus (2.5-4.5) mg/dL Magnesium (1.6-2.3) mg/dL 11/06/16 11/06/16 11/06/16 Range/Units 04:27 05:05 05:22 WBC 13.0 H (3.8-10.6) k/uL RBC 3.24 L (3.80-5.40) m/uL Hgb 9.5 L (11.4-16.0) gm/dL Hct 30.5 L (34.0-46.0) % Neutrophils # 12.0 H (1.3-7.7) k/uL Lymphocytes # 0.4 L (1.0-4.8) k/uL ABG pH 7.27 L (7.35-7.45) ABG pCO2 69 H (35-45) mmHg ABG pO2 78 L (83-108) mmHg ABG HCO3 31 H (21-25) mmol/L ABG Total CO2 33 H (19-24) mmol/L ABG O2 Saturation 93.0 L (94-97) % Sodium (137-145) mmol/L Chloride (98-107) mmol/L Carbon Dioxide (22-30) mmol/L BUN (7-17) mg/dL Glucose (74-99) mg/dL POC Glucose (mg/dL) 154 H (75-99) mg/dL Calcium (8.4-10.2) mg/dL Phosphorus (2.5-4.5) mg/dL Magnesium (1.6-2.3) mg/dL 11/06/16 11/06/16 Range/Units 05:22 07:38 WBC (3.8-10.6) k/uL RBC (3.80-5.40) m/uL Hgb (11.4-16.0) gm/dL Hct (34.0-46.0) % Neutrophils # (1.3-7.7) k/uL Lymphocytes # (1.0-4.8) k/uL ABG pH (7.35-7.45) ABG pCO2 (35-45) mmHg ABG pO2 (83-108) mmHg ABG HCO3 (21-25) mmol/L ABG Total CO2 (19-24) mmol/L ABG O2 Saturation (94-97) % Sodium 147 H (137-145) mmol/L Chloride 111 H (98-107) mmol/L Carbon Dioxide 31 H (22-30) mmol/L BUN 24 H (7-17) mg/dL Glucose 154 H (74-99) mg/dL POC Glucose (mg/dL) 162 H (75-99) mg/dL Calcium 7.8 L (8.4-10.2) mg/dL Phosphorus 1.9 L (2.5-4.5) mg/dL Magnesium 2.5 H (1.6-2.3) mg/dL Microbiology - Last 24 Hours (Table) 11/04/16 08:21 Gram Stain - Final Sputum Sputum Culture - Final Pseudomonas aeruginosa 10/31/16 11:50 Blood Culture - Preliminary Blood No Growth after 120 hours Diabetes panel 11/06/16 Range/Units 05:22 Sodium 147 H (137-145) mmol/L Potassium 4.3 (3.5-5.1) mmol/L Chloride 111 H (98-107) mmol/L Carbon Dioxide 31 H (22-30) mmol/L BUN 24 H (7-17) mg/dL Creatinine 0.66 (0.52-1.04) mg/dL Glucose 154 H (74-99) mg/dL Calcium 7.8 L (8.4-10.2) mg/dL Calcium panel 11/06/16 Range/Units 05:22 Calcium 7.8 L (8.4-10.2) mg/dL Phosphorus 1.9 L (2.5-4.5) mg/dL Pituitary panel 11/06/16 Range/Units 05:22 Sodium 147 H (137-145) mmol/L Potassium 4.3 (3.5-5.1) mmol/L Chloride 111 H (98-107) mmol/L Carbon Dioxide 31 H (22-30) mmol/L BUN 24 H (7-17) mg/dL Creatinine 0.66 (0.52-1.04) mg/dL Glucose 154 H (74-99) mg/dL Calcium 7.8 L (8.4-10.2) mg/dL Adrenal panel 11/06/16 Range/Units 05:22 Sodium 147 H (137-145) mmol/L Potassium 4.3 (3.5-5.1) mmol/L Chloride 111 H (98-107) mmol/L Carbon Dioxide 31 H (22-30) mmol/L BUN 24 H (7-17) mg/dL Creatinine 0.66 (0.52-1.04) mg/dL Glucose 154 H (74-99) mg/dL Calcium 7.8 L (8.4-10.2) mg/dL - Imaging Chest x-ray: report reviewed, image reviewed Assessment and Plan (1) Acute exacerbation of chronic obstructive airways disease Status: Acute (2) Pulmonary arterial hypertension Status: Acute Plan: The patient was seen and examined. Chart/diagnostics reviewed. Medical management per primary care/pulmonology service. Case will be discussed with Dr. Hunt. Will wait for family decision to board patient. Thank you Dr. Albarran for the consult. We look forward to working with you in the care of your patient. Time with Patient: Greater than 30
[2016-11-06 16:24] VITALS: TEMP 99.6
--- NOTE | 2016-11-06 17:02 | P.GSCN ---
History of Present Illness Consult date: 11/06/16 Reason for Consult: Tracheostomy and PEG tube placement History of present illness: This a 59-year-old female who has end-stage COPD. Patient apparently is on a little lung transplant list. Patient has ICU admission for pneumonia and bronchitis. Dr. Albarran is requiring tracheostomy tube and PEG tube for further care. Past Medical History Past Medical History: COPD, Respiratory Disorder Additional Past Medical History / Comment(s): primary versus secondary pulmonary hypertension-currently on tyvaso treatments-has had some work-up done to be on lung transplant list thru [facility], home O2 at 3L/[place] ATC, dysphagia- feels like food gets caught in low end esophagus-she drinks a gulp of water to force food down_pt stated eentually she will have some work up on h[facility] at [facility] ), hiatal hernia, esophagitis, precancerous colonic tumor with sx, hydronephrosis with adhesions resolved with surgery/stent, adrenal lesion/ adenoma being monitored, osteoporosis. History of Any Multi-Drug Resistant Organisms: None Reported Past Surgical History: Bladder Surgery, Bowel Resection, Heart Catheterization, Tonsillectomy, Tubal Ligation Additional Past Surgical History / Comment(s): colonoscopies, sigmoidoscopy, EGD , hemorrhoidectomy, breast bx x 2 pt does not recall laterality, bowel resection with ileostomy, ILLEOSTOMY REVERSAL 01/18/14, cystoscopy with R ureteral stent. Past Anesthesia/Blood Transfusion Reactions: Family History of Problems w/ Anesthesia Additional Past Anesthesia/Blood Transfusion Reaction / Comm: SISTER WAS AWARE OF SURROUNDINGS WITH ANESTHESIA Smoking Status: Former smoker - Past Family History Father Family Medical History: COPD, Myocardial Infarction ([place]) Additional Family Medical History / Comment(s): Father had severe COPD. He of a [place] at the age of 69yrs. Mother Family Medical History: Deep Vein Thrombosis (DVT), Pulmonary Embolus Additional Family Medical History / Comment(s): "BRAIN CLOT" Sister(s) Family Medical History: Deep Vein Thrombosis (DVT), Pulmonary Embolus Additional Family Medical History / Comment(s): Pt is from a large family (18 children) and there is alot of DVT's and cerebral thrombosis in the family. Several family members have cardiolipin antibody. Medications and Allergies Home Medications Medication Instructions Recorded Confirmed Type Montelukast Sodium 10 mg PO HS 02/07/15 10/31/16 History buPROPion SR [Wellbutrin SR] 150 mg PO BID 02/21/15 10/31/16 History Albuterol Inhaler [Ventolin Hfa 1 puff INHALATION RT-Q4H PRN 11/28/15 10/31/16 History Inhaler] Alendronate Sodium [Fosamax] 70 mg PO WE 11/28/15 10/31/16 History Budesonide-Formot 160-4.5 Mcg 2 puff INHALATION RT-BID 11/28/15 10/31/16 History [Symbicort 160-4.5 Mcg Inhaler] Calcium Carbonate [Calcium] 900 mg PO DAILY 11/28/15 10/31/16 History Cholecalciferol [Vitamin D3] 1,000 unit PO DAILY 11/28/15 10/31/16 History Levocetirizine Dihydrochloride 5 mg PO QAM 11/28/15 10/31/16 History Tiotropium [place] [Spiriva] 1 cap INHALATION RT-DAILY 11/28/15 10/31/16 History Tyvaso 9 puff INHALATION RT-QID 11/28/15 10/31/16 History ALPRAZolam [Xanax] 1 mg PO TID 10/31/16 10/31/16 History Allergies Allergy/AdvReac Type Severity Reaction Status Date / Time latex Allergy Unknown Rash/Hives Verified 10/31/16 12:15 nickel [Nickel] Allergy Unknown Rash/Hives Verified 10/31/16 12:15 nitrofurantoin Allergy Unknown Rash/Hives Verified 10/31/16 12:15 macrocrystalline [From Macrodantin] Penicillins Allergy Unknown Rash/Hives Verified 10/31/16 12:15 Surgical - Exam Vital Signs Temp Pulse Resp BP Pulse Ox 98.3 F 99 26 H 114/66 70 L 10/31/16 11:34 10/31/16 11:34 10/31/16 11:34 10/31/16 11:34 10/31/16 11:34 - General On ventilator well developed, no distress - Abdomen Abdomen: soft, non tender Results - Labs 11/06/16 05:22 11/06/16 05:22 Abnormal Lab Results - Last 24 Hours (Table) 11/05/16 11/06/16 11/06/16 Range/Units 18:08 00:14 04:27 WBC (3.8-10.6) k/uL RBC (3.80-5.40) m/uL Hgb (11.4-16.0) gm/dL Hct (34.0-46.0) % Neutrophils # (1.3-7.7) k/uL Lymphocytes # (1.0-4.8) k/uL ABG pH 7.27 L (7.35-7.45) ABG pCO2 69 H (35-45) mmHg ABG pO2 78 L (83-108) mmHg ABG HCO3 31 H (21-25) mmol/L ABG Total CO2 33 H (19-24) mmol/L ABG O2 Saturation 93.0 L (94-97) % Sodium (137-145) mmol/L Chloride (98-107) mmol/L Carbon Dioxide (22-30) mmol/L BUN (7-17) mg/dL Glucose (74-99) mg/dL POC Glucose (mg/dL) 153 H 162 H (75-99) mg/dL Calcium (8.4-10.2) mg/dL Phosphorus (2.5-4.5) mg/dL Magnesium (1.6-2.3) mg/dL 11/06/16 11/06/16 11/06/16 Range/Units 05:05 05:22 05:22 WBC 13.0 H (3.8-10.6) k/uL RBC 3.24 L (3.80-5.40) m/uL Hgb 9.5 L (11.4-16.0) gm/dL Hct 30.5 L (34.0-46.0) % Neutrophils # 12.0 H (1.3-7.7) k/uL Lymphocytes # 0.4 L (1.0-4.8) k/uL ABG pH (7.35-7.45) ABG pCO2 (35-45) mmHg ABG pO2 (83-108) mmHg ABG HCO3 (21-25) mmol/L ABG Total CO2 (19-24) mmol/L ABG O2 Saturation (94-97) % Sodium 147 H (137-145) mmol/L Chloride 111 H (98-107) mmol/L Carbon Dioxide 31 H (22-30) mmol/L BUN 24 H (7-17) mg/dL Glucose 154 H (74-99) mg/dL POC Glucose (mg/dL) 154 H (75-99) mg/dL Calcium 7.8 L (8.4-10.2) mg/dL Phosphorus 1.9 L (2.5-4.5) mg/dL Magnesium 2.5 H (1.6-2.3) mg/dL 11/06/16 11/06/16 Range/Units 07:38 12:12 WBC (3.8-10.6) k/uL RBC (3.80-5.40) m/uL Hgb (11.4-16.0) gm/dL Hct (34.0-46.0) % Neutrophils # (1.3-7.7) k/uL Lymphocytes # (1.0-4.8) k/uL ABG pH (7.35-7.45) ABG pCO2 (35-45) mmHg ABG pO2 (83-108) mmHg ABG HCO3 (21-25) mmol/L ABG Total CO2 (19-24) mmol/L ABG O2 Saturation (94-97) % Sodium (137-145) mmol/L Chloride (98-107) mmol/L Carbon Dioxide (22-30) mmol/L BUN (7-17) mg/dL Glucose (74-99) mg/dL POC Glucose (mg/dL) 162 H 179 H (75-99) mg/dL Calcium (8.4-10.2) mg/dL Phosphorus (2.5-4.5) mg/dL Magnesium (1.6-2.3) mg/dL Microbiology - Last 24 Hours (Table) 10/31/16 11:50 Blood Culture - Final Blood No Growth after 144 hours 11/04/16 08:21 Gram Stain - Final Sputum Sputum Culture - Final Pseudomonas aeruginosa Diabetes panel 11/06/16 Range/Units 05:22 Sodium 147 H (137-145) mmol/L Potassium 4.3 (3.5-5.1) mmol/L Chloride 111 H (98-107) mmol/L Carbon Dioxide 31 H (22-30) mmol/L BUN 24 H (7-17) mg/dL Creatinine 0.66 (0.52-1.04) mg/dL Glucose 154 H (74-99) mg/dL Calcium 7.8 L (8.4-10.2) mg/dL Calcium panel 11/06/16 Range/Units 05:22 Calcium 7.8 L (8.4-10.2) mg/dL Phosphorus 1.9 L (2.5-4.5) mg/dL Pituitary panel 11/06/16 Range/Units 05:22 Sodium 147 H (137-145) mmol/L Potassium 4.3 (3.5-5.1) mmol/L Chloride 111 H (98-107) mmol/L Carbon Dioxide 31 H (22-30) mmol/L BUN 24 H (7-17) mg/dL Creatinine 0.66 (0.52-1.04) mg/dL Glucose 154 H (74-99) mg/dL Calcium 7.8 L (8.4-10.2) mg/dL Adrenal panel 11/06/16 Range/Units 05:22 Sodium 147 H (137-145) mmol/L Potassium 4.3 (3.5-5.1) mmol/L Chloride 111 H (98-107) mmol/L Carbon Dioxide 31 H (22-30) mmol/L BUN 24 H (7-17) mg/dL Creatinine 0.66 (0.52-1.04) mg/dL Glucose 154 H (74-99) mg/dL Calcium 7.8 L (8.4-10.2) mg/dL Assessment and Plan Plan: She'll be scheduled for tracheostomy and PEG tube placement in the a.m.
[2016-11-06 18:25] LABS: Glucose,Whole Blood 157 mg/dL (75-99)
[2016-11-06] MEDS ORDERED: MORPHINE SULFATE 4 MG/ML SYRINGE IV PRN (19:47)
[2016-11-06] MEDS ORDERED: LORazepam 2 MG/ML SYRINGE IV PRN (19:47)
[2016-11-06] MEDS ORDERED: MORPHINE SULFATE (100 MG/2 ML) 100 MG in SODIUM CHLORIDE 0.9% 100 ML IV SCH (20:00)
[2016-11-06 21:26] VITALS: BP 129/77; PULSE 114; RESP 27
--- NOTE | 2016-11-07 11:06 | P.DS ---
Providers Date of admission: 10/31/16 14:19 Expected date of discharge: 11/06/16 Attending physician: Cristobal Ramsey Consults: 10/31/16 14:19 Consult Physician Routine Consulting Provider: Tristan Pabon Consult Reason/Comments: ICU management Do you want consulting provider notified?: Yes, Notify in am Primary care physician: Cristobal Ramsey [facility] Course: 61-year-old female was admitted through the emergency room with complaints of increasing shortness of breath patient has history of end-stage renal failure was recently on lung transplant was with [facility]. Also suffers from severe pulmonary hypertension with congestive heart failure ejection fraction of 25% systolic dysfunction. Patient was intubated and on a mechanical ventilation support for acute on chronic hypoxic hypercapnic respiratory failure. Decision was made by family to and mechanical ventilation patient was extubated and transferred to hospice Assessment Chronic obstructive pulmonary disease acute exacerbation with acute on purulent tracheobronchitis end-stage rest for a failure recent candidate for lung transplant Hyponatremia Severe pulmonary hypertension Acute on chronic hypoxic hypercapnic rest trach failure requiring intubation and mechanical ventilatory support Congestive heart failure ejection fraction 25% systolic dysfunction chronic Depression and grief reaction Plan Family decision made to extubate patient was transferred to hospice Patient Condition at Discharge: Serious Plan - Discharge Summary New Discharge Prescriptions: No Action Montelukast Sodium 10 mg PO HS buPROPion SR [Wellbutrin SR] 150 mg PO BID Levocetirizine Dihydrochloride 5 mg PO QAM Tyvaso 9 puff INHALATION RT-QID Tiotropium [place] [Spiriva] 1 cap INHALATION RT-DAILY Cholecalciferol [Vitamin D3] 1,000 unit PO DAILY Calcium Carbonate [Calcium] 900 mg PO DAILY Budesonide-Formot 160-4.5 Mcg [Symbicort 160-4.5 Mcg Inhaler] 2 puff INHALATION RT-BID Alendronate Sodium [Fosamax] 70 mg PO WE Albuterol Inhaler [Ventolin Hfa Inhaler] 1 puff INHALATION RT-Q4H PRN PRN Reason: Shortness Of Breath Or Wheezing Atorvastatin [Lipitor] 80 mg PO DAILY #60 tab Ipratropium-Albuterol Nebulize [Duoneb 0.5 mg-3 mg/3 ml Soln] 3 ml INHALATION RT-Q4H PRN #0 ampul.neb PRN Reason: Shortness Of Breath Or Wheezing Metoprolol Tartrate [Lopressor] 12.5 mg PO BID #60 tab Furosemide [Lasix] 40 mg PO DAILY #60 tab ALPRAZolam [Xanax] 1 mg PO TID Discharge Medication List Montelukast Sodium 10 mg PO HS 02/07/15 [History] buPROPion SR [Wellbutrin SR] 150 mg PO BID 02/21/15 [History] Albuterol Inhaler [Ventolin Hfa Inhaler] 1 puff INHALATION RT-Q4H PRN 11/28/15 [ History] Alendronate Sodium [Fosamax] 70 mg PO WE 11/28/15 [History] Budesonide-Formot 160-4.5 Mcg [Symbicort 160-4.5 Mcg Inhaler] 2 puff INHALATION RT-BID 11/28/15 [History] Calcium Carbonate [Calcium] 900 mg PO DAILY 11/28/15 [History] Cholecalciferol [Vitamin D3] 1,000 unit PO DAILY 11/28/15 [History] Levocetirizine Dihydrochloride 5 mg PO QAM 11/28/15 [History] Tiotropium [place] [Spiriva] 1 cap INHALATION RT-DAILY 11/28/15 [History] Tyvaso 9 puff INHALATION RT-QID 11/28/15 [History] Atorvastatin [Lipitor] 80 mg PO DAILY #60 tab 08/28/16 [Rx] Ipratropium-Albuterol Nebulize [Duoneb 0.5 mg-3 mg/3 ml Soln] 3 ml INHALATION RT -Q4H PRN #0 ampul.neb 08/28/16 [Rx] Metoprolol Tartrate [Lopressor] 12.5 mg PO BID #60 tab 08/28/16 [Rx] Furosemide [Lasix] 40 mg PO DAILY #60 tab 09/28/16 [Rx] ALPRAZolam [Xanax] 1 mg PO TID 10/31/16 [History] Follow up Appointment(s)/Referral(s): Cristobal Ramsey MD [Primary Care Provider] - 1-2 days Discharge Disposition: [facility] TO [facility]
== END 2016-11-06 21:39 | disposition hospice, inpatient (51) | DRG 208 ==
LOC: EC 11:32 → 6SEL 14:19 → 5MS5E 11-03 22:45 → 6ICU 11-03 22:49
PROVIDERS: ADMIT Family Medicine; ATTEND Family Medicine
PROC: 0BH17EZ Insertion of Endotracheal Airway into Trachea, Via Natural or Artificial Opening (ICD-10-PCS; principal; 2016-11-04)
PROC: 5A1945Z Respiratory Ventilation, 24-96 Consecutive Hours (ICD-10-PCS; 2016-11-04)
PROC: 0DH67UZ Insertion of Feeding Device into Stomach, Via Natural or Artificial Opening (ICD-10-PCS; 2016-11-04)
PROC: 3E0G76Z Introduction of Nutritional Substance into Upper GI, Via Natural or Artificial Opening (ICD-10-PCS; 2016-11-05)
DX: J44.0 Chronic obstructive pulmonary disease with (acute) lower respiratory infection (principal); J96.21 Acute and chronic respiratory failure with hypoxia; J96.22 Acute and chronic respiratory failure with hypercapnia; J15.1 Pneumonia due to Pseudomonas; N18.6 End stage renal disease; E87.2 Acidosis; I42.9 Cardiomyopathy, unspecified; I50.22 Chronic systolic (congestive) heart failure; E87.1 Hypo-osmolality and hyponatremia; N13.30 Unspecified hydronephrosis; Z51.5 Encounter for palliative care; J44.1 Chronic obstructive pulmonary disease with (acute) exacerbation; I27.2 Other secondary pulmonary hypertension; I95.9 Hypotension, unspecified; F43.20 Adjustment disorder, unspecified; R13.10 Dysphagia, unspecified; F32.9 Major depressive disorder, single episode, unspecified; K44.9 Diaphragmatic hernia without obstruction or gangrene; K20.9 Esophagitis, unspecified; I25.2 Old myocardial infarction; M81.0 Age-related osteoporosis without current pathological fracture; E27.9 Disorder of adrenal gland, unspecified; E78.5 Hyperlipidemia, unspecified; Z99.81 Dependence on supplemental oxygen; Z87.891 Personal history of nicotine dependence; Z90.49 Acquired absence of other specified parts of digestive tract; Z79.51 Long term (current) use of inhaled steroids; Z79.83 Long term (current) use of bisphosphonates; Z79.899 Other long term (current) drug therapy; Z88.0 Allergy status to penicillin; Z88.8 Allergy status to other drugs, medicaments and biological substances; Z88.9 Allergy status to unspecified drugs, medicaments and biological substances; Z91.040 Latex allergy status; Z82.5 Family history of asthma and other chronic lower respiratory diseases
CPT/HCPCS: 36415; 36600; 71010; 80048; 80053; 81003; 82550; 82553; 82805; 83036; 83605; 83735; 84100; 84484; 85025; 85610; 85730; 87040; 87070; 87077; 87086; 87186; 87205; 93005; 94002; 94003; 94640; 94660; 94760; 96361; 96374; 99291

== ENCOUNTER 2016-11-06 21:42 | Inpatient (IN) | payer MEDICAID ==
[2016-11-06] MEDS ORDERED: SCOPOLAMINE 1.5MG/72HR PATCH TRANSDERM PRN (21:57)
[2016-11-06] MEDS ORDERED: LORazepam 2 MG/ML SYRINGE IV PRN (21:57)
[2016-11-06] MEDS ORDERED: MORPHINE SULFATE 4 MG/ML SYRINGE IV PRN (21:57)
[2016-11-06] MEDS ORDERED: MORPHINE SULFATE (100 MG/2 ML) 100 MG in SODIUM CHLORIDE 0.9% 100 ML IV SCH (22:00)
[2016-11-06] MEDS ORDERED: SODIUM CHLORIDE 0.9% 1,000 ML IV SCH (22:00)
[2016-11-06] MEDS ORDERED: ATROPINE OPHTH SOLN 1% 5ML BTL SUBLINGUAL PRN (22:05)
[2016-11-06 22:28] VITALS: BMI 24.1
[2016-11-07 01:30] VITALS: BP 139/68; PULSE 96; RESP 22
[2016-11-07] MEDS ORDERED: BISACODYL 10 MG SUPP RECTAL SCH (09:00)
[2016-11-07] MEDS ORDERED: MORPHINE ORAL SOLN 20 MG/1 ML ORAL SYRINGE PO PRN (15:49)
--- NOTE | 2016-11-07 15:59 | P.HPIM ---
History of Present Illness 61-year-old female was discharged from intensive care and placed in hospice care for family decision. Patient has a history of end-stage respiratory failure chronic COPD and the severe pulmonary hypertension Review of Systems Patient nonresponsive and unable to do review systems Past Medical History Past Medical History: COPD, Respiratory Disorder Additional Past Medical History / Comment(s): primary versus secondary pulmonary hypertension-currently on tyvaso treatments-has had some work-up done to be on lung transplant list thru [facility], home O2 at 3L/NC ATC, dysphagia- feels like food gets caught in low end esophagus-she drinks a gulp of water to force food down_pt stated eentually she will have some work up on htis at [facility] ), hiatal hernia, esophagitis, precancerous colonic tumor with sx, hydronephrosis with adhesions resolved with surgery/stent, adrenal lesion/ adenoma being monitored, osteoporosis. History of Any Multi-Drug Resistant Organisms: None Reported Past Surgical History: Bladder Surgery, Bowel Resection, Heart Catheterization, Tonsillectomy, Tubal Ligation Additional Past Surgical History / Comment(s): colonoscopies, sigmoidoscopy, EGD , hemorrhoidectomy, breast bx x 2 pt does not recall laterality, bowel resection with ileostomy, ILLEOSTOMY REVERSAL 01/18/14, cystoscopy with R ureteral stent. Past Anesthesia/Blood Transfusion Reactions: Family History of Problems w/ Anesthesia Additional Past Anesthesia/Blood Transfusion Reaction / Comment(s): SISTER WAS AWARE OF SURROUNDINGS WITH ANESTHESIA Past Psychological History: Depression Additional Psychological History / Comment(s): Pt was started on Wellbutrin to aid in stopping smoking, she decided to stay on it after quitting smoking because she felt better. She has had 3 significant deaths in the past few months-her spouse and her sister and she feels this is likely the source of her increased depression. She denies any suicidal thoughts. She is from a large family of 18 children. She lives at home and assists in the care of her brother who has down's syndrome. Her granddaughter has recently moved in with them to assist as well . She has home oxygen and a nebulizershower chair, pulse ox abd elena devices.pt sleeps in a recliner chair. Pt mentioned that since her spouses her financial status has declined. She stated that she may no longer be able to afford pursuing her lung transplant and once she reaches 64yrs and goes on Medicare, she will not be able to afford her Tyvaso treatments. No home care. Smoking Status: Former smoker - Past Family History Father Family Medical History: COPD, Myocardial Infarction (OK) Additional Family Medical History / Comment(s): Father had severe COPD. He of a OK at the age of 69yrs. Mother Family Medical History: Deep Vein Thrombosis (DVT), Pulmonary Embolus Additional Family Medical History / Comment(s): "BRAIN CLOT" Sister(s) Family Medical History: Deep Vein Thrombosis (DVT), Pulmonary Embolus Additional Family Medical History / Comment(s): Pt is from a large family (18 children) and there is alot of DVT's and cerebral thrombosis in the family. Several family members have cardiolipin antibody. Medications and Allergies Home Medications Medication Instructions Recorded Confirmed Type Albuterol Inhaler [Ventolin Hfa 1 puff INHALATION RT-Q4H PRN 11/28/15 11/06/16 History Inhaler] Levocetirizine Dihydrochloride 5 mg PO QAM 11/28/15 11/06/16 History Tiotropium [place] [Spiriva] 1 cap INHALATION RT-DAILY 11/28/15 11/06/16 History Allergies Allergy/AdvReac Type Severity Reaction Status Date / Time latex Allergy Unknown Rash/Hives Verified 10/31/16 12:15 nickel [Nickel] Allergy Unknown Rash/Hives Verified 10/31/16 12:15 nitrofurantoin Allergy Unknown Rash/Hives Verified 10/31/16 12:15 macrocrystalline [From Macrodantin] Penicillins Allergy Unknown Rash/Hives Verified 10/31/16 12:15 Physical Exam Vitals: Vital Signs Pulse Pulse Resp BP BP Pulse Ox 11/07/16 00:00 96 22 139/68 94 L 11/06/16 23:00 101 H 12 107/68 96 11/06/16 22:00 99 14 129/77 96 11/06/16 21:43 103 H 12 129/77 95 Intake and Output 11/07/16 11/07/16 11/07/16 06:59 14:59 22:59 Output Total 700 Balance -700 Output: Urine 700 Other: Voiding Method Indwelling Catheter - Constitutional General appearance: no acute distress - EENT Eyes: PERRLA Ears: bilateral: normal - Respiratory Diminished agonal respiratory Respiratory: right: rales, bilateral: diminished - Cardiovascular Rhythm: regular - Gastrointestinal General gastrointestinal: soft Localized gastrointestinal: tender: diffuse, RUQ, LUQ - Integumentary Integumentary: normal - Musculoskeletal Musculoskeletal: generalized weakness - Psychiatric non responsive to stimulation Assessment and Plan Plan: Assessment chronic COPD with acute exacerbation end-stage respiratory failure with purulent tracheal bronchitis acute and chronic hypoxic hypercapnia respiratory failure requiring intubation and mechanical ventilatory support extubated at this point congestive heart failure systolic dysfunction ejection fraction 25% depression grief reaction Plan hospice long term
--- NOTE | 2016-11-07 16:02 | P.DS ---
Providers Date of admission: 11/06/16 21:42 Expected date of discharge: 11/07/16 Attending physician: Cristobal Ramsey Primary care physician: Cristobal Ramsey Hospital Course: 61-year-old female was transferred from the intensive care unit to hospice care for family request. Patient is be to be transferred home for hospice care. Assessment end-stage respiratory failure with chronic COPD exacerbation acute purulent tracheal bronchitis acute and chronic hypoxic hypercarbic Respiratory failure requiring intubation extubated at this point congestive heart failure ejection fraction 25% systolic dysfunction severe pulmonary hypertension depression grief reaction Plan discharge home to hospice home care Plan - Discharge Summary New Discharge Prescriptions: New Scopolamine 1.5MG/72Hr Patch [TransDerm Scop] 1 patch TRANSDERM Q72H PRN patch PRN Reason: Secretions Continue Levocetirizine Dihydrochloride 5 mg PO QAM Tiotropium [place] [Spiriva] 1 cap INHALATION RT-DAILY Albuterol Inhaler [Ventolin Hfa Inhaler] 1 puff INHALATION RT-Q4H PRN PRN Reason: Shortness Of Breath Or Wheezing Ipratropium-Albuterol Nebulize [Duoneb 0.5 mg-3 mg/3 ml Soln] 3 ml INHALATION RT-Q4H PRN #0 ampul.neb PRN Reason: Shortness Of Breath Or Wheezing Discontinued Montelukast Sodium 10 mg PO HS buPROPion SR [Wellbutrin SR] 150 mg PO BID Tyvaso 9 puff INHALATION RT-QID Cholecalciferol [Vitamin D3] 1,000 unit PO DAILY Calcium Carbonate [Calcium] 900 mg PO DAILY Budesonide-Formot 160-4.5 Mcg [Symbicort 160-4.5 Mcg Inhaler] 2 puff INHALATION RT-BID Alendronate Sodium [Fosamax] 70 mg PO WE Atorvastatin [Lipitor] 80 mg PO DAILY #60 tab Metoprolol Tartrate [Lopressor] 12.5 mg PO BID #60 tab Furosemide [Lasix] 40 mg PO DAILY #60 tab ALPRAZolam [Xanax] 1 mg PO TID Discharge Medication List Albuterol Inhaler [Ventolin Hfa Inhaler] 1 puff INHALATION RT-Q4H PRN 11/28/15 [ History] Levocetirizine Dihydrochloride 5 mg PO QAM 11/28/15 [History] Tiotropium [place] [Spiriva] 1 cap INHALATION RT-DAILY 11/28/15 [History] Ipratropium-Albuterol Nebulize [Duoneb 0.5 mg-3 mg/3 ml Soln] 3 ml INHALATION RT -Q4H PRN #0 ampul.neb 08/28/16 [Rx] Scopolamine 1.5MG/72Hr Patch [TransDerm Scop] 1 patch TRANSDERM Q72H PRN patch 11/07/16 [Rx] Discharge Disposition: HOME WITH HOSPICE
== END 2016-11-07 18:40 | disposition hospice, home (50) | DRG 190 ==
LOC: 6ICU 21:42 → 5ONC 11-07 00:47
PROVIDERS: ADMIT Family Medicine; ATTEND Family Medicine
PROC: 0T9B70Z Drainage of Bladder with Drainage Device, Via Natural or Artificial Opening (ICD-10-PCS; principal; 2016-11-06)
DX: J44.1 Chronic obstructive pulmonary disease with (acute) exacerbation (principal); J96.22 Acute and chronic respiratory failure with hypercapnia; J96.21 Acute and chronic respiratory failure with hypoxia; I50.20 Unspecified systolic (congestive) heart failure; I27.2 Other secondary pulmonary hypertension; R13.10 Dysphagia, unspecified; Z99.81 Dependence on supplemental oxygen; J44.0 Chronic obstructive pulmonary disease with (acute) lower respiratory infection; Z66 Do not resuscitate; Z51.5 Encounter for palliative care; J20.9 Acute bronchitis, unspecified; K44.9 Diaphragmatic hernia without obstruction or gangrene; K20.9 Esophagitis, unspecified; D35.00 Benign neoplasm of unspecified adrenal gland; R10.11 Right upper quadrant pain; R10.12 Left upper quadrant pain; M81.0 Age-related osteoporosis without current pathological fracture; F32.9 Major depressive disorder, single episode, unspecified; F43.21 Adjustment disorder with depressed mood; R53.1 Weakness; Z82.5 Family history of asthma and other chronic lower respiratory diseases; Z82.49 Family history of ischemic heart disease and other diseases of the circulatory system; Z87.891 Personal history of nicotine dependence; Z82.79 Family history of other congenital malformations, deformations and chromosomal abnormalities; Z87.19 Personal history of other diseases of the digestive system; Z87.448 Personal history of other diseases of urinary system; Z88.1 Allergy status to other antibiotic agents; Z91.040 Latex allergy status; Z88.0 Allergy status to penicillin; Z91.048 Other nonmedicinal substance allergy status; Z79.51 Long term (current) use of inhaled steroids; Z79.899 Other long term (current) drug therapy; Z96.0 Presence of urogenital implants; Z90.49 Acquired absence of other specified parts of digestive tract; Z98.51 Tubal ligation status; Z63.4 Disappearance and death of family member; Z63.6 Dependent relative needing care at home; Z81.0 Family history of intellectual disabilities; Z82.0 Family history of epilepsy and other diseases of the nervous system; Z59.8 Other problems related to housing and economic circumstances
CPT/HCPCS: 94760